=== PATIENT | female | born 1940 | race African-American/Black ===

== ENCOUNTER 2018-11-07 22:36 | Inpatient (IN) | payer MEDICARE, OTHER ==
[~2018-11-07] VITALS: Ht 152.4 cm; Wt 46.0 kg
[2018-11-07] MEDS ORDERED: IV NORMAL SALINE 500ML BAG 500 ML IV ONE (23:30)
--- NOTE | 2018-11-07 23:41 | RAD ---
PQRS Compliance Statement: One or more of the following individualized dose reduction techniques were utilized for this examination: 1. Automated exposure control 2. Adjustment of the mA and/or kV according to patient size 3. Use of iterative reconstruction technique CT HEAD WITHOUT CONTRAST History: head trauma; ams Comparison: CT soft tissue neck without contrast, December 24, 2012. Technique: Axial images are obtained of the head from the skull base through the vertex without IV contrast. Findings: No mass-effect, midline shift, extra-axial fluid collection, hemorrhage, or obvious acute infarction is identified. Basilar cisterns are patent. The ventricles and sulci are normal for patient age. The fourth ventricle is prominent, greater than on prior study. Appearance may be due to cerebellar atrophy. Bone windows demonstrate no acute calvarial abnormality. The visualized paranasal sinuses are clear. Stable low-density tubular opacities in the posterior nasal passageways bilaterally may be polyps. Mastoid air cells are well aerated. IMPRESSION: No acute intracranial abnormality. Electronically signed by: Jose J Kaur MD (11/07/2018 11:37 PM) [facility]
[2018-11-07 23:53] LABS: BASO % 0 % (0-3); EOS % 0 % (0-3); HEMATOCRIT 41.7 % (36.0-47.0); HEMOGLOBIN 13.9 g/dL (12.0-15.5); LYMPH # 0.3 x10^3/uL (1.0-4.8); LYMPH % 5 % (24-48); MEAN CORPUSCULAR HEMOGLOBIN 31 pg (25-35); MEAN CORPUSCULAR HGB CONC 33 g/dL (31-37); MEAN CORPUSCULAR VOLUME 93 fL (79-100); MONO # 0.2 x10^3/uL (0.0-1.1); MONO % 3 % (0-9); NEUT # 5.7 x10^3uL (1.8-7.7); NEUT % 92 % (31-73); PLATELET COUNT 188 x10^3/uL (140-400); RED BLOOD COUNT 4.47 x10^6/uL (3.50-5.40); WHITE BLOOD COUNT 6.2 x10^3/uL (4.0-11.0)
[2018-11-07 23:59] LABS: BILIRUBIN,URINE NEGATIVE (NEG); CLARITY,URINE CLEAR; COLOR,URINE YELLOW; NITRITE,URINE NEGATIVE (NEG); PROTEIN,URINE 100 mg/dL (NEG-TRACE); UROBILINOGEN,URINE 0.2 mg/dL (0.2 mg/dL)
[2018-11-08] VITALS (18 sets, daily range): BP systolic 43–179; BP diastolic 19–77
[2018-11-08 00:04] LABS: WBC,URINE OCC /HPF (0-4)
[2018-11-08 00:05] LABS: AMORPHOUS SEDIMENT,UR PRESENT /HPF; BACTERIA,URINE 0 /HPF (0-FEW); HYALINE CASTS, URINE FEW /HPF; SQUAMOUS EPITHELIAL CELL,UR OCC /LPF
--- NOTE | 2018-11-08 00:12 | PHYS DOC ---
Past Medical History Past Medical History: Asthma, Diabetes-Type II, Other Additional Past Medical Histor: chornic Past Surgical History: Tubal ligation Alcohol Use: None Drug Use: None Adult General Chief Complaint Chief Complaint: SHORTNESS OF BREATH HPI HPI 77-year-old female presents with dyspnea. Family states that she has had increased shortness of breath over the last day or 2. There's been no fever chills or sweats. She has had a bit of a cough but it's been nonproductive. Tonight she became very weak fell and hit her head. She seems to been worse since that time. Patient is really unable to provide any meaningful history secondary to some confusion.[] Review of Systems Review of Systems Review of systems is unobtainable secondary to altered mental status. Current Medications Current Medications Current Medications Medications (Trade) Dose Ordered Sig/Usman Start Time Stop Time Status Last Admin Dose Admin Sodium Chloride 500 ml @ 500 mls/hr 1X ONCE 11/07/18 23:30 11/08/18 00:29 DC 11/07/18 23:44 500 MLS/HR Allergies Allergies Allergies Coded Allergies Type Severity Reaction Last Updated Verified No Known Drug Allergies 06/09/15 No Physical Exam Physical Exam Constitutional: Frail, elderly mild distress. [] HENT: Normocephalic, atraumatic, bilateral external ears normal, oropharynx moist, no oral exudates, nose normal. [] Eyes: PERRLA, EOMI, conjunctiva normal, no discharge. [] Neck: Normal range of motion, no tenderness, supple, no stridor. [] Cardiovascular:Heart rate regular rhythm, no murmur [] Lungs & Thorax: Bilateral breath sounds clear to auscultation [] Abdomen: Bowel sounds normal, soft, no tenderness, no masses, no pulsatile masses. [] Skin: Warm, dry, no erythema, no rash. [] Back: No tenderness, no CVA tenderness. [] Extremities: No tenderness, no cyanosis, no clubbing, ROM intact, no edema. [] Neurologic: Confused, normal motor function, normal sensory function, no focal deficits noted. [] Psychologic: Unable to assess[] Current Patient Data Vital Signs Vital Signs Date Time Temp Pulse Resp B/P (MAP) Pulse Ox O2 Delivery O2 Flow Rate FiO2 11/07/18 23:45 87 38 175/73 (107) 95 Nasal Cannula 2.0 11/07/18 22:41 98.3 98.3 Lab Values Laboratory Tests Test 11/07/18 23:24 11/07/18 23:40 White Blood Count 6.2 x10^3/uL (4.0-11.0) Red Blood Count 4.47 x10^6/uL (3.50-5.40) Hemoglobin 13.9 g/dL (12.0-15.5) Hematocrit 41.7 % (36.0-47.0) Mean Corpuscular Volume 93 fL (79-100) Mean Corpuscular Hemoglobin 31 pg (25-35) Mean Corpuscular Hemoglobin Concent 33 g/dL (31-37) Red Cell Distribution Width 13.0 % (11.5-14.5) Platelet Count 188 x10^3/uL (140-400) Neutrophils (%) (Auto) 92 % (31-73) H Lymphocytes (%) (Auto) 5 % (24-48) L Monocytes (%) (Auto) 3 % (0-9) Eosinophils (%) (Auto) 0 % (0-3) Basophils (%) (Auto) 0 % (0-3) Neutrophils # (Auto) 5.7 x10^3uL (1.8-7.7) Lymphocytes # (Auto) 0.3 x10^3/uL (1.0-4.8) L Monocytes # (Auto) 0.2 x10^3/uL (0.0-1.1) Eosinophils # (Auto) 0.0 x10^3/uL (0.0-0.7) Basophils # (Auto) 0.0 x10^3/uL (0.0-0.2) Platelet Estimate Pending Urine Collection Type U cath Urine Color Yellow Urine Clarity Clear Urine pH 7.0 Urine Specific [place] 1.015 Urine Protein 100 mg/dL (NEG-TRACE) Urine Glucose (UA) Negative mg/dL (NEG) Urine Ketones (Stick) Trace mg/dL (NEG) Urine Blood Trace (NEG) Urine Nitrite Negative (NEG) Urine Bilirubin Negative (NEG) Urine Urobilinogen Dipstick 0.2 mg/dL (0.2 mg/dL) Urine Leukocyte Esterase Negative (NEG) Urine RBC 3-5 /HPF (0-2) Urine WBC Occ /HPF (0-4) Urine Squamous Epithelial Cells Occ /LPF Urine Amorphous Sediment Present /HPF Urine Bacteria 0 /HPF (0-FEW) Urine Hyaline Casts Few /HPF Urine Mucus Mod /LPF Laboratory Tests 11/07/18 23:24 EKG EKG [EKG: Normal sinus rhythm rate of [address]-T changes] Radiology/Procedures Radiology/Procedures [Chest x-ray: Negative exam as interpreted by me] Impressions: PROCEDURE: CT HEAD WO CONTRAST PQRS Compliance Statement: One or more of the following individualized dose reduction techniques were utilized for this examination: 1. Automated exposure control 2. Adjustment of the mA and/or kV according to patient size 3. Use of iterative reconstruction technique CT HEAD WITHOUT CONTRAST History: head trauma; ams Comparison: CT soft tissue neck without contrast, December 24, 2012. Technique: Axial images are obtained of the head from the skull base through the vertex without IV contrast. Findings: No mass-effect, midline shift, extra-axial fluid collection, hemorrhage, or obvious acute infarction is identified. Basilar cisterns are patent. The ventricles and sulci are normal for patient age. The fourth ventricle is prominent, greater than on prior study. Appearance may be due to cerebellar atrophy. Bone windows demonstrate no acute calvarial abnormality. The visualized paranasal sinuses are clear. Stable low-density tubular opacities in the posterior nasal passageways bilaterally may be polyps. Mastoid air cells are well aerated. IMPRESSION: No acute intracranial abnormality. Course & Med Decision Making Course & Med Decision Making Pertinent Labs and Imaging studies reviewed. (See chart for details) [ED course: Evaluation reveals a 77-year-old female with some respiratory distress. Interestingly, her breath sounds are normal but she has a grunting upper respiratory sound. Her posterior pharynx is not swollen. I believe given the acute on chronic nature of this illness I believe we need to keep the patient in the hospital for further evaluation.] Dragon Disclaimer Dragon Disclaimer This electronic medical record was generated, in whole or in part, using a voice recognition dictation system. Departure Departure Impression: Primary Impression: Dyspnea and respiratory abnormalities Disposition: ADMITTED INPATIENT Admitting Physician: Other (farela) Condition: STABLE Referrals: MONIQUE ORNELAS MD (PCP) BLOSSOM LEZAMA DO Nov 08, 2018 00:12
[2018-11-08] MEDS ORDERED: ONDANSETRON PF 4 MG/2 ML VIAL. IV PRN ×2 (00:15→09:45)
[2018-11-08 01:06] LABS: CALCIUM 9.5 mg/dL (8.5-10.1); CREATININE 0.6 mg/dL (0.6-1.0); GFR 117.9; POTASSIUM 3.7 mmol/L (3.5-5.1)
[2018-11-08 01:12] LABS: ALBUMIN 4.1 g/dL (3.4-5.0); TOTAL BILIRUBIN 0.4 mg/dL (0.2-1.0); TOTAL PROTEIN 8.1 g/dL (6.4-8.2)
[2018-11-08 04:23] LABS: % LYMPHS 10 % (24-48); % MONOS 4 % (0-10); % SEGS 86 % (35-66); PLT ESTIMATE ADEQUATE (ADEQUATE)
[2018-11-08] MEDS: IV NORMAL SALINE 1000ML BAG 1,000 ML IV SCH ×3 (04:43→10:03)
[2018-11-08] MEDS: IPRATRPIUM/ALBUTEROL 0.5/2.5MG 3 ML NEBU. NEB SCH ×4 (06:27→20:06)
--- NOTE | 2018-11-08 07:10 | EKG ---
[facility] [address] [place] [address] Test Date: 2018-11-07 Test Time: 22:59:04 Pat Name: LAN JACKSON Department: Room: 2 Gender: F Stock Replenisher: : 1940 Requested By: BLOSSOM LEZAMA Order Number: [id number] Reading MD: Brent Motley MD Measurements Intervals [place] Rate: 77 P: [place]: QRS: 26 QRSD: 76 T: 51 QT: 312 QTc: 355 Interpretive Statements SR PVC'S NON-SPECIFIC ST/T CHANGES Electronically Signed On 11-19-2018 10:07:19 CDT by Brent Motley MD
--- NOTE | 2018-11-08 07:49 | RAD ---
CHEST AP ONLY Clinical Indication: SOA Comparison: 12/22/2012 chest x-ray exam. Findings: The cardiomediastinal silhouette is normal. Left basilar retrocardiac opacity is present raising question of underlying consolidation or mass. Subtle nonspecific interstitial thickening of lung roy. There is no pneumothorax. No pleural effusion is appreciated. No acute bone abnormality. Dextroconvex scoliosis of the thoracolumbar spine is severe with the apex at T11. IMPRESSION: Left basilar retrocardiac opacity which may represent underlying consolidation or mass. Lateral view is recommended for more complete assessment if stability of this finding is unknown. . Electronically signed by: Med Walker MD (11/08/2018 7:46 AM) [facility]
[2018-11-08] MEDS ORDERED: IV NORMAL SALINE 500ML BAG 500 ML IV ONE (08:15)
[2018-11-08] MEDS ORDERED: ETOMIDATE 20 MG/10 ML VIAL. IV ONE (08:33)
[2018-11-08 08:34] LABS: BASE EXCESS ABG 5 mmol/L (-3-3); HCO3 ABG 40 mmol/L (21-28); PO2 ABG 250 mmHg (65-108); SAT O2 ABG 99 % (92-99)
[2018-11-08] MEDS ORDERED: SUCCINYLCHOLINE 200 MG/10 ML VIAL. ONE (08:34)
--- NOTE | 2018-11-08 08:38 | NUR ---
Rapid response called at approx 0740 for sudden onset bradycardia between 43-48. Stat EKG was ordered, rapid team arrived and vital signs taken. BP was 43/19, pt clammy, unresponsive, blood glucose was 245, sats in mid 60's. Fluid increased to 999ml/hr and given 650ml total, pt suctioned, and started to bag. Vitals recovered to a BP of 151/61, O2 sat of 100%, pulse 103, and temp 98.1. Dr. Knapp and ED jeaneth Kemp were notified. [place] responded and intubated and pt transferred to ICU. Family was notified and arrived and were able to discuss situation with Webbing Tacker, Jacque.
--- NOTE | 2018-11-08 09:18 | PDOC1 ---
History and Physical Date of Admission Date of Admission DATE: 11/08/18 TIME: 09:18 Identification/Chief Complaint Chief Complaint SEEN IN ER EARLY AM, TRANSFERED TO ICU WITH RESP FAILURE ON VENT 77-year-old female presents with dyspnea. Family states that she has had increased shortness of breath . There's been no fever chills or sweats. She has had a cough, presented with altered mentation, ct head no bleed in ER, reported hx asthma, unsure now of smoking status Past Medical History Past Medical History Past Medical History Past Medical History Past Medical History: Asthma, Diabetes-Type II, Other Additional Past Medical Histor: chornic Past Surgical History: Tubal ligation Alcohol Use: None Drug Use: None family hx diabetes Pulmonary: Asthma Renal/: No pertinent hx Current Problem List Problem List Problems Medical Problems: (1) Dyspnea and respiratory abnormalities Status: Acute Current Medications Current Medications Current Medications Sodium Chloride 500 ml @ 500 mls/hr 1X ONCE IV Last administered on at 23:44; Start 11/07/18 at 23:30; Stop 11/08/18 at 00:29; Status DC Ondansetron HCl (Zofran) 4 mg PRN Q8HRS PRN IV NAUSEA/VOMITING 1ST CHOICE; Start 11/08/18 at 00:15; Stop 11/09/18 at 00:14 Sodium Chloride 1,000 ml @ 125 mls/hr Q8H IV Last administered on 11/08/18at 04 :43; Start 11/08/18 at 00:30; Stop 11/09/18 at 00:29 Albuterol/ Ipratropium (Duoneb) 3 ml RTQID NEB Last administered on 11/08/18at 06:27; Start 11/08/18 at 08:00; Stop 11/09/18 at 07:59 Etomidate (Amidate) 20 mg STK-MED ONCE IV ; Start 11/08/18 at 08:33; Stop at 08:34; Status DC Succinylcholine Chloride (Anectine) 200 mg STK-MED ONCE .ROUTE ; Start 11/08/18 at 08:34; Stop 11/08/18 at 08:35; Status DC Sodium Chloride 500 ml @ 500 mls/hr 1X ONCE IV ; Start 11/08/18 at 08:15; Stop 11/08/18 at 09:14; Status DC Allergies Allergies: Coded Allergies: No Known Drug Allergies (Unverified , 06/09/15) ROS Review of System UNABLE TO EVAL, SEDATED Physical Exam General: moderate distress HEENT: Atraumatic Lungs: Other (BILATERAL EXP WHEEZES, MODERATE) Heart: S1S2, RRR, no thrills, no gallops Breasts: Not examined Abdomen: Normal bowel sounds, Soft Rectal Exam: not examined PELVIC: Examination not indicated Extremities: No cyanosis Skin: No breakdown Neuro: Cranial nerves 3-12 NL Psych/Mental Status: Mental status NL Vitals Vitals Vital Signs Date Time Temp Pulse Resp B/P (MAP) Pulse Ox O2 Delivery O2 Flow Rate FiO2 11/08/18 07:52 103 6 151/61 (91) 100 Bag 6.0 11/08/18 07:41 98.1 98.1 Labs Labs Laboratory Tests Test 11/07/18 23:24 11/07/18 23:40 11/08/18 00:45 11/08/18 03:15 White Blood Count 6.2 x10^3/uL (4.0-11.0) Red Blood Count 4.47 x10^6/uL (3.50-5.40) Hemoglobin 13.9 g/dL (12.0-15.5) Hematocrit 41.7 % (36.0-47.0) Mean Corpuscular Volume 93 fL (79-100) Mean Corpuscular Hemoglobin 31 pg (25-35) Mean Corpuscular Hemoglobin Concent 33 g/dL (31-37) Red Cell Distribution Width 13.0 % (11.5-14.5) Platelet Count 188 x10^3/uL (140-400) Neutrophils (%) (Auto) 92 % (31-73) Lymphocytes (%) (Auto) 5 % (24-48) Monocytes (%) (Auto) 3 % (0-9) Eosinophils (%) (Auto) 0 % (0-3) Basophils (%) (Auto) 0 % (0-3) Neutrophils # (Auto) 5.7 x10^3uL (1.8-7.7) Lymphocytes # (Auto) 0.3 x10^3/uL (1.0-4.8) Monocytes # (Auto) 0.2 x10^3/uL (0.0-1.1) Eosinophils # (Auto) 0.0 x10^3/uL (0.0-0.7) Basophils # (Auto) 0.0 x10^3/uL (0.0-0.2) Segmented Neutrophils % 86 % (35-66) Lymphocytes % 10 % (24-48) Monocytes % 4 % (0-10) Platelet Estimate Adequate (ADEQUATE) Urine Collection Type U cath Urine Color Yellow Urine Clarity Clear Urine pH 7.0 Urine Specific [place] 1.015 Urine Protein 100 mg/dL (NEG-TRACE) Urine Glucose (UA) Negative mg/dL (NEG) Urine Ketones (Stick) Trace mg/dL (NEG) Urine Blood Trace (NEG) Urine Nitrite Negative (NEG) Urine Bilirubin Negative (NEG) Urine Urobilinogen Dipstick 0.2 mg/dL (0.2 mg/dL) Urine Leukocyte Esterase Negative (NEG) Urine RBC 3-5 /HPF (0-2) Urine WBC Occ /HPF (0-4) Urine Squamous Epithelial Cells Occ /LPF Urine Amorphous Sediment Present /HPF Urine Bacteria 0 /HPF (0-FEW) Urine Hyaline Casts Few /HPF Urine Mucus Mod /LPF Sodium Level 137 mmol/L (136-145) Potassium Level 3.7 mmol/L (3.5-5.1) Chloride Level 97 mmol/L (98-107) Carbon Dioxide Level 35 mmol/L (21-32) Anion Gap 5 (6-14) Blood Urea Nitrogen 15 mg/dL (7-20) Creatinine 0.6 mg/dL (0.6-1.0) Estimated GFR (Cockcroft-Gault) 117.9 BUN/Creatinine Ratio 25 (6-20) Glucose Level 139 mg/dL (70-99) Lactic Acid Level 0.7 mmol/L (0.4-2.0) Calcium Level 9.5 mg/dL (8.5-10.1) Total Bilirubin 0.4 mg/dL (0.2-1.0) Aspartate Amino Transf (AST/SGOT) 22 U/L (15-37) Alanine Aminotransferase (ALT/SGPT) 24 U/L (14-59) Alkaline Phosphatase 85 U/L (46-116) Troponin I Quantitative < 0.017 ng/mL (0.000-0.055) < 0.017 ng/mL (0.000-0.055) GY-Xhg-L-Type Natriuretic Peptide 335 pg/mL (0-449) Total Protein 8.1 g/dL (6.4-8.2) Albumin 4.1 g/dL (3.4-5.0) Albumin/Globulin Ratio 1.0 (1.0-1.7) Test 11/08/18 07:57 11/08/18 08:30 Glucose (Fingerstick) 245 mg/dL (70-99) Troponin I Quantitative < 0.017 ng/mL (0.000-0.055) Laboratory Tests Test 11/07/18 23:24 11/07/18 23:40 11/08/18 00:45 11/08/18 03:15 White Blood Count 6.2 x10^3/uL (4.0-11.0) Red Blood Count 4.47 x10^6/uL (3.50-5.40) Hemoglobin 13.9 g/dL (12.0-15.5) Hematocrit 41.7 % (36.0-47.0) Mean Corpuscular Volume 93 fL (79-100) Mean Corpuscular Hemoglobin 31 pg (25-35) Mean Corpuscular Hemoglobin Concent 33 g/dL (31-37) Red Cell Distribution Width 13.0 % (11.5-14.5) Platelet Count 188 x10^3/uL (140-400) Neutrophils (%) (Auto) 92 % (31-73) Lymphocytes (%) (Auto) 5 % (24-48) Monocytes (%) (Auto) 3 % (0-9) Eosinophils (%) (Auto) 0 % (0-3) Basophils (%) (Auto) 0 % (0-3) Neutrophils # (Auto) 5.7 x10^3uL (1.8-7.7) Lymphocytes # (Auto) 0.3 x10^3/uL (1.0-4.8) Monocytes # (Auto) 0.2 x10^3/uL (0.0-1.1) Eosinophils # (Auto) 0.0 x10^3/uL (0.0-0.7) Basophils # (Auto) 0.0 x10^3/uL (0.0-0.2) Segmented Neutrophils % 86 % (35-66) Lymphocytes % 10 % (24-48) Monocytes % 4 % (0-10) Platelet Estimate Adequate (ADEQUATE) Urine Collection Type U cath Urine Color Yellow Urine Clarity Clear Urine pH 7.0 Urine Specific [place] 1.015 Urine Protein 100 mg/dL (NEG-TRACE) Urine Glucose (UA) Negative mg/dL (NEG) Urine Ketones (Stick) Trace mg/dL (NEG) Urine Blood Trace (NEG) Urine Nitrite Negative (NEG) Urine Bilirubin Negative (NEG) Urine Urobilinogen Dipstick 0.2 mg/dL (0.2 mg/dL) Urine Leukocyte Esterase Negative (NEG) Urine RBC 3-5 /HPF (0-2) Urine WBC Occ /HPF (0-4) Urine Squamous Epithelial Cells Occ /LPF Urine Amorphous Sediment Present /HPF Urine Bacteria 0 /HPF (0-FEW) Urine Hyaline Casts Few /HPF Urine Mucus Mod /LPF Sodium Level 137 mmol/L (136-145) Potassium Level 3.7 mmol/L (3.5-5.1) Chloride Level 97 mmol/L (98-107) Carbon Dioxide Level 35 mmol/L (21-32) Anion Gap 5 (6-14) Blood Urea Nitrogen 15 mg/dL (7-20) Creatinine 0.6 mg/dL (0.6-1.0) Estimated GFR (Cockcroft-Gault) 117.9 BUN/Creatinine Ratio 25 (6-20) Glucose Level 139 mg/dL (70-99) Lactic Acid Level 0.7 mmol/L (0.4-2.0) Calcium Level 9.5 mg/dL (8.5-10.1) Total Bilirubin 0.4 mg/dL (0.2-1.0) Aspartate Amino Transf (AST/SGOT) 22 U/L (15-37) Alanine Aminotransferase (ALT/SGPT) 24 U/L (14-59) Alkaline Phosphatase 85 U/L (46-116) Troponin I Quantitative < 0.017 ng/mL (0.000-0.055) < 0.017 ng/mL (0.000-0.055) RO-Xct-O-Type Natriuretic Peptide 335 pg/mL (0-449) Total Protein 8.1 g/dL (6.4-8.2) Albumin 4.1 g/dL (3.4-5.0) Albumin/Globulin Ratio 1.0 (1.0-1.7) Test 11/08/18 07:57 11/08/18 08:30 Glucose (Fingerstick) 245 mg/dL (70-99) Troponin I Quantitative < 0.017 ng/mL (0.000-0.055) Images Images CT HEAD WITHOUT CONTRAST History: head trauma; ams Comparison: CT soft tissue neck without contrast, December 24, 2012. Technique: Axial images are obtained of the head from the skull base through the vertex without IV contrast. Findings: No mass-effect, midline shift, extra-axial fluid collection, hemorrhage, or obvious acute infarction is identified. Basilar cisterns are patent. The ventricles and sulci are normal for patient age. The fourth ventricle is prominent, greater than on prior study. Appearance may be due to cerebellar atrophy. Bone windows demonstrate no acute calvarial abnormality. The visualized paranasal sinuses are clear. Stable low-density tubular opacities in the posterior nasal passageways bilaterally may be polyps. Mastoid air cells are well aerated. IMPRESSION: No acute intracranial abnormality. REASON: soa PROCEDURE: CHEST AP ONLY CHEST AP ONLY Clinical Indication: SOA Comparison: 12/22/2012 chest x-ray exam. Findings: The cardiomediastinal silhouette is normal. Left basilar retrocardiac opacity is present raising question of underlying consolidation or mass. Subtle nonspecific interstitial thickening of lung roy. There is no pneumothorax. No pleural effusion is appreciated. No acute bone abnormality. Dextroconvex scoliosis of the thoracolumbar spine is severe with the apex at T11. IMPRESSION: Left basilar retrocardiac opacity which may represent underlying consolidation or mass. Lateral view is recommended for more complete assessment if stability of this finding is unknown. . Electronically signed by: Med Walker MD (11/08/2018 7:46 AM) [facility] VTE Prophylaxis Ordered VTE Prophylaxis Devices: Yes VTE Pharmacological Prophylaxi: Yes Assessment/Plan Assessment/Plan IMPRESSION ACUTE HYPOXIC RESP FAILURE REQUIRING VENT SUPPORT Left basilar retrocardiac opacity which may represent underlying consolidation or mass. Altered mental status, suspect hypercapnic failure , BY CT HEAD , No acute intracranial abnormality HYPERTENSION diabetes ASTHMA EXAC, ACUTE, SEVERE PLAN EMPERIC IV ANTIBIOTICS PULM CONSULT ID CONSULT. VENT SUPPORT DVT prophylaxis gi prophylaxis neurology consult procalcitonin blood culture sputum culture ACCUCHECKS, SS INSULIN IV STEROIDS ECHO 34 MIN CC TIME TORSTEN MILLER MD Nov 08, 2018 09:18
[2018-11-08 09:25] LABS: FIO2 ABG 100; PCO2 ABG 147 mmHg (35-46)
[2018-11-08] MEDS ORDERED: PIP/TAZO PER PHARMACY MC PRN (09:30)
[2018-11-08] MEDS ORDERED: MORPHINE SULFATE 4 MG/ML VIAL. IV PRN (09:45)
[2018-11-08] MEDS ORDERED: methylPREDNISolone SOD SUCC PF 40 MG/ML VIAL. IV SCH (09:45)
[2018-11-08] MEDS ORDERED: MORPHINE SULFATE 2 MG/ML VIAL. IV PRN (09:45)
[2018-11-08] MEDS ORDERED: IPRATRPIUM/ALBUTEROL 0.5/2.5MG 3 ML NEBU. NEB SCH (09:45)
[2018-11-08] MEDS ORDERED: ACETAMINOPHEN 650 MG/20.3 ML SOLUTION. GT PRN (09:45)
[2018-11-08] MEDS ORDERED: ACETAMINOPHEN 650 MG SUPP.RECT. PR PRN (09:45)
[2018-11-08] MEDS ORDERED: fentaNYL PF VIAL 100 MCG/2 ML VIAL IV PRN (09:45)
[2018-11-08] MEDS ORDERED: hydrALAZINE 20 MG/ML VIAL. IVP PRN (09:45)
--- NOTE | 2018-11-08 09:54 | PDOC ---
Provider Note Provider Note [id number] acute on chronic resp fail ae of copd acute bronchitis see orders HUEY CHAUDHARI MD Nov 08, 2018 09:54
--- NOTE | 2018-11-08 09:59 | RAD ---
Examination: Single frontal view of the chest HISTORY: History of intubation COMPARISON: 11/07/2018. FINDINGS: The ET tube is identified in the trachea with the tip at the level of the fabian. The cardiomediastinal silhouette grossly appears unremarkable. The NG tube is identified seen below the diaphragm likely within the stomach. Minimal prominent appearing interstitial lung markings likely mild congestive changes. IMPRESSION: 1. Mild prominent bilateral interstitial lung markings could be mild congestive changes. 2. ET tube, feeding tube as described above. Electronically signed by: Niels Felipe MD (11/08/2018 9:55 AM) [facility]
[2018-11-08] MEDS ORDERED: DEXTROSE 50% 25 GM / 50ML DISP.SYRIN. IV PRN (10:00)
[2018-11-08] MEDS: PIPERACILLIN/TAZOBACTAM 3.375 GM in IV NORMAL SALINE 50ML 50 ML IV SCH ×3 (10:05→21:31)
[2018-11-08] MEDS: PANTOPRAZOLE IV PUSH 40 MG VIAL. IVP SCH (10:08)
--- NOTE | 2018-11-08 10:41 | CONS ---
DATE OF CONSULTATION: 11/08/2018 REASON FOR CONSULTATION: I was asked to see this 77-year-old lady for acute respiratory failure. HISTORY OF PRESENT ILLNESS: All of the information was obtained from chart, nursing staff. The patient is currently intubated and sedated. She was admitted with increased shortness of breath. She has history of asthma. Rapid response was called on her earlier this morning, she was found unresponsive. An ABG was done, pH 7.05, pCO2 of 147, pO2 of 250 on 100% FiO2. The patient was intubated and transferred to ICU. She is currently in ICU. She is intubated and sedated. PAST MEDICAL HISTORY: Asthma, diabetes mellitus. ALLERGIES: No known drug allergies. MEDICATIONS: Currently, she is on Zosyn, Lovenox, propofol, DuoNeb. SOCIAL HISTORY: Unable to obtain. She is intubated and sedated. FAMILY HISTORY: Unable to obtain. The patient is intubated and sedated. REVIEW OF SYSTEMS: As mentioned as above. I have discussed the patient with RN and RT. Other systems are otherwise negative. PHYSICAL EXAMINATION: GENERAL: The patient is a frail lady, on the ventilator, assist control FiO2 of 30%. HEENT: Normocephalic, atraumatic. Pupils equal, round, reactive to light. She is orally intubated. Nose is clear. NECK: There is no JVD, lymphadenopathy or thyromegaly. CARDIOVASCULAR: Regular rate and rhythm. PMI is nondisplaced. CHEST: Inspection is normal. LUNGS: There is end-expiratory wheezing, dullness at the bases. ABDOMEN: Soft. Bowel sounds are good. There is no mass. EXTREMITIES: There is no edema. LYMPHATICS: There is no lymphadenopathy. NEUROLOGIC: She is on the ventilator, sedated. SKIN: Chronic changes. VITAL SIGNS: Temperature 98.1, heart rate 100, respiratory rate 22, blood pressure 126/68. LABORATORY DATA: I reviewed the following lab data: Chest x-ray shows cardiomegaly, bilateral hyperinflation, increased interstitial marking. ET tube is at the level of fabian. ABG as mentioned above. WBC 6.2, hemoglobin 13.9, platelets 188. Troponin 0.017. Sodium 137, potassium 3.7, chloride 97, CO2 of 35, glucose 139, BUN 15, creatinine 0.6. Lactic acid 0.7. BNP 335. IMPRESSION: 1. Acute on chronic hypoxemic and hypercarbic respiratory failure secondary to acute exacerbation of chronic obstructive pulmonary disease versus others. 2. Abnormal chest x-ray. 3. Acute exacerbation of chronic obstructive pulmonary disease. 4. Acute bronchitis. 5. Diabetes mellitus. PLAN AND RECOMMENDATIONS: 1. Titrate FiO2 to keep O2 saturation 94%. 2. Continue ventilator support. Vent setting was reviewed. We will do ABG and change vent setting per ABG results. 3. Bronchodilator. 4. Add Solu-Medrol 40 mg IV every 8 hours. Monitor blood sugar while she is on Solu-Medrol. 5. Agree with antibiotic. 6. Nasal swab for influenza A and B. 7. Procalcitonin. 8. Echocardiogram. 9. Lovenox for DVT prophylaxis. 10. Add Pepcid for stress ulcer prophylaxis. 11. Elevate head of bed. 12. Chest x-ray was reviewed. ET tube is too far in. I will pull out about 3 cm, check a chest x-ray to confirm good position. 13. The findings and recommendations were discussed with RN and RT. Thank you very much for allowing me to participate in care of this very nice lady. HUEY CHAUDHARI M.D. : PEG/xiomara JOB#: [id number] / [id number]
--- NOTE | 2018-11-08 10:42 | NUR ---
Wound care: Patient seen per wound care consult. See wound assessment. Patient has stage II pressure ulcer to medial coccyx. Wound is cleansed and assessed. Recommendations for vaseline gauze and Aquacel foam dressing. Dressing applied and patient tolerated well. No other wounds noted upon complete head to toe assessment. Patient repositioned and turned to left side. Bilateral heels floated. Dressing change instructions left in room. Family at bedside. Patient on ICU bed at this time. Bed lowered. Will follow regarding wound care.
[2018-11-08 10:49] LABS: BASE EXCESS COOX 8 mmol/L (-3-3); HCO3 COOX 28 mmol/L (21-28); METHEMOGLOBIN 0.4 % (0.0-1.9); OXYHEMOGLOBIN 97.7 %; PCO2 COOX 25 mmHg (35-46); PO2 COOX 74 mmHg (65-108); SAT O2 COOX 98 % (92-99)
[2018-11-08] MEDS: ENOXAPARIN 40 MG/0.4 ML SYRINGE. SQ SCH (11:15)
--- NOTE | 2018-11-08 11:16 | CARD ---
MR#: [id number] Date of Study: 11/08/2018 Ordering Physician: TORSTEN MILLER, Referring Physician: ELVIA PEREZ Tech: Iqra Ladd RDCS APPROVED REPORT EXAM: Two-dimensional and M-mode echocardiogram with Doppler and color Doppler. Other Information Quality : Technically Limited Technically limited study due to rib spacing/intubation. INDICATION Hypertension/HCVD 2D DIMENSIONS RVDd2.0 (2.9-3.5cm)Left Atrium(2D)1.9 (1.6-4.0cm) IVSd1.0 (0.7-1.1cm)Aortic Root(2D)2.2 (2.0-3.7cm) LVDd2.3 (3.9-5.9cm)LVOT Diameter2.0 (1.8-2.4cm) PWd1.2 (0.7-1.1cm)LVDs1.7 (2.5-4.0cm) FS (%) 25.7 %SV9.6 ml LVEF(%)60.0 (>50%) Aortic Valve AoV Peak Eliseo.125.9cm/sAoV VTI19.9cm AO Peak GR.6.3mmHgLVOT Peak Eliseo.107.1cm/s LVOT VTI 16.60cmAO Mean GR.4mmHg RAHAT (VMAX)2.58vr8RIG (VTI)2.55cm2 Mitral Valve MV E Qlsgnpkz24.5cm/sMV DECEL NOVY452tj MV A Pjwmxkze53.2cm/sMV JUE40wd E/A Ratio0.8MVA (PHT)2.62cm2 TDI E/Lateral E'6.4E/Medial E'7.9 Tricuspid Valve TR P. Hioujdgt417dr/sRAP JXXQQEWY9xlLk TR Peak Gr.30poWaAJZX75htGo LEFT VENTRICLE The left ventricle is normal size. There is mild concentric left ventricular hypertrophy. The left ve ntricular systolic function is normal. The Ejection Fraction is 65-70%. There is normal LV segmental wall motion. Transmitral Doppler flow pattern is Grade I-abnormal relaxation pattern. RIGHT VENTRICLE The right ventricle is normal size. The right ventricular systolic function is normal. ATRIA The left atrium size is normal. The right atrium size is normal. The interatrial septum is intact wit h no evidence for an atrial septal defect or patent foramen ovale as noted on 2-D or Doppler imaging. AORTIC VALVE The aortic valve is not well visualized but appears to be Doppler and Color Flow revealed no signific ant aortic regurgitation. There is no significant aortic valvular stenosis. MITRAL VALVE The mitral valve is calcified but opens well. There is no evidence of mitral valve prolapse. There is no mitral valve stenosis. Doppler and Color Flow revealed no mitral valve regurgitation noted. TRICUSPID VALVE The tricuspid valve is normal in structure and function. Doppler and Color Flow revealed trace tricus pid regurgitation. The PA pressure was estimated at 20 mmHg. There is no tricuspid valve stenosis. PULMONIC VALVE The pulmonic valve is not well visualized. Doppler and Color Flow revealed no pulmonic valvular regur gitation. There is no pulmonic valvular stenosis. GREAT VESSELS The aortic root is normal in size. The ascending aorta is normal in size. The IVC is normal in size a nd collapses >50% with inspiration. PERICARDIAL EFFUSION There is no evidence of significant pericardial effusion. Critical Notification Critical Value: No <Conclusion> The left ventricular systolic function is normal. The Ejection Fraction is 65-70%. There is normal LV segmental wall motion. Transmitral Doppler flow pattern is Grade I-abnormal relaxation pattern. Doppler and Color Flow revealed trace tricuspid regurgitation. The PA pressure was estimated at 20 mmHg. There is no evidence of significant pericardial effusion. Signed by : Nirav Pacheco, Electronically Approved : 11/08/2018 11:16:14
--- NOTE | 2018-11-08 11:30 | PDOC ---
Infectious Disease Note Vital Sign Vital Signs Vital Signs Date Time Temp Pulse Resp B/P (MAP) Pulse Ox O2 Delivery O2 Flow Rate FiO2 11/08/18 07:52 103 6 151/61 (91) 100 Bag 6.0 11/08/18 07:41 98.1 98.1 Labs Lab Laboratory Tests Test 11/07/18 23:24 11/07/18 23:40 11/08/18 00:45 11/08/18 03:15 White Blood Count 6.2 x10^3/uL (4.0-11.0) Red Blood Count 4.47 x10^6/uL (3.50-5.40) Hemoglobin 13.9 g/dL (12.0-15.5) Hematocrit 41.7 % (36.0-47.0) Mean Corpuscular Volume 93 fL (79-100) Mean Corpuscular Hemoglobin 31 pg (25-35) Mean Corpuscular Hemoglobin Concent 33 g/dL (31-37) Red Cell Distribution Width 13.0 % (11.5-14.5) Platelet Count 188 x10^3/uL (140-400) Neutrophils (%) (Auto) 92 % (31-73) Lymphocytes (%) (Auto) 5 % (24-48) Monocytes (%) (Auto) 3 % (0-9) Eosinophils (%) (Auto) 0 % (0-3) Basophils (%) (Auto) 0 % (0-3) Neutrophils # (Auto) 5.7 x10^3uL (1.8-7.7) Lymphocytes # (Auto) 0.3 x10^3/uL (1.0-4.8) Monocytes # (Auto) 0.2 x10^3/uL (0.0-1.1) Eosinophils # (Auto) 0.0 x10^3/uL (0.0-0.7) Basophils # (Auto) 0.0 x10^3/uL (0.0-0.2) Segmented Neutrophils % 86 % (35-66) Lymphocytes % 10 % (24-48) Monocytes % 4 % (0-10) Platelet Estimate Adequate (ADEQUATE) Urine Collection Type U cath Urine Color Yellow Urine Clarity Clear Urine pH 7.0 Urine Specific [place] 1.015 Urine Protein 100 mg/dL (NEG-TRACE) Urine Glucose (UA) Negative mg/dL (NEG) Urine Ketones (Stick) Trace mg/dL (NEG) Urine Blood Trace (NEG) Urine Nitrite Negative (NEG) Urine Bilirubin Negative (NEG) Urine Urobilinogen Dipstick 0.2 mg/dL (0.2 mg/dL) Urine Leukocyte Esterase Negative (NEG) Urine RBC 3-5 /HPF (0-2) Urine WBC Occ /HPF (0-4) Urine Squamous Epithelial Cells Occ /LPF Urine Amorphous Sediment Present /HPF Urine Bacteria 0 /HPF (0-FEW) Urine Hyaline Casts Few /HPF Urine Mucus Mod /LPF Sodium Level 137 mmol/L (136-145) Potassium Level 3.7 mmol/L (3.5-5.1) Chloride Level 97 mmol/L (98-107) Carbon Dioxide Level 35 mmol/L (21-32) Anion Gap 5 (6-14) Blood Urea Nitrogen 15 mg/dL (7-20) Creatinine 0.6 mg/dL (0.6-1.0) Estimated GFR (Cockcroft-Gault) 117.9 BUN/Creatinine Ratio 25 (6-20) Glucose Level 139 mg/dL (70-99) Lactic Acid Level 0.7 mmol/L (0.4-2.0) Calcium Level 9.5 mg/dL (8.5-10.1) Total Bilirubin 0.4 mg/dL (0.2-1.0) Aspartate Amino Transf (AST/SGOT) 22 U/L (15-37) Alanine Aminotransferase (ALT/SGPT) 24 U/L (14-59) Alkaline Phosphatase 85 U/L (46-116) Troponin I Quantitative < 0.017 ng/mL (0.000-0.055) < 0.017 ng/mL (0.000-0.055) PD-Fxt-P-Type Natriuretic Peptide 335 pg/mL (0-449) Total Protein 8.1 g/dL (6.4-8.2) Albumin 4.1 g/dL (3.4-5.0) Albumin/Globulin Ratio 1.0 (1.0-1.7) Test 11/08/18 07:57 11/08/18 08:20 11/08/18 08:30 11/08/18 10:15 Glucose (Fingerstick) 245 mg/dL (70-99) O2 Saturation 99 % (92-99) Arterial Blood pH 7.05 (7.35-7.45) Arterial Blood pCO2 at Patient Temp 147 mmHg (35-46) Arterial Blood pO2 at Patient Temp 250 mmHg (65-108) Arterial Blood HCO3 40 mmol/L (21-28) Arterial Blood Base Excess 5 mmol/L (-3-3) FiO2 100 Troponin I Quantitative < 0.017 ng/mL (0.000-0.055) Procalcitonin < 0.10 ng/mL (0.00-0.10) Lactic Acid Level 3.2 mmol/L (0.4-2.0) Test 11/08/18 10:45 O2 Saturation 98 % (92-99) Arterial Blood pH 7.67 (7.35-7.45) Arterial Blood pCO2 at Patient Temp 25 mmHg (35-46) Arterial Blood pO2 at Patient Temp 74 mmHg (65-108) Arterial Blood HCO3 28 mmol/L (21-28) Arterial Blood Base Excess 8 mmol/L (-3-3) Oxyhemoglobin 97.7 % Methemoglobin 0.4 % (0.0-1.9) Carbon Monoxide, Quantitative 0.0 % (0.0-1.9) FiO2 30% Objective Assessment Hypercarbic respiratory failure Asthma DM Pneumonia Lactic acidosis Plan Plan of Care zosyn d/c levaquin supportive care byrne culture d/w daughter BROOK BURGER MD Nov 08, 2018 11:30
--- NOTE | 2018-11-08 11:34 | EKG ---
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
[2018-11-08] MEDS: INSULIN LISPRO 300 UNITS/3 ML INSULN.PEN. SQ SCH ×2 (12:00→16:53)
--- NOTE | 2018-11-08 13:35 | RAD ---
Examination: Single frontal view the chest HISTORY: History of repositioning of the ET tube COMPARISON: Same day exam 9:12 AM. FINDINGS: The ET tube identified in the distal trachea. The visualized NG tube is below the left hemidiaphragm likely within the stomach. The cardiomediastinal silhouette demonstrates mild cardiomegaly. There is mild prominent appearing bilateral interstitial lung markings. Impression: 1. ET tube, feeding tube in place. 2. Mild prominent bilateral interstitial lung markings likely mild congestive changes. Electronically signed by: Niels Felipe MD (11/08/2018 1:32 PM) [id number]
--- NOTE | 2018-11-08 14:04 | RAD ---
AP view of the abdomen Clinical indications: OG tube placement. FINDINGS: Tip of an NG tube is seen within the proximal body of the stomach. The proximal port is seen within the proximal body of the stomach. No air-filled dilatation of the stomach is seen. There is mild diffuse air-filled dilatation of the small bowel and colon. Therefore no obstructive bowel pattern is evident. Mild fecal retention is seen within the rectum. Calcified uterine fibroid is evident within the central pelvis. Surgical clips are seen within the pelvis. IMPRESSION: Tip of the NG tube is located within the proximal body of the stomach. Moderate fecal retention within the rectum. Electronically signed by: Mark Childers MD (11/08/2018 2:01 PM) [id number]
--- NOTE | 2018-11-08 16:34 | PDOC2 ---
NEUROLOGY CONSULT Date of Admission Date of Admission DATE: 11/08/18 TIME: 16:06 Reason for Consult Reason for Consult: IMPRESSION: Metabolic encephalopathy. Respiratory failure. Lactic acidosis. DM. Fall. HTN. Hypotension event. RECOMMENDATIONS/PLAN: HCT performed and ICH ruled out. EEG. Lab: see orders. Treat medical diseases. Discussed with her daughter at bedside in ICU on 11/08/18. HISTORY OF THE PRESENT ILLNESS: This is a 77-year-old AA female patient with above medical diseases was brought to the ER of [facility]. She developed symptoms of SOB and dyspnea. Family noted that she had increased shortness of breath. She had a fall reportedly hurt her head. HCT showed no SDH, SAH and ICH. Due to respiratory distress/failure, she was intubated. Past Medical History Asthma, Diabetes-Type II. PAST SURGERY HISTORY: Tubal ligation ALLERGY: NKDA MEDICATIONS: Refer to [facility] FAMILY HISTORY: DM. SOCIAL HISTORY: Lives at home. Denies current smoking, drinking, and illicit drug use. REVIEW OF SYSTEMS: Constitutional: No malnutrition or cachexia. Head: No traumatic brain injury. Skin: No edema, or rash. Ear: No infection. Eyes: No vision loss or color blindness. Nose: No bleeding or purulent discharges. Hearing: Hearing decrease. Neck: No injury. Breast: No history of cancer, masses,or discharges. Cardiac: HTN. Pulmonary: Asthma. SOB.. GI: No GI ulcer, GI bleeding. Urinary/genital: UTI. Endocrinologic: Diabetes Mellitus. Skeletomuscular: No muscular atrophy. Neurological: see HP. Psychiatric: Denies drug use/abuse. Otherwise, not [id number] review of systems. PHYSICAL EXAMINATION: General appearance is in acute distress. HEENT: Normocephalic and nontraumatic. Eyes, nose, ears, and throat are unremarkable. Neck is supple. No lymphadenopathy. No crepitus. Cardiovascular: S1, S2, regular rate and rhythm. Pulmonary: On vent. Abdomen: Bowel sounds are positive. Extremities: No rash, lesions, or edema. No restriction of range of motion NEUROLOGICAL EXAMINATION: On vent. Unresponsive. Not oriented to time, place and person. PERRL. EOMI not elicited. CN: no acute focal findings. Muscle tone: Decreased. Muscle strength: Minimal movements noted. DTR: 1+ Plantar reflex: Neutral response bilaterally Gait: Unable to walk. Sensory exam: no abnormal findings. Not able to access cerebellar signs. F-T-N test nor performed due to unresponsiveness. Current Medications Current Medications Current Medications Sodium Chloride 500 ml @ 500 mls/hr 1X ONCE IV Last administered on at 23:44; Start 11/07/18 at 23:30; Stop 11/08/18 at 00:29; Status DC Ondansetron HCl (Zofran) 4 mg PRN Q8HRS PRN IV NAUSEA/VOMITING 1ST CHOICE; Start 11/08/18 at 00:15; Stop 11/09/18 at 00:14 Sodium Chloride 1,000 ml @ 125 mls/hr Q8H IV Last administered on 11/08/18at 04 :43; Start 11/08/18 at 00:30; Stop 11/08/18 at 11:20; Status DC Albuterol/ Ipratropium (Duoneb) 3 ml RTQID NEB Last administered on 11/08/18at 06:27; Start 11/08/18 at 08:00; Stop 11/09/18 at 07:59 Etomidate (Amidate) 20 mg STK-MED ONCE IV ; Start 11/08/18 at 08:33; Stop at 08:34; Status DC Succinylcholine Chloride (Anectine) 200 mg STK-MED ONCE .ROUTE ; Start 11/08/18 at 08:34; Stop 11/08/18 at 08:35; Status DC Sodium Chloride 500 ml @ 500 mls/hr 1X ONCE IV Last administered on at 08:15; Start 11/08/18 at 08:15; Stop 11/08/18 at 09:14; Status DC Piperacillin Sod/ Tazobactam Sod (Zosyn Per Pharmacy) 1 each PRN DAILY PRN MC SEE COMMENTS; Start 11/08/18 at 09:30 Propofol 100 ml @ 0 mls/hr CONT PRN IV SEDATION; Start 11/08/18 at 09:30 Enoxaparin Sodium (Lovenox 40mg Syringe) 40 mg Q24H SQ Last administered on 06/18at 11:15; Start 11/08/18 at 09:30 Pantoprazole Sodium (PROTONIX VIAL for IV PUSH) 40 mg DAILYAC IVP Last administered on 11/08/18at 10:08; Start 11/08/18 at 10:00 Piperacillin Sod/ Tazobactam Sod 3.375 gm/Sodium Chloride 50 ml @ 100 mls/hr Q6H IV Last administered on 11/08/18at 13:00; Start 11/08/18 at 10:00 Hydralazine HCl (Apresoline Inj) 10 mg PRN Q4HRS PRN IVP ELEVATED BP, SEE COMMENTS; Start 11/08/18 at 09:45 Sodium Chloride 1,000 ml @ 100 mls/hr Q10H IV Last administered on 11/08/18at 10:03; Start 11/08/18 at 09:38 Ondansetron HCl (Zofran) 4 mg PRN Q4HRS PRN IV NAUSEA/VOMITING; Start 11/08/18 at 09:45 Acetaminophen (Tylenol) 650 mg PRN Q4HRS PRN GT TEMP OVER 100.4F OR MILD PAIN; Start 11/08/18 at 09:45 Acetaminophen (Tylenol Supp) 650 mg PRN Q4HRS PRN NM TEMP OVER 100.4F OR MILD PAIN; Start 11/08/18 at 09:45 Albuterol/ Ipratropium (Duoneb) 3 ml Q4H NEB ; Start 11/08/18 at 09:45; Status Cancel Levofloxacin/ Dextrose 100 ml @ 100 mls/hr Q24H IV Last administered on at 11:14; Start 11/08/18 at 10:00; Stop 11/08/18 at 11:21; Status DC Methylprednisolone Sodium Succinate (SOLU-Medrol 40MG VIAL) 40 mg Q8HRS IV ; Start 11/08/18 at 09:45; Status Cancel Famotidine (Pepcid Vial) 20 mg DAILY IVP ; Start 11/09/18 at 09:00 Fentanyl Citrate 30 ml @ 0 mls/hr CONT PRN IV SEE PROTOCOL; Start 11/08/18 at 09:45 Fentanyl Citrate (Fentanyl 2ml Vial) 25 mcg PRN Q1HR PRN IV SEE COMMENTS; Start 11/08/18 at 09:45 Fentanyl Citrate (Fentanyl 2ml Vial) 50 mcg PRN Q1HR PRN IV SEE COMMENTS; Start 11/08/18 at 09:45 Morphine Sulfate (Morphine Sulfate) 2 mg PRN Q1HR PRN IV SEE COMMENTS.; Start 11/08/18 at 09:45; Status UNV Morphine Sulfate (Morphine Sulfate) 4 mg PRN Q1HR PRN IV SEE COMMENTS.; Start 11/08/18 at 09:45; Status UNV Insulin Human Lispro (HumaLOG) 0-5 UNITS TIDWMEALS SQ ; Start 11/08/18 at 12:00 Dextrose (Dextrose 50%-Water Syringe) 12.5 gm PRN Q15MIN PRN IV SEE COMMENTS; Start 11/08/18 at 10:00 Methylprednisolone Sodium Succinate (SOLU-Medrol 125MG VIAL) 100 mg Q8HRS IV ; Start 11/08/18 at 14:00 Allergies Allergies: Allergies Coded Allergies Type Severity Reaction Last Updated Verified No Known Drug Allergies 06/09/15 No ROS Review of System The patient denies any associated fevers, chills, headache, ear pain, rhinorrhea , sore throat, stiff neck, productive cough, chest pain, shortness of breath, back or flank pain, abdominal pain, nausea, vomiting, diarrhea, constipation, dysuria, rash, numbness, weakness, tingling, incontinence, difficulty ambulating, or diaphoresis. Physical Exam Physical Exam General: Well developed, well nourished, no acute distress, well appearing HEENT: Pupils equally round and reactive to light, EOMI, no discharge, normal conjunctiva Neck: Supple, no nuchal rigidity, no JVD, trachea midline, no tenderness Cardiac: RRR, no murmurs, no gallops, no rubs Chest/Lungs: CTAB, no wheeze, no rhonchi, no crackles Abdomen: soft, non-distended, no guarding, no peritoneal signs, non-tender Back: No tenderness Extremities: no edema, pulses intact, non-tender,capillary refill <3 sec bilateral upper and lower extremities, Neuro: Alert and oriented x 4, no focal deficits, normal speech Vitals Vitals: Vital Signs Date Time Temp Pulse Resp B/P (MAP) Pulse Ox O2 Delivery O2 Flow Rate FiO2 11/08/18 15:12 100 Ventilator 11/08/18 07:52 103 6 151/61 (91) 6.0 11/08/18 07:41 98.1 98.1 Labs Labs Laboratory Tests Test 11/07/18 23:24 11/07/18 23:40 11/08/18 00:45 11/08/18 03:15 White Blood Count 6.2 x10^3/uL (4.0-11.0) Red Blood Count 4.47 x10^6/uL (3.50-5.40) Hemoglobin 13.9 g/dL (12.0-15.5) Hematocrit 41.7 % (36.0-47.0) Mean Corpuscular Volume 93 fL (79-100) Mean Corpuscular Hemoglobin 31 pg (25-35) Mean Corpuscular Hemoglobin Concent 33 g/dL (31-37) Red Cell Distribution Width 13.0 % (11.5-14.5) Platelet Count 188 x10^3/uL (140-400) Neutrophils (%) (Auto) 92 % (31-73) Lymphocytes (%) (Auto) 5 % (24-48) Monocytes (%) (Auto) 3 % (0-9) Eosinophils (%) (Auto) 0 % (0-3) Basophils (%) (Auto) 0 % (0-3) Neutrophils # (Auto) 5.7 x10^3uL (1.8-7.7) Lymphocytes # (Auto) 0.3 x10^3/uL (1.0-4.8) Monocytes # (Auto) 0.2 x10^3/uL (0.0-1.1) Eosinophils # (Auto) 0.0 x10^3/uL (0.0-0.7) Basophils # (Auto) 0.0 x10^3/uL (0.0-0.2) Segmented Neutrophils % 86 % (35-66) Lymphocytes % 10 % (24-48) Monocytes % 4 % (0-10) Platelet Estimate Adequate (ADEQUATE) Urine Collection Type U cath Urine Color Yellow Urine Clarity Clear Urine pH 7.0 Urine Specific [place] 1.015 Urine Protein 100 mg/dL (NEG-TRACE) Urine Glucose (UA) Negative mg/dL (NEG) Urine Ketones (Stick) Trace mg/dL (NEG) Urine Blood Trace (NEG) Urine Nitrite Negative (NEG) Urine Bilirubin Negative (NEG) Urine Urobilinogen Dipstick 0.2 mg/dL (0.2 mg/dL) Urine Leukocyte Esterase Negative (NEG) Urine RBC 3-5 /HPF (0-2) Urine WBC Occ /HPF (0-4) Urine Squamous Epithelial Cells Occ /LPF Urine Amorphous Sediment Present /HPF Urine Bacteria 0 /HPF (0-FEW) Urine Hyaline Casts Few /HPF Urine Mucus Mod /LPF Sodium Level 137 mmol/L (136-145) Potassium Level 3.7 mmol/L (3.5-5.1) Chloride Level 97 mmol/L (98-107) Carbon Dioxide Level 35 mmol/L (21-32) Anion Gap 5 (6-14) Blood Urea Nitrogen 15 mg/dL (7-20) Creatinine 0.6 mg/dL (0.6-1.0) Estimated GFR (Cockcroft-Gault) 117.9 BUN/Creatinine Ratio 25 (6-20) Glucose Level 139 mg/dL (70-99) Lactic Acid Level 0.7 mmol/L (0.4-2.0) Calcium Level 9.5 mg/dL (8.5-10.1) Total Bilirubin 0.4 mg/dL (0.2-1.0) Aspartate Amino Transf (AST/SGOT) 22 U/L (15-37) Alanine Aminotransferase (ALT/SGPT) 24 U/L (14-59) Alkaline Phosphatase 85 U/L (46-116) Troponin I Quantitative < 0.017 ng/mL (0.000-0.055) < 0.017 ng/mL (0.000-0.055) QD-Duh-H-Type Natriuretic Peptide 335 pg/mL (0-449) Total Protein 8.1 g/dL (6.4-8.2) Albumin 4.1 g/dL (3.4-5.0) Albumin/Globulin Ratio 1.0 (1.0-1.7) Test 11/08/18 07:57 11/08/18 08:20 11/08/18 08:30 11/08/18 10:15 Glucose (Fingerstick) 245 mg/dL (70-99) O2 Saturation 99 % (92-99) Arterial Blood pH 7.05 (7.35-7.45) Arterial Blood pCO2 at Patient Temp 147 mmHg (35-46) Arterial Blood pO2 at Patient Temp 250 mmHg (65-108) Arterial Blood HCO3 40 mmol/L (21-28) Arterial Blood Base Excess 5 mmol/L (-3-3) FiO2 100 Creatine Kinase 114 U/L (26-192) Troponin I Quantitative < 0.017 ng/mL (0.000-0.055) Vitamin B12 Level > 2000 pg/mL (247-911) Procalcitonin < 0.10 ng/mL (0.00-0.10) Thyroid Stimulating Hormone (TSH) 1.444 uIU/mL (0.358-3.74) Lactic Acid Level 3.2 mmol/L (0.4-2.0) Test 11/08/18 10:45 11/08/18 13:19 O2 Saturation 98 % (92-99) Arterial Blood pH 7.67 (7.35-7.45) Arterial Blood pCO2 at Patient Temp 25 mmHg (35-46) Arterial Blood pO2 at Patient Temp 74 mmHg (65-108) Arterial Blood HCO3 28 mmol/L (21-28) Arterial Blood Base Excess 8 mmol/L (-3-3) Oxyhemoglobin 97.7 % Methemoglobin 0.4 % (0.0-1.9) Carbon Monoxide, Quantitative 0.0 % (0.0-1.9) FiO2 30% Glucose (Fingerstick) 97 mg/dL (70-99) Laboratory Tests Test 11/07/18 23:24 11/07/18 23:40 11/08/18 00:45 11/08/18 03:15 White Blood Count 6.2 x10^3/uL (4.0-11.0) Red Blood Count 4.47 x10^6/uL (3.50-5.40) Hemoglobin 13.9 g/dL (12.0-15.5) Hematocrit 41.7 % (36.0-47.0) Mean Corpuscular Volume 93 fL (79-100) Mean Corpuscular Hemoglobin 31 pg (25-35) Mean Corpuscular Hemoglobin Concent 33 g/dL (31-37) Red Cell Distribution Width 13.0 % (11.5-14.5) Platelet Count 188 x10^3/uL (140-400) Neutrophils (%) (Auto) 92 % (31-73) Lymphocytes (%) (Auto) 5 % (24-48) Monocytes (%) (Auto) 3 % (0-9) Eosinophils (%) (Auto) 0 % (0-3) Basophils (%) (Auto) 0 % (0-3) Neutrophils # (Auto) 5.7 x10^3uL (1.8-7.7) Lymphocytes # (Auto) 0.3 x10^3/uL (1.0-4.8) Monocytes # (Auto) 0.2 x10^3/uL (0.0-1.1) Eosinophils # (Auto) 0.0 x10^3/uL (0.0-0.7) Basophils # (Auto) 0.0 x10^3/uL (0.0-0.2) Segmented Neutrophils % 86 % (35-66) Lymphocytes % 10 % (24-48) Monocytes % 4 % (0-10) Platelet Estimate Adequate (ADEQUATE) Urine Collection Type U cath Urine Color Yellow Urine Clarity Clear Urine pH 7.0 Urine Specific [place] 1.015 Urine Protein 100 mg/dL (NEG-TRACE) Urine Glucose (UA) Negative mg/dL (NEG) Urine Ketones (Stick) Trace mg/dL (NEG) Urine Blood Trace (NEG) Urine Nitrite Negative (NEG) Urine Bilirubin Negative (NEG) Urine Urobilinogen Dipstick 0.2 mg/dL (0.2 mg/dL) Urine Leukocyte Esterase Negative (NEG) Urine RBC 3-5 /HPF (0-2) Urine WBC Occ /HPF (0-4) Urine Squamous Epithelial Cells Occ /LPF Urine Amorphous Sediment Present /HPF Urine Bacteria 0 /HPF (0-FEW) Urine Hyaline Casts Few /HPF Urine Mucus Mod /LPF Sodium Level 137 mmol/L (136-145) Potassium Level 3.7 mmol/L (3.5-5.1) Chloride Level 97 mmol/L (98-107) Carbon Dioxide Level 35 mmol/L (21-32) Anion Gap 5 (6-14) Blood Urea Nitrogen 15 mg/dL (7-20) Creatinine 0.6 mg/dL (0.6-1.0) Estimated GFR (Cockcroft-Gault) 117.9 BUN/Creatinine Ratio 25 (6-20) Glucose Level 139 mg/dL (70-99) Lactic Acid Level 0.7 mmol/L (0.4-2.0) Calcium Level 9.5 mg/dL (8.5-10.1) Total Bilirubin 0.4 mg/dL (0.2-1.0) Aspartate Amino Transf (AST/SGOT) 22 U/L (15-37) Alanine Aminotransferase (ALT/SGPT) 24 U/L (14-59) Alkaline Phosphatase 85 U/L (46-116) Troponin I Quantitative < 0.017 ng/mL (0.000-0.055) < 0.017 ng/mL (0.000-0.055) FD-Ndo-C-Type Natriuretic Peptide 335 pg/mL (0-449) Total Protein 8.1 g/dL (6.4-8.2) Albumin 4.1 g/dL (3.4-5.0) Albumin/Globulin Ratio 1.0 (1.0-1.7) Test 11/08/18 07:57 11/08/18 08:20 11/08/18 08:30 11/08/18 10:15 Glucose (Fingerstick) 245 mg/dL (70-99) O2 Saturation 99 % (92-99) Arterial Blood pH 7.05 (7.35-7.45) Arterial Blood pCO2 at Patient Temp 147 mmHg (35-46) Arterial Blood pO2 at Patient Temp 250 mmHg (65-108) Arterial Blood HCO3 40 mmol/L (21-28) Arterial Blood Base Excess 5 mmol/L (-3-3) FiO2 100 Creatine Kinase 114 U/L (26-192) Troponin I Quantitative < 0.017 ng/mL (0.000-0.055) Vitamin B12 Level > 2000 pg/mL (247-911) Procalcitonin < 0.10 ng/mL (0.00-0.10) Thyroid Stimulating Hormone (TSH) 1.444 uIU/mL (0.358-3.74) Lactic Acid Level 3.2 mmol/L (0.4-2.0) Test 11/08/18 10:45 11/08/18 13:19 O2 Saturation 98 % (92-99) Arterial Blood pH 7.67 (7.35-7.45) Arterial Blood pCO2 at Patient Temp 25 mmHg (35-46) Arterial Blood pO2 at Patient Temp 74 mmHg (65-108) Arterial Blood HCO3 28 mmol/L (21-28) Arterial Blood Base Excess 8 mmol/L (-3-3) Oxyhemoglobin 97.7 % Methemoglobin 0.4 % (0.0-1.9) Carbon Monoxide, Quantitative 0.0 % (0.0-1.9) FiO2 30% Glucose (Fingerstick) 97 mg/dL (70-99) PATSY VINSON MD Nov 08, 2018 16:34
[2018-11-08] MEDS: methylPREDNISolone SOD SUCC PF 125 MG/2 ML VIAL. IV SCH ×2 (16:47→21:31)
--- NOTE | 2018-11-08 17:11 | ED.ADGEN ---
Past Medical History Past Medical History: Asthma, Diabetes-Type II, Other Additional Past Medical Histor: chornic Past Surgical History: Tubal ligation Alcohol Use: None Drug Use: None Physician Documentation Physician Documentation I was informed by respiratory therapist that the patient in room 672 is unresponsive and needed intubation. Patient had ABG with PCO2 of 142. Patient had O2 sat of 100% with manual bagging. Endotracheal Intubation by me at 0 828: Pre assessment performed. See preceding note for details. Etomidate 20 mg, succinylcholine 75 mg Pre-oxygenation performed with 100% oxygen RSI: Performed w/o complication or hypoxic events. Medications as ordered. Blade: 7.0 ET Tube: Depth: 22 cm at the lip Intubation confirmed by colorimetric CO2, equal breath sounds, quiet over the stomach. Chest x-ray was ordered to be followed by cement boat and barge loader/hospitalist. CLIVE HERRING MD Nov 08, 2018 17:11
[2018-11-08 21:18] LABS: INFLUENZA A PATIENT NEGATIVE (NEGATIVE); INFLUENZA B PATIENT NEGATIVE (NEGATIVE)
[2018-11-08] MEDS: PROPOFOL 100 ML IV PRN (21:32)
[2018-11-09] VITALS (23 sets, daily range): BP systolic 117–175; BP diastolic 57–96
--- NOTE | 2018-11-09 00:59 | CONS ---
DATE OF CONSULTATION: 11/08/2018 REQUESTING PHYSICIAN: Dr. Bar. REASON FOR CONSULTATION: Respiratory failure and pneumonia. HISTORY OF PRESENT ILLNESS: This is a 77-year-old -[place] female with history of asthma, who had not been feeling well for last 3 days. The patient in fact had some shortness of breath. She fell yesterday according to daughter and she was brought in. The patient was admitted on the floor initially and then she had a rapid response this morning and she was found to be respiratory acidosis with hypercarbic respiratory failure. The patient also was hypoxic. The patient was admitted, intubated and admitted to the ICU. The patient did have lactic acidosis. The patient has been put on Levaquin and Zosyn and consult has been requested. The patient is currently sedated, orally intubated on a ventilator. All the information was obtained through chart review and discussing with the patient's nurse as well as the patient's daughter. Daughter denies any fever. Denies any nausea, vomiting, diarrhea. Denies any chest pain, abdominal pain, urinary symptoms, headache, or visual symptoms. PAST MEDICAL HISTORY: Positive for asthma and diabetes. According to daughter, the patient is very healthy. SOCIAL HISTORY: Negative for smoking, alcohol, or illicit drug use. ALLERGIES: No known drug allergies. CURRENT MEDICATIONS: Reviewed. REVIEW OF SYSTEMS: As per HPI, all other systems reviewed are negative. PHYSICAL EXAMINATION: GENERAL: Sedated, orally intubated female, not in any distress. VITAL SIGNS: Stable, afebrile. HEENT: NAD. NECK: Supple, no JVP, no lymphadenopathy. LUNGS: Decreased breath sounds. HEART: S1, S2 regular without murmur. ABDOMEN: Soft, nontender, no organomegaly. EXTREMITIES: No edema or cyanosis. SKIN: Unremarkable. NEUROLOGICAL: Before intubation and sedation, the patient was moving all the extremities. LABORATORY DATA: White count is 6.2, hemoglobin 13.9, platelets are normal. BUN and creatinine is normal. Her initial lactic acid was 0.7, but then it went up to 3.2. Urinalysis unremarkable. Head CT was unremarkable. Chest x-ray showed left basilar retrocardiac opacity, likely consolidation. To my view, it does not appear to be looking like mass. IMPRESSION: 1. Hypercarbic respiratory failure. 2. Lactic acidosis. 3. Asthma. 4. Diabetes. 5. Community-acquired pneumonia. RECOMMENDATIONS: Continue Zosyn. We will discontinue Levaquin. Supportive care, panculture and discussion with the daughter done at the bedside. Thank you very much, Dr. Bar, for giving me the opportunity to participate in this patient's care. BROOK BURGER MD DR: BEKAH/xiomara JOB#: [id number] / [id number]
[2018-11-09] MEDS: IV NORMAL SALINE 1000ML BAG 1,000 ML IV SCH (01:37)
[2018-11-09 05:13] LABS: BASO % 0 % (0-3); EOS % 0 % (0-3); HEMATOCRIT 32.4 % (36.0-47.0); HEMOGLOBIN 10.7 g/dL (12.0-15.5); LYMPH # 0.3 x10^3/uL (1.0-4.8); LYMPH % 7 % (24-48); MEAN CORPUSCULAR HEMOGLOBIN 31 pg (25-35); MEAN CORPUSCULAR HGB CONC 33 g/dL (31-37); MEAN CORPUSCULAR VOLUME 94 fL (79-100); MONO # 0.1 x10^3/uL (0.0-1.1); MONO % 2 % (0-9); NEUT # 4.5 x10^3uL (1.8-7.7); NEUT % 92 % (31-73); PLATELET COUNT 160 x10^3/uL (140-400); RED BLOOD COUNT 3.46 x10^6/uL (3.50-5.40); RED CELL DISTRIBUTION WIDTH 13.1 % (11.5-14.5); WHITE BLOOD COUNT 4.9 x10^3/uL (4.0-11.0)
[2018-11-09] MEDS: PIPERACILLIN/TAZOBACTAM 3.375 GM in IV NORMAL SALINE 50ML 50 ML IV SCH ×3 (05:15→18:00)
[2018-11-09] MEDS: methylPREDNISolone SOD SUCC PF 125 MG/2 ML VIAL. IV SCH ×3 (05:22→22:20)
[2018-11-09 05:37] LABS: ALBUMIN 2.9 g/dL (3.4-5.0); ALBUMIN/GLOBULIN RATIO 0.9 (1.0-1.7); CALCIUM 8.2 mg/dL (8.5-10.1); CREATININE 0.8 mg/dL (0.6-1.0); GFR 84.6; TOTAL BILIRUBIN 0.5 mg/dL (0.2-1.0); TOTAL PROTEIN 6.1 g/dL (6.4-8.2)
[2018-11-09 05:41] LABS: POTASSIUM 2.6 mmol/L (3.5-5.1)
--- NOTE | 2018-11-09 06:40 | PDOC ---
PULMONARY PROGRESS NOTES Subjective on vent, sedated, on propofol, small ett secretion Vitals Vital Signs Date Time Temp Pulse Resp B/P (MAP) Pulse Ox O2 Delivery O2 Flow Rate FiO2 11/09/18 06:00 66 16 137/69 (91) 100 Ventilator 11/09/18 04:00 97.6 97.6 11/08/18 07:52 6.0 Comments ros as mentioned as above discussed w rn, rt, other sys otherwise neg on vent sedated HEENT: Other (nc at perrl nose clear orally intubated neck no lad no thyromegaly) Lungs: Crackles Cardiovascular: S1, S2 Abdomen: Soft, Non-tender, Other (no mass) Extremities: No Edema Skin: Warm Labs Laboratory Tests Test 11/07/18 23:24 11/07/18 23:40 11/08/18 00:45 11/08/18 03:15 White Blood Count 6.2 x10^3/uL (4.0-11.0) Red Blood Count 4.47 x10^6/uL (3.50-5.40) Hemoglobin 13.9 g/dL (12.0-15.5) Hematocrit 41.7 % (36.0-47.0) Mean Corpuscular Volume 93 fL (79-100) Mean Corpuscular Hemoglobin 31 pg (25-35) Mean Corpuscular Hemoglobin Concent 33 g/dL (31-37) Red Cell Distribution Width 13.0 % (11.5-14.5) Platelet Count 188 x10^3/uL (140-400) Neutrophils (%) (Auto) 92 % (31-73) Lymphocytes (%) (Auto) 5 % (24-48) Monocytes (%) (Auto) 3 % (0-9) Eosinophils (%) (Auto) 0 % (0-3) Basophils (%) (Auto) 0 % (0-3) Neutrophils # (Auto) 5.7 x10^3uL (1.8-7.7) Lymphocytes # (Auto) 0.3 x10^3/uL (1.0-4.8) Monocytes # (Auto) 0.2 x10^3/uL (0.0-1.1) Eosinophils # (Auto) 0.0 x10^3/uL (0.0-0.7) Basophils # (Auto) 0.0 x10^3/uL (0.0-0.2) Segmented Neutrophils % 86 % (35-66) Lymphocytes % 10 % (24-48) Monocytes % 4 % (0-10) Platelet Estimate Adequate (ADEQUATE) Urine Collection Type U cath Urine Color Yellow Urine Clarity Clear Urine pH 7.0 Urine Specific [place] 1.015 Urine Protein 100 mg/dL (NEG-TRACE) Urine Glucose (UA) Negative mg/dL (NEG) Urine Ketones (Stick) Trace mg/dL (NEG) Urine Blood Trace (NEG) Urine Nitrite Negative (NEG) Urine Bilirubin Negative (NEG) Urine Urobilinogen Dipstick 0.2 mg/dL (0.2 mg/dL) Urine Leukocyte Esterase Negative (NEG) Urine RBC 3-5 /HPF (0-2) Urine WBC Occ /HPF (0-4) Urine Squamous Epithelial Cells Occ /LPF Urine Amorphous Sediment Present /HPF Urine Bacteria 0 /HPF (0-FEW) Urine Hyaline Casts Few /HPF Urine Mucus Mod /LPF Sodium Level 137 mmol/L (136-145) Potassium Level 3.7 mmol/L (3.5-5.1) Chloride Level 97 mmol/L (98-107) Carbon Dioxide Level 35 mmol/L (21-32) Anion Gap 5 (6-14) Blood Urea Nitrogen 15 mg/dL (7-20) Creatinine 0.6 mg/dL (0.6-1.0) Estimated GFR (Cockcroft-Gault) 117.9 BUN/Creatinine Ratio 25 (6-20) Glucose Level 139 mg/dL (70-99) Lactic Acid Level 0.7 mmol/L (0.4-2.0) Calcium Level 9.5 mg/dL (8.5-10.1) Total Bilirubin 0.4 mg/dL (0.2-1.0) Aspartate Amino Transf (AST/SGOT) 22 U/L (15-37) Alanine Aminotransferase (ALT/SGPT) 24 U/L (14-59) Alkaline Phosphatase 85 U/L (46-116) Troponin I Quantitative < 0.017 ng/mL (0.000-0.055) < 0.017 ng/mL (0.000-0.055) ZW-Rqf-N-Type Natriuretic Peptide 335 pg/mL (0-449) Total Protein 8.1 g/dL (6.4-8.2) Albumin 4.1 g/dL (3.4-5.0) Albumin/Globulin Ratio 1.0 (1.0-1.7) Test 11/08/18 07:57 11/08/18 08:20 11/08/18 08:30 11/08/18 09:15 Glucose (Fingerstick) 245 mg/dL (70-99) O2 Saturation 99 % (92-99) Arterial Blood pH 7.05 (7.35-7.45) Arterial Blood pCO2 at Patient Temp 147 mmHg (35-46) Arterial Blood pO2 at Patient Temp 250 mmHg (65-108) Arterial Blood HCO3 40 mmol/L (21-28) Arterial Blood Base Excess 5 mmol/L (-3-3) FiO2 100 Creatine Kinase 114 U/L (26-192) Troponin I Quantitative < 0.017 ng/mL (0.000-0.055) Vitamin B12 Level > 2000 pg/mL (247-911) Procalcitonin < 0.10 ng/mL (0.00-0.10) Thyroid Stimulating Hormone (TSH) 1.444 uIU/mL (0.358-3.74) Nasal Screen MRSA (PCR) Negative (Negative) Test 11/08/18 10:15 11/08/18 10:45 11/08/18 13:19 11/08/18 16:53 Lactic Acid Level 3.2 mmol/L (0.4-2.0) O2 Saturation 98 % (92-99) Arterial Blood pH 7.67 (7.35-7.45) Arterial Blood pCO2 at Patient Temp 25 mmHg (35-46) Arterial Blood pO2 at Patient Temp 74 mmHg (65-108) Arterial Blood HCO3 28 mmol/L (21-28) Arterial Blood Base Excess 8 mmol/L (-3-3) Oxyhemoglobin 97.7 % Methemoglobin 0.4 % (0.0-1.9) Carbon Monoxide, Quantitative 0.0 % (0.0-1.9) FiO2 30% Glucose (Fingerstick) 97 mg/dL (70-99) 80 mg/dL (70-99) Test 11/08/18 20:50 11/09/18 05:00 Influenza Type A Antigen Negative (NEGATIVE) Influenza Type B Antigen Negative (NEGATIVE) White Blood Count 4.9 x10^3/uL (4.0-11.0) Red Blood Count 3.46 x10^6/uL (3.50-5.40) Hemoglobin 10.7 g/dL (12.0-15.5) Hematocrit 32.4 % (36.0-47.0) Mean Corpuscular Volume 94 fL (79-100) Mean Corpuscular Hemoglobin 31 pg (25-35) Mean Corpuscular Hemoglobin Concent 33 g/dL (31-37) Red Cell Distribution Width 13.1 % (11.5-14.5) Platelet Count 160 x10^3/uL (140-400) Neutrophils (%) (Auto) 92 % (31-73) Lymphocytes (%) (Auto) 7 % (24-48) Monocytes (%) (Auto) 2 % (0-9) Eosinophils (%) (Auto) 0 % (0-3) Basophils (%) (Auto) 0 % (0-3) Neutrophils # (Auto) 4.5 x10^3uL (1.8-7.7) Lymphocytes # (Auto) 0.3 x10^3/uL (1.0-4.8) Monocytes # (Auto) 0.1 x10^3/uL (0.0-1.1) Eosinophils # (Auto) 0.0 x10^3/uL (0.0-0.7) Basophils # (Auto) 0.0 x10^3/uL (0.0-0.2) Sodium Level 146 mmol/L (136-145) Potassium Level 2.6 mmol/L (3.5-5.1) Chloride Level 107 mmol/L (98-107) Carbon Dioxide Level 25 mmol/L (21-32) Anion Gap 14 (6-14) Blood Urea Nitrogen 14 mg/dL (7-20) Creatinine 0.8 mg/dL (0.6-1.0) Estimated GFR (Cockcroft-Gault) 84.6 BUN/Creatinine Ratio 18 (6-20) Glucose Level 155 mg/dL (70-99) Calcium Level 8.2 mg/dL (8.5-10.1) Total Bilirubin 0.5 mg/dL (0.2-1.0) Aspartate Amino Transf (AST/SGOT) 52 U/L (15-37) Alanine Aminotransferase (ALT/SGPT) 79 U/L (14-59) Alkaline Phosphatase 67 U/L (46-116) Total Protein 6.1 g/dL (6.4-8.2) Albumin 2.9 g/dL (3.4-5.0) Albumin/Globulin Ratio 0.9 (1.0-1.7) Laboratory Tests Test 11/08/18 07:57 11/08/18 08:20 11/08/18 08:30 11/08/18 09:15 Glucose (Fingerstick) 245 mg/dL (70-99) O2 Saturation 99 % (92-99) Arterial Blood pH 7.05 (7.35-7.45) Arterial Blood pCO2 at Patient Temp 147 mmHg (35-46) Arterial Blood pO2 at Patient Temp 250 mmHg (65-108) Arterial Blood HCO3 40 mmol/L (21-28) Arterial Blood Base Excess 5 mmol/L (-3-3) FiO2 100 Creatine Kinase 114 U/L (26-192) Troponin I Quantitative < 0.017 ng/mL (0.000-0.055) Vitamin B12 Level > 2000 pg/mL (247-911) Procalcitonin < 0.10 ng/mL (0.00-0.10) Thyroid Stimulating Hormone (TSH) 1.444 uIU/mL (0.358-3.74) Nasal Screen MRSA (PCR) Negative (Negative) Test 11/08/18 10:15 11/08/18 10:45 11/08/18 13:19 11/08/18 16:53 Lactic Acid Level 3.2 mmol/L (0.4-2.0) O2 Saturation 98 % (92-99) Arterial Blood pH 7.67 (7.35-7.45) Arterial Blood pCO2 at Patient Temp 25 mmHg (35-46) Arterial Blood pO2 at Patient Temp 74 mmHg (65-108) Arterial Blood HCO3 28 mmol/L (21-28) Arterial Blood Base Excess 8 mmol/L (-3-3) Oxyhemoglobin 97.7 % Methemoglobin 0.4 % (0.0-1.9) Carbon Monoxide, Quantitative 0.0 % (0.0-1.9) FiO2 30% Glucose (Fingerstick) 97 mg/dL (70-99) 80 mg/dL (70-99) Test 11/08/18 20:50 11/09/18 05:00 Influenza Type A Antigen Negative (NEGATIVE) Influenza Type B Antigen Negative (NEGATIVE) White Blood Count 4.9 x10^3/uL (4.0-11.0) Red Blood Count 3.46 x10^6/uL (3.50-5.40) Hemoglobin 10.7 g/dL (12.0-15.5) Hematocrit 32.4 % (36.0-47.0) Mean Corpuscular Volume 94 fL (79-100) Mean Corpuscular Hemoglobin 31 pg (25-35) Mean Corpuscular Hemoglobin Concent 33 g/dL (31-37) Red Cell Distribution Width 13.1 % (11.5-14.5) Platelet Count 160 x10^3/uL (140-400) Neutrophils (%) (Auto) 92 % (31-73) Lymphocytes (%) (Auto) 7 % (24-48) Monocytes (%) (Auto) 2 % (0-9) Eosinophils (%) (Auto) 0 % (0-3) Basophils (%) (Auto) 0 % (0-3) Neutrophils # (Auto) 4.5 x10^3uL (1.8-7.7) Lymphocytes # (Auto) 0.3 x10^3/uL (1.0-4.8) Monocytes # (Auto) 0.1 x10^3/uL (0.0-1.1) Eosinophils # (Auto) 0.0 x10^3/uL (0.0-0.7) Basophils # (Auto) 0.0 x10^3/uL (0.0-0.2) Sodium Level 146 mmol/L (136-145) Potassium Level 2.6 mmol/L (3.5-5.1) Chloride Level 107 mmol/L (98-107) Carbon Dioxide Level 25 mmol/L (21-32) Anion Gap 14 (6-14) Blood Urea Nitrogen 14 mg/dL (7-20) Creatinine 0.8 mg/dL (0.6-1.0) Estimated GFR (Cockcroft-Gault) 84.6 BUN/Creatinine Ratio 18 (6-20) Glucose Level 155 mg/dL (70-99) Calcium Level 8.2 mg/dL (8.5-10.1) Total Bilirubin 0.5 mg/dL (0.2-1.0) Aspartate Amino Transf (AST/SGOT) 52 U/L (15-37) Alanine Aminotransferase (ALT/SGPT) 79 U/L (14-59) Alkaline Phosphatase 67 U/L (46-116) Total Protein 6.1 g/dL (6.4-8.2) Albumin 2.9 g/dL (3.4-5.0) Albumin/Globulin Ratio 0.9 (1.0-1.7) Comments cxr, ett ok, copd changes, increased vm echo reviewed The left ventricular systolic function is normal. The Ejection Fraction is 65-70%. There is normal LV segmental wall motion. Transmitral Doppler flow pattern is Grade I-abnormal relaxation pattern. Doppler and Color Flow revealed trace tricuspid regurgitation. The PA pressure was estimated at 20 mmHg. There is no evidence of significant pericardial effusion. Impression . IMPRESSION: 1. Acute on chronic hypoxemic and hypercarbic respiratory failure secondary to acute exacerbation of chronic obstructive pulmonary disease versus others. 2. Abnormal chest x-ray. 3. Acute exacerbation of chronic obstructive pulmonary disease. 4. Acute bronchitis. 5. Diabetes mellitus. Plan . PLAN AND RECOMMENDATIONS: 1. Titrate FiO2 to keep O2 saturation 94%. 2. Continue ventilator support. Vent setting was reviewed. We will do ABG, if good, will decrease sedation and do sbt 3. Bronchodilator. 4. Solu-Medrol 40 mg IV every 8 hours. Monitor blood sugar while she is on Solu-Medrol. 5. Agree with antibiotic. 6. Nasal swab for influenza A and B, neg. 7. Procalcitonin, nl. 8. Echocardiogram reviewed. 9. Lovenox for DVT prophylaxis. 10. Pepcid for stress ulcer prophylaxis. 11. Elevate head of bed. The findings and recommendations were discussed with RN and RT. HUEY CHAUDHARI MD Nov 09, 2018 06:40
[2018-11-09] MEDS: POTASSIUM CHLORIDE 10MEQ 100 ML IV SCH ×8 (07:04→16:44)
[2018-11-09] MEDS: INSULIN LISPRO 300 UNITS/3 ML INSULN.PEN. SQ SCH ×3 (08:00→16:49)
--- NOTE | 2018-11-09 08:07 | PDOC ---
PROGRESS NOTES Chief Complaint Chief Complaint Hypercarbic respiratory failure. Lactic acidosis. Asthma. Diabetes. Community-acquired pneumonia. History of Present Illness History of Present Illness 77-year-old AA female patient with above medical diseases was brought to the ER of [facility]. She developed symptoms of SOB and dyspnea. Family noted that she had increased shortness of breath. She had a fall reportedly hurt her head. HCT showed no SDH, SAH and ICH. Due to respiratory distress/failure, she was intubated. Potassium 2.6 this morning. Awakened during vent wean this morning. Did not c/o chest pain at that time. moving extremities. Still on vent currently. Plan: Check mag and phos prior to extubation, would likely be able to extubate Vitals Vitals Vital Signs Date Time Temp Pulse Resp B/P (MAP) Pulse Ox O2 Delivery O2 Flow Rate FiO2 11/09/18 07:00 73 16 158/81 (106) 100 Ventilator 11/09/18 04:00 97.6 97.6 11/08/18 07:52 6.0 Physical Exam General: moderate distress Abdomen: Normal bowel sounds, Soft Extremities: No cyanosis Skin: No breakdown Labs LABS Laboratory Tests Test 11/08/18 08:20 11/08/18 08:30 11/08/18 09:15 11/08/18 10:15 O2 Saturation 99 % (92-99) Arterial Blood pH 7.05 (7.35-7.45) Arterial Blood pCO2 at Patient Temp 147 mmHg (35-46) Arterial Blood pO2 at Patient Temp 250 mmHg (65-108) Arterial Blood HCO3 40 mmol/L (21-28) Arterial Blood Base Excess 5 mmol/L (-3-3) FiO2 100 Creatine Kinase 114 U/L (26-192) Troponin I Quantitative < 0.017 ng/mL (0.000-0.055) Vitamin B12 Level > 2000 pg/mL (247-911) Procalcitonin < 0.10 ng/mL (0.00-0.10) Thyroid Stimulating Hormone (TSH) 1.444 uIU/mL (0.358-3.74) Nasal Screen MRSA (PCR) Negative (Negative) Lactic Acid Level 3.2 mmol/L (0.4-2.0) Test 11/08/18 10:45 11/08/18 13:19 11/08/18 16:53 11/08/18 20:50 O2 Saturation 98 % (92-99) Arterial Blood pH 7.67 (7.35-7.45) Arterial Blood pCO2 at Patient Temp 25 mmHg (35-46) Arterial Blood pO2 at Patient Temp 74 mmHg (65-108) Arterial Blood HCO3 28 mmol/L (21-28) Arterial Blood Base Excess 8 mmol/L (-3-3) Oxyhemoglobin 97.7 % Methemoglobin 0.4 % (0.0-1.9) Carbon Monoxide, Quantitative 0.0 % (0.0-1.9) FiO2 30% Glucose (Fingerstick) 97 mg/dL (70-99) 80 mg/dL (70-99) Influenza Type A Antigen Negative (NEGATIVE) Influenza Type B Antigen Negative (NEGATIVE) Test 11/09/18 05:00 White Blood Count 4.9 x10^3/uL (4.0-11.0) Red Blood Count 3.46 x10^6/uL (3.50-5.40) Hemoglobin 10.7 g/dL (12.0-15.5) Hematocrit 32.4 % (36.0-47.0) Mean Corpuscular Volume 94 fL (79-100) Mean Corpuscular Hemoglobin 31 pg (25-35) Mean Corpuscular Hemoglobin Concent 33 g/dL (31-37) Red Cell Distribution Width 13.1 % (11.5-14.5) Platelet Count 160 x10^3/uL (140-400) Neutrophils (%) (Auto) 92 % (31-73) Lymphocytes (%) (Auto) 7 % (24-48) Monocytes (%) (Auto) 2 % (0-9) Eosinophils (%) (Auto) 0 % (0-3) Basophils (%) (Auto) 0 % (0-3) Neutrophils # (Auto) 4.5 x10^3uL (1.8-7.7) Lymphocytes # (Auto) 0.3 x10^3/uL (1.0-4.8) Monocytes # (Auto) 0.1 x10^3/uL (0.0-1.1) Eosinophils # (Auto) 0.0 x10^3/uL (0.0-0.7) Basophils # (Auto) 0.0 x10^3/uL (0.0-0.2) Sodium Level 146 mmol/L (136-145) Potassium Level 2.6 mmol/L (3.5-5.1) Chloride Level 107 mmol/L (98-107) Carbon Dioxide Level 25 mmol/L (21-32) Anion Gap 14 (6-14) Blood Urea Nitrogen 14 mg/dL (7-20) Creatinine 0.8 mg/dL (0.6-1.0) Estimated GFR (Cockcroft-Gault) 84.6 BUN/Creatinine Ratio 18 (6-20) Glucose Level 155 mg/dL (70-99) Calcium Level 8.2 mg/dL (8.5-10.1) Total Bilirubin 0.5 mg/dL (0.2-1.0) Aspartate Amino Transf (AST/SGOT) 52 U/L (15-37) Alanine Aminotransferase (ALT/SGPT) 79 U/L (14-59) Alkaline Phosphatase 67 U/L (46-116) Total Protein 6.1 g/dL (6.4-8.2) Albumin 2.9 g/dL (3.4-5.0) Albumin/Globulin Ratio 0.9 (1.0-1.7) Assessment and Plan Assessmemt and Plan Problems Medical Problems: (1) Dyspnea and respiratory abnormalities Status: Acute Comment Review of Relevant I have reviewed the following items melody (where applicable) has been applied. Labs Laboratory Tests Test 11/07/18 23:24 11/07/18 23:40 11/08/18 00:45 11/08/18 03:15 White Blood Count 6.2 x10^3/uL (4.0-11.0) Red Blood Count 4.47 x10^6/uL (3.50-5.40) Hemoglobin 13.9 g/dL (12.0-15.5) Hematocrit 41.7 % (36.0-47.0) Mean Corpuscular Volume 93 fL (79-100) Mean Corpuscular Hemoglobin 31 pg (25-35) Mean Corpuscular Hemoglobin Concent 33 g/dL (31-37) Red Cell Distribution Width 13.0 % (11.5-14.5) Platelet Count 188 x10^3/uL (140-400) Neutrophils (%) (Auto) 92 % (31-73) Lymphocytes (%) (Auto) 5 % (24-48) Monocytes (%) (Auto) 3 % (0-9) Eosinophils (%) (Auto) 0 % (0-3) Basophils (%) (Auto) 0 % (0-3) Neutrophils # (Auto) 5.7 x10^3uL (1.8-7.7) Lymphocytes # (Auto) 0.3 x10^3/uL (1.0-4.8) Monocytes # (Auto) 0.2 x10^3/uL (0.0-1.1) Eosinophils # (Auto) 0.0 x10^3/uL (0.0-0.7) Basophils # (Auto) 0.0 x10^3/uL (0.0-0.2) Segmented Neutrophils % 86 % (35-66) Lymphocytes % 10 % (24-48) Monocytes % 4 % (0-10) Platelet Estimate Adequate (ADEQUATE) Urine Collection Type U cath Urine Color Yellow Urine Clarity Clear Urine pH 7.0 Urine Specific [place] 1.015 Urine Protein 100 mg/dL (NEG-TRACE) Urine Glucose (UA) Negative mg/dL (NEG) Urine Ketones (Stick) Trace mg/dL (NEG) Urine Blood Trace (NEG) Urine Nitrite Negative (NEG) Urine Bilirubin Negative (NEG) Urine Urobilinogen Dipstick 0.2 mg/dL (0.2 mg/dL) Urine Leukocyte Esterase Negative (NEG) Urine RBC 3-5 /HPF (0-2) Urine WBC Occ /HPF (0-4) Urine Squamous Epithelial Cells Occ /LPF Urine Amorphous Sediment Present /HPF Urine Bacteria 0 /HPF (0-FEW) Urine Hyaline Casts Few /HPF Urine Mucus Mod /LPF Sodium Level 137 mmol/L (136-145) Potassium Level 3.7 mmol/L (3.5-5.1) Chloride Level 97 mmol/L (98-107) Carbon Dioxide Level 35 mmol/L (21-32) Anion Gap 5 (6-14) Blood Urea Nitrogen 15 mg/dL (7-20) Creatinine 0.6 mg/dL (0.6-1.0) Estimated GFR (Cockcroft-Gault) 117.9 BUN/Creatinine Ratio 25 (6-20) Glucose Level 139 mg/dL (70-99) Lactic Acid Level 0.7 mmol/L (0.4-2.0) Calcium Level 9.5 mg/dL (8.5-10.1) Total Bilirubin 0.4 mg/dL (0.2-1.0) Aspartate Amino Transf (AST/SGOT) 22 U/L (15-37) Alanine Aminotransferase (ALT/SGPT) 24 U/L (14-59) Alkaline Phosphatase 85 U/L (46-116) Troponin I Quantitative < 0.017 ng/mL (0.000-0.055) < 0.017 ng/mL (0.000-0.055) WW-Vfg-J-Type Natriuretic Peptide 335 pg/mL (0-449) Total Protein 8.1 g/dL (6.4-8.2) Albumin 4.1 g/dL (3.4-5.0) Albumin/Globulin Ratio 1.0 (1.0-1.7) Test 11/08/18 07:57 11/08/18 08:20 11/08/18 08:30 11/08/18 09:15 Glucose (Fingerstick) 245 mg/dL (70-99) O2 Saturation 99 % (92-99) Arterial Blood pH 7.05 (7.35-7.45) Arterial Blood pCO2 at Patient Temp 147 mmHg (35-46) Arterial Blood pO2 at Patient Temp 250 mmHg (65-108) Arterial Blood HCO3 40 mmol/L (21-28) Arterial Blood Base Excess 5 mmol/L (-3-3) FiO2 100 Creatine Kinase 114 U/L (26-192) Troponin I Quantitative < 0.017 ng/mL (0.000-0.055) Vitamin B12 Level > 2000 pg/mL (247-911) Procalcitonin < 0.10 ng/mL (0.00-0.10) Thyroid Stimulating Hormone (TSH) 1.444 uIU/mL (0.358-3.74) Nasal Screen MRSA (PCR) Negative (Negative) Test 11/08/18 10:15 11/08/18 10:45 11/08/18 13:19 11/08/18 16:53 Lactic Acid Level 3.2 mmol/L (0.4-2.0) O2 Saturation 98 % (92-99) Arterial Blood pH 7.67 (7.35-7.45) Arterial Blood pCO2 at Patient Temp 25 mmHg (35-46) Arterial Blood pO2 at Patient Temp 74 mmHg (65-108) Arterial Blood HCO3 28 mmol/L (21-28) Arterial Blood Base Excess 8 mmol/L (-3-3) Oxyhemoglobin 97.7 % Methemoglobin 0.4 % (0.0-1.9) Carbon Monoxide, Quantitative 0.0 % (0.0-1.9) FiO2 30% Glucose (Fingerstick) 97 mg/dL (70-99) 80 mg/dL (70-99) Test 11/08/18 20:50 11/09/18 05:00 Influenza Type A Antigen Negative (NEGATIVE) Influenza Type B Antigen Negative (NEGATIVE) White Blood Count 4.9 x10^3/uL (4.0-11.0) Red Blood Count 3.46 x10^6/uL (3.50-5.40) Hemoglobin 10.7 g/dL (12.0-15.5) Hematocrit 32.4 % (36.0-47.0) Mean Corpuscular Volume 94 fL (79-100) Mean Corpuscular Hemoglobin 31 pg (25-35) Mean Corpuscular Hemoglobin Concent 33 g/dL (31-37) Red Cell Distribution Width 13.1 % (11.5-14.5) Platelet Count 160 x10^3/uL (140-400) Neutrophils (%) (Auto) 92 % (31-73) Lymphocytes (%) (Auto) 7 % (24-48) Monocytes (%) (Auto) 2 % (0-9) Eosinophils (%) (Auto) 0 % (0-3) Basophils (%) (Auto) 0 % (0-3) Neutrophils # (Auto) 4.5 x10^3uL (1.8-7.7) Lymphocytes # (Auto) 0.3 x10^3/uL (1.0-4.8) Monocytes # (Auto) 0.1 x10^3/uL (0.0-1.1) Eosinophils # (Auto) 0.0 x10^3/uL (0.0-0.7) Basophils # (Auto) 0.0 x10^3/uL (0.0-0.2) Sodium Level 146 mmol/L (136-145) Potassium Level 2.6 mmol/L (3.5-5.1) Chloride Level 107 mmol/L (98-107) Carbon Dioxide Level 25 mmol/L (21-32) Anion Gap 14 (6-14) Blood Urea Nitrogen 14 mg/dL (7-20) Creatinine 0.8 mg/dL (0.6-1.0) Estimated GFR (Cockcroft-Gault) 84.6 BUN/Creatinine Ratio 18 (6-20) Glucose Level 155 mg/dL (70-99) Calcium Level 8.2 mg/dL (8.5-10.1) Total Bilirubin 0.5 mg/dL (0.2-1.0) Aspartate Amino Transf (AST/SGOT) 52 U/L (15-37) Alanine Aminotransferase (ALT/SGPT) 79 U/L (14-59) Alkaline Phosphatase 67 U/L (46-116) Total Protein 6.1 g/dL (6.4-8.2) Albumin 2.9 g/dL (3.4-5.0) Albumin/Globulin Ratio 0.9 (1.0-1.7) Laboratory Tests Test 11/08/18 08:20 11/08/18 08:30 11/08/18 09:15 11/08/18 10:15 O2 Saturation 99 % (92-99) Arterial Blood pH 7.05 (7.35-7.45) Arterial Blood pCO2 at Patient Temp 147 mmHg (35-46) Arterial Blood pO2 at Patient Temp 250 mmHg (65-108) Arterial Blood HCO3 40 mmol/L (21-28) Arterial Blood Base Excess 5 mmol/L (-3-3) FiO2 100 Creatine Kinase 114 U/L (26-192) Troponin I Quantitative < 0.017 ng/mL (0.000-0.055) Vitamin B12 Level > 2000 pg/mL (247-911) Procalcitonin < 0.10 ng/mL (0.00-0.10) Thyroid Stimulating Hormone (TSH) 1.444 uIU/mL (0.358-3.74) Nasal Screen MRSA (PCR) Negative (Negative) Lactic Acid Level 3.2 mmol/L (0.4-2.0) Test 11/08/18 10:45 11/08/18 13:19 11/08/18 16:53 11/08/18 20:50 O2 Saturation 98 % (92-99) Arterial Blood pH 7.67 (7.35-7.45) Arterial Blood pCO2 at Patient Temp 25 mmHg (35-46) Arterial Blood pO2 at Patient Temp 74 mmHg (65-108) Arterial Blood HCO3 28 mmol/L (21-28) Arterial Blood Base Excess 8 mmol/L (-3-3) Oxyhemoglobin 97.7 % Methemoglobin 0.4 % (0.0-1.9) Carbon Monoxide, Quantitative 0.0 % (0.0-1.9) FiO2 30% Glucose (Fingerstick) 97 mg/dL (70-99) 80 mg/dL (70-99) Influenza Type A Antigen Negative (NEGATIVE) Influenza Type B Antigen Negative (NEGATIVE) Test 11/09/18 05:00 White Blood Count 4.9 x10^3/uL (4.0-11.0) Red Blood Count 3.46 x10^6/uL (3.50-5.40) Hemoglobin 10.7 g/dL (12.0-15.5) Hematocrit 32.4 % (36.0-47.0) Mean Corpuscular Volume 94 fL (79-100) Mean Corpuscular Hemoglobin 31 pg (25-35) Mean Corpuscular Hemoglobin Concent 33 g/dL (31-37) Red Cell Distribution Width 13.1 % (11.5-14.5) Platelet Count 160 x10^3/uL (140-400) Neutrophils (%) (Auto) 92 % (31-73) Lymphocytes (%) (Auto) 7 % (24-48) Monocytes (%) (Auto) 2 % (0-9) Eosinophils (%) (Auto) 0 % (0-3) Basophils (%) (Auto) 0 % (0-3) Neutrophils # (Auto) 4.5 x10^3uL (1.8-7.7) Lymphocytes # (Auto) 0.3 x10^3/uL (1.0-4.8) Monocytes # (Auto) 0.1 x10^3/uL (0.0-1.1) Eosinophils # (Auto) 0.0 x10^3/uL (0.0-0.7) Basophils # (Auto) 0.0 x10^3/uL (0.0-0.2) Sodium Level 146 mmol/L (136-145) Potassium Level 2.6 mmol/L (3.5-5.1) Chloride Level 107 mmol/L (98-107) Carbon Dioxide Level 25 mmol/L (21-32) Anion Gap 14 (6-14) Blood Urea Nitrogen 14 mg/dL (7-20) Creatinine 0.8 mg/dL (0.6-1.0) Estimated GFR (Cockcroft-Gault) 84.6 BUN/Creatinine Ratio 18 (6-20) Glucose Level 155 mg/dL (70-99) Calcium Level 8.2 mg/dL (8.5-10.1) Total Bilirubin 0.5 mg/dL (0.2-1.0) Aspartate Amino Transf (AST/SGOT) 52 U/L (15-37) Alanine Aminotransferase (ALT/SGPT) 79 U/L (14-59) Alkaline Phosphatase 67 U/L (46-116) Total Protein 6.1 g/dL (6.4-8.2) Albumin 2.9 g/dL (3.4-5.0) Albumin/Globulin Ratio 0.9 (1.0-1.7) Microbiology 11/07/18 Blood Culture - Preliminary, Resulted NO GROWTH AFTER 1 DAY Medications Current Medications Sodium Chloride 500 ml @ 500 mls/hr 1X ONCE IV Last administered on at 23:44; Start 11/07/18 at 23:30; Stop 11/08/18 at 00:29; Status DC Ondansetron HCl (Zofran) 4 mg PRN Q8HRS PRN IV NAUSEA/VOMITING 1ST CHOICE; Start 11/08/18 at 00:15; Stop 11/09/18 at 00:14; Status DC Sodium Chloride 1,000 ml @ 125 mls/hr Q8H IV Last administered on 11/08/18at 04 :43; Start 11/08/18 at 00:30; Stop 11/08/18 at 11:20; Status DC Albuterol/ Ipratropium (Duoneb) 3 ml RTQID NEB Last administered on 11/08/18at 20:06; Start 11/08/18 at 08:00; Stop 11/09/18 at 07:59; Status DC Etomidate (Amidate) 20 mg STK-MED ONCE IV ; Start 11/08/18 at 08:33; Stop at 08:34; Status DC Succinylcholine Chloride (Anectine) 200 mg STK-MED ONCE .ROUTE ; Start 11/08/18 at 08:34; Stop 11/08/18 at 08:35; Status DC Sodium Chloride 500 ml @ 500 mls/hr 1X ONCE IV Last administered on at 08:15; Start 11/08/18 at 08:15; Stop 11/08/18 at 09:14; Status DC Piperacillin Sod/ Tazobactam Sod (Zosyn Per Pharmacy) 1 each PRN DAILY PRN MC SEE COMMENTS; Start 11/08/18 at 09:30 Propofol 100 ml @ 0 mls/hr CONT PRN IV SEDATION Last administered on 11/08/18at 21:32; Start 11/08/18 at 09:30 Enoxaparin Sodium (Lovenox 40mg Syringe) 40 mg Q24H SQ Last administered on 06/18at 11:15; Start 11/08/18 at 09:30 Pantoprazole Sodium (PROTONIX VIAL for IV PUSH) 40 mg DAILYAC IVP Last administered on 11/08/18at 10:08; Start 11/08/18 at 10:00 Piperacillin Sod/ Tazobactam Sod 3.375 gm/Sodium Chloride 50 ml @ 100 mls/hr Q6H IV Last administered on 11/09/18at 05:15; Start 11/08/18 at 10:00 Hydralazine HCl (Apresoline Inj) 10 mg PRN Q4HRS PRN IVP ELEVATED BP, SEE COMMENTS; Start 11/08/18 at 09:45 Sodium Chloride 1,000 ml @ 100 mls/hr Q10H IV Last administered on 11/09/18at 01:37; Start 11/08/18 at 09:38 Ondansetron HCl (Zofran) 4 mg PRN Q4HRS PRN IV NAUSEA/VOMITING; Start 11/08/18 at 09:45 Acetaminophen (Tylenol) 650 mg PRN Q4HRS PRN GT TEMP OVER 100.4F OR MILD PAIN; Start 11/08/18 at 09:45 Acetaminophen (Tylenol Supp) 650 mg PRN Q4HRS PRN MD TEMP OVER 100.4F OR MILD PAIN; Start 11/08/18 at 09:45 Albuterol/ Ipratropium (Duoneb) 3 ml Q4H NEB ; Start 11/08/18 at 09:45; Status Cancel Levofloxacin/ Dextrose 100 ml @ 100 mls/hr Q24H IV Last administered on at 11:14; Start 11/08/18 at 10:00; Stop 11/08/18 at 11:21; Status DC Methylprednisolone Sodium Succinate (SOLU-Medrol 40MG VIAL) 40 mg Q8HRS IV ; Start 11/08/18 at 09:45; Status Cancel Famotidine (Pepcid Vial) 20 mg DAILY IVP ; Start 11/09/18 at 09:00 Fentanyl Citrate 30 ml @ 0 mls/hr CONT PRN IV SEE PROTOCOL; Start 11/08/18 at 09:45 Fentanyl Citrate (Fentanyl 2ml Vial) 25 mcg PRN Q1HR PRN IV SEE COMMENTS; Start 11/08/18 at 09:45 Fentanyl Citrate (Fentanyl 2ml Vial) 50 mcg PRN Q1HR PRN IV SEE COMMENTS; Start 11/08/18 at 09:45 Morphine Sulfate (Morphine Sulfate) 2 mg PRN Q1HR PRN IV SEE COMMENTS.; Start 11/08/18 at 09:45; Status UNV Morphine Sulfate (Morphine Sulfate) 4 mg PRN Q1HR PRN IV SEE COMMENTS.; Start 11/08/18 at 09:45; Status UNV Insulin Human Lispro (HumaLOG) 0-5 UNITS TIDWMEALS SQ ; Start 11/08/18 at 12:00 Dextrose (Dextrose 50%-Water Syringe) 12.5 gm PRN Q15MIN PRN IV SEE COMMENTS; Start 11/08/18 at 10:00 Methylprednisolone Sodium Succinate (SOLU-Medrol 125MG VIAL) 100 mg Q8HRS IV Last administered on 11/09/18at 05:22; Start 11/08/18 at 14:00 Potassium Chloride/Water 100 ml @ 100 mls/hr Q1H IV Last administered on at 07:04; Start 11/09/18 at 07:00; Stop 11/09/18 at 14:59 Vitals/I & O Vital Sign - Last 24 Hours 11/08/18 11/08/18 11/08/18 11/08/18 09:00 09:00 09:40 10:00 Temp 98.2 98.2 Pulse 106 88 Resp 24 24 B/P (MAP) 179/70 (106) 172/70 (104) Pulse Ox 100 99 35 O2 Delivery Ventilator Mechanical Ventilator Ventilator Ventilator 11/08/18 11/08/18 11/08/18 11/08/18 11:00 11:40 12:00 12:40 Temp 98.6 98.6 Pulse 84 82 Resp 14 14 B/P (MAP) 110/60 (77) 116/53 (74) Pulse Ox 35 100 35 100 O2 Delivery Ventilator Ventilator Ventilator Ventilator 11/08/18 11/08/18 11/08/18 11/08/18 13:00 14:00 15:00 15:12 Pulse 80 98 86 Resp 14 14 14 B/P (MAP) 127/66 (86) 140/66 (90) 82/50 (61) Pulse Ox 35 35 35 100 O2 Delivery Ventilator Ventilator Ventilator Ventilator 11/08/18 11/08/18 11/08/18 11/08/18 16:00 17:00 17:29 18:00 Temp 98.6 98.6 Pulse 80 84 80 Resp 14 14 14 B/P (MAP) 116/68 (84) 102/61 (75) 164/77 (106) Pulse Ox 35 35 100 35 O2 Delivery Ventilator Ventilator Ventilator Ventilator 11/08/18 11/08/18 11/08/18 11/08/18 19:00 20:00 20:00 20:07 Temp 98.3 98.3 Pulse 81 80 Resp 8 16 B/P (MAP) 117/62 (80) 127/67 (87) Pulse Ox 100 100 100 O2 Delivery Ventilator Ventilator Mechanical Ventilator Ventilator 11/08/18 11/08/18 11/08/18 11/08/18 21:00 22:00 23:00 23:38 Pulse 112 104 91 Resp 16 16 16 B/P (MAP) 80/52 (61) 82/52 (62) 92/57 (69) Pulse Ox 100 100 100 100 O2 Delivery Ventilator Ventilator Ventilator Ventilator 11/09/18 11/09/18 11/09/18 11/09/18 00:00 00:00 01:00 02:00 Temp 98.7 98.7 Pulse 89 87 79 Resp 18 16 16 B/P (MAP) 153/74 (100) 144/63 (90) 117/66 (83) Pulse Ox 100 100 100 O2 Delivery Mechanical Ventilator Ventilator Ventilator Ventilator 11/09/18 11/09/18 11/09/18 11/09/18 02:21 03:00 04:00 05:00 Temp 97.6 97.6 Pulse 72 78 78 Resp 16 16 16 B/P (MAP) 149/72 (97) 158/74 (102) 138/76 (96) Pulse Ox 100 100 100 100 O2 Delivery Ventilator Ventilator Ventilator Ventilator 11/09/18 11/09/18 11/09/18 05:37 06:00 07:00 Pulse 66 73 Resp 16 16 B/P (MAP) 137/69 (91) 158/81 (106) Pulse Ox 100 100 100 O2 Delivery Ventilator Ventilator Ventilator Intake and Output 11/08/18 11/08/18 11/09/18 14:59 22:59 06:59 Intake Total 0 ml 1469 ml 1070 ml Output Total 180 ml 525 ml 490 ml Balance -180 ml 944 ml 580 ml Nutrition Consultation Dietary Evaluation: Recommendations by RD: Increase Calorie Intake Comments: REC initiation of TF within 24 hrs if pt remains intubated, recommend TF per following: Glucerna 1.5@goal rate 25 ml/hr w/100 ml water flushes q4 hrs or flushes per MD Expected Outcomes/Goals: Initiation of TF within 24 hrs if pt remains intubated Malnutrition Findings: Body Fat Depletion (Non Severe: Mild Depletion Weight Status: Underweight IDA BRANDT MD Nov 09, 2018 08:07
[2018-11-09] MEDS: ENOXAPARIN 40 MG/0.4 ML SYRINGE. SQ SCH (08:20)
[2018-11-09] MEDS: PANTOPRAZOLE IV PUSH 40 MG VIAL. IVP SCH (08:20)
[2018-11-09] MEDS: fentaNYL PF VIAL 100 MCG/2 ML VIAL IV PRN ×2 (08:25→22:21)
[2018-11-09] MEDS: FAMOTIDINE 20 MG/2 ML VIAL IVP SCH (09:00)
[2018-11-09 09:09] LABS: BASE EXCESS ABG 0 mmol/L (-3-3); HCO3 ABG 22 mmol/L (21-28); PCO2 ABG 30 mmHg (35-46); PO2 ABG 86 mmHg (65-108); SAT O2 ABG 96 % (92-99)
[2018-11-09 09:16] LABS: FIO2 ABG 30
--- NOTE | 2018-11-09 10:05 | PDOC ---
Infectious Disease Note Subjective Subjective pt is awake, nods appropriately on vent ROS ROS no n/v/d/sob/fever Vital Sign Vital Signs Vital Signs Date Time Temp Pulse Resp B/P (MAP) Pulse Ox O2 Delivery O2 Flow Rate FiO2 11/09/18 09:05 100 Ventilator 11/09/18 09:00 82 22 158/78 (104) 11/09/18 08:00 98.5 98.5 11/08/18 07:52 6.0 Physical Exam PHYSICAL EXAM GENERAL: Sedated, orally intubated female, not in any distress. VITAL SIGNS: Stable, afebrile. HEENT: NAD. NECK: Supple, no JVP, no lymphadenopathy. LUNGS: Decreased breath sounds. HEART: S1, S2 regular without murmur. ABDOMEN: Soft, nontender, no organomegaly. EXTREMITIES: No edema or cyanosis. SKIN: Unremarkable. NEUROLOGICAL: Before intubation and sedation, the patient was moving all the extremities. Labs Lab Laboratory Tests Test 11/08/18 10:15 11/08/18 10:45 11/08/18 13:19 11/08/18 16:53 Lactic Acid Level 3.2 mmol/L (0.4-2.0) O2 Saturation 98 % (92-99) Arterial Blood pH 7.67 (7.35-7.45) Arterial Blood pCO2 at Patient Temp 25 mmHg (35-46) Arterial Blood pO2 at Patient Temp 74 mmHg (65-108) Arterial Blood HCO3 28 mmol/L (21-28) Arterial Blood Base Excess 8 mmol/L (-3-3) Oxyhemoglobin 97.7 % Methemoglobin 0.4 % (0.0-1.9) Carbon Monoxide, Quantitative 0.0 % (0.0-1.9) FiO2 30% Glucose (Fingerstick) 97 mg/dL (70-99) 80 mg/dL (70-99) Test 11/08/18 20:50 11/09/18 05:00 11/09/18 08:08 11/09/18 09:05 Influenza Type A Antigen Negative (NEGATIVE) Influenza Type B Antigen Negative (NEGATIVE) White Blood Count 4.9 x10^3/uL (4.0-11.0) Red Blood Count 3.46 x10^6/uL (3.50-5.40) Hemoglobin 10.7 g/dL (12.0-15.5) Hematocrit 32.4 % (36.0-47.0) Mean Corpuscular Volume 94 fL (79-100) Mean Corpuscular Hemoglobin 31 pg (25-35) Mean Corpuscular Hemoglobin Concent 33 g/dL (31-37) Red Cell Distribution Width 13.1 % (11.5-14.5) Platelet Count 160 x10^3/uL (140-400) Neutrophils (%) (Auto) 92 % (31-73) Lymphocytes (%) (Auto) 7 % (24-48) Monocytes (%) (Auto) 2 % (0-9) Eosinophils (%) (Auto) 0 % (0-3) Basophils (%) (Auto) 0 % (0-3) Neutrophils # (Auto) 4.5 x10^3uL (1.8-7.7) Lymphocytes # (Auto) 0.3 x10^3/uL (1.0-4.8) Monocytes # (Auto) 0.1 x10^3/uL (0.0-1.1) Eosinophils # (Auto) 0.0 x10^3/uL (0.0-0.7) Basophils # (Auto) 0.0 x10^3/uL (0.0-0.2) Sodium Level 146 mmol/L (136-145) Potassium Level 2.6 mmol/L (3.5-5.1) Chloride Level 107 mmol/L (98-107) Carbon Dioxide Level 25 mmol/L (21-32) Anion Gap 14 (6-14) Blood Urea Nitrogen 14 mg/dL (7-20) Creatinine 0.8 mg/dL (0.6-1.0) Estimated GFR (Cockcroft-Gault) 84.6 BUN/Creatinine Ratio 18 (6-20) Glucose Level 155 mg/dL (70-99) Calcium Level 8.2 mg/dL (8.5-10.1) Total Bilirubin 0.5 mg/dL (0.2-1.0) Aspartate Amino Transf (AST/SGOT) 52 U/L (15-37) Alanine Aminotransferase (ALT/SGPT) 79 U/L (14-59) Alkaline Phosphatase 67 U/L (46-116) Total Protein 6.1 g/dL (6.4-8.2) Albumin 2.9 g/dL (3.4-5.0) Albumin/Globulin Ratio 0.9 (1.0-1.7) Glucose (Fingerstick) 123 mg/dL (70-99) O2 Saturation 96 % (92-99) Arterial Blood pH 7.49 (7.35-7.45) Arterial Blood pCO2 at Patient Temp 30 mmHg (35-46) Arterial Blood pO2 at Patient Temp 86 mmHg (65-108) Arterial Blood HCO3 22 mmol/L (21-28) Arterial Blood Base Excess 0 mmol/L (-3-3) FiO2 30 Micro Microbiology 11/07/18 Blood Culture - Preliminary, Resulted NO GROWTH AFTER 1 DAY Objective Assessment Hypercarbic respiratory failure Asthma DM Pneumonia Lactic acidosis Plan Plan of Care zosyn supportive care byrne culture d/w daughter BROOK BURGER MD Nov 09, 2018 10:05
[2018-11-09 12:08] LABS: BASE EXCESS ABG 1 mmol/L (-3-3); HCO3 ABG 24 mmol/L (21-28); PCO2 ABG 34 mmHg (35-46); PO2 ABG 135 mmHg (65-108); SAT O2 ABG 99 % (92-99)
[2018-11-09 12:11] LABS: FIO2 ABG 30
--- NOTE | 2018-11-09 13:06 | RAD ---
Chest radiograph 11/09/2018 6:23 AM INDICATION: Pneumonia COMPARISON: November 08, 2018 TECHNIQUE: Portable frontal semi-upright view of the chest is provided. FINDINGS: The cardiomediastinal silhouette is within normal limits. Endotracheal tube terminates 2.5 cm above the level of the fabian, in similar position. Nasogastric tube is identified at the side-port above the level of the diaphragm. This may be advanced further by at least 5 cm. There are no pleural effusions. There is no pulmonary vascular congestion. There is no pneumothorax. The lungs are clear. Right apical pleural-parenchymal scarring is identified. No significant osseous abnormality is identified. IMPRESSION: Similar appearance of support lines and tubes. Nasogastric tube may be advanced further. Aeration of lungs appears similar compared to prior examination. Electronically signed by: Pallavi Villeda MD (11/09/2018 1:03 PM) [id number]
[2018-11-09] MEDS: PROPOFOL 100 ML IV PRN (14:01)
[2018-11-09 17:30] LABS: CALCIUM 8.9 mg/dL (8.5-10.1); CREATININE 0.6 mg/dL (0.6-1.0); GFR 117.9; POTASSIUM 3.9 mmol/L (3.5-5.1)
--- NOTE | 2018-11-09 19:19 | PDOC ---
PROGRESS NOTES Assessment Assessment Metabolic encephalopathy. Respiratory failure. Lactic acidosis. DM. Fall. HTN. Hypotension event. RECOMMENDATIONS/PLAN: HCT performed and ICH ruled out. Treat medical diseases. Discussed with her daughter at bedside in ICU on 11/08/18. HISTORY OF THE PRESENT ILLNESS: This is a 77-year-old AA female patient with above medical diseases was brought to the ER of [facility]. She developed symptoms of SOB and dyspnea. Family noted that she had increased shortness of breath. She had a fall reportedly hurt her head. HCT showed no SDH, SAH and ICH. Due to respiratory distress/failure, she was intubated. Past Medical History Asthma, Diabetes-Type II. PAST SURGERY HISTORY: Tubal ligation ALLERGY: NKDA MEDICATIONS: Refer to [facility] FAMILY HISTORY: DM. SOCIAL HISTORY: Lives at home. Denies current smoking, drinking, and illicit drug use. REVIEW OF SYSTEMS: Constitutional: No malnutrition or cachexia. Head: No traumatic brain injury. Skin: No edema, or rash. Ear: No infection. Eyes: No vision loss or color blindness. Nose: No bleeding or purulent discharges. Hearing: Hearing decrease. Neck: No injury. Breast: No history of cancer, masses,or discharges. Cardiac: HTN. Pulmonary: Asthma. SOB.. GI: No GI ulcer, GI bleeding. Urinary/genital: UTI. Endocrinologic: Diabetes Mellitus. Skeletomuscular: No muscular atrophy. Neurological: see HP. Psychiatric: Denies drug use/abuse. Otherwise, not [id number] review of systems. PHYSICAL EXAMINATION: General appearance is in subacute distress. HEENT: Normocephalic and nontraumatic. Eyes, nose, ears, and throat are unremarkable. Neck is supple. No lymphadenopathy. No crepitus. Cardiovascular: S1, S2, regular rate and rhythm. Pulmonary: On vent. Abdomen: Bowel sounds are positive. Extremities: No rash, lesions, or edema. No restriction of range of motion NEUROLOGICAL EXAMINATION: On vent. Awake. Unable to communicate. Not oriented to time, place and person. PERRL. EOMI not elicited. CN: no acute focal findings. Muscle tone: Decreased. Muscle strength: Moves all extremities to stimuli. DTR: 1+ Plantar reflex: Neutral response bilaterally Gait: Unable to walk. Sensory exam: no abnormal findings. Not able to access cerebellar signs. F-T-N test nor performed due to unresponsiveness. Objective Objective Vital Signs Date Time Temp Pulse Resp B/P (MAP) Pulse Ox O2 Delivery O2 Flow Rate FiO2 11/09/18 18:00 62 16 161/75 (103) 100 Ventilator 11/09/18 16:00 97.8 97.8 11/08/18 07:52 6.0 Intake and Output 11/09/18 07:00 Intake Total 2539 ml Output Total 1230 ml Balance 1309 ml Intake Oral 0 ml IV Total 2539 ml Output Urine Total 1030 ml Gastric Drainage Total 200 ml Vitals Signs Vitals VS - Last 72 Hours, by Label Date Time Temp Pulse Resp B/P (MAP) Pulse Ox O2 Delivery O2 Flow Rate FiO2 11/09/18 18:00 62 16 161/75 (103) 100 Ventilator 11/09/18 16:20 100 Ventilator 11/09/18 16:00 97.8 60 16 140/62 (88) 100 Ventilator 97.8 11/09/18 16:00 Mechanical Ventilator 11/09/18 15:00 60 16 127/57 (80) 100 Ventilator 11/09/18 14:00 86 16 150/67 (94) 100 Ventilator 11/09/18 13:00 92 35 134/70 (91) 100 Ventilator 11/09/18 12:00 Mechanical Ventilator 11/09/18 12:00 99.3 102 38 166/79 (108) 100 Ventilator 99.3 11/09/18 11:18 100 Ventilator 11/09/18 11:00 94 22 158/80 (106) 100 Ventilator 11/09/18 10:16 Ventilator 11/09/18 10:00 81 22 149/77 (101) 100 Ventilator 11/09/18 09:05 100 Ventilator 11/09/18 09:00 82 22 158/78 (104) 100 Ventilator 11/09/18 08:25 100 Ventilator 11/09/18 08:00 98.5 82 20 172/96 (121) 100 Ventilator 98.5 11/09/18 08:00 Mechanical Ventilator 11/09/18 07:00 73 16 158/81 (106) 100 Ventilator 11/09/18 06:00 66 16 137/69 (91) 100 Ventilator 11/09/18 05:37 100 Ventilator 11/09/18 05:00 78 16 138/76 (96) 100 Ventilator 11/09/18 04:00 97.6 78 16 158/74 (102) 100 Ventilator 97.6 11/09/18 03:00 72 16 149/72 (97) 100 Ventilator 11/09/18 02:21 100 Ventilator 11/09/18 02:00 79 16 117/66 (83) 100 Ventilator 11/09/18 01:00 87 16 144/63 (90) 100 Ventilator 11/09/18 00:00 98.7 89 18 153/74 (100) 100 Ventilator 98.7 11/09/18 00:00 Mechanical Ventilator 11/08/18 23:38 100 Ventilator 11/08/18 23:00 91 16 92/57 (69) 100 Ventilator 11/08/18 22:00 104 16 82/52 (62) 100 Ventilator 11/08/18 21:00 112 16 80/52 (61) 100 Ventilator 11/08/18 20:07 100 Ventilator 11/08/18 20:00 Mechanical Ventilator 11/08/18 20:00 98.3 80 16 127/67 (87) 100 Ventilator 98.3 11/08/18 19:00 81 8 117/62 (80) 100 Ventilator 11/08/18 18:00 80 14 164/77 (106) 35 Ventilator 11/08/18 17:29 100 Ventilator 11/08/18 17:00 84 14 102/61 (75) 35 Ventilator 11/08/18 16:00 98.6 80 14 116/68 (84) 35 Ventilator 98.6 11/08/18 15:12 100 Ventilator 11/08/18 15:00 86 14 82/50 (61) 35 Ventilator 11/08/18 14:00 98 14 140/66 (90) 35 Ventilator 11/08/18 13:00 80 14 127/66 (86) 35 Ventilator 11/08/18 12:40 100 Ventilator 11/08/18 12:00 98.6 82 14 116/53 (74) 35 Ventilator 98.6 11/08/18 11:40 100 Ventilator 11/08/18 11:00 84 14 110/60 (77) 35 Ventilator 11/08/18 10:00 88 24 172/70 (104) 35 Ventilator 11/08/18 09:40 99 Ventilator 11/08/18 09:00 Mechanical Ventilator 11/08/18 09:00 98.2 106 24 179/70 (106) 100 Ventilator 98.2 11/08/18 07:52 103 6 151/61 (91) 100 Bag 6.0 11/08/18 07:41 98.1 48 22 43/19 (27) Nasal Cannula 2.0 98.1 Laboratory Laboratory Laboratory Tests Test 11/08/18 20:50 11/09/18 05:00 11/09/18 08:08 11/09/18 09:05 Influenza Type A Antigen Negative (NEGATIVE) Influenza Type B Antigen Negative (NEGATIVE) White Blood Count 4.9 x10^3/uL (4.0-11.0) Red Blood Count 3.46 x10^6/uL (3.50-5.40) Hemoglobin 10.7 g/dL (12.0-15.5) Hematocrit 32.4 % (36.0-47.0) Mean Corpuscular Volume 94 fL (79-100) Mean Corpuscular Hemoglobin 31 pg (25-35) Mean Corpuscular Hemoglobin Concent 33 g/dL (31-37) Red Cell Distribution Width 13.1 % (11.5-14.5) Platelet Count 160 x10^3/uL (140-400) Neutrophils (%) (Auto) 92 % (31-73) Lymphocytes (%) (Auto) 7 % (24-48) Monocytes (%) (Auto) 2 % (0-9) Eosinophils (%) (Auto) 0 % (0-3) Basophils (%) (Auto) 0 % (0-3) Neutrophils # (Auto) 4.5 x10^3uL (1.8-7.7) Lymphocytes # (Auto) 0.3 x10^3/uL (1.0-4.8) Monocytes # (Auto) 0.1 x10^3/uL (0.0-1.1) Eosinophils # (Auto) 0.0 x10^3/uL (0.0-0.7) Basophils # (Auto) 0.0 x10^3/uL (0.0-0.2) Sodium Level 146 mmol/L (136-145) Potassium Level 2.6 mmol/L (3.5-5.1) Chloride Level 107 mmol/L (98-107) Carbon Dioxide Level 25 mmol/L (21-32) Anion Gap 14 (6-14) Blood Urea Nitrogen 14 mg/dL (7-20) Creatinine 0.8 mg/dL (0.6-1.0) Estimated GFR (Cockcroft-Gault) 84.6 BUN/Creatinine Ratio 18 (6-20) Glucose Level 155 mg/dL (70-99) Calcium Level 8.2 mg/dL (8.5-10.1) Phosphorus Level 2.8 mg/dL (2.6-4.7) Magnesium Level 2.0 mg/dL (1.8-2.4) Total Bilirubin 0.5 mg/dL (0.2-1.0) Aspartate Amino Transf (AST/SGOT) 52 U/L (15-37) Alanine Aminotransferase (ALT/SGPT) 79 U/L (14-59) Alkaline Phosphatase 67 U/L (46-116) Total Protein 6.1 g/dL (6.4-8.2) Albumin 2.9 g/dL (3.4-5.0) Albumin/Globulin Ratio 0.9 (1.0-1.7) Glucose (Fingerstick) 123 mg/dL (70-99) O2 Saturation 96 % (92-99) Arterial Blood pH 7.49 (7.35-7.45) Arterial Blood pCO2 at Patient Temp 30 mmHg (35-46) Arterial Blood pO2 at Patient Temp 86 mmHg (65-108) Arterial Blood HCO3 22 mmol/L (21-28) Arterial Blood Base Excess 0 mmol/L (-3-3) FiO2 30 Test 11/09/18 12:00 11/09/18 12:42 11/09/18 16:49 11/09/18 17:10 O2 Saturation 99 % (92-99) Arterial Blood pH 7.47 (7.35-7.45) Arterial Blood pCO2 at Patient Temp 34 mmHg (35-46) Arterial Blood pO2 at Patient Temp 135 mmHg (65-108) Arterial Blood HCO3 24 mmol/L (21-28) Arterial Blood Base Excess 1 mmol/L (-3-3) FiO2 30 Glucose (Fingerstick) 108 mg/dL (70-99) 119 mg/dL (70-99) Sodium Level 139 mmol/L (136-145) Potassium Level 3.9 mmol/L (3.5-5.1) Chloride Level 105 mmol/L (98-107) Carbon Dioxide Level 24 mmol/L (21-32) Anion Gap 10 (6-14) Blood Urea Nitrogen 14 mg/dL (7-20) Creatinine 0.6 mg/dL (0.6-1.0) Estimated GFR (Cockcroft-Gault) 117.9 Glucose Level 121 mg/dL (70-99) Calcium Level 8.9 mg/dL (8.5-10.1) Magnesium Level 2.0 mg/dL (1.8-2.4) Test 11/09/18 18:10 Potassium Level 4.0 mmol/L (3.5-5.1) Microbiology 11/08/18 Blood Culture - Preliminary, Resulted NO GROWTH AFTER 1 DAY Medication Medications Current Medications Famotidine (Pepcid Vial) 20 mg DAILY IVP ; Start 11/09/18 at 09:00 Potassium Chloride/Water 100 ml @ 100 mls/hr Q1H IV Last administered on at 16:44; Start 11/09/18 at 07:00; Stop 11/09/18 at 14:59; Status DC Comment Review of Relevant I have reviewed the following items melody (where applicable) has been applied. PATSY VINSON MD Nov 09, 2018 19:19
[2018-11-10] VITALS (24 sets, daily range): BP systolic 97–170; BP diastolic 46–109
[2018-11-10] MEDS: PIPERACILLIN/TAZOBACTAM 3.375 GM in IV NORMAL SALINE 50ML 50 ML IV SCH ×4 (00:24→17:33)
[2018-11-10] MEDS: IV NORMAL SALINE 1000ML BAG 1,000 ML IV SCH ×4 (00:25→18:27)
[2018-11-10 00:46] LABS: ALBUMIN 2.9 g/dL (3.4-5.0); ALBUMIN/GLOBULIN RATIO 0.9 (1.0-1.7); CALCIUM 8.8 mg/dL (8.5-10.1); CREATININE 0.5 mg/dL (0.6-1.0); GFR 145.5; POTASSIUM 3.3 mmol/L (3.5-5.1); TOTAL BILIRUBIN 0.4 mg/dL (0.2-1.0); TOTAL PROTEIN 6.3 g/dL (6.4-8.2)
[2018-11-10] MEDS: methylPREDNISolone SOD SUCC PF 125 MG/2 ML VIAL. IV SCH ×3 (05:27→22:38)
[2018-11-10 06:38] LABS: HEMATOCRIT 34.5 % (36.0-47.0); HEMOGLOBIN 11.5 g/dL (12.0-15.5); RED BLOOD COUNT 3.72 x10^6/uL (3.50-5.40); RED CELL DISTRIBUTION WIDTH 13.6 % (11.5-14.5); WHITE BLOOD COUNT 9.3 x10^3/uL (4.0-11.0)
[2018-11-10 06:50] LABS: CALCIUM 8.7 mg/dL (8.5-10.1); CREATININE 0.5 mg/dL (0.6-1.0); GFR 145.5; POTASSIUM 3.1 mmol/L (3.5-5.1)
--- NOTE | 2018-11-10 07:16 | PDOC ---
PULMONARY PROGRESS NOTES Subjective on vent, on propofol, off sedation follows commands, small ett secretion, sbt yesterday, rr in 30s Vitals Vital Signs Date Time Temp Pulse Resp B/P (MAP) Pulse Ox O2 Delivery O2 Flow Rate FiO2 11/10/18 06:00 55 16 117/72 (87) 100 Ventilator 11/10/18 04:00 97.0 97.0 11/09/18 22:51 6.0 Comments ros as mentioned as above discussed w rn, rt, other sys otherwise neg on vent sedated HEENT: Other (nc at perrl nose clear orally intubated neck no lad no thyromegaly) Lungs: Clear Cardiovascular: S1, S2 Abdomen: Soft, Non-tender, Other (no mass) Extremities: No Edema Skin: Warm Labs Laboratory Tests Test 11/08/18 07:57 11/08/18 08:20 11/08/18 08:30 11/08/18 09:15 Glucose (Fingerstick) 245 mg/dL (70-99) O2 Saturation 99 % (92-99) Arterial Blood pH 7.05 (7.35-7.45) Arterial Blood pCO2 at Patient Temp 147 mmHg (35-46) Arterial Blood pO2 at Patient Temp 250 mmHg (65-108) Arterial Blood HCO3 40 mmol/L (21-28) Arterial Blood Base Excess 5 mmol/L (-3-3) FiO2 100 Creatine Kinase 114 U/L (26-192) Troponin I Quantitative < 0.017 ng/mL (0.000-0.055) Vitamin B12 Level > 2000 pg/mL (247-911) Procalcitonin < 0.10 ng/mL (0.00-0.10) Thyroid Stimulating Hormone (TSH) 1.444 uIU/mL (0.358-3.74) Nasal Screen MRSA (PCR) Negative (Negative) Test 11/08/18 10:15 11/08/18 10:45 11/08/18 13:19 11/08/18 16:53 Lactic Acid Level 3.2 mmol/L (0.4-2.0) O2 Saturation 98 % (92-99) Arterial Blood pH 7.67 (7.35-7.45) Arterial Blood pCO2 at Patient Temp 25 mmHg (35-46) Arterial Blood pO2 at Patient Temp 74 mmHg (65-108) Arterial Blood HCO3 28 mmol/L (21-28) Arterial Blood Base Excess 8 mmol/L (-3-3) Oxyhemoglobin 97.7 % Methemoglobin 0.4 % (0.0-1.9) Carbon Monoxide, Quantitative 0.0 % (0.0-1.9) FiO2 30% Glucose (Fingerstick) 97 mg/dL (70-99) 80 mg/dL (70-99) Test 11/08/18 20:50 11/09/18 05:00 11/09/18 08:08 11/09/18 09:05 Influenza Type A Antigen Negative (NEGATIVE) Influenza Type B Antigen Negative (NEGATIVE) White Blood Count 4.9 x10^3/uL (4.0-11.0) Red Blood Count 3.46 x10^6/uL (3.50-5.40) Hemoglobin 10.7 g/dL (12.0-15.5) Hematocrit 32.4 % (36.0-47.0) Mean Corpuscular Volume 94 fL (79-100) Mean Corpuscular Hemoglobin 31 pg (25-35) Mean Corpuscular Hemoglobin Concent 33 g/dL (31-37) Red Cell Distribution Width 13.1 % (11.5-14.5) Platelet Count 160 x10^3/uL (140-400) Neutrophils (%) (Auto) 92 % (31-73) Lymphocytes (%) (Auto) 7 % (24-48) Monocytes (%) (Auto) 2 % (0-9) Eosinophils (%) (Auto) 0 % (0-3) Basophils (%) (Auto) 0 % (0-3) Neutrophils # (Auto) 4.5 x10^3uL (1.8-7.7) Lymphocytes # (Auto) 0.3 x10^3/uL (1.0-4.8) Monocytes # (Auto) 0.1 x10^3/uL (0.0-1.1) Eosinophils # (Auto) 0.0 x10^3/uL (0.0-0.7) Basophils # (Auto) 0.0 x10^3/uL (0.0-0.2) Sodium Level 146 mmol/L (136-145) Potassium Level 2.6 mmol/L (3.5-5.1) Chloride Level 107 mmol/L (98-107) Carbon Dioxide Level 25 mmol/L (21-32) Anion Gap 14 (6-14) Blood Urea Nitrogen 14 mg/dL (7-20) Creatinine 0.8 mg/dL (0.6-1.0) Estimated GFR (Cockcroft-Gault) 84.6 BUN/Creatinine Ratio 18 (6-20) Glucose Level 155 mg/dL (70-99) Calcium Level 8.2 mg/dL (8.5-10.1) Phosphorus Level 2.8 mg/dL (2.6-4.7) Magnesium Level 2.0 mg/dL (1.8-2.4) Total Bilirubin 0.5 mg/dL (0.2-1.0) Aspartate Amino Transf (AST/SGOT) 52 U/L (15-37) Alanine Aminotransferase (ALT/SGPT) 79 U/L (14-59) Alkaline Phosphatase 67 U/L (46-116) Total Protein 6.1 g/dL (6.4-8.2) Albumin 2.9 g/dL (3.4-5.0) Albumin/Globulin Ratio 0.9 (1.0-1.7) Glucose (Fingerstick) 123 mg/dL (70-99) O2 Saturation 96 % (92-99) Arterial Blood pH 7.49 (7.35-7.45) Arterial Blood pCO2 at Patient Temp 30 mmHg (35-46) Arterial Blood pO2 at Patient Temp 86 mmHg (65-108) Arterial Blood HCO3 22 mmol/L (21-28) Arterial Blood Base Excess 0 mmol/L (-3-3) FiO2 30 Test 11/09/18 12:00 11/09/18 12:42 11/09/18 16:49 11/09/18 17:10 O2 Saturation 99 % (92-99) Arterial Blood pH 7.47 (7.35-7.45) Arterial Blood pCO2 at Patient Temp 34 mmHg (35-46) Arterial Blood pO2 at Patient Temp 135 mmHg (65-108) Arterial Blood HCO3 24 mmol/L (21-28) Arterial Blood Base Excess 1 mmol/L (-3-3) FiO2 30 Glucose (Fingerstick) 108 mg/dL (70-99) 119 mg/dL (70-99) Sodium Level 139 mmol/L (136-145) Potassium Level 3.9 mmol/L (3.5-5.1) Chloride Level 105 mmol/L (98-107) Carbon Dioxide Level 24 mmol/L (21-32) Anion Gap 10 (6-14) Blood Urea Nitrogen 14 mg/dL (7-20) Creatinine 0.6 mg/dL (0.6-1.0) Estimated GFR (Cockcroft-Gault) 117.9 Glucose Level 121 mg/dL (70-99) Calcium Level 8.9 mg/dL (8.5-10.1) Magnesium Level 2.0 mg/dL (1.8-2.4) Test 11/09/18 18:10 11/10/18 00:05 11/10/18 06:30 Potassium Level 4.0 mmol/L (3.5-5.1) 3.3 mmol/L (3.5-5.1) 3.1 mmol/L (3.5-5.1) Sodium Level 141 mmol/L (136-145) 142 mmol/L (136-145) Chloride Level 105 mmol/L (98-107) 105 mmol/L (98-107) Carbon Dioxide Level 25 mmol/L (21-32) 24 mmol/L (21-32) Anion Gap 11 (6-14) 13 (6-14) Blood Urea Nitrogen 13 mg/dL (7-20) 15 mg/dL (7-20) Creatinine 0.5 mg/dL (0.6-1.0) 0.5 mg/dL (0.6-1.0) Estimated GFR (Cockcroft-Gault) 145.5 145.5 BUN/Creatinine Ratio 26 (6-20) Glucose Level 122 mg/dL (70-99) 100 mg/dL (70-99) Calcium Level 8.8 mg/dL (8.5-10.1) 8.7 mg/dL (8.5-10.1) Total Bilirubin 0.4 mg/dL (0.2-1.0) Aspartate Amino Transf (AST/SGOT) 31 U/L (15-37) Alanine Aminotransferase (ALT/SGPT) 60 U/L (14-59) Alkaline Phosphatase 63 U/L (46-116) Total Protein 6.3 g/dL (6.4-8.2) Albumin 2.9 g/dL (3.4-5.0) Albumin/Globulin Ratio 0.9 (1.0-1.7) White Blood Count 9.3 x10^3/uL (4.0-11.0) Red Blood Count 3.72 x10^6/uL (3.50-5.40) Hemoglobin 11.5 g/dL (12.0-15.5) Hematocrit 34.5 % (36.0-47.0) Mean Corpuscular Volume 93 fL (79-100) Mean Corpuscular Hemoglobin 31 pg (25-35) Mean Corpuscular Hemoglobin Concent 34 g/dL (31-37) Red Cell Distribution Width 13.6 % (11.5-14.5) Platelet Count 172 x10^3/uL (140-400) Laboratory Tests Test 11/09/18 08:08 11/09/18 09:05 11/09/18 12:00 11/09/18 12:42 Glucose (Fingerstick) 123 mg/dL (70-99) 108 mg/dL (70-99) O2 Saturation 96 % (92-99) 99 % (92-99) Arterial Blood pH 7.49 (7.35-7.45) 7.47 (7.35-7.45) Arterial Blood pCO2 at Patient Temp 30 mmHg (35-46) 34 mmHg (35-46) Arterial Blood pO2 at Patient Temp 86 mmHg (65-108) 135 mmHg (65-108) Arterial Blood HCO3 22 mmol/L (21-28) 24 mmol/L (21-28) Arterial Blood Base Excess 0 mmol/L (-3-3) 1 mmol/L (-3-3) FiO2 30 30 Test 11/09/18 16:49 11/09/18 17:10 11/09/18 18:10 11/10/18 00:05 Glucose (Fingerstick) 119 mg/dL (70-99) Sodium Level 139 mmol/L (136-145) 141 mmol/L (136-145) Potassium Level 3.9 mmol/L (3.5-5.1) 4.0 mmol/L (3.5-5.1) 3.3 mmol/L (3.5-5.1) Chloride Level 105 mmol/L (98-107) 105 mmol/L (98-107) Carbon Dioxide Level 24 mmol/L (21-32) 25 mmol/L (21-32) Anion Gap 10 (6-14) 11 (6-14) Blood Urea Nitrogen 14 mg/dL (7-20) 13 mg/dL (7-20) Creatinine 0.6 mg/dL (0.6-1.0) 0.5 mg/dL (0.6-1.0) Estimated GFR (Cockcroft-Gault) 117.9 145.5 Glucose Level 121 mg/dL (70-99) 122 mg/dL (70-99) Calcium Level 8.9 mg/dL (8.5-10.1) 8.8 mg/dL (8.5-10.1) Magnesium Level 2.0 mg/dL (1.8-2.4) BUN/Creatinine Ratio 26 (6-20) Total Bilirubin 0.4 mg/dL (0.2-1.0) Aspartate Amino Transf (AST/SGOT) 31 U/L (15-37) Alanine Aminotransferase (ALT/SGPT) 60 U/L (14-59) Alkaline Phosphatase 63 U/L (46-116) Total Protein 6.3 g/dL (6.4-8.2) Albumin 2.9 g/dL (3.4-5.0) Albumin/Globulin Ratio 0.9 (1.0-1.7) Test 11/10/18 06:30 White Blood Count 9.3 x10^3/uL (4.0-11.0) Red Blood Count 3.72 x10^6/uL (3.50-5.40) Hemoglobin 11.5 g/dL (12.0-15.5) Hematocrit 34.5 % (36.0-47.0) Mean Corpuscular Volume 93 fL (79-100) Mean Corpuscular Hemoglobin 31 pg (25-35) Mean Corpuscular Hemoglobin Concent 34 g/dL (31-37) Red Cell Distribution Width 13.6 % (11.5-14.5) Platelet Count 172 x10^3/uL (140-400) Sodium Level 142 mmol/L (136-145) Potassium Level 3.1 mmol/L (3.5-5.1) Chloride Level 105 mmol/L (98-107) Carbon Dioxide Level 24 mmol/L (21-32) Anion Gap 13 (6-14) Blood Urea Nitrogen 15 mg/dL (7-20) Creatinine 0.5 mg/dL (0.6-1.0) Estimated GFR (Cockcroft-Gault) 145.5 Glucose Level 100 mg/dL (70-99) Calcium Level 8.7 mg/dL (8.5-10.1) Comments cxr, ett ok, copd changes, no infilt echo reviewed The left ventricular systolic function is normal. The Ejection Fraction is 65-70%. There is normal LV segmental wall motion. Transmitral Doppler flow pattern is Grade I-abnormal relaxation pattern. Doppler and Color Flow revealed trace tricuspid regurgitation. The PA pressure was estimated at 20 mmHg. There is no evidence of significant pericardial effusion. Impression . IMPRESSION: 1. Acute on chronic hypoxemic and hypercarbic respiratory failure secondary to acute exacerbation of chronic obstructive pulmonary disease versus others. 2. Abnormal chest x-ray. 3. Acute exacerbation of chronic obstructive pulmonary disease. 4. Acute bronchitis vs pneumonia. 5. Diabetes mellitus. 6. hypo k Plan . PLAN AND RECOMMENDATIONS: 1. Titrate FiO2 to keep O2 saturation 94%. 2. Continue ventilator support. Vent setting was reviewed. will decrease sedation and do sbt, hopefully extubate today 3. Bronchodilator. 4. change Solu-Medrol to 40 mg IV every 12 hours. Monitor blood sugar while she is on Solu-Medrol. 5. antibiotic, per id. 6. Nasal swab for influenza A and B, neg. 7. Procalcitonin, nl. 8. Echocardiogram reviewed. 9. Lovenox for DVT prophylaxis. 10. Pepcid for stress ulcer prophylaxis. 11. Elevate head of bed. The findings and recommendations were discussed with RN and RT. HUEY CHAUDHARI MD Nov 10, 2018 07:16
[2018-11-10] MEDS: INSULIN LISPRO 300 UNITS/3 ML INSULN.PEN. SQ SCH ×3 (08:00→17:00)
[2018-11-10] MEDS: PANTOPRAZOLE IV PUSH 40 MG VIAL. IVP SCH (08:16)
[2018-11-10] MEDS: FAMOTIDINE 20 MG/2 ML VIAL IVP SCH (08:58)
--- NOTE | 2018-11-10 08:58 | RAD ---
AP chest. HISTORY: Tube position AP view was taken of the chest. Endotracheal tube remains in good position at the top of the aortic arch. NG tube is better positioned having been further advanced into the stomach. No new infiltrates are noted. There is hyperexpansion of the lungs. Heart is normal in size. IMPRESSION: 1. Endotracheal tube and NG tube in good position. 2. No new infiltrates. Electronically signed by: Trev Bunch MD (11/10/2018 8:55 AM) [facility]
[2018-11-10] MEDS ORDERED: POTASSIUM CHLORIDE 20 MEQ/15 ML ORAL LIQUID. PEG ONE ×2 (09:15)
--- NOTE | 2018-11-10 09:22 | PDOC ---
PROGRESS NOTES Chief Complaint Chief Complaint Hypercarbic respiratory failure. Lactic acidosis. Asthma. Diabetes. Community-acquired pneumonia. History of Present Illness History of Present Illness 77-year-old AA female patient with above medical diseases was brought to the ER of [facility]. She developed symptoms of SOB and dyspnea. Family noted that she had increased shortness of breath. She had a fall reportedly hurt her head. HCT showed no SDH, SAH and ICH. Due to respiratory distress/failure, she was intubated. 11/09: Potassium 2.6 this morning. Awakened during vent wean this morning. Did not c/o chest pain at that time. moving extremities. Still on vent currently. RSBI elevated, did not extubate K still low today. Moving on vent, awake, alert. Denies chest pain, still with elevated RR. Plan: Replace K. Vent wean trial again today IV steroids Vitals Vitals Vital Signs Date Time Temp Pulse Resp B/P (MAP) Pulse Ox O2 Delivery O2 Flow Rate FiO2 11/10/18 08:30 Ventilator 11/10/18 08:25 100 11/10/18 08:00 98.4 68 16 168/88 (114) 98.4 11/09/18 22:51 6.0 Physical Exam Physical Exam GENERAL: Sedated, orally intubated female, not in any distress. VITAL SIGNS: Stable, afebrile. HEENT: NAD. NECK: Supple, no JVP, no lymphadenopathy. LUNGS: Decreased breath sounds. HEART: S1, S2 regular without murmur. ABDOMEN: Soft, nontender, no organomegaly. EXTREMITIES: No edema or cyanosis. SKIN: Unremarkable. NEUROLOGICAL: Before intubation and sedation, the patient was moving all the extremities. General: moderate distress Lungs: Crackles Abdomen: Normal bowel sounds, Soft Extremities: No cyanosis Skin: No breakdown Labs LABS Laboratory Tests Test 11/09/18 09:05 11/09/18 12:00 11/09/18 12:42 11/09/18 16:49 O2 Saturation 96 % (92-99) 99 % (92-99) Arterial Blood pH 7.49 (7.35-7.45) 7.47 (7.35-7.45) Arterial Blood pCO2 at Patient Temp 30 mmHg (35-46) 34 mmHg (35-46) Arterial Blood pO2 at Patient Temp 86 mmHg (65-108) 135 mmHg (65-108) Arterial Blood HCO3 22 mmol/L (21-28) 24 mmol/L (21-28) Arterial Blood Base Excess 0 mmol/L (-3-3) 1 mmol/L (-3-3) FiO2 30 30 Glucose (Fingerstick) 108 mg/dL (70-99) 119 mg/dL (70-99) Test 11/09/18 17:10 11/09/18 18:10 11/10/18 00:05 11/10/18 06:30 Sodium Level 139 mmol/L (136-145) 141 mmol/L (136-145) 142 mmol/L (136-145) Potassium Level 3.9 mmol/L (3.5-5.1) 4.0 mmol/L (3.5-5.1) 3.3 mmol/L (3.5-5.1) 3.1 mmol/L (3.5-5.1) Chloride Level 105 mmol/L (98-107) 105 mmol/L (98-107) 105 mmol/L (98-107) Carbon Dioxide Level 24 mmol/L (21-32) 25 mmol/L (21-32) 24 mmol/L (21-32) Anion Gap 10 (6-14) 11 (6-14) 13 (6-14) Blood Urea Nitrogen 14 mg/dL (7-20) 13 mg/dL (7-20) 15 mg/dL (7-20) Creatinine 0.6 mg/dL (0.6-1.0) 0.5 mg/dL (0.6-1.0) 0.5 mg/dL (0.6-1.0) Estimated GFR (Cockcroft-Gault) 117.9 145.5 145.5 Glucose Level 121 mg/dL (70-99) 122 mg/dL (70-99) 100 mg/dL (70-99) Calcium Level 8.9 mg/dL (8.5-10.1) 8.8 mg/dL (8.5-10.1) 8.7 mg/dL (8.5-10.1) Magnesium Level 2.0 mg/dL (1.8-2.4) BUN/Creatinine Ratio 26 (6-20) Total Bilirubin 0.4 mg/dL (0.2-1.0) Aspartate Amino Transf (AST/SGOT) 31 U/L (15-37) Alanine Aminotransferase (ALT/SGPT) 60 U/L (14-59) Alkaline Phosphatase 63 U/L (46-116) Total Protein 6.3 g/dL (6.4-8.2) Albumin 2.9 g/dL (3.4-5.0) Albumin/Globulin Ratio 0.9 (1.0-1.7) White Blood Count 9.3 x10^3/uL (4.0-11.0) Red Blood Count 3.72 x10^6/uL (3.50-5.40) Hemoglobin 11.5 g/dL (12.0-15.5) Hematocrit 34.5 % (36.0-47.0) Mean Corpuscular Volume 93 fL (79-100) Mean Corpuscular Hemoglobin 31 pg (25-35) Mean Corpuscular Hemoglobin Concent 34 g/dL (31-37) Red Cell Distribution Width 13.6 % (11.5-14.5) Platelet Count 172 x10^3/uL (140-400) Test 11/10/18 08:14 Glucose (Fingerstick) 69 mg/dL (70-99) Assessment and Plan Assessmemt and Plan Problems Medical Problems: (1) Dyspnea and respiratory abnormalities Status: Acute Comment Review of Relevant I have reviewed the following items melody (where applicable) has been applied. Labs Laboratory Tests Test 11/08/18 09:15 11/08/18 10:15 11/08/18 10:45 11/08/18 13:19 Nasal Screen MRSA (PCR) Negative (Negative) Lactic Acid Level 3.2 mmol/L (0.4-2.0) O2 Saturation 98 % (92-99) Arterial Blood pH 7.67 (7.35-7.45) Arterial Blood pCO2 at Patient Temp 25 mmHg (35-46) Arterial Blood pO2 at Patient Temp 74 mmHg (65-108) Arterial Blood HCO3 28 mmol/L (21-28) Arterial Blood Base Excess 8 mmol/L (-3-3) Oxyhemoglobin 97.7 % Methemoglobin 0.4 % (0.0-1.9) Carbon Monoxide, Quantitative 0.0 % (0.0-1.9) FiO2 30% Glucose (Fingerstick) 97 mg/dL (70-99) Test 11/08/18 16:53 11/08/18 20:50 11/09/18 05:00 11/09/18 08:08 Glucose (Fingerstick) 80 mg/dL (70-99) 123 mg/dL (70-99) Influenza Type A Antigen Negative (NEGATIVE) Influenza Type B Antigen Negative (NEGATIVE) White Blood Count 4.9 x10^3/uL (4.0-11.0) Red Blood Count 3.46 x10^6/uL (3.50-5.40) Hemoglobin 10.7 g/dL (12.0-15.5) Hematocrit 32.4 % (36.0-47.0) Mean Corpuscular Volume 94 fL (79-100) Mean Corpuscular Hemoglobin 31 pg (25-35) Mean Corpuscular Hemoglobin Concent 33 g/dL (31-37) Red Cell Distribution Width 13.1 % (11.5-14.5) Platelet Count 160 x10^3/uL (140-400) Neutrophils (%) (Auto) 92 % (31-73) Lymphocytes (%) (Auto) 7 % (24-48) Monocytes (%) (Auto) 2 % (0-9) Eosinophils (%) (Auto) 0 % (0-3) Basophils (%) (Auto) 0 % (0-3) Neutrophils # (Auto) 4.5 x10^3uL (1.8-7.7) Lymphocytes # (Auto) 0.3 x10^3/uL (1.0-4.8) Monocytes # (Auto) 0.1 x10^3/uL (0.0-1.1) Eosinophils # (Auto) 0.0 x10^3/uL (0.0-0.7) Basophils # (Auto) 0.0 x10^3/uL (0.0-0.2) Sodium Level 146 mmol/L (136-145) Potassium Level 2.6 mmol/L (3.5-5.1) Chloride Level 107 mmol/L (98-107) Carbon Dioxide Level 25 mmol/L (21-32) Anion Gap 14 (6-14) Blood Urea Nitrogen 14 mg/dL (7-20) Creatinine 0.8 mg/dL (0.6-1.0) Estimated GFR (Cockcroft-Gault) 84.6 BUN/Creatinine Ratio 18 (6-20) Glucose Level 155 mg/dL (70-99) Calcium Level 8.2 mg/dL (8.5-10.1) Phosphorus Level 2.8 mg/dL (2.6-4.7) Magnesium Level 2.0 mg/dL (1.8-2.4) Total Bilirubin 0.5 mg/dL (0.2-1.0) Aspartate Amino Transf (AST/SGOT) 52 U/L (15-37) Alanine Aminotransferase (ALT/SGPT) 79 U/L (14-59) Alkaline Phosphatase 67 U/L (46-116) Total Protein 6.1 g/dL (6.4-8.2) Albumin 2.9 g/dL (3.4-5.0) Albumin/Globulin Ratio 0.9 (1.0-1.7) Test 11/09/18 09:05 11/09/18 12:00 11/09/18 12:42 11/09/18 16:49 O2 Saturation 96 % (92-99) 99 % (92-99) Arterial Blood pH 7.49 (7.35-7.45) 7.47 (7.35-7.45) Arterial Blood pCO2 at Patient Temp 30 mmHg (35-46) 34 mmHg (35-46) Arterial Blood pO2 at Patient Temp 86 mmHg (65-108) 135 mmHg (65-108) Arterial Blood HCO3 22 mmol/L (21-28) 24 mmol/L (21-28) Arterial Blood Base Excess 0 mmol/L (-3-3) 1 mmol/L (-3-3) FiO2 30 30 Glucose (Fingerstick) 108 mg/dL (70-99) 119 mg/dL (70-99) Test 11/09/18 17:10 11/09/18 18:10 11/10/18 00:05 11/10/18 06:30 Sodium Level 139 mmol/L (136-145) 141 mmol/L (136-145) 142 mmol/L (136-145) Potassium Level 3.9 mmol/L (3.5-5.1) 4.0 mmol/L (3.5-5.1) 3.3 mmol/L (3.5-5.1) 3.1 mmol/L (3.5-5.1) Chloride Level 105 mmol/L (98-107) 105 mmol/L (98-107) 105 mmol/L (98-107) Carbon Dioxide Level 24 mmol/L (21-32) 25 mmol/L (21-32) 24 mmol/L (21-32) Anion Gap 10 (6-14) 11 (6-14) 13 (6-14) Blood Urea Nitrogen 14 mg/dL (7-20) 13 mg/dL (7-20) 15 mg/dL (7-20) Creatinine 0.6 mg/dL (0.6-1.0) 0.5 mg/dL (0.6-1.0) 0.5 mg/dL (0.6-1.0) Estimated GFR (Cockcroft-Gault) 117.9 145.5 145.5 Glucose Level 121 mg/dL (70-99) 122 mg/dL (70-99) 100 mg/dL (70-99) Calcium Level 8.9 mg/dL (8.5-10.1) 8.8 mg/dL (8.5-10.1) 8.7 mg/dL (8.5-10.1) Magnesium Level 2.0 mg/dL (1.8-2.4) BUN/Creatinine Ratio 26 (6-20) Total Bilirubin 0.4 mg/dL (0.2-1.0) Aspartate Amino Transf (AST/SGOT) 31 U/L (15-37) Alanine Aminotransferase (ALT/SGPT) 60 U/L (14-59) Alkaline Phosphatase 63 U/L (46-116) Total Protein 6.3 g/dL (6.4-8.2) Albumin 2.9 g/dL (3.4-5.0) Albumin/Globulin Ratio 0.9 (1.0-1.7) White Blood Count 9.3 x10^3/uL (4.0-11.0) Red Blood Count 3.72 x10^6/uL (3.50-5.40) Hemoglobin 11.5 g/dL (12.0-15.5) Hematocrit 34.5 % (36.0-47.0) Mean Corpuscular Volume 93 fL (79-100) Mean Corpuscular Hemoglobin 31 pg (25-35) Mean Corpuscular Hemoglobin Concent 34 g/dL (31-37) Red Cell Distribution Width 13.6 % (11.5-14.5) Platelet Count 172 x10^3/uL (140-400) Test 11/10/18 08:14 Glucose (Fingerstick) 69 mg/dL (70-99) Laboratory Tests Test 11/09/18 09:05 11/09/18 12:00 11/09/18 12:42 11/09/18 16:49 O2 Saturation 96 % (92-99) 99 % (92-99) Arterial Blood pH 7.49 (7.35-7.45) 7.47 (7.35-7.45) Arterial Blood pCO2 at Patient Temp 30 mmHg (35-46) 34 mmHg (35-46) Arterial Blood pO2 at Patient Temp 86 mmHg (65-108) 135 mmHg (65-108) Arterial Blood HCO3 22 mmol/L (21-28) 24 mmol/L (21-28) Arterial Blood Base Excess 0 mmol/L (-3-3) 1 mmol/L (-3-3) FiO2 30 30 Glucose (Fingerstick) 108 mg/dL (70-99) 119 mg/dL (70-99) Test 11/09/18 17:10 11/09/18 18:10 11/10/18 00:05 11/10/18 06:30 Sodium Level 139 mmol/L (136-145) 141 mmol/L (136-145) 142 mmol/L (136-145) Potassium Level 3.9 mmol/L (3.5-5.1) 4.0 mmol/L (3.5-5.1) 3.3 mmol/L (3.5-5.1) 3.1 mmol/L (3.5-5.1) Chloride Level 105 mmol/L (98-107) 105 mmol/L (98-107) 105 mmol/L (98-107) Carbon Dioxide Level 24 mmol/L (21-32) 25 mmol/L (21-32) 24 mmol/L (21-32) Anion Gap 10 (6-14) 11 (6-14) 13 (6-14) Blood Urea Nitrogen 14 mg/dL (7-20) 13 mg/dL (7-20) 15 mg/dL (7-20) Creatinine 0.6 mg/dL (0.6-1.0) 0.5 mg/dL (0.6-1.0) 0.5 mg/dL (0.6-1.0) Estimated GFR (Cockcroft-Gault) 117.9 145.5 145.5 Glucose Level 121 mg/dL (70-99) 122 mg/dL (70-99) 100 mg/dL (70-99) Calcium Level 8.9 mg/dL (8.5-10.1) 8.8 mg/dL (8.5-10.1) 8.7 mg/dL (8.5-10.1) Magnesium Level 2.0 mg/dL (1.8-2.4) BUN/Creatinine Ratio 26 (6-20) Total Bilirubin 0.4 mg/dL (0.2-1.0) Aspartate Amino Transf (AST/SGOT) 31 U/L (15-37) Alanine Aminotransferase (ALT/SGPT) 60 U/L (14-59) Alkaline Phosphatase 63 U/L (46-116) Total Protein 6.3 g/dL (6.4-8.2) Albumin 2.9 g/dL (3.4-5.0) Albumin/Globulin Ratio 0.9 (1.0-1.7) White Blood Count 9.3 x10^3/uL (4.0-11.0) Red Blood Count 3.72 x10^6/uL (3.50-5.40) Hemoglobin 11.5 g/dL (12.0-15.5) Hematocrit 34.5 % (36.0-47.0) Mean Corpuscular Volume 93 fL (79-100) Mean Corpuscular Hemoglobin 31 pg (25-35) Mean Corpuscular Hemoglobin Concent 34 g/dL (31-37) Red Cell Distribution Width 13.6 % (11.5-14.5) Platelet Count 172 x10^3/uL (140-400) Test 11/10/18 08:14 Glucose (Fingerstick) 69 mg/dL (70-99) Microbiology 11/08/18 Blood Culture - Preliminary, Resulted NO GROWTH AFTER 1 DAY Medications Current Medications Sodium Chloride 500 ml @ 500 mls/hr 1X ONCE IV Last administered on at 23:44; Start 11/07/18 at 23:30; Stop 11/08/18 at 00:29; Status DC Ondansetron HCl (Zofran) 4 mg PRN Q8HRS PRN IV NAUSEA/VOMITING 1ST CHOICE; Start 11/08/18 at 00:15; Stop 11/09/18 at 00:14; Status DC Sodium Chloride 1,000 ml @ 125 mls/hr Q8H IV Last administered on 11/08/18at 04 :43; Start 11/08/18 at 00:30; Stop 11/08/18 at 11:20; Status DC Albuterol/ Ipratropium (Duoneb) 3 ml RTQID NEB Last administered on 11/08/18at 20:06; Start 11/08/18 at 08:00; Stop 11/09/18 at 07:59; Status DC Etomidate (Amidate) 20 mg STK-MED ONCE IV ; Start 11/08/18 at 08:33; Stop at 08:34; Status DC Succinylcholine Chloride (Anectine) 200 mg STK-MED ONCE .ROUTE ; Start 11/08/18 at 08:34; Stop 11/08/18 at 08:35; Status DC Sodium Chloride 500 ml @ 500 mls/hr 1X ONCE IV Last administered on at 08:15; Start 11/08/18 at 08:15; Stop 11/08/18 at 09:14; Status DC Piperacillin Sod/ Tazobactam Sod (Zosyn Per Pharmacy) 1 each PRN DAILY PRN MC SEE COMMENTS; Start 11/08/18 at 09:30 Propofol 100 ml @ 0 mls/hr CONT PRN IV SEDATION Last administered on 11/09/18at 14:01; Start 11/08/18 at 09:30 Enoxaparin Sodium (Lovenox 40mg Syringe) 40 mg Q24H SQ Last administered on 07/18at 08:20; Start 11/08/18 at 09:30 Pantoprazole Sodium (PROTONIX VIAL for IV PUSH) 40 mg DAILYAC IVP Last administered on 11/10/18at 08:16; Start 11/08/18 at 10:00 Piperacillin Sod/ Tazobactam Sod 3.375 gm/Sodium Chloride 50 ml @ 100 mls/hr Q6H IV Last administered on 11/10/18at 05:27; Start 11/08/18 at 10:00 Hydralazine HCl (Apresoline Inj) 10 mg PRN Q4HRS PRN IVP ELEVATED BP, SEE COMMENTS; Start 11/08/18 at 09:45 Sodium Chloride 1,000 ml @ 100 mls/hr Q10H IV Last administered on 11/10/18at 00:25; Start 11/08/18 at 09:38 Ondansetron HCl (Zofran) 4 mg PRN Q4HRS PRN IV NAUSEA/VOMITING; Start 11/08/18 at 09:45 Acetaminophen (Tylenol) 650 mg PRN Q4HRS PRN GT TEMP OVER 100.4F OR MILD PAIN; Start 11/08/18 at 09:45 Acetaminophen (Tylenol Supp) 650 mg PRN Q4HRS PRN KS TEMP OVER 100.4F OR MILD PAIN; Start 11/08/18 at 09:45 Albuterol/ Ipratropium (Duoneb) 3 ml Q4H NEB ; Start 11/08/18 at 09:45; Status Cancel Levofloxacin/ Dextrose 100 ml @ 100 mls/hr Q24H IV Last administered on at 11:14; Start 11/08/18 at 10:00; Stop 11/08/18 at 11:21; Status DC Methylprednisolone Sodium Succinate (SOLU-Medrol 40MG VIAL) 40 mg Q8HRS IV ; Start 11/08/18 at 09:45; Status Cancel Famotidine (Pepcid Vial) 20 mg DAILY IVP ; Start 11/09/18 at 09:00 Fentanyl Citrate 30 ml @ 0 mls/hr CONT PRN IV SEE PROTOCOL; Start 11/08/18 at 09:45 Fentanyl Citrate (Fentanyl 2ml Vial) 25 mcg PRN Q1HR PRN IV SEE COMMENTS; Start 11/08/18 at 09:45 Fentanyl Citrate (Fentanyl 2ml Vial) 50 mcg PRN Q1HR PRN IV SEE COMMENTS Last administered on 11/09/18at 22:21; Start 11/08/18 at 09:45 Morphine Sulfate (Morphine Sulfate) 2 mg PRN Q1HR PRN IV SEE COMMENTS.; Start 11/08/18 at 09:45; Status UNV Morphine Sulfate (Morphine Sulfate) 4 mg PRN Q1HR PRN IV SEE COMMENTS.; Start 11/08/18 at 09:45; Status UNV Insulin Human Lispro (HumaLOG) 0-5 UNITS TIDWMEALS SQ ; Start 11/08/18 at 12:00 Dextrose (Dextrose 50%-Water Syringe) 12.5 gm PRN Q15MIN PRN IV SEE COMMENTS; Start 11/08/18 at 10:00 Methylprednisolone Sodium Succinate (SOLU-Medrol 125MG VIAL) 100 mg Q8HRS IV Last administered on 11/10/18at 05:27; Start 11/08/18 at 14:00 Potassium Chloride/Water 100 ml @ 100 mls/hr Q1H IV Last administered on at 16:44; Start 11/09/18 at 07:00; Stop 11/09/18 at 14:59; Status DC Vitals/I & O Vital Sign - Last 24 Hours 11/09/18 11/09/18 11/09/18 11/09/18 09:05 10:00 10:16 11:00 Pulse 81 94 Resp 22 22 B/P (MAP) 149/77 (101) 158/80 (106) Pulse Ox 100 100 100 O2 Delivery Ventilator Ventilator Ventilator Ventilator 11/09/18 11/09/18 11/09/18 11/09/18 11:18 12:00 12:00 13:00 Temp 99.3 99.3 Pulse 102 92 Resp 38 35 B/P (MAP) 166/79 (108) 134/70 (91) Pulse Ox 100 100 100 O2 Delivery Ventilator Ventilator Mechanical Ventilator Ventilator 11/09/18 11/09/18 11/09/18 11/09/18 14:00 15:00 16:00 16:00 Temp 97.8 97.8 Pulse 86 60 60 Resp 16 16 16 B/P (MAP) 150/67 (94) 127/57 (80) 140/62 (88) Pulse Ox 100 100 100 O2 Delivery Ventilator Ventilator Mechanical Ventilator Ventilator 11/09/18 11/09/18 11/09/18 11/09/18 16:20 18:00 19:00 19:57 Pulse 62 62 Resp 16 16 B/P (MAP) 161/75 (103) 163/75 (104) Pulse Ox 100 100 100 100 O2 Delivery Ventilator Ventilator Ventilator Ventilator 11/09/18 11/09/18 11/09/18 11/09/18 20:00 20:00 21:00 22:00 Temp 97.9 97.9 Pulse 64 62 60 Resp 16 16 16 B/P (MAP) 163/82 (109) 173/75 (107) 167/83 (111) Pulse Ox 100 100 100 O2 Delivery Ventilator Mechanical Ventilator Ventilator Ventilator 11/09/18 11/09/18 11/09/18 11/09/18 22:21 22:48 22:51 23:00 Pulse 54 Resp 16 B/P (MAP) 175/82 (113) Pulse Ox 100 100 100 100 O2 Delivery Ventilator Ventilator Ventilator O2 Flow Rate 6.0 11/10/18 11/10/18 11/10/18 11/10/18 00:00 00:01 01:00 01:49 Temp 97.7 97.7 Pulse 56 60 Resp 16 16 B/P (MAP) 151/70 (97) 108/70 (83) Pulse Ox 100 100 100 O2 Delivery Mechanical Ventilator Ventilator Ventilator Ventilator 11/10/18 11/10/18 11/10/18 11/10/18 02:00 03:00 04:00 04:00 Temp 97.0 97.0 Pulse 48 60 64 Resp 16 16 16 B/P (MAP) 131/57 (81) 170/109 (129) 130/63 (85) Pulse Ox 100 100 100 O2 Delivery Ventilator Ventilator Ventilator Mechanical Ventilator 11/10/18 11/10/18 11/10/18 11/10/18 05:00 05:00 06:00 07:00 Pulse 72 55 66 Resp 16 16 16 B/P (MAP) 129/63 (85) 117/72 (87) 170/70 (103) Pulse Ox 100 100 100 100 O2 Delivery Ventilator Ventilator Ventilator Ventilator 11/10/18 11/10/18 11/10/18 11/10/18 08:00 08:00 08:25 08:30 Temp 98.4 98.4 Pulse 68 Resp 16 B/P (MAP) 168/88 (114) Pulse Ox 100 100 O2 Delivery Ventilator Mechanical Ventilator Ventilator Ventilator Intake and Output 11/09/18 11/09/18 11/10/18 15:00 23:00 07:00 Intake Total 100 ml 65.64 ml 1250.6 ml Output Total 295 ml 700 ml 860 ml Balance -195 ml -634.36 ml 390.6 ml Nutrition Consultation Dietary Evaluation: Recommendations by RD: Increase Calorie Intake Comments: REC initiation of TF within 24 hrs if pt remains intubated, recommend TF per following: Glucerna 1.5@goal rate 25 ml/hr w/100 ml water flushes q4 hrs or flushes per MD REC liquid MVI and Vit C via feeding tube if able - wound healing Expected Outcomes/Goals: Initiation of TF within 24 hrs if pt remains intubated - not met, goal ongoing Interpretation of weight loss: >7.5% in 3 months Malnutrition Findings: Body Fat Depletion (Non Severe: Mild Depletion Weight Status: Underweight IDA BRANDT MD Nov 10, 2018 09:22
[2018-11-10 09:23] LABS: BASE EXCESS ABG -1 mmol/L (-3-3); HCO3 ABG 21 mmol/L (21-28); PCO2 ABG 27 mmHg (35-46); PO2 ABG 140 mmHg (65-108); SAT O2 ABG 99 % (92-99)
[2018-11-10 09:25] LABS: FIO2 ABG 30
[2018-11-10] MEDS: ENOXAPARIN 40 MG/0.4 ML SYRINGE. SQ SCH (09:27)
--- NOTE | 2018-11-10 09:30 | NUR ---
Abg results called to Dr. Ramirez, instructed to have RT do an upper airway test and if ok then go ahead and extubate.
--- NOTE | 2018-11-10 10:09 | PDOC ---
Infectious Disease Note Subjective Subjective Off sedation, remains orally intubated, FiO2 30% Indicates feeling a little bit nauseous No F/C/pain/SOA Daughter feels her mother's is better today ROS ROS per HPI Vital Sign Vital Signs Vital Signs Date Time Temp Pulse Resp B/P (MAP) Pulse Ox O2 Delivery O2 Flow Rate FiO2 11/10/18 09:00 89 22 157/69 (98) 100 Ventilator 11/10/18 08:00 98.4 98.4 11/09/18 22:51 6.0 Physical Exam PHYSICAL EXAM GENERAL: Propped up in bed, alert, calm, writing HEENT: Pupils round, ETT, OGT NECK: Supple LUNGS: Decreased breath sounds. HEART: S1, S2 regular ABDOMEN: Soft, nontender, BS present : Acevedo EXTREMITIES: No gross edema or cyanosis. SKIN: warm without rash NEUROLOGICAL: Alert, responding appropriately PIV Labs Lab Laboratory Tests Test 11/09/18 12:00 11/09/18 12:42 11/09/18 16:49 11/09/18 17:10 O2 Saturation 99 % (92-99) Arterial Blood pH 7.47 (7.35-7.45) Arterial Blood pCO2 at Patient Temp 34 mmHg (35-46) Arterial Blood pO2 at Patient Temp 135 mmHg (65-108) Arterial Blood HCO3 24 mmol/L (21-28) Arterial Blood Base Excess 1 mmol/L (-3-3) FiO2 30 Glucose (Fingerstick) 108 mg/dL (70-99) 119 mg/dL (70-99) Sodium Level 139 mmol/L (136-145) Potassium Level 3.9 mmol/L (3.5-5.1) Chloride Level 105 mmol/L (98-107) Carbon Dioxide Level 24 mmol/L (21-32) Anion Gap 10 (6-14) Blood Urea Nitrogen 14 mg/dL (7-20) Creatinine 0.6 mg/dL (0.6-1.0) Estimated GFR (Cockcroft-Gault) 117.9 Glucose Level 121 mg/dL (70-99) Calcium Level 8.9 mg/dL (8.5-10.1) Magnesium Level 2.0 mg/dL (1.8-2.4) Test 11/09/18 18:10 11/10/18 00:05 11/10/18 06:30 11/10/18 08:14 Potassium Level 4.0 mmol/L (3.5-5.1) 3.3 mmol/L (3.5-5.1) 3.1 mmol/L (3.5-5.1) Sodium Level 141 mmol/L (136-145) 142 mmol/L (136-145) Chloride Level 105 mmol/L (98-107) 105 mmol/L (98-107) Carbon Dioxide Level 25 mmol/L (21-32) 24 mmol/L (21-32) Anion Gap 11 (6-14) 13 (6-14) Blood Urea Nitrogen 13 mg/dL (7-20) 15 mg/dL (7-20) Creatinine 0.5 mg/dL (0.6-1.0) 0.5 mg/dL (0.6-1.0) Estimated GFR (Cockcroft-Gault) 145.5 145.5 BUN/Creatinine Ratio 26 (6-20) Glucose Level 122 mg/dL (70-99) 100 mg/dL (70-99) Calcium Level 8.8 mg/dL (8.5-10.1) 8.7 mg/dL (8.5-10.1) Total Bilirubin 0.4 mg/dL (0.2-1.0) Aspartate Amino Transf (AST/SGOT) 31 U/L (15-37) Alanine Aminotransferase (ALT/SGPT) 60 U/L (14-59) Alkaline Phosphatase 63 U/L (46-116) Total Protein 6.3 g/dL (6.4-8.2) Albumin 2.9 g/dL (3.4-5.0) Albumin/Globulin Ratio 0.9 (1.0-1.7) White Blood Count 9.3 x10^3/uL (4.0-11.0) Red Blood Count 3.72 x10^6/uL (3.50-5.40) Hemoglobin 11.5 g/dL (12.0-15.5) Hematocrit 34.5 % (36.0-47.0) Mean Corpuscular Volume 93 fL (79-100) Mean Corpuscular Hemoglobin 31 pg (25-35) Mean Corpuscular Hemoglobin Concent 34 g/dL (31-37) Red Cell Distribution Width 13.6 % (11.5-14.5) Platelet Count 172 x10^3/uL (140-400) Glucose (Fingerstick) 69 mg/dL (70-99) Test 11/10/18 09:15 O2 Saturation 99 % (92-99) Arterial Blood pH 7.50 (7.35-7.45) Arterial Blood pCO2 at Patient Temp 27 mmHg (35-46) Arterial Blood pO2 at Patient Temp 140 mmHg (65-108) Arterial Blood HCO3 21 mmol/L (21-28) Arterial Blood Base Excess -1 mmol/L (-3-3) FiO2 30 CXR 1. Endotracheal tube and NG tube in good position. 2. No new infiltrates. Micro 11/08/18 Blood Culture - Preliminary, Resulted NO GROWTH AFTER 1 DAY Objective Assessment Hypercarbic respiratory failure Asthma DM Pneumonia Lactic acidosis Plan Plan of Care Tavares BOTELLO NGTD Sputum not collected yet D/w daughter D/w nursing Patient seen and examined. Chart reviewed in detail. Case d/w [employer]. Agree with above plan. CATHI BAUER APRN Nov 10, 2018 10:09 NALLELY SHELDON MD Nov 10, 2018 20:27
--- NOTE | 2018-11-10 10:20 | NUR ---
Pt extubated and OG tube removed and placed on 3 liters.
[2018-11-10] MEDS: IPRATRPIUM/ALBUTEROL 0.5/2.5MG 3 ML NEBU. NEB SCH ×2 (16:18→19:52)
[2018-11-11] VITALS (19 sets, daily range): BP systolic 109–170; BP diastolic 50–87
[2018-11-11 00:32] LABS: BASE EXCESS ABG 1 mmol/L (-3-3); HCO3 ABG 27 mmol/L (21-28); PCO2 ABG 53 mmHg (35-46); PO2 ABG 112 mmHg (65-108); SAT O2 ABG 98 % (92-99)
--- NOTE | 2018-11-11 00:45 | NUR ---
Attempting to give report to RN, patient noted to be tachypnic and obtunded, not able to follow commands. Blood gasses drawn. Attempted to notify Dr. Arthur of results. Orders received, bipap, meds, and ICU electolyte protocol ordered. Will continue to monitor.
[2018-11-11] MEDS ORDERED: POTASSIUM CHLORIDE 20 MEQ TABLET.ER. PO SCH (01:00)
[2018-11-11 01:02] LABS: FIO2 ABG 28
[2018-11-11] MEDS: PIPERACILLIN/TAZOBACTAM 3.375 GM in IV NORMAL SALINE 50ML 50 ML IV SCH ×5 (01:08→23:31)
[2018-11-11] MEDS ORDERED: FUROSEMIDE 20 MG/2 ML VIAL. IVP ONE (01:30)
[2018-11-11] MEDS ORDERED: methylPREDNISolone SOD SUCC PF 40 MG/ML VIAL. IV ONE (01:30)
[2018-11-11 01:39] LABS: CALCIUM 8.6 mg/dL (8.5-10.1); CREATININE 0.6 mg/dL (0.6-1.0); GFR 117.9; POTASSIUM 4.1 mmol/L (3.5-5.1)
[2018-11-11] MEDS ORDERED: ELECTROLYTE (ICU) PROTOCOL. MC PRN (03:45)
[2018-11-11] MEDS: methylPREDNISolone SOD SUCC PF 125 MG/2 ML VIAL. IV SCH ×3 (05:31→21:02)
[2018-11-11] MEDS: IV NORMAL SALINE 1000ML BAG 1,000 ML IV SCH (05:31)
--- NOTE | 2018-11-11 06:48 | PDOC ---
PULMONARY PROGRESS NOTES Subjective became tachypneac over night, i started her on bipap, now on bipap, sob better, no pain. Vitals Vital Signs Date Time Temp Pulse Resp B/P (MAP) Pulse Ox O2 Delivery O2 Flow Rate FiO2 11/11/18 06:00 23 16 109/64 (79) 98 BiPAP/CPAP 11/11/18 04:00 98.1 98.1 11/11/18 04:00 40.0 Comments ros as mentioned as above discussed w rn, rt, other sys otherwise neg on bipap General: Alert, Oriented X4 HEENT: Other (nc at perrl nose clear neck no lad no thyromegaly) Lungs: Crackles Cardiovascular: S1, S2 Abdomen: Soft, Non-tender, Other (no mass) Neuro Exam: Alert Extremities: No Edema Skin: Warm Labs Laboratory Tests Test 11/09/18 08:08 11/09/18 09:05 11/09/18 12:00 11/09/18 12:42 Glucose (Fingerstick) 123 mg/dL (70-99) 108 mg/dL (70-99) O2 Saturation 96 % (92-99) 99 % (92-99) Arterial Blood pH 7.49 (7.35-7.45) 7.47 (7.35-7.45) Arterial Blood pCO2 at Patient Temp 30 mmHg (35-46) 34 mmHg (35-46) Arterial Blood pO2 at Patient Temp 86 mmHg (65-108) 135 mmHg (65-108) Arterial Blood HCO3 22 mmol/L (21-28) 24 mmol/L (21-28) Arterial Blood Base Excess 0 mmol/L (-3-3) 1 mmol/L (-3-3) FiO2 30 30 Test 11/09/18 16:49 11/09/18 17:10 11/09/18 18:10 11/10/18 00:05 Glucose (Fingerstick) 119 mg/dL (70-99) Sodium Level 139 mmol/L (136-145) 141 mmol/L (136-145) Potassium Level 3.9 mmol/L (3.5-5.1) 4.0 mmol/L (3.5-5.1) 3.3 mmol/L (3.5-5.1) Chloride Level 105 mmol/L (98-107) 105 mmol/L (98-107) Carbon Dioxide Level 24 mmol/L (21-32) 25 mmol/L (21-32) Anion Gap 10 (6-14) 11 (6-14) Blood Urea Nitrogen 14 mg/dL (7-20) 13 mg/dL (7-20) Creatinine 0.6 mg/dL (0.6-1.0) 0.5 mg/dL (0.6-1.0) Estimated GFR (Cockcroft-Gault) 117.9 145.5 Glucose Level 121 mg/dL (70-99) 122 mg/dL (70-99) Calcium Level 8.9 mg/dL (8.5-10.1) 8.8 mg/dL (8.5-10.1) Magnesium Level 2.0 mg/dL (1.8-2.4) BUN/Creatinine Ratio 26 (6-20) Total Bilirubin 0.4 mg/dL (0.2-1.0) Aspartate Amino Transf (AST/SGOT) 31 U/L (15-37) Alanine Aminotransferase (ALT/SGPT) 60 U/L (14-59) Alkaline Phosphatase 63 U/L (46-116) Total Protein 6.3 g/dL (6.4-8.2) Albumin 2.9 g/dL (3.4-5.0) Albumin/Globulin Ratio 0.9 (1.0-1.7) Test 11/10/18 06:30 11/10/18 08:14 11/10/18 09:15 11/10/18 11:44 White Blood Count 9.3 x10^3/uL (4.0-11.0) Red Blood Count 3.72 x10^6/uL (3.50-5.40) Hemoglobin 11.5 g/dL (12.0-15.5) Hematocrit 34.5 % (36.0-47.0) Mean Corpuscular Volume 93 fL (79-100) Mean Corpuscular Hemoglobin 31 pg (25-35) Mean Corpuscular Hemoglobin Concent 34 g/dL (31-37) Red Cell Distribution Width 13.6 % (11.5-14.5) Platelet Count 172 x10^3/uL (140-400) Sodium Level 142 mmol/L (136-145) Potassium Level 3.1 mmol/L (3.5-5.1) Chloride Level 105 mmol/L (98-107) Carbon Dioxide Level 24 mmol/L (21-32) Anion Gap 13 (6-14) Blood Urea Nitrogen 15 mg/dL (7-20) Creatinine 0.5 mg/dL (0.6-1.0) Estimated GFR (Cockcroft-Gault) 145.5 Glucose Level 100 mg/dL (70-99) Calcium Level 8.7 mg/dL (8.5-10.1) Glucose (Fingerstick) 69 mg/dL (70-99) 91 mg/dL (70-99) O2 Saturation 99 % (92-99) Arterial Blood pH 7.50 (7.35-7.45) Arterial Blood pCO2 at Patient Temp 27 mmHg (35-46) Arterial Blood pO2 at Patient Temp 140 mmHg (65-108) Arterial Blood HCO3 21 mmol/L (21-28) Arterial Blood Base Excess -1 mmol/L (-3-3) FiO2 30 Test 11/10/18 17:15 11/11/18 00:19 11/11/18 00:30 11/11/18 01:05 Glucose (Fingerstick) 109 mg/dL (70-99) 101 mg/dL (70-99) O2 Saturation 98 % (92-99) Arterial Blood pH 7.33 (7.35-7.45) Arterial Blood pCO2 at Patient Temp 53 mmHg (35-46) Arterial Blood pO2 at Patient Temp 112 mmHg (65-108) Arterial Blood HCO3 27 mmol/L (21-28) Arterial Blood Base Excess 1 mmol/L (-3-3) FiO2 28 Sodium Level 144 mmol/L (136-145) Potassium Level 4.1 mmol/L (3.5-5.1) Chloride Level 107 mmol/L (98-107) Carbon Dioxide Level 28 mmol/L (21-32) Anion Gap 9 (6-14) Blood Urea Nitrogen 15 mg/dL (7-20) Creatinine 0.6 mg/dL (0.6-1.0) Estimated GFR (Cockcroft-Gault) 117.9 Glucose Level 135 mg/dL (70-99) Calcium Level 8.6 mg/dL (8.5-10.1) Laboratory Tests Test 11/10/18 08:14 11/10/18 09:15 11/10/18 11:44 11/10/18 17:15 Glucose (Fingerstick) 69 mg/dL (70-99) 91 mg/dL (70-99) 109 mg/dL (70-99) O2 Saturation 99 % (92-99) Arterial Blood pH 7.50 (7.35-7.45) Arterial Blood pCO2 at Patient Temp 27 mmHg (35-46) Arterial Blood pO2 at Patient Temp 140 mmHg (65-108) Arterial Blood HCO3 21 mmol/L (21-28) Arterial Blood Base Excess -1 mmol/L (-3-3) FiO2 30 Test 11/11/18 00:19 11/11/18 00:30 11/11/18 01:05 Glucose (Fingerstick) 101 mg/dL (70-99) O2 Saturation 98 % (92-99) Arterial Blood pH 7.33 (7.35-7.45) Arterial Blood pCO2 at Patient Temp 53 mmHg (35-46) Arterial Blood pO2 at Patient Temp 112 mmHg (65-108) Arterial Blood HCO3 27 mmol/L (21-28) Arterial Blood Base Excess 1 mmol/L (-3-3) FiO2 28 Sodium Level 144 mmol/L (136-145) Potassium Level 4.1 mmol/L (3.5-5.1) Chloride Level 107 mmol/L (98-107) Carbon Dioxide Level 28 mmol/L (21-32) Anion Gap 9 (6-14) Blood Urea Nitrogen 15 mg/dL (7-20) Creatinine 0.6 mg/dL (0.6-1.0) Estimated GFR (Cockcroft-Gault) 117.9 Glucose Level 135 mg/dL (70-99) Calcium Level 8.6 mg/dL (8.5-10.1) Comments cxr, copd changes, no infilt echo reviewed The left ventricular systolic function is normal. The Ejection Fraction is 65-70%. There is normal LV segmental wall motion. Transmitral Doppler flow pattern is Grade I-abnormal relaxation pattern. Doppler and Color Flow revealed trace tricuspid regurgitation. The PA pressure was estimated at 20 mmHg. There is no evidence of significant pericardial effusion. Impression . IMPRESSION: 1. Acute on chronic hypoxemic and hypercarbic respiratory failure secondary to acute exacerbation of chronic obstructive pulmonary disease versus others. 2. Abnormal chest x-ray. 3. Acute exacerbation of chronic obstructive pulmonary disease. 4. Acute bronchitis vs pneumonia. 5. Diabetes mellitus. 6. hypo k Plan . PLAN AND RECOMMENDATIONS: 1. Titrate FiO2 to keep O2 saturation 92%. 2. Continue bipap, setting reviewed, will do abg, if ok, bipap prn during day, continuously at night 3. Bronchodilator. 4. cont Solu-Medrol to 40 mg IV every 12 hours. Monitor blood sugar while she is on Solu-Medrol. 5. antibiotic, per id. 6. Nasal swab for influenza A and B, neg. 7. Procalcitonin, nl. 8. Echocardiogram reviewed. 9. Lovenox for DVT prophylaxis. 10. Pepcid for stress ulcer prophylaxis. 11. Elevate head of bed. The findings and recommendations were discussed with RN and RT. HUEY CHAUDHARI MD Nov 11, 2018 06:48
--- NOTE | 2018-11-11 07:38 | RAD ---
AP chest. HISTORY: BiPAP AP view was taken of the chest. Endotracheal tube has been removed. Heart is normal in size. There is no pleural effusion. There is mild apical scarring without change. There are no new infiltrates. There is thoracolumbar scoliosis. IMPRESSION: 1. Endotracheal tube has been removed. 2. No new infiltrates. Electronically signed by: Trev Bunch MD (11/11/2018 7:35 AM) [facility]
[2018-11-11] MEDS: PANTOPRAZOLE IV PUSH 40 MG VIAL. IVP SCH (07:46)
[2018-11-11] MEDS: INSULIN LISPRO 300 UNITS/3 ML INSULN.PEN. SQ SCH ×3 (08:00→17:00)
[2018-11-11] MEDS: IPRATRPIUM/ALBUTEROL 0.5/2.5MG 3 ML NEBU. NEB SCH ×4 (08:31→19:32)
[2018-11-11] MEDS: FAMOTIDINE 20 MG/2 ML VIAL IVP SCH (08:36)
[2018-11-11] MEDS: ENOXAPARIN 40 MG/0.4 ML SYRINGE. SQ SCH (09:30)
--- NOTE | 2018-11-11 09:35 | PDOC ---
Infectious Disease Note Subjective Subjective s/p extubated Says breathing fine Tolerating soft diet Denies pain No F/C/S/N/V ROS ROS per HPI Vital Sign Vital Signs Vital Signs Date Time Temp Pulse Resp B/P (MAP) Pulse Ox O2 Delivery O2 Flow Rate FiO2 11/11/18 09:00 89 20 150/78 (102) 100 Nasal Cannula 2.0 11/11/18 07:00 97.8 97.8 Physical Exam PHYSICAL EXAM GENERAL: Propped up in bed, alert, eating LUNGS: Clear anteriorly HEART: S1, S2 ABDOMEN: Soft, nontender, BS present : Acevedo EXTREMITIES: No gross edema or cyanosis. SKIN: warm without rash NEUROLOGICAL: Alert, responding appropriately PIV Labs Lab Laboratory Tests Test 11/10/18 11:44 11/10/18 17:15 11/11/18 00:19 11/11/18 00:30 Glucose (Fingerstick) 91 mg/dL (70-99) 109 mg/dL (70-99) 101 mg/dL (70-99) O2 Saturation 98 % (92-99) Arterial Blood pH 7.33 (7.35-7.45) Arterial Blood pCO2 at Patient Temp 53 mmHg (35-46) Arterial Blood pO2 at Patient Temp 112 mmHg (65-108) Arterial Blood HCO3 27 mmol/L (21-28) Arterial Blood Base Excess 1 mmol/L (-3-3) FiO2 28 Test 11/11/18 01:05 11/11/18 08:35 Sodium Level 144 mmol/L (136-145) Potassium Level 4.1 mmol/L (3.5-5.1) Chloride Level 107 mmol/L (98-107) Carbon Dioxide Level 28 mmol/L (21-32) Anion Gap 9 (6-14) Blood Urea Nitrogen 15 mg/dL (7-20) Creatinine 0.6 mg/dL (0.6-1.0) Estimated GFR (Cockcroft-Gault) 117.9 Glucose Level 135 mg/dL (70-99) Calcium Level 8.6 mg/dL (8.5-10.1) Glucose (Fingerstick) 115 mg/dL (70-99) CXR 1. Endotracheal tube has been removed. 2. No new infiltrates. Micro 11/08/18 Blood Culture - Preliminary, Resulted NO GROWTH AFTER 1 DAY Objective Assessment Hypercarbic respiratory failure s/p extubation Asthma DM Pneumonia Lactic acidosis Plan Plan of Care Clinically improving, Continue Zosyn BC NGTD Sputum not collected D/w nursing Patient seen and examined. Chart reviewed in detail. Case discussed with ASSISTANT CREDIT MANAGER. Agree with above plan. CATHI BAUER FORESTRY AID TECHNICIAN Nov 11, 2018 09:35 NALLELY SHELDON MD Nov 11, 2018 18:50
--- NOTE | 2018-11-11 12:33 | PDOC ---
PROGRESS NOTES Chief Complaint Chief Complaint acute Hypercarbic respiratory failure. appears to have COPD on exam Lactic acidosis. Asthma. Diabetes. Community-acquired pneumonia. History of Present Illness History of Present Illness 77-year-old AA female patient with above medical diseases was brought to the ER of [facility]. extubated yesterday afternoon, up to chair, she reports feeling much improved lung vol. is small on exam Plan: Replace K. Vent wean trial again today IV steroids Vitals Vitals Vital Signs Date Time Temp Pulse Resp B/P (MAP) Pulse Ox O2 Delivery O2 Flow Rate FiO2 11/11/18 11:00 81 28 147/73 (97) 100 Nasal Cannula 2.0 11/11/18 07:00 97.8 97.8 Physical Exam Physical Exam GENERAL: Propped up in bed, alert, eating LUNGS: Clear anteriorly HEART: S1, S2 ABDOMEN: Soft, nontender, BS present : Acevedo EXTREMITIES: No gross edema or cyanosis. SKIN: warm without rash NEUROLOGICAL: Alert, responding appropriately PIV General: Alert, mild distress Heart: Regular rate Lungs: Clear, Other (very low vol) Abdomen: Normal bowel sounds, Soft Extremities: No cyanosis Skin: No breakdown Labs LABS Laboratory Tests Test 11/10/18 17:15 11/11/18 00:19 11/11/18 00:30 11/11/18 01:05 Glucose (Fingerstick) 109 mg/dL (70-99) 101 mg/dL (70-99) O2 Saturation 98 % (92-99) Arterial Blood pH 7.33 (7.35-7.45) Arterial Blood pCO2 at Patient Temp 53 mmHg (35-46) Arterial Blood pO2 at Patient Temp 112 mmHg (65-108) Arterial Blood HCO3 27 mmol/L (21-28) Arterial Blood Base Excess 1 mmol/L (-3-3) FiO2 28 Sodium Level 144 mmol/L (136-145) Potassium Level 4.1 mmol/L (3.5-5.1) Chloride Level 107 mmol/L (98-107) Carbon Dioxide Level 28 mmol/L (21-32) Anion Gap 9 (6-14) Blood Urea Nitrogen 15 mg/dL (7-20) Creatinine 0.6 mg/dL (0.6-1.0) Estimated GFR (Cockcroft-Gault) 117.9 Glucose Level 135 mg/dL (70-99) Calcium Level 8.6 mg/dL (8.5-10.1) Test 11/11/18 08:35 11/11/18 11:58 Glucose (Fingerstick) 115 mg/dL (70-99) 141 mg/dL (70-99) Assessment and Plan Assessmemt and Plan Problems Medical Problems: (1) Dyspnea and respiratory abnormalities Status: Acute Comment Review of Relevant I have reviewed the following items melody (where applicable) has been applied. Labs Laboratory Tests Test 11/09/18 12:42 11/09/18 16:49 11/09/18 17:10 11/09/18 18:10 Glucose (Fingerstick) 108 mg/dL (70-99) 119 mg/dL (70-99) Sodium Level 139 mmol/L (136-145) Potassium Level 3.9 mmol/L (3.5-5.1) 4.0 mmol/L (3.5-5.1) Chloride Level 105 mmol/L (98-107) Carbon Dioxide Level 24 mmol/L (21-32) Anion Gap 10 (6-14) Blood Urea Nitrogen 14 mg/dL (7-20) Creatinine 0.6 mg/dL (0.6-1.0) Estimated GFR (Cockcroft-Gault) 117.9 Glucose Level 121 mg/dL (70-99) Calcium Level 8.9 mg/dL (8.5-10.1) Magnesium Level 2.0 mg/dL (1.8-2.4) Test 11/10/18 00:05 11/10/18 06:30 11/10/18 08:14 11/10/18 09:15 Sodium Level 141 mmol/L (136-145) 142 mmol/L (136-145) Potassium Level 3.3 mmol/L (3.5-5.1) 3.1 mmol/L (3.5-5.1) Chloride Level 105 mmol/L (98-107) 105 mmol/L (98-107) Carbon Dioxide Level 25 mmol/L (21-32) 24 mmol/L (21-32) Anion Gap 11 (6-14) 13 (6-14) Blood Urea Nitrogen 13 mg/dL (7-20) 15 mg/dL (7-20) Creatinine 0.5 mg/dL (0.6-1.0) 0.5 mg/dL (0.6-1.0) Estimated GFR (Cockcroft-Gault) 145.5 145.5 BUN/Creatinine Ratio 26 (6-20) Glucose Level 122 mg/dL (70-99) 100 mg/dL (70-99) Calcium Level 8.8 mg/dL (8.5-10.1) 8.7 mg/dL (8.5-10.1) Total Bilirubin 0.4 mg/dL (0.2-1.0) Aspartate Amino Transf (AST/SGOT) 31 U/L (15-37) Alanine Aminotransferase (ALT/SGPT) 60 U/L (14-59) Alkaline Phosphatase 63 U/L (46-116) Total Protein 6.3 g/dL (6.4-8.2) Albumin 2.9 g/dL (3.4-5.0) Albumin/Globulin Ratio 0.9 (1.0-1.7) White Blood Count 9.3 x10^3/uL (4.0-11.0) Red Blood Count 3.72 x10^6/uL (3.50-5.40) Hemoglobin 11.5 g/dL (12.0-15.5) Hematocrit 34.5 % (36.0-47.0) Mean Corpuscular Volume 93 fL (79-100) Mean Corpuscular Hemoglobin 31 pg (25-35) Mean Corpuscular Hemoglobin Concent 34 g/dL (31-37) Red Cell Distribution Width 13.6 % (11.5-14.5) Platelet Count 172 x10^3/uL (140-400) Glucose (Fingerstick) 69 mg/dL (70-99) O2 Saturation 99 % (92-99) Arterial Blood pH 7.50 (7.35-7.45) Arterial Blood pCO2 at Patient Temp 27 mmHg (35-46) Arterial Blood pO2 at Patient Temp 140 mmHg (65-108) Arterial Blood HCO3 21 mmol/L (21-28) Arterial Blood Base Excess -1 mmol/L (-3-3) FiO2 30 Test 11/10/18 11:44 11/10/18 17:15 11/11/18 00:19 11/11/18 00:30 Glucose (Fingerstick) 91 mg/dL (70-99) 109 mg/dL (70-99) 101 mg/dL (70-99) O2 Saturation 98 % (92-99) Arterial Blood pH 7.33 (7.35-7.45) Arterial Blood pCO2 at Patient Temp 53 mmHg (35-46) Arterial Blood pO2 at Patient Temp 112 mmHg (65-108) Arterial Blood HCO3 27 mmol/L (21-28) Arterial Blood Base Excess 1 mmol/L (-3-3) FiO2 28 Test 11/11/18 01:05 11/11/18 08:35 11/11/18 11:58 Sodium Level 144 mmol/L (136-145) Potassium Level 4.1 mmol/L (3.5-5.1) Chloride Level 107 mmol/L (98-107) Carbon Dioxide Level 28 mmol/L (21-32) Anion Gap 9 (6-14) Blood Urea Nitrogen 15 mg/dL (7-20) Creatinine 0.6 mg/dL (0.6-1.0) Estimated GFR (Cockcroft-Gault) 117.9 Glucose Level 135 mg/dL (70-99) Calcium Level 8.6 mg/dL (8.5-10.1) Glucose (Fingerstick) 115 mg/dL (70-99) 141 mg/dL (70-99) Laboratory Tests Test 11/10/18 17:15 11/11/18 00:19 11/11/18 00:30 11/11/18 01:05 Glucose (Fingerstick) 109 mg/dL (70-99) 101 mg/dL (70-99) O2 Saturation 98 % (92-99) Arterial Blood pH 7.33 (7.35-7.45) Arterial Blood pCO2 at Patient Temp 53 mmHg (35-46) Arterial Blood pO2 at Patient Temp 112 mmHg (65-108) Arterial Blood HCO3 27 mmol/L (21-28) Arterial Blood Base Excess 1 mmol/L (-3-3) FiO2 28 Sodium Level 144 mmol/L (136-145) Potassium Level 4.1 mmol/L (3.5-5.1) Chloride Level 107 mmol/L (98-107) Carbon Dioxide Level 28 mmol/L (21-32) Anion Gap 9 (6-14) Blood Urea Nitrogen 15 mg/dL (7-20) Creatinine 0.6 mg/dL (0.6-1.0) Estimated GFR (Cockcroft-Gault) 117.9 Glucose Level 135 mg/dL (70-99) Calcium Level 8.6 mg/dL (8.5-10.1) Test 11/11/18 08:35 11/11/18 11:58 Glucose (Fingerstick) 115 mg/dL (70-99) 141 mg/dL (70-99) Microbiology 11/08/18 Blood Culture - Preliminary, Resulted NO GROWTH AFTER 3 DAYS Medications Current Medications Sodium Chloride 500 ml @ 500 mls/hr 1X ONCE IV Last administered on at 23:44; Start 11/07/18 at 23:30; Stop 11/08/18 at 00:29; Status DC Ondansetron HCl (Zofran) 4 mg PRN Q8HRS PRN IV NAUSEA/VOMITING 1ST CHOICE; Start 11/08/18 at 00:15; Stop 11/09/18 at 00:14; Status DC Sodium Chloride 1,000 ml @ 125 mls/hr Q8H IV Last administered on 11/08/18at 04 :43; Start 11/08/18 at 00:30; Stop 11/08/18 at 11:20; Status DC Albuterol/ Ipratropium (Duoneb) 3 ml RTQID NEB Last administered on 11/08/18at 20:06; Start 11/08/18 at 08:00; Stop 11/09/18 at 07:59; Status DC Etomidate (Amidate) 20 mg STK-MED ONCE IV ; Start 11/08/18 at 08:33; Stop at 08:34; Status DC Succinylcholine Chloride (Anectine) 200 mg STK-MED ONCE .ROUTE ; Start 11/08/18 at 08:34; Stop 11/08/18 at 08:35; Status DC Sodium Chloride 500 ml @ 500 mls/hr 1X ONCE IV Last administered on at 08:15; Start 11/08/18 at 08:15; Stop 11/08/18 at 09:14; Status DC Piperacillin Sod/ Tazobactam Sod (Zosyn Per Pharmacy) 1 each PRN DAILY PRN MC SEE COMMENTS; Start 11/08/18 at 09:30 Propofol 100 ml @ 0 mls/hr CONT PRN IV SEDATION Last administered on 11/09/18at 14:01; Start 11/08/18 at 09:30 Enoxaparin Sodium (Lovenox 40mg Syringe) 40 mg Q24H SQ Last administered on at 09:27; Start 11/08/18 at 09:30 Pantoprazole Sodium (PROTONIX VIAL for IV PUSH) 40 mg DAILYAC IVP Last administered on 11/11/18at 07:46; Start 11/08/18 at 10:00 Piperacillin Sod/ Tazobactam Sod 3.375 gm/Sodium Chloride 50 ml @ 100 mls/hr Q6H IV Last administered on 11/11/18at 11:55; Start 11/08/18 at 10:00 Hydralazine HCl (Apresoline Inj) 10 mg PRN Q4HRS PRN IVP ELEVATED BP, SEE COMMENTS; Start 11/08/18 at 09:45 Sodium Chloride 1,000 ml @ 100 mls/hr Q10H IV Last administered on 11/11/18at 05:31; Start 11/08/18 at 09:38; Stop 11/11/18 at 06:43; Status DC Ondansetron HCl (Zofran) 4 mg PRN Q4HRS PRN IV NAUSEA/VOMITING Last administered on 11/10/18at 09:38; Start 11/08/18 at 09:45 Acetaminophen (Tylenol) 650 mg PRN Q4HRS PRN GT TEMP OVER 100.4F OR MILD PAIN; Start 11/08/18 at 09:45 Acetaminophen (Tylenol Supp) 650 mg PRN Q4HRS PRN TX TEMP OVER 100.4F OR MILD PAIN; Start 11/08/18 at 09:45 Albuterol/ Ipratropium (Duoneb) 3 ml Q4H NEB ; Start 11/08/18 at 09:45; Status Cancel Levofloxacin/ Dextrose 100 ml @ 100 mls/hr Q24H IV Last administered on at 11:14; Start 11/08/18 at 10:00; Stop 11/08/18 at 11:21; Status DC Methylprednisolone Sodium Succinate (SOLU-Medrol 40MG VIAL) 40 mg Q8HRS IV ; Start 11/08/18 at 09:45; Status Cancel Famotidine (Pepcid Vial) 20 mg DAILY IVP ; Start 11/09/18 at 09:00 Fentanyl Citrate 30 ml @ 0 mls/hr CONT PRN IV SEE PROTOCOL; Start 11/08/18 at 09:45 Fentanyl Citrate (Fentanyl 2ml Vial) 25 mcg PRN Q1HR PRN IV SEE COMMENTS; Start 11/08/18 at 09:45 Fentanyl Citrate (Fentanyl 2ml Vial) 50 mcg PRN Q1HR PRN IV SEE COMMENTS Last administered on 11/09/18at 22:21; Start 11/08/18 at 09:45 Morphine Sulfate (Morphine Sulfate) 2 mg PRN Q1HR PRN IV SEE COMMENTS.; Start 11/08/18 at 09:45; Status UNV Morphine Sulfate (Morphine Sulfate) 4 mg PRN Q1HR PRN IV SEE COMMENTS.; Start 11/08/18 at 09:45; Status UNV Insulin Human Lispro (HumaLOG) 0-5 UNITS TIDWMEALS SQ ; Start 11/08/18 at 12:00 Dextrose (Dextrose 50%-Water Syringe) 12.5 gm PRN Q15MIN PRN IV SEE COMMENTS; Start 11/08/18 at 10:00 Methylprednisolone Sodium Succinate (SOLU-Medrol 125MG VIAL) 100 mg Q8HRS IV Last administered on 11/11/18at 05:31; Start 11/08/18 at 14:00 Potassium Chloride/Water 100 ml @ 100 mls/hr Q1H IV Last administered on at 16:44; Start 11/09/18 at 07:00; Stop 11/09/18 at 14:59; Status DC Potassium Chloride (KCl Oral Soln) 40 meq 1X ONCE PEG ; Start 11/10/18 at 09:15 ; Stop 11/10/18 at 09:16; Status UNV Potassium Chloride (KCl Oral Soln) 40 meq 1X ONCE PEG Last administered on at 09:38; Start 11/10/18 at 09:15; Stop 11/10/18 at 09:16; Status DC Albuterol/ Ipratropium (Duoneb) 3 ml RTQID NEB Last administered on 11/11/18at 08:31; Start 11/10/18 at 16:00 Methylprednisolone Sodium Succinate (SOLU-Medrol 40MG VIAL) 80 mg 1X ONCE IV Last administered on 11/11/18at 02:16; Start 11/11/18 at 01:30; Stop 11/11/18 at 01:31; Status DC Furosemide (Lasix) 20 mg 1X ONCE IVP Last administered on 11/11/18at 02:12; Start 11/11/18 at 01:30; Stop 11/11/18 at 01:31; Status DC Potassium Chloride (Klor-Con) 40 meq Q2H PO ; Start 11/11/18 at 01:00; Stop at 03:01; Status UNV Info (Icu Electrolyte Protocol) 1 ea CONT PRN PRN MC PER PROTOCOL; Start at 03:45 Lactobacillus Rhamnosus (Culturelle) 1 cap BID PO ; Start 11/11/18 at 21:00 Vitals/I & O Vital Sign - Last 24 Hours 11/10/18 11/10/18 11/10/18 11/10/18 12:50 13:00 14:00 15:00 Pulse 100 95 94 Resp 30 30 32 B/P (MAP) 121/69 (86) 119/57 (77) 136/57 (83) Pulse Ox 100 100 100 100 O2 Delivery Nasal Cannula Nasal Cannula Nasal Cannula Nasal Cannula O2 Flow Rate 2.0 3.0 3.0 3.0 11/10/18 11/10/18 11/10/18 11/10/18 16:00 16:00 16:19 17:00 Temp 98.3 98.3 Pulse 95 111 Resp 28 24 B/P (MAP) 131/69 (89) 97/46 (63) Pulse Ox 100 99 100 O2 Delivery Nasal Cannula Nasal Cannula Nasal Cannula Nasal Cannula O2 Flow Rate 2.0 3.0 2.0 3.0 11/10/18 11/10/18 11/10/18 11/10/18 18:00 19:00 19:53 20:00 Temp 97.6 97.6 Pulse 105 114 103 Resp 23 20 22 B/P (MAP) 133/61 (85) 111/58 (75) 105/46 (65) Pulse Ox 100 95 100 99 O2 Delivery Nasal Cannula Nasal Cannula Room Air Room Air O2 Flow Rate 3.0 2.0 11/10/18 11/10/18 11/10/18 11/10/18 20:00 21:00 22:00 23:00 Pulse 94 89 58 Resp 24 28 32 B/P (MAP) 117/65 (82) 116/64 (81) 113/58 (76) Pulse Ox 95 95 95 O2 Delivery Nasal Cannula Nasal Cannula Nasal Cannula Nasal Cannula O2 Flow Rate 2.0 2.0 2.0 2.0 11/11/18 11/11/18 11/11/18 11/11/18 00:00 00:01 00:40 01:00 Temp 98.6 98.6 Pulse 86 79 Resp 32 21 B/P (MAP) 120/50 (73) 152/71 (98) Pulse Ox 95 99 100 O2 Delivery Nasal Cannula Nasal Cannula BiPAP/CPAP BiPAP/CPAP O2 Flow Rate 2.0 11/11/18 11/11/18 11/11/18 11/11/18 02:00 03:00 03:05 04:00 Pulse 58 62 Resp 16 16 B/P (MAP) 149/70 (96) 149/60 (89) Pulse Ox 100 100 99 O2 Delivery BiPAP/CPAP BiPAP/CPAP BiPAP/CPAP O2 Flow Rate 40.0 11/11/18 11/11/18 11/11/18 11/11/18 04:00 04:00 05:00 05:35 Temp 98.1 98.1 Pulse 69 69 Resp 16 16 B/P (MAP) 117/65 (82) 118/71 (87) Pulse Ox 100 98 99 O2 Delivery Bi-pap BiPAP/CPAP BiPAP/CPAP BiPAP/CPAP O2 Flow Rate 40.0 11/11/18 11/11/18 11/11/18 11/11/18 06:00 07:00 07:45 08:00 Temp 97.8 97.8 Pulse 23 77 68 Resp 16 21 17 B/P (MAP) 109/64 (79) 170/86 (114) 142/87 (105) Pulse Ox 98 100 100 O2 Delivery BiPAP/CPAP BiPAP/CPAP Bi-pap BiPAP/CPAP 11/11/18 11/11/18 11/11/18 11/11/18 08:28 09:00 10:00 11:00 Pulse 89 82 81 Resp 20 25 28 B/P (MAP) 150/78 (102) 161/78 (105) 147/73 (97) Pulse Ox 99 100 100 100 O2 Delivery BiPAP/CPAP Nasal Cannula Nasal Cannula Nasal Cannula O2 Flow Rate 2.0 2.0 2.0 Intake and Output 11/10/18 11/10/18 11/11/18 15:00 23:00 07:00 Intake Total 50 ml 1131 ml 100 ml Output Total 1365 ml 360 ml 1785 ml Balance -1315 ml 771 ml -1685 ml Nutrition Consultation Dietary Evaluation: Recommendations by RD: Increase Calorie Intake Comments: REC initiation of TF within 24 hrs if pt remains intubated, recommend TF per following: Glucerna 1.5@goal rate 25 ml/hr w/100 ml water flushes q4 hrs or flushes per MD REC liquid MVI and Vit C via feeding tube if able - wound healing Expected Outcomes/Goals: Initiation of TF within 24 hrs if pt remains intubated - not met, goal ongoing Interpretation of weight loss: >7.5% in 3 months Malnutrition Findings: Body Fat Depletion (Non Severe: Mild Depletion Weight Status: Underweight LIZY BARKSDALE MD Nov 11, 2018 12:33
[2018-11-11] MEDS: LACTOBACILLUS RHAMNOSUS GG 1 CAPSULE. PO SCH (20:40)
[2018-11-12 03:50] VITALS: BP 131/68
[2018-11-12] MEDS: PIPERACILLIN/TAZOBACTAM 3.375 GM in IV NORMAL SALINE 50ML 50 ML IV SCH ×3 (05:08→18:52)
[2018-11-12] MEDS: methylPREDNISolone SOD SUCC PF 125 MG/2 ML VIAL. IV SCH ×3 (05:08→21:06)
[2018-11-12 06:02] LABS: CALCIUM 8.6 mg/dL (8.5-10.1); CREATININE 0.5 mg/dL (0.6-1.0); GFR 145.5
[2018-11-12 07:00] VITALS: BP 138/63
[2018-11-12] MEDS: IPRATRPIUM/ALBUTEROL 0.5/2.5MG 3 ML NEBU. NEB SCH ×4 (07:40→19:55)
--- NOTE | 2018-11-12 07:46 | PDOC ---
PROGRESS NOTES Chief Complaint Chief Complaint acute Hypercarbic respiratory failure. appears to have COPD on exam Lactic acidosis. Asthma. Diabetes. Community-acquired pneumonia. History of Present Illness History of Present Illness 77-year-old AA female patient with above medical diseases was brought to the ER of [facility]. Extubated 11/10 in the afternoon, up to chair, she reports feeling much improved. Daughter bedside Feeling weak today. She denies CP, no or GI symptoms. She is amenable to skilled services on d/c Plan: Replace K. Wean O2 as tolerated Cont zosyn, f/u ID recs IV steroids PT/OT, likely needs skilled placement on d/c Vitals Vitals Vital Signs Date Time Temp Pulse Resp B/P (MAP) Pulse Ox O2 Delivery O2 Flow Rate FiO2 11/12/18 07:40 100 Nasal Cannula 2.0 11/12/18 03:50 98.1 81 22 131/68 (89) 98.1 Physical Exam Physical Exam GENERAL: Propped up in bed, alert, eating LUNGS: Clear anteriorly HEART: S1, S2 ABDOMEN: Soft, nontender, BS present : Acevedo EXTREMITIES: No gross edema or cyanosis. SKIN: warm without rash NEUROLOGICAL: Alert, responding appropriately PIV General: Alert, mild distress Heart: Regular rate Lungs: Crackles Abdomen: Normal bowel sounds, Soft Extremities: No cyanosis Skin: No breakdown Labs LABS Laboratory Tests Test 11/11/18 08:35 11/11/18 11:58 11/11/18 17:02 11/12/18 05:00 Glucose (Fingerstick) 115 mg/dL (70-99) 141 mg/dL (70-99) 104 mg/dL (70-99) Sodium Level 146 mmol/L (136-145) Potassium Level 4.0 mmol/L (3.5-5.1) Chloride Level 105 mmol/L (98-107) Carbon Dioxide Level 34 mmol/L (21-32) Anion Gap 7 (6-14) Blood Urea Nitrogen 15 mg/dL (7-20) Creatinine 0.5 mg/dL (0.6-1.0) Estimated GFR (Cockcroft-Gault) 145.5 Glucose Level 127 mg/dL (70-99) Calcium Level 8.6 mg/dL (8.5-10.1) Assessment and Plan Assessmemt and Plan Problems Medical Problems: (1) Dyspnea and respiratory abnormalities Status: Acute Comment Review of Relevant I have reviewed the following items melody (where applicable) has been applied. Labs Laboratory Tests Test 11/10/18 08:14 11/10/18 09:15 11/10/18 11:44 11/10/18 17:15 Glucose (Fingerstick) 69 mg/dL (70-99) 91 mg/dL (70-99) 109 mg/dL (70-99) O2 Saturation 99 % (92-99) Arterial Blood pH 7.50 (7.35-7.45) Arterial Blood pCO2 at Patient Temp 27 mmHg (35-46) Arterial Blood pO2 at Patient Temp 140 mmHg (65-108) Arterial Blood HCO3 21 mmol/L (21-28) Arterial Blood Base Excess -1 mmol/L (-3-3) FiO2 30 Test 11/11/18 00:19 11/11/18 00:30 11/11/18 01:05 11/11/18 08:35 Glucose (Fingerstick) 101 mg/dL (70-99) 115 mg/dL (70-99) O2 Saturation 98 % (92-99) Arterial Blood pH 7.33 (7.35-7.45) Arterial Blood pCO2 at Patient Temp 53 mmHg (35-46) Arterial Blood pO2 at Patient Temp 112 mmHg (65-108) Arterial Blood HCO3 27 mmol/L (21-28) Arterial Blood Base Excess 1 mmol/L (-3-3) FiO2 28 Sodium Level 144 mmol/L (136-145) Potassium Level 4.1 mmol/L (3.5-5.1) Chloride Level 107 mmol/L (98-107) Carbon Dioxide Level 28 mmol/L (21-32) Anion Gap 9 (6-14) Blood Urea Nitrogen 15 mg/dL (7-20) Creatinine 0.6 mg/dL (0.6-1.0) Estimated GFR (Cockcroft-Gault) 117.9 Glucose Level 135 mg/dL (70-99) Calcium Level 8.6 mg/dL (8.5-10.1) Test 11/11/18 11:58 11/11/18 17:02 11/12/18 05:00 Glucose (Fingerstick) 141 mg/dL (70-99) 104 mg/dL (70-99) Sodium Level 146 mmol/L (136-145) Potassium Level 4.0 mmol/L (3.5-5.1) Chloride Level 105 mmol/L (98-107) Carbon Dioxide Level 34 mmol/L (21-32) Anion Gap 7 (6-14) Blood Urea Nitrogen 15 mg/dL (7-20) Creatinine 0.5 mg/dL (0.6-1.0) Estimated GFR (Cockcroft-Gault) 145.5 Glucose Level 127 mg/dL (70-99) Calcium Level 8.6 mg/dL (8.5-10.1) Laboratory Tests Test 11/11/18 08:35 11/11/18 11:58 11/11/18 17:02 11/12/18 05:00 Glucose (Fingerstick) 115 mg/dL (70-99) 141 mg/dL (70-99) 104 mg/dL (70-99) Sodium Level 146 mmol/L (136-145) Potassium Level 4.0 mmol/L (3.5-5.1) Chloride Level 105 mmol/L (98-107) Carbon Dioxide Level 34 mmol/L (21-32) Anion Gap 7 (6-14) Blood Urea Nitrogen 15 mg/dL (7-20) Creatinine 0.5 mg/dL (0.6-1.0) Estimated GFR (Cockcroft-Gault) 145.5 Glucose Level 127 mg/dL (70-99) Calcium Level 8.6 mg/dL (8.5-10.1) Microbiology 11/08/18 Blood Culture - Preliminary, Resulted NO GROWTH AFTER 3 DAYS Medications Current Medications Sodium Chloride 500 ml @ 500 mls/hr 1X ONCE IV Last administered on at 23:44; Start 11/07/18 at 23:30; Stop 11/08/18 at 00:29; Status DC Ondansetron HCl (Zofran) 4 mg PRN Q8HRS PRN IV NAUSEA/VOMITING 1ST CHOICE; Start 11/08/18 at 00:15; Stop 11/09/18 at 00:14; Status DC Sodium Chloride 1,000 ml @ 125 mls/hr Q8H IV Last administered on 11/08/18at 04 :43; Start 11/08/18 at 00:30; Stop 11/08/18 at 11:20; Status DC Albuterol/ Ipratropium (Duoneb) 3 ml RTQID NEB Last administered on 11/08/18at 20:06; Start 11/08/18 at 08:00; Stop 11/09/18 at 07:59; Status DC Etomidate (Amidate) 20 mg STK-MED ONCE IV ; Start 11/08/18 at 08:33; Stop at 08:34; Status DC Succinylcholine Chloride (Anectine) 200 mg STK-MED ONCE .ROUTE ; Start 11/08/18 at 08:34; Stop 11/08/18 at 08:35; Status DC Sodium Chloride 500 ml @ 500 mls/hr 1X ONCE IV Last administered on at 08:15; Start 11/08/18 at 08:15; Stop 11/08/18 at 09:14; Status DC Piperacillin Sod/ Tazobactam Sod (Zosyn Per Pharmacy) 1 each PRN DAILY PRN MC SEE COMMENTS; Start 11/08/18 at 09:30 Propofol 100 ml @ 0 mls/hr CONT PRN IV SEDATION Last administered on 11/09/18at 14:01; Start 11/08/18 at 09:30; Stop 11/11/18 at 16:14; Status DC Enoxaparin Sodium (Lovenox 40mg Syringe) 40 mg Q24H SQ Last administered on at 09:27; Start 11/08/18 at 09:30 Pantoprazole Sodium (PROTONIX VIAL for IV PUSH) 40 mg DAILYAC IVP Last administered on 11/11/18at 07:46; Start 11/08/18 at 10:00; Stop 11/11/18 at 16:18 ; Status DC Piperacillin Sod/ Tazobactam Sod 3.375 gm/Sodium Chloride 50 ml @ 100 mls/hr Q6H IV Last administered on 11/12/18at 05:08; Start 11/08/18 at 10:00 Hydralazine HCl (Apresoline Inj) 10 mg PRN Q4HRS PRN IVP ELEVATED BP, SEE COMMENTS; Start 11/08/18 at 09:45 Sodium Chloride 1,000 ml @ 100 mls/hr Q10H IV Last administered on 11/11/18at 05:31; Start 11/08/18 at 09:38; Stop 11/11/18 at 06:43; Status DC Ondansetron HCl (Zofran) 4 mg PRN Q4HRS PRN IV NAUSEA/VOMITING Last administered on 11/10/18at 09:38; Start 11/08/18 at 09:45 Acetaminophen (Tylenol) 650 mg PRN Q4HRS PRN GT TEMP OVER 100.4F OR MILD PAIN; Start 11/08/18 at 09:45 Acetaminophen (Tylenol Supp) 650 mg PRN Q4HRS PRN IL TEMP OVER 100.4F OR MILD PAIN; Start 11/08/18 at 09:45 Albuterol/ Ipratropium (Duoneb) 3 ml Q4H NEB ; Start 11/08/18 at 09:45; Status Cancel Levofloxacin/ Dextrose 100 ml @ 100 mls/hr Q24H IV Last administered on at 11:14; Start 11/08/18 at 10:00; Stop 11/08/18 at 11:21; Status DC Methylprednisolone Sodium Succinate (SOLU-Medrol 40MG VIAL) 40 mg Q8HRS IV ; Start 11/08/18 at 09:45; Status Cancel Famotidine (Pepcid Vial) 20 mg DAILY IVP ; Start 11/09/18 at 09:00 Fentanyl Citrate 30 ml @ 0 mls/hr CONT PRN IV SEE PROTOCOL; Start 11/08/18 at 09:45; Stop 11/11/18 at 16:15; Status DC Fentanyl Citrate (Fentanyl 2ml Vial) 25 mcg PRN Q1HR PRN IV SEE COMMENTS; Start 11/08/18 at 09:45; Status Cancel Fentanyl Citrate (Fentanyl 2ml Vial) 50 mcg PRN Q1HR PRN IV SEE COMMENTS Last administered on 11/09/18at 22:21; Start 11/08/18 at 09:45; Stop 11/11/18 at 16:14 ; Status DC Morphine Sulfate (Morphine Sulfate) 2 mg PRN Q1HR PRN IV SEE COMMENTS.; Start 11/08/18 at 09:45; Status UNV Morphine Sulfate (Morphine Sulfate) 4 mg PRN Q1HR PRN IV SEE COMMENTS.; Start 11/08/18 at 09:45; Status UNV Insulin Human Lispro (HumaLOG) 0-5 UNITS TIDWMEALS SQ ; Start 11/08/18 at 12:00 Dextrose (Dextrose 50%-Water Syringe) 12.5 gm PRN Q15MIN PRN IV SEE COMMENTS; Start 11/08/18 at 10:00 Methylprednisolone Sodium Succinate (SOLU-Medrol 125MG VIAL) 100 mg Q8HRS IV Last administered on 11/12/18at 05:08; Start 11/08/18 at 14:00 Potassium Chloride/Water 100 ml @ 100 mls/hr Q1H IV Last administered on at 16:44; Start 11/09/18 at 07:00; Stop 11/09/18 at 14:59; Status DC Potassium Chloride (KCl Oral Soln) 40 meq 1X ONCE PEG ; Start 11/10/18 at 09:15 ; Stop 11/10/18 at 09:16; Status UNV Potassium Chloride (KCl Oral Soln) 40 meq 1X ONCE PEG Last administered on at 09:38; Start 11/10/18 at 09:15; Stop 11/10/18 at 09:16; Status DC Albuterol/ Ipratropium (Duoneb) 3 ml RTQID NEB Last administered on 11/12/18at 07:40; Start 11/10/18 at 16:00 Methylprednisolone Sodium Succinate (SOLU-Medrol 40MG VIAL) 80 mg 1X ONCE IV Last administered on 11/11/18at 02:16; Start 11/11/18 at 01:30; Stop 11/11/18 at 01:31; Status DC Furosemide (Lasix) 20 mg 1X ONCE IVP Last administered on 11/11/18at 02:12; Start 11/11/18 at 01:30; Stop 11/11/18 at 01:31; Status DC Potassium Chloride (Klor-Con) 40 meq Q2H PO ; Start 11/11/18 at 01:00; Stop at 03:01; Status UNV Info (Icu Electrolyte Protocol) 1 ea CONT PRN PRN MC PER PROTOCOL; Start at 03:45 Lactobacillus Rhamnosus (Culturelle) 1 cap BID PO Last administered on at 20:40; Start 11/11/18 at 21:00 Vitals/I & O Vital Sign - Last 24 Hours 11/11/18 11/11/18 11/11/18 11/11/18 08:00 08:28 09:00 10:00 Pulse 68 89 82 Resp 17 20 25 B/P (MAP) 142/87 (105) 150/78 (102) 161/78 (105) Pulse Ox 100 99 100 100 O2 Delivery BiPAP/CPAP BiPAP/CPAP Nasal Cannula Nasal Cannula O2 Flow Rate 2.0 2.0 11/11/18 11/11/18 11/11/18 11/11/18 11:00 12:00 12:00 13:00 Temp 98.2 98.2 Pulse 81 83 84 Resp 28 20 25 B/P (MAP) 147/73 (97) 153/84 (107) 116/54 (74) Pulse Ox 100 100 100 O2 Delivery Nasal Cannula Nasal Cannula Nasal Cannula Nasal Cannula O2 Flow Rate 2.0 2.0 2.0 2.0 11/11/18 11/11/18 11/11/18 11/11/18 13:27 14:00 15:00 15:30 Temp 98.0 98.0 Pulse 81 79 92 Resp 23 23 18 B/P (MAP) 139/68 (91) 150/65 (93) 168/83 (111) Pulse Ox 95 97 96 100 O2 Delivery Nasal Cannula Nasal Cannula Nasal Cannula Nasal Cannula O2 Flow Rate 2.0 2.0 2.0 2.0 11/11/18 11/11/18 11/11/18 11/11/18 16:00 16:55 18:54 19:32 Temp 98.2 98.2 Pulse 90 Resp 18 B/P (MAP) 140/62 (88) Pulse Ox 100 95 100 O2 Delivery Nasal Cannula Nasal Cannula Nasal Cannula O2 Flow Rate 2.0 2.0 2.0 2.0 11/11/18 11/11/18 11/12/18 11/12/18 19:44 22:56 03:50 07:40 Temp 98.1 98.1 98.1 98.1 Pulse 78 81 Resp 18 22 B/P (MAP) 147/74 (98) 131/68 (89) Pulse Ox 100 100 100 O2 Delivery Nasal Cannula Nasal Cannula Nasal Cannula Nasal Cannula O2 Flow Rate 2.0 2.0 2.0 2.0 Intake and Output 11/11/18 11/11/18 11/12/18 14:59 22:59 06:59 Intake Total 2105 ml 600 ml 420 ml Output Total 515 ml 330 ml 800 ml Balance 1590 ml 270 ml -380 ml Nutrition Consultation Dietary Evaluation: Recommendations by RD: Increase Calorie Intake Comments: REC initiation of TF within 24 hrs if pt remains intubated, recommend TF per following: Glucerna 1.5@goal rate 25 ml/hr w/100 ml water flushes q4 hrs or flushes per MD REC liquid MVI and Vit C via feeding tube if able - wound healing Expected Outcomes/Goals: Initiation of TF within 24 hrs if pt remains intubated - not met, goal ongoing Interpretation of weight loss: >7.5% in 3 months Malnutrition Findings: Body Fat Depletion (Non Severe: Mild Depletion Weight Status: Underweight IDA BRANDT MD Nov 12, 2018 07:46
[2018-11-12] MEDS: INSULIN LISPRO 300 UNITS/3 ML INSULN.PEN. SQ SCH ×3 (08:00→16:54)
[2018-11-12] MEDS: LACTOBACILLUS RHAMNOSUS GG 1 CAPSULE. PO SCH ×2 (09:11→20:36)
[2018-11-12] MEDS: FAMOTIDINE 20 MG/2 ML VIAL IVP SCH (09:11)
[2018-11-12] MEDS: ENOXAPARIN 40 MG/0.4 ML SYRINGE. SQ SCH (09:12)
--- NOTE | 2018-11-12 09:36 | PDOC ---
Infectious Disease Note Subjective: Subjective Pt says feels better Says breathing fine Tolerating soft diet Denies pain No F/C/S/N/V ROS: ROS D/W Nursing staff Vital Signs: Vital Signs Vital Signs Date Time Temp Pulse Resp B/P (MAP) Pulse Ox O2 Delivery O2 Flow Rate FiO2 11/12/18 07:40 100 Nasal Cannula 2.0 11/12/18 07:00 98.2 86 22 138/63 (88) 98.2 Physical Exam: PHYSICAL EXAM GENERAL: Propped up in bed, alert, eating LUNGS: Clear anteriorly HEART: S1, S2 ABDOMEN: Soft, nontender, BS present : Acevedo EXTREMITIES: No gross edema or cyanosis. SKIN: warm without rash NEUROLOGICAL: Alert, responding appropriately PIV Medications: Inpatient Meds: Current Medications Medications (Trade) Dose Ordered Sig/Usman Start Time Stop Time Status Last Admin Dose Admin Acetaminophen (Tylenol Supp) 650 mg PRN Q4HRS PRN 11/08/18 09:45 Acetaminophen (Tylenol) 650 mg PRN Q4HRS PRN 11/08/18 09:45 Albuterol/ Ipratropium (Duoneb) 3 ml RTQID 11/10/18 16:00 11/12/18 07:40 3 ML Dextrose (Dextrose 50%-Water Syringe) 12.5 gm PRN Q15MIN PRN 11/08/18 10:00 Enoxaparin Sodium (Lovenox 40mg Syringe) 40 mg Q24H 11/08/18 09:30 11/12/18 09:12 40 MG Etomidate (Amidate) 20 mg STK-MED ONCE 11/08/18 08:33 11/08/18 08:34 DC Famotidine (Pepcid Vial) 20 mg DAILY 11/09/18 09:00 11/12/18 09:11 20 MG Fentanyl Citrate (Fentanyl 2ml Vial) 50 mcg PRN Q1HR PRN 11/08/18 09:45 11/11/18 16:14 DC 11/09/18 22:21 50 MCG Furosemide (Lasix) 20 mg 1X ONCE 11/11/18 01:30 11/11/18 01:31 DC 11/11/18 02:12 20 MG Hydralazine HCl (Apresoline Inj) 10 mg PRN Q4HRS PRN 11/08/18 09:45 Info (Icu Electrolyte Protocol) 1 ea CONT PRN PRN 11/11/18 03:45 Insulin Human Lispro (HumaLOG) 0-5 UNITS TIDWMEALS 11/08/18 12:00 Lactobacillus Rhamnosus (Culturelle) 1 cap BID 11/11/18 21:00 11/12/18 09:11 1 CAP Levofloxacin/ Dextrose 100 ml @ 100 mls/hr Q24H 11/08/18 10:00 11/08/18 11:21 DC 11/08/18 11:14 100 MLS/HR Methylprednisolone Sodium Succinate (SOLU-Medrol 40MG VIAL) 80 mg 1X ONCE 11/11/18 01:30 11/11/18 01:31 DC 11/11/18 02:16 80 MG Methylprednisolone Sodium Succinate (SOLU-Medrol 125MG VIAL) 100 mg Q8HRS 11/08/18 14:00 11/12/18 05:08 100 MG Morphine Sulfate (Morphine Sulfate) 4 mg PRN Q1HR PRN 11/08/18 09:45 UNV Ondansetron HCl (Zofran) 4 mg PRN Q4HRS PRN 11/08/18 09:45 11/10/18 09:38 4 MG Pantoprazole Sodium (PROTONIX VIAL for IV PUSH) 40 mg DAILYAC 11/08/18 10:00 11/11/18 16:18 DC 11/11/18 07:46 40 MG Piperacillin Sod/ Tazobactam Sod (Zosyn Per Pharmacy) 1 each PRN DAILY PRN 11/08/18 09:30 Piperacillin Sod/ Tazobactam Sod 3.375 gm/Sodium Chloride 50 ml @ 100 mls/hr Q6H 11/08/18 10:00 11/12/18 05:08 100 MLS/HR Potassium Chloride/Water 100 ml @ 100 mls/hr Q1H 11/09/18 07:00 11/09/18 14:59 DC 11/09/18 16:44 100 MLS/HR Potassium Chloride (KCl Oral Soln) 40 meq 1X ONCE 11/10/18 09:15 11/10/18 09:16 DC 11/10/18 09:38 40 MEQ Potassium Chloride (Klor-Con) 40 meq Q2H 11/11/18 01:00 11/11/18 03:01 UNV Propofol 100 ml @ 0 mls/hr CONT PRN 11/08/18 09:30 11/11/18 16:14 DC 11/09/18 14:01 6.396 MLS/HR Sodium Chloride 1,000 ml @ 100 mls/hr Q10H 11/08/18 09:38 11/11/18 06:43 DC 11/11/18 05:31 100 MLS/HR Succinylcholine Chloride (Anectine) 200 mg STK-MED ONCE 11/08/18 08:34 11/08/18 08:35 DC Labs: Lab Laboratory Tests Test 11/11/18 11:58 11/11/18 17:02 11/12/18 05:00 11/12/18 08:01 Glucose (Fingerstick) 141 mg/dL (70-99) 104 mg/dL (70-99) 116 mg/dL (70-99) Sodium Level 146 mmol/L (136-145) Potassium Level 4.0 mmol/L (3.5-5.1) Chloride Level 105 mmol/L (98-107) Carbon Dioxide Level 34 mmol/L (21-32) Anion Gap 7 (6-14) Blood Urea Nitrogen 15 mg/dL (7-20) Creatinine 0.5 mg/dL (0.6-1.0) Estimated GFR (Cockcroft-Gault) 145.5 Glucose Level 127 mg/dL (70-99) Calcium Level 8.6 mg/dL (8.5-10.1) Objective: Assessment: Hypercarbic respiratory failure s/p extubation Asthma DM Pneumonia Lactic acidosis Plan: Plan of Care Clinically improving, Continue Tavares HUMPHRIESTHAKEEM TRIPATHI MD Nov 12, 2018 09:36
[2018-11-12 11:00] VITALS: BP 95/49
--- NOTE | 2018-11-12 11:24 | PDOC ---
PULMONARY PROGRESS NOTES Subjective , sob better, no pain. Vitals Vital Signs Date Time Temp Pulse Resp B/P (MAP) Pulse Ox O2 Delivery O2 Flow Rate FiO2 11/12/18 07:40 100 Nasal Cannula 2.0 11/12/18 07:00 98.2 86 22 138/63 (88) 98.2 Comments ros as mentioned as above discussed w rn, rt, other sys otherwise neg on bipap General: Alert, Oriented X4, No acute distress HEENT: Other (nc at perrl nose clear neck no lad no thyromegaly) Lungs: Clear Cardiovascular: S1, S2 Abdomen: Soft, Non-tender, Other (no mass) Neuro Exam: Alert Extremities: No Edema Skin: Warm Labs Laboratory Tests Test 11/10/18 11:44 11/10/18 17:15 11/11/18 00:19 11/11/18 00:30 Glucose (Fingerstick) 91 mg/dL (70-99) 109 mg/dL (70-99) 101 mg/dL (70-99) O2 Saturation 98 % (92-99) Arterial Blood pH 7.33 (7.35-7.45) Arterial Blood pCO2 at Patient Temp 53 mmHg (35-46) Arterial Blood pO2 at Patient Temp 112 mmHg (65-108) Arterial Blood HCO3 27 mmol/L (21-28) Arterial Blood Base Excess 1 mmol/L (-3-3) FiO2 28 Test 11/11/18 01:05 11/11/18 08:35 11/11/18 11:58 11/11/18 17:02 Sodium Level 144 mmol/L (136-145) Potassium Level 4.1 mmol/L (3.5-5.1) Chloride Level 107 mmol/L (98-107) Carbon Dioxide Level 28 mmol/L (21-32) Anion Gap 9 (6-14) Blood Urea Nitrogen 15 mg/dL (7-20) Creatinine 0.6 mg/dL (0.6-1.0) Estimated GFR (Cockcroft-Gault) 117.9 Glucose Level 135 mg/dL (70-99) Calcium Level 8.6 mg/dL (8.5-10.1) Glucose (Fingerstick) 115 mg/dL (70-99) 141 mg/dL (70-99) 104 mg/dL (70-99) Test 11/12/18 05:00 11/12/18 08:01 Sodium Level 146 mmol/L (136-145) Potassium Level 4.0 mmol/L (3.5-5.1) Chloride Level 105 mmol/L (98-107) Carbon Dioxide Level 34 mmol/L (21-32) Anion Gap 7 (6-14) Blood Urea Nitrogen 15 mg/dL (7-20) Creatinine 0.5 mg/dL (0.6-1.0) Estimated GFR (Cockcroft-Gault) 145.5 Glucose Level 127 mg/dL (70-99) Calcium Level 8.6 mg/dL (8.5-10.1) Glucose (Fingerstick) 116 mg/dL (70-99) Laboratory Tests Test 11/11/18 11:58 11/11/18 17:02 11/12/18 05:00 11/12/18 08:01 Glucose (Fingerstick) 141 mg/dL (70-99) 104 mg/dL (70-99) 116 mg/dL (70-99) Sodium Level 146 mmol/L (136-145) Potassium Level 4.0 mmol/L (3.5-5.1) Chloride Level 105 mmol/L (98-107) Carbon Dioxide Level 34 mmol/L (21-32) Anion Gap 7 (6-14) Blood Urea Nitrogen 15 mg/dL (7-20) Creatinine 0.5 mg/dL (0.6-1.0) Estimated GFR (Cockcroft-Gault) 145.5 Glucose Level 127 mg/dL (70-99) Calcium Level 8.6 mg/dL (8.5-10.1) Comments cxr, copd changes, no infilt echo reviewed The left ventricular systolic function is normal. The Ejection Fraction is 65-70%. There is normal LV segmental wall motion. Transmitral Doppler flow pattern is Grade I-abnormal relaxation pattern. Doppler and Color Flow revealed trace tricuspid regurgitation. The PA pressure was estimated at 20 mmHg. There is no evidence of significant pericardial effusion. Impression . IMPRESSION: 1. Acute on chronic hypoxemic and hypercarbic respiratory failure secondary to acute exacerbation of chronic obstructive pulmonary disease / weakness 2. Abnormal chest x-ray./ COPD 3. Acute exacerbation of chronic obstructive pulmonary disease. 4. Acute bronchitis 5. Diabetes mellitus. 6. hypo k Plan . PLAN AND RECOMMENDATIONS: 1. Titrate FiO2 to keep O2 saturation 92%. 2. prn bipap, 3. Bronchodilator. 4. steroid taper 5. antibiotic, per id. 6. Nasal swab for influenza A and B, neg. 7. Procalcitonin, nl. 8. Echocardiogram reviewed. 9. Lovenox for DVT prophylaxis. 10. Pepcid for stress ulcer prophylaxis. 11. Elevate head of bed. d/w daughter SANTOS DORSEY MD Nov 12, 2018 11:24
--- NOTE | 2018-11-12 11:36 | PDOC ---
PROGRESS NOTES Assessment Problems Medical Problems: (1) Dyspnea and respiratory abnormalities Status: Acute Metabolic encephalopathy, better. Respiratory failure, extubated. Lactic acidosis. DM. Fall. HTN. Hypotension event. Plan Treat medical diseases. Subjective No complaints Objective Vital Signs Date Time Temp Pulse Resp B/P (MAP) Pulse Ox O2 Delivery O2 Flow Rate FiO2 11/12/18 07:40 100 Nasal Cannula 2.0 11/12/18 07:00 98.2 86 22 138/63 (88) 98.2 Intake and Output 11/12/18 07:00 Intake Total 3125 ml Output Total 1470 ml Balance 1655 ml Intake Oral 1520 ml IV Total 1605 ml Output Urine Total 1470 ml PHYSICAL EXAM Alert. Oriented to place and person. PERRL. EOMI. CN: no focal findings. Muscle tone: normal. Muscle strength: 4/5 DTR: 1+ Plantar reflex: flexor Gait: not examined in bed. Sensory exam: no abnormal findings. No cerebellar signs elicited. Review of Relevant I have reviewed the following items melody (where applicable) has been applied. Labs Laboratory Tests Test 11/10/18 11:44 11/10/18 17:15 11/11/18 00:19 11/11/18 00:30 Glucose (Fingerstick) 91 mg/dL (70-99) 109 mg/dL (70-99) 101 mg/dL (70-99) O2 Saturation 98 % (92-99) Arterial Blood pH 7.33 (7.35-7.45) Arterial Blood pCO2 at Patient Temp 53 mmHg (35-46) Arterial Blood pO2 at Patient Temp 112 mmHg (65-108) Arterial Blood HCO3 27 mmol/L (21-28) Arterial Blood Base Excess 1 mmol/L (-3-3) FiO2 28 Test 11/11/18 01:05 11/11/18 08:35 11/11/18 11:58 11/11/18 17:02 Sodium Level 144 mmol/L (136-145) Potassium Level 4.1 mmol/L (3.5-5.1) Chloride Level 107 mmol/L (98-107) Carbon Dioxide Level 28 mmol/L (21-32) Anion Gap 9 (6-14) Blood Urea Nitrogen 15 mg/dL (7-20) Creatinine 0.6 mg/dL (0.6-1.0) Estimated GFR (Cockcroft-Gault) 117.9 Glucose Level 135 mg/dL (70-99) Calcium Level 8.6 mg/dL (8.5-10.1) Glucose (Fingerstick) 115 mg/dL (70-99) 141 mg/dL (70-99) 104 mg/dL (70-99) Test 11/12/18 05:00 11/12/18 08:01 Sodium Level 146 mmol/L (136-145) Potassium Level 4.0 mmol/L (3.5-5.1) Chloride Level 105 mmol/L (98-107) Carbon Dioxide Level 34 mmol/L (21-32) Anion Gap 7 (6-14) Blood Urea Nitrogen 15 mg/dL (7-20) Creatinine 0.5 mg/dL (0.6-1.0) Estimated GFR (Cockcroft-Gault) 145.5 Glucose Level 127 mg/dL (70-99) Calcium Level 8.6 mg/dL (8.5-10.1) Glucose (Fingerstick) 116 mg/dL (70-99) Laboratory Tests Test 11/11/18 11:58 11/11/18 17:02 11/12/18 05:00 11/12/18 08:01 Glucose (Fingerstick) 141 mg/dL (70-99) 104 mg/dL (70-99) 116 mg/dL (70-99) Sodium Level 146 mmol/L (136-145) Potassium Level 4.0 mmol/L (3.5-5.1) Chloride Level 105 mmol/L (98-107) Carbon Dioxide Level 34 mmol/L (21-32) Anion Gap 7 (6-14) Blood Urea Nitrogen 15 mg/dL (7-20) Creatinine 0.5 mg/dL (0.6-1.0) Estimated GFR (Cockcroft-Gault) 145.5 Glucose Level 127 mg/dL (70-99) Calcium Level 8.6 mg/dL (8.5-10.1) Microbiology 11/08/18 Blood Culture - Preliminary, Resulted NO GROWTH AFTER 4 DAYS Medications Current Medications Sodium Chloride 500 ml @ 500 mls/hr 1X ONCE IV Last administered on at 23:44; Start 11/07/18 at 23:30; Stop 11/08/18 at 00:29; Status DC Ondansetron HCl (Zofran) 4 mg PRN Q8HRS PRN IV NAUSEA/VOMITING 1ST CHOICE; Start 11/08/18 at 00:15; Stop 11/09/18 at 00:14; Status DC Sodium Chloride 1,000 ml @ 125 mls/hr Q8H IV Last administered on 11/08/18at 04 :43; Start 11/08/18 at 00:30; Stop 11/08/18 at 11:20; Status DC Albuterol/ Ipratropium (Duoneb) 3 ml RTQID NEB Last administered on 11/08/18at 20:06; Start 11/08/18 at 08:00; Stop 11/09/18 at 07:59; Status DC Etomidate (Amidate) 20 mg STK-MED ONCE IV ; Start 11/08/18 at 08:33; Stop at 08:34; Status DC Succinylcholine Chloride (Anectine) 200 mg STK-MED ONCE .ROUTE ; Start 11/08/18 at 08:34; Stop 11/08/18 at 08:35; Status DC Sodium Chloride 500 ml @ 500 mls/hr 1X ONCE IV Last administered on at 08:15; Start 11/08/18 at 08:15; Stop 11/08/18 at 09:14; Status DC Piperacillin Sod/ Tazobactam Sod (Zosyn Per Pharmacy) 1 each PRN DAILY PRN MC SEE COMMENTS; Start 11/08/18 at 09:30 Propofol 100 ml @ 0 mls/hr CONT PRN IV SEDATION Last administered on 11/09/18at 14:01; Start 11/08/18 at 09:30; Stop 11/11/18 at 16:14; Status DC Enoxaparin Sodium (Lovenox 40mg Syringe) 40 mg Q24H SQ Last administered on at 09:12; Start 11/08/18 at 09:30 Pantoprazole Sodium (PROTONIX VIAL for IV PUSH) 40 mg DAILYAC IVP Last administered on 11/11/18at 07:46; Start 11/08/18 at 10:00; Stop 11/11/18 at 16:18 ; Status DC Piperacillin Sod/ Tazobactam Sod 3.375 gm/Sodium Chloride 50 ml @ 100 mls/hr Q6H IV Last administered on 11/12/18at 05:08; Start 11/08/18 at 10:00 Hydralazine HCl (Apresoline Inj) 10 mg PRN Q4HRS PRN IVP ELEVATED BP, SEE COMMENTS; Start 11/08/18 at 09:45 Sodium Chloride 1,000 ml @ 100 mls/hr Q10H IV Last administered on 11/11/18at 05:31; Start 11/08/18 at 09:38; Stop 11/11/18 at 06:43; Status DC Ondansetron HCl (Zofran) 4 mg PRN Q4HRS PRN IV NAUSEA/VOMITING Last administered on 11/10/18at 09:38; Start 11/08/18 at 09:45 Acetaminophen (Tylenol) 650 mg PRN Q4HRS PRN GT TEMP OVER 100.4F OR MILD PAIN; Start 11/08/18 at 09:45 Acetaminophen (Tylenol Supp) 650 mg PRN Q4HRS PRN [place] TEMP OVER 100.4F OR MILD PAIN; Start 11/08/18 at 09:45 Albuterol/ Ipratropium (Duoneb) 3 ml Q4H NEB ; Start 11/08/18 at 09:45; Status Cancel Levofloxacin/ Dextrose 100 ml @ 100 mls/hr Q24H IV Last administered on at 11:14; Start 11/08/18 at 10:00; Stop 11/08/18 at 11:21; Status DC Methylprednisolone Sodium Succinate (SOLU-Medrol 40MG VIAL) 40 mg Q8HRS IV ; Start 11/08/18 at 09:45; Status Cancel Famotidine (Pepcid Vial) 20 mg DAILY IVP Last administered on 11/12/18at 09:11; Start 11/09/18 at 09:00 Fentanyl Citrate 30 ml @ 0 mls/hr CONT PRN IV SEE PROTOCOL; Start 11/08/18 at 09:45; Stop 11/11/18 at 16:15; Status DC Fentanyl Citrate (Fentanyl 2ml Vial) 25 mcg PRN Q1HR PRN IV SEE COMMENTS; Start 11/08/18 at 09:45; Status Cancel Fentanyl Citrate (Fentanyl 2ml Vial) 50 mcg PRN Q1HR PRN IV SEE COMMENTS Last administered on 11/09/18at 22:21; Start 11/08/18 at 09:45; Stop 11/11/18 at 16:14 ; Status DC Morphine Sulfate (Morphine Sulfate) 2 mg PRN Q1HR PRN IV SEE COMMENTS.; Start 11/08/18 at 09:45; Status UNV Morphine Sulfate (Morphine Sulfate) 4 mg PRN Q1HR PRN IV SEE COMMENTS.; Start 11/08/18 at 09:45; Status UNV Insulin Human Lispro (HumaLOG) 0-5 UNITS TIDWMEALS SQ ; Start 11/08/18 at 12:00 Dextrose (Dextrose 50%-Water Syringe) 12.5 gm PRN Q15MIN PRN IV SEE COMMENTS; Start 11/08/18 at 10:00 Methylprednisolone Sodium Succinate (SOLU-Medrol 125MG VIAL) 100 mg Q8HRS IV Last administered on 11/12/18at 05:08; Start 11/08/18 at 14:00; Stop 11/12/18 at 11:25; Status DC Potassium Chloride/Water 100 ml @ 100 mls/hr Q1H IV Last administered on at 16:44; Start 11/09/18 at 07:00; Stop 11/09/18 at 14:59; Status DC Potassium Chloride (KCl Oral Soln) 40 meq 1X ONCE PEG ; Start 11/10/18 at 09:15 ; Stop 11/10/18 at 09:16; Status UNV Potassium Chloride (KCl Oral Soln) 40 meq 1X ONCE PEG Last administered on at 09:38; Start 11/10/18 at 09:15; Stop 11/10/18 at 09:16; Status DC Albuterol/ Ipratropium (Duoneb) 3 ml RTQID NEB Last administered on 11/12/18at 07:40; Start 11/10/18 at 16:00 Methylprednisolone Sodium Succinate (SOLU-Medrol 40MG VIAL) 80 mg 1X ONCE IV Last administered on 11/11/18at 02:16; Start 11/11/18 at 01:30; Stop 11/11/18 at 01:31; Status DC Furosemide (Lasix) 20 mg 1X ONCE IVP Last administered on 11/11/18at 02:12; Start 11/11/18 at 01:30; Stop 11/11/18 at 01:31; Status DC Potassium Chloride (Klor-Con) 40 meq Q2H PO ; Start 11/11/18 at 01:00; Stop at 03:01; Status UNV Info (Icu Electrolyte Protocol) 1 ea CONT PRN PRN MC PER PROTOCOL; Start at 03:45 Lactobacillus Rhamnosus (Culturelle) 1 cap BID PO Last administered on at 09:11; Start 11/11/18 at 21:00 Methylprednisolone Sodium Succinate (SOLU-Medrol 125MG VIAL) 40 mg Q8HRS IV ; Start 11/12/18 at 14:00 Vitals/I & O Vital Sign - Last 24 Hours 11/11/18 11/11/18 11/11/18 11/11/18 12:00 12:00 13:00 13:27 Temp 98.2 98.2 Pulse 83 84 Resp 20 25 B/P (MAP) 153/84 (107) 116/54 (74) Pulse Ox 100 100 95 O2 Delivery Nasal Cannula Nasal Cannula Nasal Cannula Nasal Cannula O2 Flow Rate 2.0 2.0 2.0 2.0 11/11/18 11/11/18 11/11/18 11/11/18 14:00 15:00 15:30 16:00 Temp 98.0 98.0 Pulse 81 79 92 Resp 23 23 18 B/P (MAP) 139/68 (91) 150/65 (93) 168/83 (111) Pulse Ox 97 96 100 O2 Delivery Nasal Cannula Nasal Cannula Nasal Cannula O2 Flow Rate 2.0 2.0 2.0 2.0 11/11/18 11/11/18 11/11/18 11/11/18 16:55 18:54 19:32 19:44 Temp 98.2 98.2 Pulse 90 Resp 18 B/P (MAP) 140/62 (88) Pulse Ox 100 95 100 O2 Delivery Nasal Cannula Nasal Cannula Nasal Cannula Nasal Cannula O2 Flow Rate 2.0 2.0 2.0 2.0 11/11/18 11/12/18 11/12/18 11/12/18 22:56 03:50 07:00 07:40 Temp 98.1 98.1 98.2 98.1 98.1 98.2 Pulse 78 81 86 Resp 18 22 22 B/P (MAP) 147/74 (98) 131/68 (89) 138/63 (88) Pulse Ox 100 100 100 100 O2 Delivery Nasal Cannula Nasal Cannula Nasal Cannula Nasal Cannula O2 Flow Rate 2.0 2.0 2.0 2.0 Intake and Output 11/11/18 11/11/18 11/12/18 15:00 23:00 07:00 Intake Total 2105 ml 600 ml 420 ml Output Total 370 ml 300 ml 800 ml Balance 1735 ml 300 ml -[address] head, 11/07 CT HEAD WITHOUT CONTRAST History: head trauma; ams Comparison: CT soft tissue neck without contrast, December 24, 2012. Technique: Axial images are obtained of the head from the skull base through the vertex without IV contrast. Findings: No mass-effect, midline shift, extra-axial fluid collection, hemorrhage, or obvious acute infarction is identified. Basilar cisterns are patent. The ventricles and sulci are normal for patient age. The fourth ventricle is prominent, greater than on prior study. Appearance may be due to cerebellar atrophy. Bone windows demonstrate no acute calvarial abnormality. The visualized paranasal sinuses are clear. Stable low-density tubular opacities in the posterior nasal passageways bilaterally may be polyps. Mastoid air cells are well aerated. IMPRESSION: No acute intracranial abnormality. TOO PAL MD Nov 12, 2018 11:36
[2018-11-12 15:00] VITALS: BP 124/70
[2018-11-12 19:27] VITALS: BP 136/70
[2018-11-12 23:00] VITALS: BP 166/80
[2018-11-13] VITALS (8 sets, daily range): BP systolic 94–174; BP diastolic 45–84
[2018-11-13] MEDS: PIPERACILLIN/TAZOBACTAM 3.375 GM in IV NORMAL SALINE 50ML 50 ML IV SCH ×3 (05:13)
[2018-11-13 05:14] LABS: CREATININE 0.6 mg/dL (0.6-1.0); GFR 117.9
[2018-11-13] MEDS: methylPREDNISolone SOD SUCC PF 125 MG/2 ML VIAL. IV SCH ×3 (05:15→20:03)
[2018-11-13] MEDS: IPRATRPIUM/ALBUTEROL 0.5/2.5MG 3 ML NEBU. NEB SCH ×4 (07:44→20:01)
[2018-11-13] MEDS: INSULIN LISPRO 300 UNITS/3 ML INSULN.PEN. SQ SCH ×3 (08:00→17:00)
[2018-11-13] MEDS: LACTOBACILLUS RHAMNOSUS GG 1 CAPSULE. PO SCH ×2 (08:46→20:03)
[2018-11-13] MEDS: FAMOTIDINE 20 MG/2 ML VIAL IVP SCH (08:46)
[2018-11-13] MEDS: ENOXAPARIN 40 MG/0.4 ML SYRINGE. SQ SCH (08:47)
--- NOTE | 2018-11-13 09:24 | PDOC ---
PROGRESS NOTES Assessment Problems Medical Problems: (1) Dyspnea and respiratory abnormalities Status: Acute Metabolic encephalopathy, better. Respiratory failure, extubated. Lactic acidosis. DM. Fall. HTN. Hypotension event. Plan Treat medical diseases. Okay to return to CT Subjective No complaints Objective Vital Signs Date Time Temp Pulse Resp B/P (MAP) Pulse Ox O2 Delivery O2 Flow Rate FiO2 11/13/18 08:51 103 109/62 (78) 11/13/18 07:35 99.7 16 98 Nasal Cannula 2.0 99.7 Intake and Output 11/13/18 07:00 Intake Total 540 ml Output Total 700 ml Balance -160 ml Intake Oral 540 ml Output Urine Total 700 ml PHYSICAL EXAM Alert. Oriented to place and person. PERRL. EOMI. CN: no focal findings. Muscle tone: normal. Muscle strength: 4/5 DTR: 1+ Plantar reflex: flexor Gait: not examined in bed. Sensory exam: no abnormal findings. No cerebellar signs elicited. Review of Relevant I have reviewed the following items melody (where applicable) has been applied. Labs Laboratory Tests Test 11/11/18 11:58 11/11/18 17:02 11/12/18 05:00 11/12/18 08:01 Glucose (Fingerstick) 141 mg/dL (70-99) 104 mg/dL (70-99) 116 mg/dL (70-99) Sodium Level 146 mmol/L (136-145) Potassium Level 4.0 mmol/L (3.5-5.1) Chloride Level 105 mmol/L (98-107) Carbon Dioxide Level 34 mmol/L (21-32) Anion Gap 7 (6-14) Blood Urea Nitrogen 15 mg/dL (7-20) Creatinine 0.5 mg/dL (0.6-1.0) Estimated GFR (Cockcroft-Gault) 145.5 Glucose Level 127 mg/dL (70-99) Calcium Level 8.6 mg/dL (8.5-10.1) Test 11/12/18 11:53 11/12/18 16:31 11/12/18 20:39 11/13/18 04:30 Glucose (Fingerstick) 140 mg/dL (70-99) 112 mg/dL (70-99) 93 mg/dL (70-99) Sodium Level 146 mmol/L (136-145) Potassium Level 4.0 mmol/L (3.5-5.1) Chloride Level 105 mmol/L (98-107) Carbon Dioxide Level 36 mmol/L (21-32) Anion Gap 5 (6-14) Blood Urea Nitrogen 14 mg/dL (7-20) Creatinine 0.6 mg/dL (0.6-1.0) Estimated GFR (Cockcroft-Gault) 117.9 Glucose Level 133 mg/dL (70-99) Calcium Level 9.0 mg/dL (8.5-10.1) Test 11/13/18 07:15 Glucose (Fingerstick) 110 mg/dL (70-99) Laboratory Tests Test 11/12/18 11:53 11/12/18 16:31 11/12/18 20:39 11/13/18 04:30 Glucose (Fingerstick) 140 mg/dL (70-99) 112 mg/dL (70-99) 93 mg/dL (70-99) Sodium Level 146 mmol/L (136-145) Potassium Level 4.0 mmol/L (3.5-5.1) Chloride Level 105 mmol/L (98-107) Carbon Dioxide Level 36 mmol/L (21-32) Anion Gap 5 (6-14) Blood Urea Nitrogen 14 mg/dL (7-20) Creatinine 0.6 mg/dL (0.6-1.0) Estimated GFR (Cockcroft-Gault) 117.9 Glucose Level 133 mg/dL (70-99) Calcium Level 9.0 mg/dL (8.5-10.1) Test 11/13/18 07:15 Glucose (Fingerstick) 110 mg/dL (70-99) Microbiology 11/08/18 Blood Culture - Preliminary, Resulted NO GROWTH AFTER 4 DAYS Medications Current Medications Sodium Chloride 500 ml @ 500 mls/hr 1X ONCE IV Last administered on at 23:44; Start 11/07/18 at 23:30; Stop 11/08/18 at 00:29; Status DC Ondansetron HCl (Zofran) 4 mg PRN Q8HRS PRN IV NAUSEA/VOMITING 1ST CHOICE; Start 11/08/18 at 00:15; Stop 11/09/18 at 00:14; Status DC Sodium Chloride 1,000 ml @ 125 mls/hr Q8H IV Last administered on 11/08/18at 04 :43; Start 11/08/18 at 00:30; Stop 11/08/18 at 11:20; Status DC Albuterol/ Ipratropium (Duoneb) 3 ml RTQID NEB Last administered on 11/08/18at 20:06; Start 11/08/18 at 08:00; Stop 11/09/18 at 07:59; Status DC Etomidate (Amidate) 20 mg STK-MED ONCE IV ; Start 11/08/18 at 08:33; Stop at 08:34; Status DC Succinylcholine Chloride (Anectine) 200 mg STK-MED ONCE .ROUTE ; Start 11/08/18 at 08:34; Stop 11/08/18 at 08:35; Status DC Sodium Chloride 500 ml @ 500 mls/hr 1X ONCE IV Last administered on at 08:15; Start 11/08/18 at 08:15; Stop 11/08/18 at 09:14; Status DC Piperacillin Sod/ Tazobactam Sod (Zosyn Per Pharmacy) 1 each PRN DAILY PRN MC SEE COMMENTS; Start 11/08/18 at 09:30 Propofol 100 ml @ 0 mls/hr CONT PRN IV SEDATION Last administered on 11/09/18at 14:01; Start 11/08/18 at 09:30; Stop 11/11/18 at 16:14; Status DC Enoxaparin Sodium (Lovenox 40mg Syringe) 40 mg Q24H SQ Last administered on at 08:47; Start 11/08/18 at 09:30 Pantoprazole Sodium (PROTONIX VIAL for IV PUSH) 40 mg DAILYAC IVP Last administered on 11/11/18at 07:46; Start 11/08/18 at 10:00; Stop 11/11/18 at 16:18 ; Status DC Piperacillin Sod/ Tazobactam Sod 3.375 gm/Sodium Chloride 50 ml @ 100 mls/hr Q6H IV Last administered on 11/13/18at 05:13; Start 11/08/18 at 10:00 Hydralazine HCl (Apresoline Inj) 10 mg PRN Q4HRS PRN IVP ELEVATED BP, SEE COMMENTS; Start 11/08/18 at 09:45 Sodium Chloride 1,000 ml @ 100 mls/hr Q10H IV Last administered on 11/11/18at 05:31; Start 11/08/18 at 09:38; Stop 11/11/18 at 06:43; Status DC Ondansetron HCl (Zofran) 4 mg PRN Q4HRS PRN IV NAUSEA/VOMITING Last administered on 11/10/18at 09:38; Start 11/08/18 at 09:45 Acetaminophen (Tylenol) 650 mg PRN Q4HRS PRN GT TEMP OVER 100.4F OR MILD PAIN; Start 11/08/18 at 09:45 Acetaminophen (Tylenol Supp) 650 mg PRN Q4HRS PRN [place] TEMP OVER 100.4F OR MILD PAIN; Start 11/08/18 at 09:45 Albuterol/ Ipratropium (Duoneb) 3 ml Q4H NEB ; Start 11/08/18 at 09:45; Status Cancel Levofloxacin/ Dextrose 100 ml @ 100 mls/hr Q24H IV Last administered on at 11:14; Start 11/08/18 at 10:00; Stop 11/08/18 at 11:21; Status DC Methylprednisolone Sodium Succinate (SOLU-Medrol 40MG VIAL) 40 mg Q8HRS IV ; Start 11/08/18 at 09:45; Status Cancel Famotidine (Pepcid Vial) 20 mg DAILY IVP Last administered on 11/13/18at 08:46; Start 11/09/18 at 09:00 Fentanyl Citrate 30 ml @ 0 mls/hr CONT PRN IV SEE PROTOCOL; Start 11/08/18 at 09:45; Stop 11/11/18 at 16:15; Status DC Fentanyl Citrate (Fentanyl 2ml Vial) 25 mcg PRN Q1HR PRN IV SEE COMMENTS; Start 11/08/18 at 09:45; Status Cancel Fentanyl Citrate (Fentanyl 2ml Vial) 50 mcg PRN Q1HR PRN IV SEE COMMENTS Last administered on 11/09/18at 22:21; Start 11/08/18 at 09:45; Stop 11/11/18 at 16:14 ; Status DC Morphine Sulfate (Morphine Sulfate) 2 mg PRN Q1HR PRN IV SEE COMMENTS.; Start 11/08/18 at 09:45; Status UNV Morphine Sulfate (Morphine Sulfate) 4 mg PRN Q1HR PRN IV SEE COMMENTS.; Start 11/08/18 at 09:45; Status UNV Insulin Human Lispro (HumaLOG) 0-5 UNITS TIDWMEALS SQ ; Start 11/08/18 at 12:00 Dextrose (Dextrose 50%-Water Syringe) 12.5 gm PRN Q15MIN PRN IV SEE COMMENTS; Start 11/08/18 at 10:00 Methylprednisolone Sodium Succinate (SOLU-Medrol 125MG VIAL) 100 mg Q8HRS IV Last administered on 11/12/18at 05:08; Start 11/08/18 at 14:00; Stop 11/12/18 at 11:25; Status DC Potassium Chloride/Water 100 ml @ 100 mls/hr Q1H IV Last administered on at 16:44; Start 11/09/18 at 07:00; Stop 11/09/18 at 14:59; Status DC Potassium Chloride (KCl Oral Soln) 40 meq 1X ONCE PEG ; Start 11/10/18 at 09:15 ; Stop 11/10/18 at 09:16; Status UNV Potassium Chloride (KCl Oral Soln) 40 meq 1X ONCE PEG Last administered on at 09:38; Start 11/10/18 at 09:15; Stop 11/10/18 at 09:16; Status DC Albuterol/ Ipratropium (Duoneb) 3 ml RTQID NEB Last administered on 11/13/18at 07:44; Start 11/10/18 at 16:00 Methylprednisolone Sodium Succinate (SOLU-Medrol 40MG VIAL) 80 mg 1X ONCE IV Last administered on 11/11/18at 02:16; Start 11/11/18 at 01:30; Stop 11/11/18 at 01:31; Status DC Furosemide (Lasix) 20 mg 1X ONCE IVP Last administered on 11/11/18at 02:12; Start 11/11/18 at 01:30; Stop 11/11/18 at 01:31; Status DC Potassium Chloride (Klor-Con) 40 meq Q2H PO ; Start 11/11/18 at 01:00; Stop at 03:01; Status UNV Info (Icu Electrolyte Protocol) 1 ea CONT PRN PRN MC PER PROTOCOL; Start at 03:45 Lactobacillus Rhamnosus (Culturelle) 1 cap BID PO Last administered on at 08:46; Start 11/11/18 at 21:00 Methylprednisolone Sodium Succinate (SOLU-Medrol 125MG VIAL) 40 mg Q8HRS IV Last administered on 11/13/18at 05:15; Start 11/12/18 at 14:00 Vitals/I & O Vital Sign - Last 24 Hours 11/12/18 11/12/18 11/12/18 11/12/18 11:00 11:34 15:00 16:11 Temp 98.4 98.2 98.4 98.2 Pulse 88 88 Resp 18 18 B/P (MAP) 95/49 (64) 124/70 (88) Pulse Ox 97 97 O2 Delivery Nasal Cannula Nasal Cannula Nasal Cannula Nasal Cannula O2 Flow Rate 2.0 2.0 2.0 2.0 11/12/18 11/12/18 11/12/18 11/12/18 19:27 19:27 20:02 23:00 Temp 98.0 97.9 98.0 97.9 Pulse 76 77 Resp 18 18 B/P (MAP) 136/70 (92) 166/80 (108) Pulse Ox 100 95 99 O2 Delivery Nasal Cannula Nasal Cannula Nasal Cannula Nasal Cannula O2 Flow Rate 2.0 2.0 1.0 2.0 11/13/18 11/13/18 11/13/18 03:08 07:35 08:51 Temp 98.1 99.7 98.1 99.7 Pulse 73 71 103 Resp 18 16 B/P (MAP) 144/69 (94) 174/83 (113) 109/62 (78) Pulse Ox 98 O2 Delivery Nasal Cannula Nasal Cannula O2 Flow Rate 1.0 2.0 Intake and Output 11/12/18 11/12/18 11/13/18 15:00 23:00 07:00 Intake Total 340 ml 200 ml Output Total 400 ml 300 ml Balance 340 ml -200 ml -300 ml TOO PAL MD Nov 13, 2018 09:24
--- NOTE | 2018-11-13 09:42 | PDOC ---
Infectious Disease Note Subjective: Subjective Pt says feels better Says breathing fine Tolerating soft diet Denies pain No F/C/S/N/V Has diarrhea 6-8 bm since yesterday no abdo cramps ROS: ROS Negative except for above. Vital Signs: Vital Signs Vital Signs Date Time Temp Pulse Resp B/P (MAP) Pulse Ox O2 Delivery O2 Flow Rate FiO2 11/13/18 08:51 103 109/62 (78) 11/13/18 07:35 99.7 16 98 Nasal Cannula 2.0 99.7 Physical Exam: PHYSICAL EXAM GENERAL: Propped up in bed, alert, eating LUNGS: Clear anteriorly HEART: S1, S2 ABDOMEN: Soft, nontender, BS present : Acevedo EXTREMITIES: No gross edema or cyanosis. SKIN: warm without rash NEUROLOGICAL: Alert, responding appropriately PIV Medications: Inpatient Meds: Current Medications Medications (Trade) Dose Ordered Sig/Usman Start Time Stop Time Status Last Admin Dose Admin Acetaminophen (Tylenol Supp) 650 mg PRN Q4HRS PRN 11/08/18 09:45 Acetaminophen (Tylenol) 650 mg PRN Q4HRS PRN 11/08/18 09:45 Albuterol/ Ipratropium (Duoneb) 3 ml RTQID 11/10/18 16:00 11/13/18 07:44 3 ML Dextrose (Dextrose 50%-Water Syringe) 12.5 gm PRN Q15MIN PRN 11/08/18 10:00 Enoxaparin Sodium (Lovenox 40mg Syringe) 40 mg Q24H 11/08/18 09:30 11/13/18 08:47 40 MG Etomidate (Amidate) 20 mg STK-MED ONCE 11/08/18 08:33 11/08/18 08:34 DC Famotidine (Pepcid Vial) 20 mg DAILY 11/09/18 09:00 11/13/18 08:46 20 MG Fentanyl Citrate (Fentanyl 2ml Vial) 50 mcg PRN Q1HR PRN 11/08/18 09:45 11/11/18 16:14 DC 11/09/18 22:21 50 MCG Furosemide (Lasix) 20 mg 1X ONCE 11/11/18 01:30 11/11/18 01:31 DC 11/11/18 02:12 20 MG Hydralazine HCl (Apresoline Inj) 10 mg PRN Q4HRS PRN 11/08/18 09:45 Info (Icu Electrolyte Protocol) 1 ea CONT PRN PRN 11/11/18 03:45 Insulin Human Lispro (HumaLOG) 0-5 UNITS TIDWMEALS 11/08/18 12:00 Lactobacillus Rhamnosus (Culturelle) 1 cap BID 11/11/18 21:00 11/13/18 08:46 1 CAP Levofloxacin/ Dextrose 100 ml @ 100 mls/hr Q24H 11/08/18 10:00 11/08/18 11:21 DC 11/08/18 11:14 100 MLS/HR Methylprednisolone Sodium Succinate (SOLU-Medrol 40MG VIAL) 80 mg 1X ONCE 11/11/18 01:30 11/11/18 01:31 DC 11/11/18 02:16 80 MG Methylprednisolone Sodium Succinate (SOLU-Medrol 125MG VIAL) 40 mg Q8HRS 11/12/18 14:00 11/13/18 05:15 40 MG Morphine Sulfate (Morphine Sulfate) 4 mg PRN Q1HR PRN 11/08/18 09:45 UNV Ondansetron HCl (Zofran) 4 mg PRN Q4HRS PRN 11/08/18 09:45 11/10/18 09:38 4 MG Pantoprazole Sodium (PROTONIX VIAL for IV PUSH) 40 mg DAILYAC 11/08/18 10:00 11/11/18 16:18 DC 11/11/18 07:46 40 MG Piperacillin Sod/ Tazobactam Sod (Zosyn Per Pharmacy) 1 each PRN DAILY PRN 11/08/18 09:30 Piperacillin Sod/ Tazobactam Sod 3.375 gm/Sodium Chloride 50 ml @ 100 mls/hr Q6H 11/08/18 10:00 11/13/18 05:13 100 MLS/HR Potassium Chloride/Water 100 ml @ 100 mls/hr Q1H 11/09/18 07:00 11/09/18 14:59 DC 11/09/18 16:44 100 MLS/HR Potassium Chloride (KCl Oral Soln) 40 meq 1X ONCE 11/10/18 09:15 11/10/18 09:16 DC 11/10/18 09:38 40 MEQ Potassium Chloride (Klor-Con) 40 meq Q2H 11/11/18 01:00 11/11/18 03:01 UNV Propofol 100 ml @ 0 mls/hr CONT PRN 11/08/18 09:30 11/11/18 16:14 DC 11/09/18 14:01 6.396 MLS/HR Sodium Chloride 1,000 ml @ 100 mls/hr Q10H 11/08/18 09:38 11/11/18 06:43 DC 11/11/18 05:31 100 MLS/HR Succinylcholine Chloride (Anectine) 200 mg STK-MED ONCE 11/08/18 08:34 11/08/18 08:35 DC Labs: Lab Laboratory Tests Test 11/12/18 11:53 11/12/18 16:31 11/12/18 20:39 11/13/18 04:30 Glucose (Fingerstick) 140 mg/dL (70-99) 112 mg/dL (70-99) 93 mg/dL (70-99) Sodium Level 146 mmol/L (136-145) Potassium Level 4.0 mmol/L (3.5-5.1) Chloride Level 105 mmol/L (98-107) Carbon Dioxide Level 36 mmol/L (21-32) Anion Gap 5 (6-14) Blood Urea Nitrogen 14 mg/dL (7-20) Creatinine 0.6 mg/dL (0.6-1.0) Estimated GFR (Cockcroft-Gault) 117.9 Glucose Level 133 mg/dL (70-99) Calcium Level 9.0 mg/dL (8.5-10.1) Test 11/13/18 07:15 Glucose (Fingerstick) 110 mg/dL (70-99) Objective: Assessment: Hypercarbic respiratory failure s/p extubation Asthma DM Pneumonia Lactic acidosis Plan: Plan of Care DC Zosyn start augmentin for 2 days check c diff pcr cont supportive care HAKEEM BURGER MD Nov 13, 2018 09:42
--- NOTE | 2018-11-13 11:29 | PDOC ---
PULMONARY PROGRESS NOTES Subjective , sob better, no pain. Vitals Vital Signs Date Time Temp Pulse Resp B/P (MAP) Pulse Ox O2 Delivery O2 Flow Rate FiO2 11/13/18 08:51 103 109/62 (78) 11/13/18 07:35 99.7 16 98 Nasal Cannula 2.0 99.7 Comments ros as mentioned as above discussed w rn, rt, other sys otherwise neg on bipap General: Alert, Oriented X4, No acute distress HEENT: Other (nc at perrl nose clear neck no lad no thyromegaly) Lungs: Clear Cardiovascular: S1, S2 Abdomen: Soft, Non-tender, Other (no mass) Neuro Exam: Alert Extremities: No Edema Skin: Warm Labs Laboratory Tests Test 11/11/18 11:58 11/11/18 17:02 11/12/18 05:00 11/12/18 08:01 Glucose (Fingerstick) 141 mg/dL (70-99) 104 mg/dL (70-99) 116 mg/dL (70-99) Sodium Level 146 mmol/L (136-145) Potassium Level 4.0 mmol/L (3.5-5.1) Chloride Level 105 mmol/L (98-107) Carbon Dioxide Level 34 mmol/L (21-32) Anion Gap 7 (6-14) Blood Urea Nitrogen 15 mg/dL (7-20) Creatinine 0.5 mg/dL (0.6-1.0) Estimated GFR (Cockcroft-Gault) 145.5 Glucose Level 127 mg/dL (70-99) Calcium Level 8.6 mg/dL (8.5-10.1) Test 11/12/18 11:53 11/12/18 16:31 11/12/18 20:39 11/13/18 04:30 Glucose (Fingerstick) 140 mg/dL (70-99) 112 mg/dL (70-99) 93 mg/dL (70-99) Sodium Level 146 mmol/L (136-145) Potassium Level 4.0 mmol/L (3.5-5.1) Chloride Level 105 mmol/L (98-107) Carbon Dioxide Level 36 mmol/L (21-32) Anion Gap 5 (6-14) Blood Urea Nitrogen 14 mg/dL (7-20) Creatinine 0.6 mg/dL (0.6-1.0) Estimated GFR (Cockcroft-Gault) 117.9 Glucose Level 133 mg/dL (70-99) Calcium Level 9.0 mg/dL (8.5-10.1) Test 11/13/18 07:15 11/13/18 10:56 Glucose (Fingerstick) 110 mg/dL (70-99) 147 mg/dL (70-99) Laboratory Tests Test 11/12/18 11:53 11/12/18 16:31 11/12/18 20:39 11/13/18 04:30 Glucose (Fingerstick) 140 mg/dL (70-99) 112 mg/dL (70-99) 93 mg/dL (70-99) Sodium Level 146 mmol/L (136-145) Potassium Level 4.0 mmol/L (3.5-5.1) Chloride Level 105 mmol/L (98-107) Carbon Dioxide Level 36 mmol/L (21-32) Anion Gap 5 (6-14) Blood Urea Nitrogen 14 mg/dL (7-20) Creatinine 0.6 mg/dL (0.6-1.0) Estimated GFR (Cockcroft-Gault) 117.9 Glucose Level 133 mg/dL (70-99) Calcium Level 9.0 mg/dL (8.5-10.1) Test 11/13/18 07:15 11/13/18 10:56 Glucose (Fingerstick) 110 mg/dL (70-99) 147 mg/dL (70-99) Comments cxr, copd changes, no infilt echo reviewed The left ventricular systolic function is normal. The Ejection Fraction is 65-70%. There is normal LV segmental wall motion. Transmitral Doppler flow pattern is Grade I-abnormal relaxation pattern. Doppler and Color Flow revealed trace tricuspid regurgitation. The PA pressure was estimated at 20 mmHg. There is no evidence of significant pericardial effusion. Impression . IMPRESSION: 1. Acute on chronic hypoxemic and hypercarbic respiratory failure secondary to acute exacerbation of chronic obstructive pulmonary disease / weakness 2. Abnormal chest x-ray./ COPD 3. Acute exacerbation of chronic obstructive pulmonary disease. 4. Acute bronchitis 5. Diabetes mellitus. 6. hypo k Plan . PLAN AND RECOMMENDATIONS: 1. Titrate FiO2 to keep O2 saturation 92%. 2. prn bipap, 3. Bronchodilator. 4. steroid taper 5. antibiotic, per id. 6. Nasal swab for influenza A and B, neg. 7. Procalcitonin, nl. 8. Echocardiogram reviewed. 9. Lovenox for DVT prophylaxis. 10. Pepcid for stress ulcer prophylaxis. 11. Elevate head of bed. d/w daughter SANTOS DORSEY MD Nov 13, 2018 11:29
[2018-11-13] MEDS: AMOXICILLIN/K CLAV 875/125MG TABLET. PO SCH ×2 (12:22→20:03)
--- NOTE | 2018-11-13 12:50 | NUR ---
SS following up with discharge planning. Pt's daughter came to hospital and spoke with financial planner, Gretta Boo. Pt's daughter reported that she toured [facility] [place], ; [phone]. Pt's daughter requested referral be sent to [facility]. financial planner phoned and faxed referral to [facility] [place]. SS will await acceptance decision from [facility] and will proceed accordingly.
[2018-11-13] MEDS ORDERED: MIDO5TAB PO (13:03)
--- NOTE | 2018-11-13 13:43 | PDOC ---
PROGRESS NOTES Chief Complaint Chief Complaint acute Hypercarbic respiratory failure. Lactic acidosis. Asthma. Diabetes. Community-acquired pneumonia. History of Present Illness History of Present Illness 77-year-old AA female patient with above medical diseases was brought to the ER of [facility]. Extubated 11/10 in the afternoon, up to chair, she reports feeling much improved. Daughter bedside no complaints. agreeable to SNF Plan: Wean O2 as tolerated Cont zosyn, f/u ID recs IV steroids PT/OT, likely needs skilled placement on d/c Vitals Vitals Vital Signs Date Time Temp Pulse Resp B/P (MAP) Pulse Ox O2 Delivery O2 Flow Rate FiO2 11/13/18 12:58 97.6 98 22 95/50 (65) 96 Room Air 97.6 11/13/18 11:48 1.0 Physical Exam Physical Exam GENERAL: Propped up in bed, alert, eating LUNGS: Clear anteriorly HEART: S1, S2 ABDOMEN: Soft, nontender, BS present : Acevedo EXTREMITIES: No gross edema or cyanosis. SKIN: warm without rash NEUROLOGICAL: Alert, responding appropriately PIV General: Alert, mild distress Heart: Regular rate Lungs: Clear Abdomen: Normal bowel sounds, Soft Extremities: No cyanosis Skin: No breakdown Labs LABS Laboratory Tests Test 11/12/18 16:31 11/12/18 20:39 11/13/18 04:30 11/13/18 07:15 Glucose (Fingerstick) 112 mg/dL (70-99) 93 mg/dL (70-99) 110 mg/dL (70-99) Sodium Level 146 mmol/L (136-145) Potassium Level 4.0 mmol/L (3.5-5.1) Chloride Level 105 mmol/L (98-107) Carbon Dioxide Level 36 mmol/L (21-32) Anion Gap 5 (6-14) Blood Urea Nitrogen 14 mg/dL (7-20) Creatinine 0.6 mg/dL (0.6-1.0) Estimated GFR (Cockcroft-Gault) 117.9 Glucose Level 133 mg/dL (70-99) Calcium Level 9.0 mg/dL (8.5-10.1) Test 11/13/18 10:56 Glucose (Fingerstick) 147 mg/dL (70-99) Assessment and Plan Assessmemt and Plan Problems Medical Problems: (1) Dyspnea and respiratory abnormalities Status: Acute Comment Review of Relevant I have reviewed the following items melody (where applicable) has been applied. Labs Laboratory Tests Test 11/11/18 17:02 11/12/18 05:00 11/12/18 08:01 11/12/18 11:53 Glucose (Fingerstick) 104 mg/dL (70-99) 116 mg/dL (70-99) 140 mg/dL (70-99) Sodium Level 146 mmol/L (136-145) Potassium Level 4.0 mmol/L (3.5-5.1) Chloride Level 105 mmol/L (98-107) Carbon Dioxide Level 34 mmol/L (21-32) Anion Gap 7 (6-14) Blood Urea Nitrogen 15 mg/dL (7-20) Creatinine 0.5 mg/dL (0.6-1.0) Estimated GFR (Cockcroft-Gault) 145.5 Glucose Level 127 mg/dL (70-99) Calcium Level 8.6 mg/dL (8.5-10.1) Test 11/12/18 16:31 11/12/18 20:39 11/13/18 04:30 11/13/18 07:15 Glucose (Fingerstick) 112 mg/dL (70-99) 93 mg/dL (70-99) 110 mg/dL (70-99) Sodium Level 146 mmol/L (136-145) Potassium Level 4.0 mmol/L (3.5-5.1) Chloride Level 105 mmol/L (98-107) Carbon Dioxide Level 36 mmol/L (21-32) Anion Gap 5 (6-14) Blood Urea Nitrogen 14 mg/dL (7-20) Creatinine 0.6 mg/dL (0.6-1.0) Estimated GFR (Cockcroft-Gault) 117.9 Glucose Level 133 mg/dL (70-99) Calcium Level 9.0 mg/dL (8.5-10.1) Test 11/13/18 10:56 Glucose (Fingerstick) 147 mg/dL (70-99) Laboratory Tests Test 11/12/18 16:31 11/12/18 20:39 11/13/18 04:30 11/13/18 07:15 Glucose (Fingerstick) 112 mg/dL (70-99) 93 mg/dL (70-99) 110 mg/dL (70-99) Sodium Level 146 mmol/L (136-145) Potassium Level 4.0 mmol/L (3.5-5.1) Chloride Level 105 mmol/L (98-107) Carbon Dioxide Level 36 mmol/L (21-32) Anion Gap 5 (6-14) Blood Urea Nitrogen 14 mg/dL (7-20) Creatinine 0.6 mg/dL (0.6-1.0) Estimated GFR (Cockcroft-Gault) 117.9 Glucose Level 133 mg/dL (70-99) Calcium Level 9.0 mg/dL (8.5-10.1) Test 11/13/18 10:56 Glucose (Fingerstick) 147 mg/dL (70-99) Microbiology 11/08/18 Blood Culture - Final, Complete NO GROWTH AFTER 5 DAYS Medications Current Medications Sodium Chloride 500 ml @ 500 mls/hr 1X ONCE IV Last administered on at 23:44; Start 11/07/18 at 23:30; Stop 11/08/18 at 00:29; Status DC Ondansetron HCl (Zofran) 4 mg PRN Q8HRS PRN IV NAUSEA/VOMITING 1ST CHOICE; Start 11/08/18 at 00:15; Stop 11/09/18 at 00:14; Status DC Sodium Chloride 1,000 ml @ 125 mls/hr Q8H IV Last administered on 11/08/18at 04 :43; Start 11/08/18 at 00:30; Stop 11/08/18 at 11:20; Status DC Albuterol/ Ipratropium (Duoneb) 3 ml RTQID NEB Last administered on 11/08/18at 20:06; Start 11/08/18 at 08:00; Stop 11/09/18 at 07:59; Status DC Etomidate (Amidate) 20 mg STK-MED ONCE IV ; Start 11/08/18 at 08:33; Stop at 08:34; Status DC Succinylcholine Chloride (Anectine) 200 mg STK-MED ONCE .ROUTE ; Start 11/08/18 at 08:34; Stop 11/08/18 at 08:35; Status DC Sodium Chloride 500 ml @ 500 mls/hr 1X ONCE IV Last administered on at 08:15; Start 11/08/18 at 08:15; Stop 11/08/18 at 09:14; Status DC Piperacillin Sod/ Tazobactam Sod (Zosyn Per Pharmacy) 1 each PRN DAILY PRN MC SEE COMMENTS; Start 11/08/18 at 09:30; Stop 11/13/18 at 10:10; Status DC Propofol 100 ml @ 0 mls/hr CONT PRN IV SEDATION Last administered on 11/09/18at 14:01; Start 11/08/18 at 09:30; Stop 11/11/18 at 16:14; Status DC Enoxaparin Sodium (Lovenox 40mg Syringe) 40 mg Q24H SQ Last administered on at 08:47; Start 11/08/18 at 09:30 Pantoprazole Sodium (PROTONIX VIAL for IV PUSH) 40 mg DAILYAC IVP Last administered on 11/11/18at 07:46; Start 11/08/18 at 10:00; Stop 11/11/18 at 16:18 ; Status DC Piperacillin Sod/ Tazobactam Sod 3.375 gm/Sodium Chloride 50 ml @ 100 mls/hr Q6H IV Last administered on 11/13/18at 05:13; Start 11/08/18 at 10:00; Stop at 10:09; Status DC Hydralazine HCl (Apresoline Inj) 10 mg PRN Q4HRS PRN IVP ELEVATED BP, SEE COMMENTS; Start 11/08/18 at 09:45 Sodium Chloride 1,000 ml @ 100 mls/hr Q10H IV Last administered on 11/11/18at 05:31; Start 11/08/18 at 09:38; Stop 11/11/18 at 06:43; Status DC Ondansetron HCl (Zofran) 4 mg PRN Q4HRS PRN IV NAUSEA/VOMITING Last administered on 11/10/18at 09:38; Start 11/08/18 at 09:45 Acetaminophen (Tylenol) 650 mg PRN Q4HRS PRN GT TEMP OVER 100.4F OR MILD PAIN; Start 11/08/18 at 09:45 Acetaminophen (Tylenol Supp) 650 mg PRN Q4HRS PRN MS TEMP OVER 100.4F OR MILD PAIN; Start 11/08/18 at 09:45 Albuterol/ Ipratropium (Duoneb) 3 ml Q4H NEB ; Start 11/08/18 at 09:45; Status Cancel Levofloxacin/ Dextrose 100 ml @ 100 mls/hr Q24H IV Last administered on at 11:14; Start 11/08/18 at 10:00; Stop 11/08/18 at 11:21; Status DC Methylprednisolone Sodium Succinate (SOLU-Medrol 40MG VIAL) 40 mg Q8HRS IV ; Start 11/08/18 at 09:45; Status Cancel Famotidine (Pepcid Vial) 20 mg DAILY IVP Last administered on 11/13/18at 08:46; Start 11/09/18 at 09:00 Fentanyl Citrate 30 ml @ 0 mls/hr CONT PRN IV SEE PROTOCOL; Start 11/08/18 at 09:45; Stop 11/11/18 at 16:15; Status DC Fentanyl Citrate (Fentanyl 2ml Vial) 25 mcg PRN Q1HR PRN IV SEE COMMENTS; Start 11/08/18 at 09:45; Status Cancel Fentanyl Citrate (Fentanyl 2ml Vial) 50 mcg PRN Q1HR PRN IV SEE COMMENTS Last administered on 11/09/18at 22:21; Start 11/08/18 at 09:45; Stop 11/11/18 at 16:14 ; Status DC Morphine Sulfate (Morphine Sulfate) 2 mg PRN Q1HR PRN IV SEE COMMENTS.; Start 11/08/18 at 09:45; Status UNV Morphine Sulfate (Morphine Sulfate) 4 mg PRN Q1HR PRN IV SEE COMMENTS.; Start 11/08/18 at 09:45; Status UNV Insulin Human Lispro (HumaLOG) 0-5 UNITS TIDWMEALS SQ ; Start 11/08/18 at 12:00 Dextrose (Dextrose 50%-Water Syringe) 12.5 gm PRN Q15MIN PRN IV SEE COMMENTS; Start 11/08/18 at 10:00 Methylprednisolone Sodium Succinate (SOLU-Medrol 125MG VIAL) 100 mg Q8HRS IV Last administered on 11/12/18at 05:08; Start 11/08/18 at 14:00; Stop 11/12/18 at 11:25; Status DC Potassium Chloride/Water 100 ml @ 100 mls/hr Q1H IV Last administered on at 16:44; Start 11/09/18 at 07:00; Stop 11/09/18 at 14:59; Status DC Potassium Chloride (KCl Oral Soln) 40 meq 1X ONCE PEG ; Start 11/10/18 at 09:15 ; Stop 11/10/18 at 09:16; Status UNV Potassium Chloride (KCl Oral Soln) 40 meq 1X ONCE PEG Last administered on at 09:38; Start 11/10/18 at 09:15; Stop 11/10/18 at 09:16; Status DC Albuterol/ Ipratropium (Duoneb) 3 ml RTQID NEB Last administered on 11/13/18at 11:46; Start 11/10/18 at 16:00 Methylprednisolone Sodium Succinate (SOLU-Medrol 40MG VIAL) 80 mg 1X ONCE IV Last administered on 11/11/18at 02:16; Start 11/11/18 at 01:30; Stop 11/11/18 at 01:31; Status DC Furosemide (Lasix) 20 mg 1X ONCE IVP Last administered on 11/11/18at 02:12; Start 11/11/18 at 01:30; Stop 11/11/18 at 01:31; Status DC Potassium Chloride (Klor-Con) 40 meq Q2H PO ; Start 11/11/18 at 01:00; Stop at 03:01; Status UNV Info (Icu Electrolyte Protocol) 1 ea CONT PRN PRN MC PER PROTOCOL; Start at 03:45 Lactobacillus Rhamnosus (Culturelle) 1 cap BID PO Last administered on at 08:46; Start 11/11/18 at 21:00 Methylprednisolone Sodium Succinate (SOLU-Medrol 125MG VIAL) 40 mg Q8HRS IV Last administered on 11/13/18at 12:24; Start 11/12/18 at 14:00 Amoxicillin/ Clavulanate Potassium (Augmentin 875/ 125mg) 1 tab BID PO Last administered on 11/13/18at 12:22; Start 11/13/18 at 12:00 Midodrine (Proamatine) 5 mg [id number] PO ; Start 11/13/18 at 18:00 Active Scripts Active Reported Midodrine Hcl 5 Mg Tablet 5 Mg PO [id number] Vitals/I & O Vital Sign - Last 24 Hours 11/12/18 11/12/18 11/12/18 11/12/18 15:00 16:11 19:27 19:27 Temp 98.2 98.0 98.2 98.0 Pulse 88 76 Resp 18 18 B/P (MAP) 124/70 (88) 136/70 (92) Pulse Ox 97 100 O2 Delivery Nasal Cannula Nasal Cannula Nasal Cannula Nasal Cannula O2 Flow Rate 2.0 2.0 2.0 2.0 11/12/18 11/12/18 11/13/18 11/13/18 20:02 23:00 03:08 07:35 Temp 97.9 98.1 99.7 97.9 98.1 99.7 Pulse 77 73 71 Resp 18 18 16 B/P (MAP) 166/80 (108) 144/69 (94) 174/83 (113) Pulse Ox 95 99 98 O2 Delivery Nasal Cannula Nasal Cannula Nasal Cannula Nasal Cannula O2 Flow Rate 1.0 2.0 1.0 2.0 11/13/18 11/13/18 11/13/18 11/13/18 08:00 08:51 11:00 11:48 Temp 96.0 96.0 Pulse 103 91 Resp 22 B/P (MAP) 109/62 (78) 94/45 (61) Pulse Ox 98 97 O2 Delivery Nasal Cannula Nasal Cannula Nasal Cannula O2 Flow Rate 2.0 1.0 11/13/18 12:58 Temp 97.6 97.6 Pulse 98 Resp 22 B/P (MAP) 95/50 (65) Pulse Ox 96 O2 Delivery Room Air Intake and Output 11/12/18 11/12/18 11/13/18 14:59 22:59 06:59 Intake Total 340 ml 200 ml Output Total 400 ml 300 ml Balance 340 ml -200 ml -300 ml Nutrition Consultation Dietary Evaluation: Recommendations by RD: Increase Calorie Intake Comments: REC continue w/soft diet/ADA REC Glucerna BID REC MVI and Vit C - wound healing Expected Outcomes/Goals: Initiation of TF within 24 hrs if pt remains intubated - not met, new goal established New goal 11/12: PO intake to meet >75% est needs Interpretation of weight loss: >7.5% in 3 months Malnutrition Findings: Body Fat Depletion (Non Severe: Mild Depletion Weight Status: Underweight ROOSEVELT SUAZO MD Nov 13, 2018 13:43
--- NOTE | 2018-11-13 15:42 | EKG ---
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
[2018-11-13] MEDS: MIDODRINE 5 MG TABLET PO SCH (18:19)
[2018-11-14 03:46] VITALS: BP 154/77
[2018-11-14 05:38] LABS: CALCIUM 8.8 mg/dL (8.5-10.1); CREATININE 0.5 mg/dL (0.6-1.0); GFR 145.5; POTASSIUM 4.1 mmol/L (3.5-5.1)
[2018-11-14] MEDS: MIDODRINE 5 MG TABLET PO SCH ×2 (06:07→14:54)
[2018-11-14] MEDS: methylPREDNISolone SOD SUCC PF 125 MG/2 ML VIAL. IV SCH ×2 (06:07→14:53)
[2018-11-14 07:11] VITALS: BP 163/78
[2018-11-14 07:50] VITALS: BP 187/87
--- NOTE | 2018-11-14 07:52 | PDOC ---
PROGRESS NOTES Chief Complaint Chief Complaint acute Hypercarbic respiratory failure. Lactic acidosis. Asthma. Diabetes. Community-acquired pneumonia. History of Present Illness History of Present Illness 77-year-old AA female patient with above medical diseases was brought to the ER of [facility]. Extubated 11/10 in the afternoon, up to chair, she reports feeling much improved. Daughter bedside no complaints. agreeable to SNF Plan: Wean O2 as tolerated Cont zosyn, f/u ID recs IV steroids PT/OT, likely needs skilled placement on d/c Vitals Vitals Vital Signs Date Time Temp Pulse Resp B/P (MAP) Pulse Ox O2 Delivery O2 Flow Rate FiO2 11/14/18 06:07 75 154/77 11/14/18 03:46 98.2 24 99 Nasal Cannula 2.0 98.2 Physical Exam Physical Exam GENERAL: Propped up in bed, alert, eating LUNGS: Clear anteriorly HEART: S1, S2 ABDOMEN: Soft, nontender, BS present : Acevedo EXTREMITIES: No gross edema or cyanosis. SKIN: warm without rash NEUROLOGICAL: Alert, responding appropriately PIV General: Alert, mild distress Heart: Regular rate Lungs: Clear Abdomen: Normal bowel sounds, Soft Extremities: No cyanosis Skin: No breakdown Labs LABS Laboratory Tests Test 11/13/18 09:05 11/13/18 10:56 11/13/18 16:56 11/13/18 20:47 Clostridium difficile Toxin B Gene Negative (Negative) Glucose (Fingerstick) 147 mg/dL (70-99) 138 mg/dL (70-99) 156 mg/dL (70-99) Test 11/14/18 04:00 11/14/18 07:11 Sodium Level 143 mmol/L (136-145) Potassium Level 4.1 mmol/L (3.5-5.1) Chloride Level 103 mmol/L (98-107) Carbon Dioxide Level 38 mmol/L (21-32) Anion Gap 2 (6-14) Blood Urea Nitrogen 15 mg/dL (7-20) Creatinine 0.5 mg/dL (0.6-1.0) Estimated GFR (Cockcroft-Gault) 145.5 Glucose Level 118 mg/dL (70-99) Calcium Level 8.8 mg/dL (8.5-10.1) Glucose (Fingerstick) 95 mg/dL (70-99) Assessment and Plan Assessmemt and Plan Problems Medical Problems: (1) Dyspnea and respiratory abnormalities Status: Acute Comment Review of Relevant I have reviewed the following items melody (where applicable) has been applied. Labs Laboratory Tests Test 11/12/18 08:01 11/12/18 11:53 11/12/18 16:31 11/12/18 20:39 Glucose (Fingerstick) 116 mg/dL (70-99) 140 mg/dL (70-99) 112 mg/dL (70-99) 93 mg/dL (70-99) Test 11/13/18 04:30 11/13/18 07:15 11/13/18 09:05 11/13/18 10:56 Sodium Level 146 mmol/L (136-145) Potassium Level 4.0 mmol/L (3.5-5.1) Chloride Level 105 mmol/L (98-107) Carbon Dioxide Level 36 mmol/L (21-32) Anion Gap 5 (6-14) Blood Urea Nitrogen 14 mg/dL (7-20) Creatinine 0.6 mg/dL (0.6-1.0) Estimated GFR (Cockcroft-Gault) 117.9 Glucose Level 133 mg/dL (70-99) Calcium Level 9.0 mg/dL (8.5-10.1) Glucose (Fingerstick) 110 mg/dL (70-99) 147 mg/dL (70-99) Clostridium difficile Toxin B Gene Negative (Negative) Test 11/13/18 16:56 11/13/18 20:47 11/14/18 04:00 11/14/18 07:11 Glucose (Fingerstick) 138 mg/dL (70-99) 156 mg/dL (70-99) 95 mg/dL (70-99) Sodium Level 143 mmol/L (136-145) Potassium Level 4.1 mmol/L (3.5-5.1) Chloride Level 103 mmol/L (98-107) Carbon Dioxide Level 38 mmol/L (21-32) Anion Gap 2 (6-14) Blood Urea Nitrogen 15 mg/dL (7-20) Creatinine 0.5 mg/dL (0.6-1.0) Estimated GFR (Cockcroft-Gault) 145.5 Glucose Level 118 mg/dL (70-99) Calcium Level 8.8 mg/dL (8.5-10.1) Laboratory Tests Test 11/13/18 09:05 11/13/18 10:56 11/13/18 16:56 11/13/18 20:47 Clostridium difficile Toxin B Gene Negative (Negative) Glucose (Fingerstick) 147 mg/dL (70-99) 138 mg/dL (70-99) 156 mg/dL (70-99) Test 11/14/18 04:00 11/14/18 07:11 Sodium Level 143 mmol/L (136-145) Potassium Level 4.1 mmol/L (3.5-5.1) Chloride Level 103 mmol/L (98-107) Carbon Dioxide Level 38 mmol/L (21-32) Anion Gap 2 (6-14) Blood Urea Nitrogen 15 mg/dL (7-20) Creatinine 0.5 mg/dL (0.6-1.0) Estimated GFR (Cockcroft-Gault) 145.5 Glucose Level 118 mg/dL (70-99) Calcium Level 8.8 mg/dL (8.5-10.1) Glucose (Fingerstick) 95 mg/dL (70-99) Microbiology 11/08/18 Blood Culture - Final, Complete NO GROWTH AFTER 5 DAYS Medications Current Medications Sodium Chloride 500 ml @ 500 mls/hr 1X ONCE IV Last administered on at 23:44; Start 11/07/18 at 23:30; Stop 11/08/18 at 00:29; Status DC Ondansetron HCl (Zofran) 4 mg PRN Q8HRS PRN IV NAUSEA/VOMITING 1ST CHOICE; Start 11/08/18 at 00:15; Stop 11/09/18 at 00:14; Status DC Sodium Chloride 1,000 ml @ 125 mls/hr Q8H IV Last administered on 11/08/18at 04 :43; Start 11/08/18 at 00:30; Stop 11/08/18 at 11:20; Status DC Albuterol/ Ipratropium (Duoneb) 3 ml RTQID NEB Last administered on 11/08/18at 20:06; Start 11/08/18 at 08:00; Stop 11/09/18 at 07:59; Status DC Etomidate (Amidate) 20 mg STK-MED ONCE IV ; Start 11/08/18 at 08:33; Stop at 08:34; Status DC Succinylcholine Chloride (Anectine) 200 mg STK-MED ONCE .ROUTE ; Start 11/08/18 at 08:34; Stop 11/08/18 at 08:35; Status DC Sodium Chloride 500 ml @ 500 mls/hr 1X ONCE IV Last administered on at 08:15; Start 11/08/18 at 08:15; Stop 11/08/18 at 09:14; Status DC Piperacillin Sod/ Tazobactam Sod (Zosyn Per Pharmacy) 1 each PRN DAILY PRN MC SEE COMMENTS; Start 11/08/18 at 09:30; Stop 11/13/18 at 10:10; Status DC Propofol 100 ml @ 0 mls/hr CONT PRN IV SEDATION Last administered on 11/09/18at 14:01; Start 11/08/18 at 09:30; Stop 11/11/18 at 16:14; Status DC Enoxaparin Sodium (Lovenox 40mg Syringe) 40 mg Q24H SQ Last administered on at 08:47; Start 11/08/18 at 09:30 Pantoprazole Sodium (PROTONIX VIAL for IV PUSH) 40 mg DAILYAC IVP Last administered on 11/11/18at 07:46; Start 11/08/18 at 10:00; Stop 11/11/18 at 16:18 ; Status DC Piperacillin Sod/ Tazobactam Sod 3.375 gm/Sodium Chloride 50 ml @ 100 mls/hr Q6H IV Last administered on 11/13/18at 05:13; Start 11/08/18 at 10:00; Stop at 10:09; Status DC Hydralazine HCl (Apresoline Inj) 10 mg PRN Q4HRS PRN IVP ELEVATED BP, SEE COMMENTS; Start 11/08/18 at 09:45 Sodium Chloride 1,000 ml @ 100 mls/hr Q10H IV Last administered on 11/11/18at 05:31; Start 11/08/18 at 09:38; Stop 11/11/18 at 06:43; Status DC Ondansetron HCl (Zofran) 4 mg PRN Q4HRS PRN IV NAUSEA/VOMITING Last administered on 11/10/18at 09:38; Start 11/08/18 at 09:45 Acetaminophen (Tylenol) 650 mg PRN Q4HRS PRN GT TEMP OVER 100.4F OR MILD PAIN; Start 11/08/18 at 09:45 Acetaminophen (Tylenol Supp) 650 mg PRN Q4HRS PRN ME TEMP OVER 100.4F OR MILD PAIN; Start 11/08/18 at 09:45 Albuterol/ Ipratropium (Duoneb) 3 ml Q4H NEB ; Start 11/08/18 at 09:45; Status Cancel Levofloxacin/ Dextrose 100 ml @ 100 mls/hr Q24H IV Last administered on at 11:14; Start 11/08/18 at 10:00; Stop 11/08/18 at 11:21; Status DC Methylprednisolone Sodium Succinate (SOLU-Medrol 40MG VIAL) 40 mg Q8HRS IV ; Start 11/08/18 at 09:45; Status Cancel Famotidine (Pepcid Vial) 20 mg DAILY IVP Last administered on 11/13/18at 08:46; Start 11/09/18 at 09:00; Stop 11/13/18 at 14:46; Status DC Fentanyl Citrate 30 ml @ 0 mls/hr CONT PRN IV SEE PROTOCOL; Start 11/08/18 at 09:45; Stop 11/11/18 at 16:15; Status DC Fentanyl Citrate (Fentanyl 2ml Vial) 25 mcg PRN Q1HR PRN IV SEE COMMENTS; Start 11/08/18 at 09:45; Status Cancel Fentanyl Citrate (Fentanyl 2ml Vial) 50 mcg PRN Q1HR PRN IV SEE COMMENTS Last administered on 11/09/18at 22:21; Start 11/08/18 at 09:45; Stop 11/11/18 at 16:14 ; Status DC Morphine Sulfate (Morphine Sulfate) 2 mg PRN Q1HR PRN IV SEE COMMENTS.; Start 11/08/18 at 09:45; Status UNV Morphine Sulfate (Morphine Sulfate) 4 mg PRN Q1HR PRN IV SEE COMMENTS.; Start 11/08/18 at 09:45; Status UNV Insulin Human Lispro (HumaLOG) 0-5 UNITS TIDWMEALS SQ ; Start 11/08/18 at 12:00 Dextrose (Dextrose 50%-Water Syringe) 12.5 gm PRN Q15MIN PRN IV SEE COMMENTS; Start 11/08/18 at 10:00 Methylprednisolone Sodium Succinate (SOLU-Medrol 125MG VIAL) 100 mg Q8HRS IV Last administered on 11/12/18at 05:08; Start 11/08/18 at 14:00; Stop 11/12/18 at 11:25; Status DC Potassium Chloride/Water 100 ml @ 100 mls/hr Q1H IV Last administered on at 16:44; Start 11/09/18 at 07:00; Stop 11/09/18 at 14:59; Status DC Potassium Chloride (KCl Oral Soln) 40 meq 1X ONCE PEG ; Start 11/10/18 at 09:15 ; Stop 11/10/18 at 09:16; Status UNV Potassium Chloride (KCl Oral Soln) 40 meq 1X ONCE PEG Last administered on at 09:38; Start 11/10/18 at 09:15; Stop 11/10/18 at 09:16; Status DC Albuterol/ Ipratropium (Duoneb) 3 ml RTQID NEB Last administered on 11/13/18at 20:01; Start 11/10/18 at 16:00 Methylprednisolone Sodium Succinate (SOLU-Medrol 40MG VIAL) 80 mg 1X ONCE IV Last administered on 11/11/18at 02:16; Start 11/11/18 at 01:30; Stop 11/11/18 at 01:31; Status DC Furosemide (Lasix) 20 mg 1X ONCE IVP Last administered on 11/11/18at 02:12; Start 11/11/18 at 01:30; Stop 11/11/18 at 01:31; Status DC Potassium Chloride (Klor-Con) 40 meq Q2H PO ; Start 11/11/18 at 01:00; Stop at 03:01; Status UNV Info (Icu Electrolyte Protocol) 1 ea CONT PRN PRN MC PER PROTOCOL; Start at 03:45; Stop 11/13/18 at 14:47; Status DC Lactobacillus Rhamnosus (Culturelle) 1 cap BID PO Last administered on at 20:03; Start 11/11/18 at 21:00 Methylprednisolone Sodium Succinate (SOLU-Medrol 125MG VIAL) 40 mg Q8HRS IV Last administered on 11/14/18at 06:07; Start 11/12/18 at 14:00 Amoxicillin/ Clavulanate Potassium (Augmentin 875/ 125mg) 1 tab BID PO Last administered on 11/13/18at 20:03; Start 11/13/18 at 12:00 Midodrine (Proamatine) 5 mg [id number] PO Last administered on 11/14/18at 06:07; Start 11/13/18 at 18:00 Famotidine (Pepcid) 20 mg DAILY PO ; Start 11/14/18 at 09:00 Active Scripts Active Reported Midodrine Hcl 5 Mg Tablet 5 Mg PO [id number] Vitals/I & O Vital Sign - Last 24 Hours 11/13/18 11/13/18 11/13/18 11/13/18 08:00 08:51 11:00 11:48 Temp 96.0 96.0 Pulse 103 91 Resp 22 B/P (MAP) 109/62 (78) 94/45 (61) Pulse Ox 98 97 O2 Delivery Nasal Cannula Nasal Cannula Nasal Cannula O2 Flow Rate 2.0 1.0 11/13/18 11/13/18 11/13/18 11/13/18 12:58 15:15 16:06 18:19 Temp 97.6 98.4 97.6 98.4 Pulse 98 76 76 Resp 22 20 B/P (MAP) 95/50 (65) 121/64 (83) 121/64 Pulse Ox 96 95 97 O2 Delivery Room Air Nasal Cannula Nasal Cannula O2 Flow Rate 2.0 1.0 11/13/18 11/13/18 11/13/18 11/13/18 19:05 20:00 20:02 23:39 Temp 97.5 98.0 97.5 98.0 Pulse 94 74 Resp 19 30 B/P (MAP) 125/62 (83) 141/84 (103) Pulse Ox 98 97 98 O2 Delivery Nasal Cannula Room Air Nasal Cannula Nasal Cannula O2 Flow Rate 2.0 1.0 2.0 11/14/18 11/14/18 03:46 06:07 Temp 98.2 98.2 Pulse 75 75 Resp 24 B/P (MAP) 154/77 (102) 154/77 Pulse Ox 99 O2 Delivery Nasal Cannula O2 Flow Rate 2.0 Intake and Output 11/13/18 11/13/18 11/14/18 14:59 22:59 06:59 Intake Total 420 ml 300 ml Output Total 450 ml 350 ml Balance -30 ml -50 ml Nutrition Consultation Dietary Evaluation: Recommendations by RD: Increase Calorie Intake Comments: REC continue w/soft diet/ADA REC Glucerna BID REC MVI and Vit C - wound healing Expected Outcomes/Goals: Initiation of TF within 24 hrs if pt remains intubated - not met, new goal established New goal 11/12: PO intake to meet >75% est needs Interpretation of weight loss: >7.5% in 3 months Malnutrition Findings: Body Fat Depletion (Non Severe: Mild Depletion Weight Status: Underweight IDA BRANDT MD Nov 14, 2018 07:52
[2018-11-14] MEDS: INSULIN LISPRO 300 UNITS/3 ML INSULN.PEN. SQ SCH ×3 (08:00→17:00)
--- NOTE | 2018-11-14 08:04 | PDOC ---
Infectious Disease Note Subjective: Subjective Pt says feels better has cough but not able to bring up phlegm Tolerating soft diet Denies pain No F/C/S/N/V diarrhea is improving no abdo cramps d/w rn Vital Signs: Vital Signs Vital Signs Date Time Temp Pulse Resp B/P (MAP) Pulse Ox O2 Delivery O2 Flow Rate FiO2 11/14/18 07:50 97.8 78 24 187/87 (120) 100 Nasal Cannula 2.0 97.8 Physical Exam: PHYSICAL EXAM GENERAL: Propped up in bed, alert, eating LUNGS: Clear anteriorly HEART: S1, S2 ABDOMEN: Soft, nontender, BS present : Acevedo EXTREMITIES: No gross edema or cyanosis. SKIN: warm without rash NEUROLOGICAL: Alert, responding appropriately PIV Medications: Inpatient Meds: Current Medications Medications (Trade) Dose Ordered Sig/Usman Start Time Stop Time Status Last Admin Dose Admin Acetaminophen (Tylenol Supp) 650 mg PRN Q4HRS PRN 11/08/18 09:45 Acetaminophen (Tylenol) 650 mg PRN Q4HRS PRN 11/08/18 09:45 Albuterol/ Ipratropium (Duoneb) 3 ml RTQID 11/10/18 16:00 11/13/18 20:01 3 ML Amoxicillin/ Clavulanate Potassium (Augmentin 875/ 125mg) 1 tab BID 11/13/18 12:00 11/13/18 20:03 1 TAB Dextrose (Dextrose 50%-Water Syringe) 12.5 gm PRN Q15MIN PRN 11/08/18 10:00 Enoxaparin Sodium (Lovenox 40mg Syringe) 40 mg Q24H 11/08/18 09:30 11/13/18 08:47 40 MG Etomidate (Amidate) 20 mg STK-MED ONCE 11/08/18 08:33 11/08/18 08:34 DC Famotidine (Pepcid Vial) 20 mg DAILY 11/09/18 09:00 11/13/18 14:46 DC 11/13/18 08:46 20 MG Famotidine (Pepcid) 20 mg DAILY 11/14/18 09:00 Fentanyl Citrate (Fentanyl 2ml Vial) 50 mcg PRN Q1HR PRN 11/08/18 09:45 11/11/18 16:14 DC 11/09/18 22:21 50 MCG Furosemide (Lasix) 20 mg 1X ONCE 11/11/18 01:30 11/11/18 01:31 DC 11/11/18 02:12 20 MG Hydralazine HCl (Apresoline Inj) 10 mg PRN Q4HRS PRN 11/08/18 09:45 Info (Icu Electrolyte Protocol) 1 ea CONT PRN PRN 11/11/18 03:45 11/13/18 14:47 DC Insulin Human Lispro (HumaLOG) 0-5 UNITS TIDWMEALS 11/08/18 12:00 Lactobacillus Rhamnosus (Culturelle) 1 cap BID 11/11/18 21:00 11/13/18 20:03 1 CAP Levofloxacin/ Dextrose 100 ml @ 100 mls/hr Q24H 11/08/18 10:00 11/08/18 11:21 DC 11/08/18 11:14 100 MLS/HR Methylprednisolone Sodium Succinate (SOLU-Medrol 40MG VIAL) 80 mg 1X ONCE 11/11/18 01:30 11/11/18 01:31 DC 11/11/18 02:16 80 MG Methylprednisolone Sodium Succinate (SOLU-Medrol 125MG VIAL) 40 mg Q8HRS 11/12/18 14:00 11/14/18 06:07 40 MG Midodrine (Proamatine) 5 mg [id number] 11/13/18 18:00 11/14/18 06:07 5 MG Morphine Sulfate (Morphine Sulfate) 4 mg PRN Q1HR PRN 11/08/18 09:45 UNV Ondansetron HCl (Zofran) 4 mg PRN Q4HRS PRN 11/08/18 09:45 11/10/18 09:38 4 MG Pantoprazole Sodium (PROTONIX VIAL for IV PUSH) 40 mg DAILYAC 11/08/18 10:00 11/11/18 16:18 DC 11/11/18 07:46 40 MG Piperacillin Sod/ Tazobactam Sod (Zosyn Per Pharmacy) 1 each PRN DAILY PRN 11/08/18 09:30 11/13/18 10:10 DC Piperacillin Sod/ Tazobactam Sod 3.375 gm/Sodium Chloride 50 ml @ 100 mls/hr Q6H 11/08/18 10:00 11/13/18 10:09 DC 11/13/18 05:13 100 MLS/HR Potassium Chloride/Water 100 ml @ 100 mls/hr Q1H 11/09/18 07:00 11/09/18 14:59 DC 11/09/18 16:44 100 MLS/HR Potassium Chloride (KCl Oral Soln) 40 meq 1X ONCE 11/10/18 09:15 11/10/18 09:16 DC 11/10/18 09:38 40 MEQ Potassium Chloride (Klor-Con) 40 meq Q2H 11/11/18 01:00 11/11/18 03:01 UNV Propofol 100 ml @ 0 mls/hr CONT PRN 11/08/18 09:30 11/11/18 16:14 DC 11/09/18 14:01 6.396 MLS/HR Sodium Chloride 1,000 ml @ 100 mls/hr Q10H 11/08/18 09:38 11/11/18 06:43 DC 11/11/18 05:31 100 MLS/HR Succinylcholine Chloride (Anectine) 200 mg STK-MED ONCE 11/08/18 08:34 11/08/18 08:35 DC Labs: Lab Laboratory Tests Test 11/13/18 09:05 11/13/18 10:56 11/13/18 16:56 11/13/18 20:47 Clostridium difficile Toxin B Gene Negative (Negative) Glucose (Fingerstick) 147 mg/dL (70-99) 138 mg/dL (70-99) 156 mg/dL (70-99) Test 11/14/18 04:00 11/14/18 07:11 Sodium Level 143 mmol/L (136-145) Potassium Level 4.1 mmol/L (3.5-5.1) Chloride Level 103 mmol/L (98-107) Carbon Dioxide Level 38 mmol/L (21-32) Anion Gap 2 (6-14) Blood Urea Nitrogen 15 mg/dL (7-20) Creatinine 0.5 mg/dL (0.6-1.0) Estimated GFR (Cockcroft-Gault) 145.5 Glucose Level 118 mg/dL (70-99) Calcium Level 8.8 mg/dL (8.5-10.1) Glucose (Fingerstick) 95 mg/dL (70-99) Objective: Assessment: Hypercarbic respiratory failure s/p extubation Asthma DM Pneumonia Lactic acidosis diarrhea c d iff neg Plan: Plan of Care cont augmentin for 2 days cont supportive care HAKEEM BURGER MD Nov 14, 2018 08:04
[2018-11-14] MEDS ORDERED: FAMOTIDINE 20 MG TABLET. PO SCH (09:00)
[2018-11-14] MEDS: IPRATRPIUM/ALBUTEROL 0.5/2.5MG 3 ML NEBU. NEB SCH ×3 (09:15→16:00)
[2018-11-14] MEDS: ENOXAPARIN 40 MG/0.4 ML SYRINGE. SQ SCH (09:52)
[2018-11-14] MEDS: LACTOBACILLUS RHAMNOSUS GG 1 CAPSULE. PO SCH (09:52)
[2018-11-14] MEDS: AMOXICILLIN/K CLAV 875/125MG TABLET. PO SCH (09:52)
[2018-11-14 11:12] VITALS: BP 103/61
--- NOTE | 2018-11-14 11:24 | PDOC ---
PULMONARY PROGRESS NOTES Subjective , sob better, no pain. Vitals Vital Signs Date Time Temp Pulse Resp B/P (MAP) Pulse Ox O2 Delivery O2 Flow Rate FiO2 11/14/18 11:12 98.1 93 24 103/61 (75) 99 Nasal Cannula 2.0 98.1 Comments ros as mentioned as above discussed w rn, rt, other sys otherwise neg on bipap General: Alert, Oriented X4, No acute distress HEENT: Other (nc at perrl nose clear neck no lad no thyromegaly) Lungs: Clear Cardiovascular: S1, S2 Abdomen: Soft, Non-tender, Other (no mass) Neuro Exam: Alert Extremities: No Edema Skin: Warm Labs Laboratory Tests Test 11/12/18 11:53 11/12/18 16:31 11/12/18 20:39 11/13/18 04:30 Glucose (Fingerstick) 140 mg/dL (70-99) 112 mg/dL (70-99) 93 mg/dL (70-99) Sodium Level 146 mmol/L (136-145) Potassium Level 4.0 mmol/L (3.5-5.1) Chloride Level 105 mmol/L (98-107) Carbon Dioxide Level 36 mmol/L (21-32) Anion Gap 5 (6-14) Blood Urea Nitrogen 14 mg/dL (7-20) Creatinine 0.6 mg/dL (0.6-1.0) Estimated GFR (Cockcroft-Gault) 117.9 Glucose Level 133 mg/dL (70-99) Calcium Level 9.0 mg/dL (8.5-10.1) Test 11/13/18 07:15 11/13/18 09:05 11/13/18 10:56 11/13/18 16:56 Glucose (Fingerstick) 110 mg/dL (70-99) 147 mg/dL (70-99) 138 mg/dL (70-99) Clostridium difficile Toxin B Gene Negative (Negative) Test 11/13/18 20:47 11/14/18 04:00 11/14/18 07:11 Glucose (Fingerstick) 156 mg/dL (70-99) 95 mg/dL (70-99) Sodium Level 143 mmol/L (136-145) Potassium Level 4.1 mmol/L (3.5-5.1) Chloride Level 103 mmol/L (98-107) Carbon Dioxide Level 38 mmol/L (21-32) Anion Gap 2 (6-14) Blood Urea Nitrogen 15 mg/dL (7-20) Creatinine 0.5 mg/dL (0.6-1.0) Estimated GFR (Cockcroft-Gault) 145.5 Glucose Level 118 mg/dL (70-99) Calcium Level 8.8 mg/dL (8.5-10.1) Laboratory Tests Test 11/13/18 16:56 11/13/18 20:47 11/14/18 04:00 11/14/18 07:11 Glucose (Fingerstick) 138 mg/dL (70-99) 156 mg/dL (70-99) 95 mg/dL (70-99) Sodium Level 143 mmol/L (136-145) Potassium Level 4.1 mmol/L (3.5-5.1) Chloride Level 103 mmol/L (98-107) Carbon Dioxide Level 38 mmol/L (21-32) Anion Gap 2 (6-14) Blood Urea Nitrogen 15 mg/dL (7-20) Creatinine 0.5 mg/dL (0.6-1.0) Estimated GFR (Cockcroft-Gault) 145.5 Glucose Level 118 mg/dL (70-99) Calcium Level 8.8 mg/dL (8.5-10.1) Medications Active Scripts Medications Dose Route/Sig Max Daily Dose Days Date Category Midodrine Hcl 5 Mg Tablet 5 Mg PO [id number] 11/13/18 Reported Comments cxr, copd changes, no infilt echo reviewed The left ventricular systolic function is normal. The Ejection Fraction is 65-70%. There is normal LV segmental wall motion. Transmitral Doppler flow pattern is Grade I-abnormal relaxation pattern. Doppler and Color Flow revealed trace tricuspid regurgitation. The PA pressure was estimated at 20 mmHg. There is no evidence of significant pericardial effusion. Impression . IMPRESSION: 1. Acute on chronic hypoxemic and hypercarbic respiratory failure secondary to acute exacerbation of chronic obstructive pulmonary disease / weakness 2. Abnormal chest x-ray./ COPD 3. Acute exacerbation of chronic obstructive pulmonary disease. 4. Acute bronchitis 5. Diabetes mellitus. 6. hypo k Plan . PLAN AND RECOMMENDATIONS: 1. Titrate FiO2 to keep O2 saturation 92%. 2. prn bipap, 3. Bronchodilator. 4. steroid taper 5. antibiotic, per id. 6. Nasal swab for influenza A and B, neg. 7. Procalcitonin, nl. 8. Echocardiogram reviewed. 9. Lovenox for DVT prophylaxis. 10. Pepcid for stress ulcer prophylaxis. 11. Elevate head of bed. d/w daughter/ ok with dc to [facility] Holland MD Nov 14, 2018 11:23
--- NOTE | 2018-11-14 12:08 | NUR ---
Wound care: Patient seen per wound care consult. wound assessment completed at this time. Patient has a healed stage II pressure ulcer to medial coccyx. the area was cleaned and redressed with Calazime cream. Recommendations of continuing with the Calazime, prn. No other wounds noted upon complete head to toe assessment. patient needing to use the bedside commode, patient transferred to commode with walker, sitting on commode at this time and nursing staff notified and with patient in room. Chair cushion ordered at this time. Will follow regarding wound care.
--- NOTE | 2018-11-14 12:37 | NUR ---
SS following up with discharge planning. Pt accepted at [facility], ; fax [phone], pending insurance authorization. SS will continue to follow for discharge planning.
[2018-11-14] MEDS ORDERED: PRED20TA PO (13:24)
[2018-11-14] MEDS ORDERED: MIDO5TAB PO (13:24)
[2018-11-14] MEDS ORDERED: IPRA3AMP29 NEB (13:24)
[2018-11-14] MEDS ORDERED: LOPE2TAB27 PO (13:24)
[2018-11-14] MEDS ORDERED: AMOX1TAB11 PO (13:24)
[2018-11-14] MEDS ORDERED: LACT1CAP19 PO (13:24)
[2018-11-14] MEDS ORDERED: INSU100I11 SQ (13:24)
[2018-11-14] MEDS ORDERED: ACET650S11 PR (13:24)
[2018-11-14] MEDS ORDERED: FAMO20TA5 PO (13:24)
--- NOTE | 2018-11-14 13:27 | SNU/HH DC ---
DISCHARGE ORDERS DISCHARGE INFORMATION: DISCHARGE DATE: Nov 14, 2018 FINAL DIAGNOSIS Problems Medical Problems: (1) Dyspnea and respiratory abnormalities Status: Acute CONDITION ON DISCHARGE: Stable CODE STATUS: Code Status: Full JAIL: SNF STAY <30 DAYS: Yes POST DISCHARGE ORDERS: ACTIVITY ORDERS: Activity as tolerated WEIGHT BEARING STATUS: As tolerated DIET AFTER DISCHARGE: ADA CHECKS AFTER DISCHARGE: CHECKS AFTER DISCHARGE: Check blood press - daily, Check blood sugar, ac/hs TREATMENT/EQUIPMENT ORDERS: ADAPTIVE EQUIPMENT NEEDED: None Physical Therapy For: Evalulation/Treatment Occupational Therapy For: Evaluation/Treatment Speech Language Pathology For: Evaluation/Treatment DISCHARGE MEDICATIONS: Home Meds Active Scripts Loperamide Hcl (LOPERAMIDE) 2 Mg Tablet, 2 MG PO PRN Q4-6HRS PRN for DIARRHEA for 30 Days, #120 TAB Prov:IDA BRANDT MD 11/14/18 Prednisone (PREDNISONE) 20 Mg Tablet, 1 TAB PO DAILY for copd, #5 TAB Prov:IDA BRANDT MD 11/14/18 Insulin Lispro (HUMALOG) 100 Unit/1 Ml Insuln.pen, 0 UNITS SQ TIDWMEALS for DM2 for 30 Days, #1 EACH BG 151-200 - 2u 201-250 - 3u 251-300 - 4u 301-350 - 5u >350 call MD Prov:IDA BRANDT MD 11/14/18 Lactobacillus Rhamnosus Gg (CULTURELLE) 1 Each Cap.sprink, 1 CAP PO BID for Diarrhea for 7 Days, #14 CAP Prov:IDA BRANDT MD 11/14/18 Famotidine (FAMOTIDINE) 20 Mg Tablet, 20 MG PO DAILY for GERD for 30 Days, #30 TAB Prov:IDA BRANDT MD 11/14/18 Acetaminophen (ACETAMINOPHEN SUPP) 650 Mg Supp.rect, 650 MG TN PRN Q4HRS PRN for TEMP OVER 100.4F OR MILD PAIN for 30 Days, #60 SUPP.RECT Prov:IDA BRANDT MD 11/14/18 Ipratropium/Albuterol Sulfate (DUONEB 0.5-3(2.5) MG/3 ML) 3 Ml Ampul.neb, 3 ML NEB RTQID for COPD for 30 Days, #120 EACH Prov:IDA BRANDT MD 11/14/18 Amoxicillin/Potassium Clav (AMOX TR-K CLV 875-125 MG TAB) 1 Each Tablet, 1 TAB PO BID for Pneumonia for 2 Days, #4 TAB Prov:IDA BRANDT MD 11/14/18 Midodrine Hcl (MIDODRINE HCL) 5 Mg Tablet, 5 MG PO PRN TID PRN for hypotension for 30 Days, #90 TAB Prov:IDA BRANDT MD 11/14/18 IDA BRANDT MD Nov 14, 2018 13:27
--- NOTE | 2018-11-14 13:31 | PDOC3 ---
Discharge Summary Visit Information Date of Admission: Nov 08, 2018 Date of Discharge: Nov 14, 2018 Admitting Diagnosis: Hypoxic resp failure Final Diagnosis Problems Medical Problems: (1) Dyspnea and respiratory abnormalities Status: Acute Brief Hospital Course Allergies Allergies Coded Allergies Type Severity Reaction Last Updated Verified Milk Containing Products Allergy Intermediate 11/10/18 Yes Vital Signs Vital Signs Date Time Temp Pulse Resp B/P (MAP) Pulse Ox O2 Delivery O2 Flow Rate FiO2 11/14/18 12:58 Room Air 11/14/18 11:12 98.1 93 24 103/61 (75) 99 2.0 98.1 Lab Results Laboratory Tests Test 11/12/18 16:31 11/12/18 20:39 11/13/18 04:30 11/13/18 07:15 Glucose (Fingerstick) 112 mg/dL (70-99) 93 mg/dL (70-99) 110 mg/dL (70-99) Sodium Level 146 mmol/L (136-145) Potassium Level 4.0 mmol/L (3.5-5.1) Chloride Level 105 mmol/L (98-107) Carbon Dioxide Level 36 mmol/L (21-32) Anion Gap 5 (6-14) Blood Urea Nitrogen 14 mg/dL (7-20) Creatinine 0.6 mg/dL (0.6-1.0) Estimated GFR (Cockcroft-Gault) 117.9 Glucose Level 133 mg/dL (70-99) Calcium Level 9.0 mg/dL (8.5-10.1) Test 11/13/18 09:05 11/13/18 10:56 11/13/18 16:56 11/13/18 20:47 Clostridium difficile Toxin B Gene Negative (Negative) Glucose (Fingerstick) 147 mg/dL (70-99) 138 mg/dL (70-99) 156 mg/dL (70-99) Test 11/14/18 04:00 11/14/18 07:11 11/14/18 11:28 Sodium Level 143 mmol/L (136-145) Potassium Level 4.1 mmol/L (3.5-5.1) Chloride Level 103 mmol/L (98-107) Carbon Dioxide Level 38 mmol/L (21-32) Anion Gap 2 (6-14) Blood Urea Nitrogen 15 mg/dL (7-20) Creatinine 0.5 mg/dL (0.6-1.0) Estimated GFR (Cockcroft-Gault) 145.5 Glucose Level 118 mg/dL (70-99) Calcium Level 8.8 mg/dL (8.5-10.1) Glucose (Fingerstick) 95 mg/dL (70-99) 115 mg/dL (70-99) Laboratory Tests Test 11/13/18 16:56 11/13/18 20:47 11/14/18 04:00 11/14/18 07:11 Glucose (Fingerstick) 138 mg/dL (70-99) 156 mg/dL (70-99) 95 mg/dL (70-99) Sodium Level 143 mmol/L (136-145) Potassium Level 4.1 mmol/L (3.5-5.1) Chloride Level 103 mmol/L (98-107) Carbon Dioxide Level 38 mmol/L (21-32) Anion Gap 2 (6-14) Blood Urea Nitrogen 15 mg/dL (7-20) Creatinine 0.5 mg/dL (0.6-1.0) Estimated GFR (Cockcroft-Gault) 145.5 Glucose Level 118 mg/dL (70-99) Calcium Level 8.8 mg/dL (8.5-10.1) Test 11/14/18 11:28 Glucose (Fingerstick) 115 mg/dL (70-99) Brief Hospital Course 77-year-old AA female patient with PMHx HTN, asthma admitted not been feeling well for last 3 days. She fell day prior to admit according to daughter and she was brought in. The patient was admitted on the floor initially and then she had a rapid response and she was found to be respiratory acidosis with hypercarbic respiratory failure. The patient also was hypoxic. The patient was intubated and admitted to the ICU. The patient did have lactic acidosis. The patient was on Levaquin and Zosyn and consult with pulmonology and ID were performed. Extubated 11/10 in the afternoon, up to chair, she reports feeling much improved. Daughter bedside No complaints. agreeable to SNF Assessment: acute Hypercarbic respiratory failure. Lactic acidosis. Asthma. Diabetes. Community-acquired pneumonia. Plan: PT/OT, needs skilled placement on d/c Augmentin 2 additional days Discharge Information Condition at Discharge: Improved Follow Up: Weeks (2) Disposition/Orders: D/C to Another Facility (HCR) Scheduled Amoxicillin/Potassium Clav (Amox Tr-K Clv 875-125 Mg Tab) 1 Each Tablet, 1 TAB PO BID for Pneumonia for 2 Days, #4 Prescribed by: IDA BRANDT MD on 11/14/18 1324 Famotidine (Famotidine) 20 Mg Tablet, 20 MG PO DAILY for GERD for 30 Days, #30 Prescribed by: IDA BRANDT MD on 11/14/18 1324 Insulin Lispro (Humalog) 100 Unit/1 Ml Insuln.pen, 0 UNITS SQ TIDWMEALS for DM2 for 30 Days, #1 BG 151-200 - 2u 201-250 - 3u 251-300 - 4u 301-350 - 5u >350 call MD Prescribed by: IDA BRANDT MD on 11/14/18 1324 Ipratropium/Albuterol Sulfate (Duoneb 0.5-3(2.5) Mg/3 Ml) 3 Ml Ampul.neb, 3 ML NEB RTQID for COPD for 30 Days, #120 Prescribed by: IDA BRANDT MD on 11/14/18 1324 Lactobacillus Rhamnosus Gg (Culturelle) 1 Each Cap.sprink, 1 CAP PO BID for Diarrhea for 7 Days, #14 Prescribed by: IDA BRANDT MD on 11/14/18 1324 Prednisone (Prednisone) 20 Mg Tablet, 1 TAB PO DAILY for copd, #5 Prescribed by: IDA BRANDT MD on 11/14/18 1324 Scheduled PRN Acetaminophen (Acetaminophen Supp) 650 Mg Supp.rect, 650 MG AK PRN Q4HRS PRN for TEMP OVER 100.4F OR MILD PAIN for 30 Days, #60 Prescribed by: IDA BRANDT MD on 11/14/18 1324 Loperamide Hcl (Loperamide) 2 Mg Tablet, 2 MG PO PRN Q4-6HRS PRN for DIARRHEA for 30 Days, #120 Prescribed by: IDA BRANDT MD on 11/14/18 1324 Midodrine Hcl (Midodrine Hcl) 5 Mg Tablet, 5 MG PO PRN TID PRN for hypotension for 30 Days, #90 Prescribed by: IDA BRANDT MD on 11/14/18 1324 IDA BRANDT MD Nov 14, 2018 13:30
--- NOTE | 2018-11-14 14:07 | NUR ---
SS following up with discharge planning. Discharge orders received for [facility], ; fax [phone]. SS phoned and faxed discharge orders to [facility]. Pt will discharge today and go to [facility] at 1730. [facility]. Pt and pt's RN notified.
[2018-11-14 15:03] VITALS: BP 176/85
== END 2018-11-14 17:00 | DRG 208 ==
LOC: ER 22:36 → 6 SOUTH 11-08 00:12 → 1 WEST ICU 11-08 09:15 → 2 SOUTH 11-11 15:50
PROVIDERS: ADMIT Internal Medicine; ATTEND Internal Medicine
PROC: 5A1945Z Respiratory Ventilation, 24-96 Consecutive Hours (ICD-10-PCS; principal; 2018-11-08)
PROC: 0BH17EZ Insertion of Endotracheal Airway into Trachea, Via Natural or Artificial Opening (ICD-10-PCS; 2018-11-08)
PROC: 5A09357 Assistance with Respiratory Ventilation, Less than 24 Consecutive Hours, Continuous Positive Airway Pressure (ICD-10-PCS; 2018-11-11)
DX: J96.21 Acute and chronic respiratory failure with hypoxia (principal); G93.41 Metabolic encephalopathy; J18.9 Pneumonia, unspecified organism; J44.1 Chronic obstructive pulmonary disease with (acute) exacerbation; J44.0 Chronic obstructive pulmonary disease with (acute) lower respiratory infection; E87.2 Acidosis; J96.22 Acute and chronic respiratory failure with hypercapnia; I95.9 Hypotension, unspecified; E11.9 Type 2 diabetes mellitus without complications; I10 Essential (primary) hypertension; J20.9 Acute bronchitis, unspecified; E87.6 Hypokalemia; M41.9 Scoliosis, unspecified; W18.39XA Other fall on same level, initial encounter; Y93.89 Activity, other specified; Z83.3 Family history of diabetes mellitus; Y92.89 Other specified places as the place of occurrence of the external cause; Y99.8 Other external cause status
CPT/HCPCS: 36415; 36600; 70450; 71045; 74018; 80048; 80053; 81001; 82550; 82607; 82805; 82962; 83605; 83735; 83880; 84100; 84132; 84145; 84443; 84484; 85007; 85025; 85027; 87040; 87493; 87641; 87804; 93005; 93306; 94002; 94003; 94640; 94660; 94760; 96360; 96361; C9113; J1650; J1940; J1956; J2405; J2543; J2704; J2920; J2930; J3010; J3480; J3490; J7030; J7040; J7620; 97110; 97116; 97530; 97535; 99285-25

== ENCOUNTER 2019-04-06 07:57 | Inpatient (IN) | payer MEDICARE, MEDICAID ==
[2019-04-06] VITALS (11 sets, daily range): BP systolic 77–169; BP diastolic 49–76
[~2019-04-06] VITALS: Ht 157.5 cm; Wt 45.4 kg
[~2019-04-06 07:57] MED LIST: ACET650S11 PR; AMOX1TAB11 PO; FAMO20TA5 PO; INSU100I11 SQ; IPRA3AMP29 NEB; LACT1CAP19 PO; LOPE2TAB27 PO; MIDO5TAB PO; PRED20TA PO
[2019-04-06] MEDS ORDERED: PIPERACILLIN/TAZOBACTAM 3.375 GM in IV NORMAL SALINE 50ML 50 ML IV ONE (08:15)
[2019-04-06] MEDS ORDERED: IV NORMAL SALINE 1000ML BAG 1,000 ML IV ONE (08:15)
[2019-04-06] MEDS ORDERED: ACETAMINOPHEN 650 MG SUPP.RECT. PR ONE (08:30)
--- NOTE | 2019-04-06 08:39 | RAD ---
AP portable chest radiograph 04/06/2019 Clinical History: Shortness of breath, fever and cough. An AP erect portable digital radiograph of the chest was obtained. Comparison study is dated 11/11/2018. The cardiac silhouette is mildly enlarged. The thoracic aorta is tortuous. Atherosclerotic calcification thoracic aorta is seen. No acute pulmonary infiltrate is seen. No pleural effusion or pneumothorax is noted. The osseous structures are unchanged. Impression: No acute abnormality is seen. Electronically signed by: Shubham Yañez MD (04/06/2019 8:36 AM) [facility]
[2019-04-06 08:41] LABS: BASO % 1 % (0-3); EOS % 0 % (0-3); HEMATOCRIT 38.5 % (36.0-47.0); HEMOGLOBIN 12.8 g/dL (12.0-15.5); LYMPH # 0.5 x10^3/uL (1.0-4.8); LYMPH % 11 % (24-48); MEAN CORPUSCULAR HEMOGLOBIN 31 pg (25-35); MEAN CORPUSCULAR HGB CONC 33 g/dL (31-37); MEAN CORPUSCULAR VOLUME 92 fL (79-100); MONO # 0.1 x10^3/uL (0.0-1.1); MONO % 2 % (0-9); NEUT # 3.8 x10^3/uL (1.8-7.7); NEUT % 87 % (31-73); PLATELET COUNT 168 x10^3/uL (140-400); RED BLOOD COUNT 4.21 x10^6/uL (3.50-5.40); WHITE BLOOD COUNT 4.4 x10^3/uL (4.0-11.0)
--- NOTE | 2019-04-06 08:49 | PHYS DOC ---
Past Medical History Past Medical History: Asthma, COPD, Diabetes-Type II, Hypertension, Other Additional Past Medical Histor: resp failure,AMS,Cognitive Communication defecit Past Surgical History: Tubal ligation Alcohol Use: None Drug Use: None Adult General Chief Complaint Chief Complaint: ALTERED MENTAL STATUS HPI HPI Patient is a 78 year old female who was brought here by EMS from the senior living for evaluation of altered mental status. It was reported that patient had been normal, up and about on 2 days ago. Last night patient started acting confused, this morning she would not wake up from stimulation by her healthcare team. EMS was called to bring her here for evaluation. Patient was only responsive to verbal command upon arrival to ER. There was no report of injury. Review of Systems Review of Systems unable to evaluate due to unresponsiveness. All other systems were reviewed and found to be within normal limits, except as documented in this note. Current Medications Current Medications Current Medications Medications (Trade) Dose Ordered Sig/Usman Start Time Stop Time Status Last Admin Dose Admin Acetaminophen (Tylenol Supp) 650 mg 1X ONCE 04/06/19 08:30 04/06/19 08:31 DC 04/06/19 08:31 650 MG Chlorhexidine Gluconate (Peridex) 15 ml BID 04/06/19 21:00 Etomidate (Amidate) 20 mg 1X ONCE 04/06/19 10:00 04/06/19 10:04 DC Ondansetron HCl (Zofran) 4 mg PRN Q8HRS PRN 04/06/19 10:15 04/07/19 10:14 Piperacillin Sod/ Tazobactam Sod 3.375 gm/Sodium Chloride 50 ml @ 100 mls/hr 1X ONCE 04/06/19 08:15 04/06/19 08:44 DC 04/06/19 08:28 100 MLS/HR Propofol 100 ml @ 1.239 mls/ hr CONT PRN 04/06/19 10:15 04/06/19 11:00 1.239 MLS/HR Propofol (Diprivan) 200 mg 1X ONCE 04/06/19 10:00 04/06/19 10:04 DC Sodium Chloride 1,000 ml @ 75 mls/hr [id number] 04/06/19 10:14 04/07/19 10:13 Succinylcholine Chloride (Anectine) 100 mg 1X ONCE 04/06/19 10:00 04/06/19 10:04 DC Allergies Allergies Allergies Coded Allergies Type Severity Reaction Last Updated Verified Milk Containing Products Allergy Intermediate 11/10/18 Yes Physical Exam Physical Exam Constitutional: APPEARED LETHARGIC, ONLY RESPONSIVE TO PAINFUL STIMULI. HENT: Normocephalic, atraumatic, bilateral external ears normal, oropharynx moist, no oral exudates, nose normal. [] Eyes: PERRLA, EOMI, conjunctiva normal, no discharge. [] Neck: Normal range of motion, no tenderness, supple, no stridor. [] Cardiovascular:Heart rate regular rhythm, no murmur [] Lungs & Thorax: Bilateral breath sounds clear to auscultation [] Abdomen: Bowel sounds normal, soft, no tenderness, no masses, no pulsatile masses. [] Skin: Warm, dry, no erythema, no rash. [] Back:NO INJURY Extremities: NO EVIDENCE OF TRAUMA Neurologic: PATIENT IS ONLY RESPONSIVE TO PAIN, NOT TO VERBAL, LETHARGIC. Psychologic: NOT ABLE TO EVALUATE DUE TO UNRESPONSIVE STAGE. Current Patient Data Vital Signs Vital Signs Date Time Temp Pulse Resp B/P (MAP) Pulse Ox O2 Delivery O2 Flow Rate FiO2 04/06/19 07:57 100.0 81 36 186/83 (117) 100 NonRebreather Mask 15.0 100.0 Lab Values Laboratory Tests Test 04/06/19 08:09 04/06/19 08:10 04/06/19 08:30 04/06/19 08:50 Glucose (Fingerstick) 117 mg/dL (70-99) H White Blood Count 4.4 x10^3/uL (4.0-11.0) Red Blood Count 4.21 x10^6/uL (3.50-5.40) Hemoglobin 12.8 g/dL (12.0-15.5) Hematocrit 38.5 % (36.0-47.0) Mean Corpuscular Volume 92 fL (79-100) Mean Corpuscular Hemoglobin 31 pg (25-35) Mean Corpuscular Hemoglobin Concent 33 g/dL (31-37) Red Cell Distribution Width 14.0 % (11.5-14.5) Platelet Count 168 x10^3/uL (140-400) Neutrophils (%) (Auto) 87 % (31-73) H Lymphocytes (%) (Auto) 11 % (24-48) L Monocytes (%) (Auto) 2 % (0-9) Eosinophils (%) (Auto) 0 % (0-3) Basophils (%) (Auto) 1 % (0-3) Neutrophils # (Auto) 3.8 x10^3/uL (1.8-7.7) Lymphocytes # (Auto) 0.5 x10^3/uL (1.0-4.8) L Monocytes # (Auto) 0.1 x10^3/uL (0.0-1.1) Eosinophils # (Auto) 0.0 x10^3/uL (0.0-0.7) Basophils # (Auto) 0.0 x10^3/uL (0.0-0.2) Platelet Estimate Pending Lactic Acid Level 0.7 mmol/L (0.4-2.0) Urine Color Yellow Urine Clarity Clear Urine pH 6.5 Urine Specific Bodega 1.020 Urine Protein 30 mg/dL (NEG-TRACE) Urine Glucose (UA) 100 mg/dL (NEG) Urine Ketones (Stick) 15 mg/dL (NEG) Urine Blood Trace (NEG) Urine Nitrite Negative (NEG) Urine Bilirubin Negative (NEG) Urine Urobilinogen Dipstick 1.0 mg/dL (0.2 mg/dL) Urine Leukocyte Esterase Small (NEG) Urine RBC 0 /HPF (0-2) Urine WBC 1-4 /HPF (0-4) Urine Squamous Epithelial Cells Few /LPF Urine Bacteria 0 /HPF (0-FEW) Sodium Level 143 mmol/L (136-145) Potassium Level 3.8 mmol/L (3.5-5.1) Chloride Level 103 mmol/L (98-107) Carbon Dioxide Level 34 mmol/L (21-32) H Anion Gap 6 (6-14) Blood Urea Nitrogen 17 mg/dL (7-20) Creatinine 0.7 mg/dL (0.6-1.0) Estimated GFR (Cockcroft-Gault) 98.4 BUN/Creatinine Ratio 24 (6-20) H Glucose Level 122 mg/dL (70-99) H Calcium Level 8.9 mg/dL (8.5-10.1) Magnesium Level 2.2 mg/dL (1.8-2.4) Total Bilirubin 0.4 mg/dL (0.2-1.0) Aspartate Amino Transferase (AST) 17 U/L (15-37) Alanine Aminotransferase (ALT) 15 U/L (14-59) Alkaline Phosphatase 79 U/L (46-116) Troponin I Quantitative < 0.017 ng/mL (0.000-0.055) JZ-Bpu-P-Type Natriuretic Peptide 253 pg/mL (0-449) Total Protein 7.1 g/dL (6.4-8.2) Albumin 3.7 g/dL (3.4-5.0) Albumin/Globulin Ratio 1.1 (1.0-1.7) Lipase 49 U/L (73-393) L Test 04/06/19 09:45 O2 Saturation 98 % (92-99) Arterial Blood pH 6.90 (7.35-7.45) *L Arterial Blood pCO2 at Patient Temp Pending Arterial Blood pO2 at Patient Temp 200 mmHg (65-108) H Arterial Blood HCO3 Pending FiO2 100 Laboratory Tests 04/06/19 08:10 Laboratory Tests 04/06/19 08:50 EKG EKG EKG WAS READ BY THIS PHYSICIAN AT 0803, RATE OF 79 BPM, SINUS TACHYCARDIA, NO STEMI[] Radiology/Procedures Radiology/Procedures [facility] [address] [place], [place] [id number] IMAGING REPORT Signed PATIENT: LAN JACKSON ACCOUNT: [id number] : 1940 LOCATION: ER AGE: 78 SEX: F EXAM STATUS: REG ER ORD. PHYSICIAN: MARJORIE LEMOS DO REASON: SOA, FEVER, COUGH PROCEDURE: PORTABLE CHEST 1V AP portable chest radiograph 04/06/2019 Clinical History: Shortness of breath, fever and cough. An AP erect portable digital radiograph of the chest was obtained. Comparison study is dated 11/11/2018. The cardiac silhouette is mildly enlarged. The thoracic aorta is tortuous. Atherosclerotic calcification thoracic aorta is seen. No acute pulmonary infiltrate is seen. No pleural effusion or pneumothorax is noted. The osseous structures are unchanged. Impression: No acute abnormality is seen. Electronically signed by: Shubham Yañez MD (04/06/2019 8:36 AM) [facility] DICTATED and SIGNED BY: SHUBHAM YAÑEZ MD DATE: 04/06/[address] [facility] [address] [place] [address] IMAGING REPORT Signed PATIENT: LAN JACKSON ACCOUNT: [id number] : 1940 LOCATION: ER AGE: 78 SEX: F EXAM STATUS: REG ER ORD. PHYSICIAN: MARJORIE LEMOS DO REASON: headache PROCEDURE: CT HEAD WO CONTRAST CT scan of the head without contrast 04/06/2019 . Clinical History: Headaches Technique: Unenhanced, contiguous, 5 mm axial sections were obtained through the head. One or more of the following individualized dose reduction techniques were utilized for this study: 1. Automated exposure control. 2. Adjustment of the mA and/or kV according to patient size. 3. Use of iterative reconstruction technique. Findings: Comparison study is dated 11/07/2018. There is generalized parenchymal atrophy. Areas of decreased attenuation are seen within the periventricular and subcortical white matter of both cerebral hemispheres consistent with areas of small vessel ischemic disease. No acute parenchymal abnormality is seen. No extra-axial fluid collection is noted. No skull fracture is seen. Impression: No acute intracranial abnormality is seen. Electronically signed by: Shubham Yañez MD (04/06/2019 10:35 AM) [facility] DICTATED and SIGNED BY: SHUHBAM YAÑEZ MD DATE: 04/06/[address] [facility] [address] [place] [address] IMAGING REPORT Signed PATIENT: LAN JACKSON ACCOUNT: [id number] : 1940 LOCATION: ER AGE: 78 SEX: F EXAM STATUS: REG ER ORD. PHYSICIAN: MARJORIE LEMOS DO REASON: POST INTUBATION PROCEDURE: CHEST AP ONLY AP portable chest radiograph 04/06/2019 Clinical History: Post intubation. An AP supine portable digital radiograph of the chest was obtained. Comparison study is dated earlier the same day at 0759 hours. An ET tube has been placed. The tip of this tube overlies the trachea 2 cm above the level of the fabian. A NG tube has been placed. The tip of this tube is off this radiograph in the region of the body the stomach. The side-port of the tube overlies the expected location of the distal thoracic esophagus. The cardiac silhouette is mildly enlarged. Atherosclerotic calcification of the thoracic aorta is seen. No acute pulmonary infiltrate is noted. No pneumothorax or pleural effusion is seen. The osseous structures are unchanged. IMPRESSION: ET and NG tube position as discussed above. Electronically signed by: Shubham Yañez MD (04/06/2019 10:40 AM) [facility] DICTATED and SIGNED BY: SHUBHAM YAÑEZ MD DATE: 04/06/19 1040 Procedure: Rapid sequence Intubation: Indication: Respiratory failure Consent: Unable to give consent due to emergent nature. Medications Used: see nursing note Procedure: The patient was placed in the appropriate position. Intubation was performed BY THIS PHYSICIAN, [CORD VISUALIZATION, MAC BLADE # 4 WAS USED, ] [ET # 7.5] endotracheal tube. [ET SECURE AT 25 AT LIP]. Initial confirmation of placement included bilateral breath sounds, tube fogging, adequate chest rise, adequate pulse oximetry reading. A chest x-ray to verify correct placement of the tube showed appropriate tube position. The patient tolerated the procedure well. Complications: none.[] Critical care time was [45] minutes which includes time at bedside, spent in discussion of patient's care with specialist and/or family members, with interpretation of laboratory and/or radiological studies and is exclusive of procedures. Course & Med Decision Making Course & Med Decision Making Pertinent Labs and Imaging studies reviewed. (See chart for details) Patient was lethargic, only responsive to painful stimuli, ABG shown PCO2 was too high to measure, ph was 6.88. Patient was intubated urgently. She will be admitted to ICU, Dr. Bar agreed to admit patient. Dragon Disclaimer Dragon Disclaimer This electronic medical record was generated, in whole or in part, using a voice recognition dictation system. Departure Departure Impression: Primary Impression: Respiratory failure Additional Impressions: UTI (urinary tract infection) Hypercapnic respiratory failure Disposition: ADMITTED INPATIENT Admitting Physician: PASCUAL (ANGELA) Referrals: MONIQUE ORNELAS MD (PCP) Problem Qualifiers MARJORIE LEMOS DO Apr 06, 2019 08:49
[2019-04-06 08:54] LABS: BILIRUBIN,URINE NEGATIVE (NEG); CLARITY,URINE CLEAR; COLOR,URINE YELLOW; NITRITE,URINE NEGATIVE (NEG); PH,URINE 6.5; PROTEIN,URINE 30 mg/dL (NEG-TRACE)
[2019-04-06 09:28] LABS: CALCIUM 8.9 mg/dL (8.5-10.1); CREATININE 0.7 mg/dL (0.6-1.0); GFR 98.4; POTASSIUM 3.8 mmol/L (3.5-5.1)
[2019-04-06 09:33] LABS: ALBUMIN 3.7 g/dL (3.4-5.0); ALBUMIN/GLOBULIN RATIO 1.1 (1.0-1.7); MAGNESIUM 2.2 mg/dL (1.8-2.4); TOTAL BILIRUBIN 0.4 mg/dL (0.2-1.0)
[2019-04-06 09:34] LABS: TOTAL PROTEIN 7.1 g/dL (6.4-8.2)
[2019-04-06 09:41] LABS: PROTHROMBIN TIME PATIENT 13.4 SEC (11.7-14.0)
[2019-04-06 09:51] LABS: BACTERIA,URINE 0 /HPF (0-FEW); RBC,URINE 0 /HPF (0-2); SQUAMOUS EPITHELIAL CELL,UR FEW /LPF
[2019-04-06 09:55] LABS: PO2 ABG 200 mmHg (65-108); SAT O2 ABG 98 % (92-99)
[2019-04-06] MEDS ORDERED: PROPOFOL 10 MG/ML (20ML) VIAL. IV ONE (10:00)
[2019-04-06] MEDS ORDERED: ETOMIDATE 20 MG/10 ML VIAL. IV ONE (10:00)
[2019-04-06] MEDS ORDERED: SUCCINYLCHOLINE 200 MG/10 ML VIAL. IV ONE (10:00)
--- NOTE | 2019-04-06 10:13 | PDOC1 ---
History and Physical Date of Admission Date of Admission DATE: 04/06/19 TIME: 10:12 Identification/Chief Complaint Chief Complaint SEEN IN ER, REQUIRING VENT SUPPORT 78 year old female who [facility] for evaluation of altered mental status. It was reported that patient had been normal, up and about on 2 days ago. Last night patient started acting confused, this morning she would not wake up from stimulation by her healthcare team. EMS was called to bring her here for evaluation. Patient was only responsive to verbal command upon arrival to ER. INTUBATED IN ER . Past Medical History Past Medical History Past Medical History Past Medical History: Asthma, COPD, Diabetes-Type II, Hypertension, Other Additional Past Medical Histor: resp failure,AMS,Cognitive Communication defecit Past Surgical History: Tubal ligation Alcohol Use: None Drug Use: None family hx copd PAST MEDICAL HISTORY: Positive for asthma and diabetes. According to daughter, the patient is very healthy. SOCIAL HISTORY: Negative for smoking, alcohol, or illicit drug use. ALLERGIES: No known drug allergies. CURRENT MEDICATIONS: Reviewed. Family History Family History: Chronic Bronchitis Social History Smoke: No ALCOHOL: none Drugs: None Current Problem List Problem List Problems Medical Problems: (1) Respiratory failure Status: Acute Current Medications Current Medications Current Medications Sodium Chloride 1,000 ml @ 1,000 mls/hr 1X ONCE IV Last administered on 04/06/19at 08:28; Start 04/06/19 at 08:15; Stop 04/06/19 at 09:14; Status DC Piperacillin Sod/ Tazobactam Sod 3.375 gm/Sodium Chloride 50 ml @ 100 mls/hr 1X ONCE IV Last administered on 04/06/19at 08:28; Start 04/06/19 at 08:15; Stop 04/06/19 at 08:44; Status DC Acetaminophen (Tylenol Supp) 650 mg 1X ONCE AR Last administered on 04/06/19at 08:31; Start 04/06/19 at 08:30; Stop 04/06/19 at 08:31; Status DC Propofol (Diprivan) 200 mg 1X ONCE IV ; Start 04/06/19 at 10:00; Stop 04/06/19 at 10:04; Status DC Etomidate (Amidate) 20 mg 1X ONCE IV ; Start 04/06/19 at 10:00; Stop 04/06/19 at 10:04; Status DC Succinylcholine Chloride (Anectine) 100 mg 1X ONCE IV ; Start 04/06/19 at 10:00; Stop 04/06/19 at 10:04; Status DC Active Scripts Active Loperamide (Loperamide Hcl) 2 Mg Tablet 2 Mg PO PRN Q4-6HRS PRN 30 Days Prednisone 20 Mg Tablet 1 Tab PO DAILY Humalog (Insulin Lispro) 100 Unit/1 Ml Insuln.pen 0 Units SQ TIDWMEALS 30 Days BG 151-200 - 2u 201-250 - 3u 251-300 - 4u 301-350 - 5u >350 call Culturellolegario (Lactobacillus Rhamnosus Gg) 1 Each Cap.sprink 1 Cap PO BID 7 Days Famotidine 20 Mg Tablet 20 Mg PO DAILY 30 Days Acetaminophen Supp (Acetaminophen) 650 Mg Supp.rect 650 Mg AR PRN Q4HRS PRN 30 Days Duoneb 0.5-3(2.5) Mg/3 Ml (Albuterol/Ipratropium) 3 Ml Ampul.neb 3 Ml NEB RTQID 30 Days Amox Tr-K Clv 875-125 Mg Tab (Amoxicillin/Potassium Clav) 1 Each Tablet 1 Tab PO BID 2 Days Midodrine Hcl 5 Mg Tablet 5 Mg PO PRN TID PRN 30 Days Allergies Allergies: Coded Allergies: Milk Containing Products (Verified Allergy, Intermediate, 11/10/18) ROS Review of System unable to evaluate due to unresponsiveness. Physical Exam Physical Exam Physical Exam Physical Exam Constitutional: APPEARED LETHARGIC, ONLY RESPONSIVE TO PAINFUL STIMULI. INTUBATED HENT: Normocephalic, atraumatic, bilateral external ears normal, oropharynx moist, no oral exudates, nose normal. [] Eyes: PERRLA, EOMI, conjunctiva normal, no discharge. [] Neck: Normal range of motion, no tenderness, supple, no stridor. [] Cardiovascular:Heart rate regular rhythm, no murmur [] Lungs & Thorax: Bilateral breath sounds clear to auscultation [] Abdomen: Bowel sounds normal, soft, no tenderness, no masses, no pulsatile masses. [] Skin: Warm, dry, no erythema, no rash. [] Back:NO INJURY Extremities: NO EVIDENCE OF TRAUMA Neurologic: PATIENT IS ONLY RESPONSIVE TO PAIN, NOT TO VERBAL, LETHARGIC. ON ARRIVAL Psychologic: NOT ABLE TO EVALUATE DUE TO UNRESPONSIVE STAGE. HEENT: Atraumatic Breasts: Not examined Abdomen: Soft Rectal Exam: not examined Extremities: No cyanosis Neuro: Cranial nerves 3-12 NL Vitals Vitals Vital Signs Date Time Temp Pulse Resp B/P (MAP) Pulse Ox O2 Delivery O2 Flow Rate FiO2 04/06/19 07:57 100.0 81 36 186/83 (117) 100 NonRebreather Mask 15.0 100.0 Labs Labs Laboratory Tests Test 04/06/19 08:09 04/06/19 08:10 04/06/19 08:30 04/06/19 08:50 Glucose (Fingerstick) 117 mg/dL (70-99) White Blood Count 4.4 x10^3/uL (4.0-11.0) Red Blood Count 4.21 x10^6/uL (3.50-5.40) Hemoglobin 12.8 g/dL (12.0-15.5) Hematocrit 38.5 % (36.0-47.0) Mean Corpuscular Volume 92 fL (79-100) Mean Corpuscular Hemoglobin 31 pg (25-35) Mean Corpuscular Hemoglobin Concent 33 g/dL (31-37) Red Cell Distribution Width 14.0 % (11.5-14.5) Platelet Count 168 x10^3/uL (140-400) Neutrophils (%) (Auto) 87 % (31-73) Lymphocytes (%) (Auto) 11 % (24-48) Monocytes (%) (Auto) 2 % (0-9) Eosinophils (%) (Auto) 0 % (0-3) Basophils (%) (Auto) 1 % (0-3) Neutrophils # (Auto) 3.8 x10^3/uL (1.8-7.7) Lymphocytes # (Auto) 0.5 x10^3/uL (1.0-4.8) Monocytes # (Auto) 0.1 x10^3/uL (0.0-1.1) Eosinophils # (Auto) 0.0 x10^3/uL (0.0-0.7) Basophils # (Auto) 0.0 x10^3/uL (0.0-0.2) Lactic Acid Level 0.7 mmol/L (0.4-2.0) Urine Color Yellow Urine Clarity Clear Urine pH 6.5 Urine Specific [place] 1.020 Urine Protein 30 mg/dL (NEG-TRACE) Urine Glucose (UA) 100 mg/dL (NEG) Urine Ketones (Stick) 15 mg/dL (NEG) Urine Blood Trace (NEG) Urine Nitrite Negative (NEG) Urine Bilirubin Negative (NEG) Urine Urobilinogen Dipstick 1.0 mg/dL (0.2 mg/dL) Urine Leukocyte Esterase Small (NEG) Urine RBC 0 /HPF (0-2) Urine WBC 1-4 /HPF (0-4) Urine Squamous Epithelial Cells Few /LPF Urine Bacteria 0 /HPF (0-FEW) Sodium Level 143 mmol/L (136-145) Potassium Level 3.8 mmol/L (3.5-5.1) Chloride Level 103 mmol/L (98-107) Carbon Dioxide Level 34 mmol/L (21-32) Anion Gap 6 (6-14) Blood Urea Nitrogen 17 mg/dL (7-20) Creatinine 0.7 mg/dL (0.6-1.0) Estimated GFR (Cockcroft-Gault) 98.4 BUN/Creatinine Ratio 24 (6-20) Glucose Level 122 mg/dL (70-99) Calcium Level 8.9 mg/dL (8.5-10.1) Magnesium Level 2.2 mg/dL (1.8-2.4) Total Bilirubin 0.4 mg/dL (0.2-1.0) Aspartate Amino Transf (AST/SGOT) 17 U/L (15-37) Alanine Aminotransferase (ALT/SGPT) 15 U/L (14-59) Alkaline Phosphatase 79 U/L (46-116) Troponin I Quantitative < 0.017 ng/mL (0.000-0.055) ZV-Gwt-O-Type Natriuretic Peptide 253 pg/mL (0-449) Total Protein 7.1 g/dL (6.4-8.2) Albumin 3.7 g/dL (3.4-5.0) Albumin/Globulin Ratio 1.1 (1.0-1.7) Lipase 49 U/L (73-393) Laboratory Tests Test 04/06/19 08:09 04/06/19 08:10 04/06/19 08:30 04/06/19 08:50 Glucose (Fingerstick) 117 mg/dL (70-99) White Blood Count 4.4 x10^3/uL (4.0-11.0) Red Blood Count 4.21 x10^6/uL (3.50-5.40) Hemoglobin 12.8 g/dL (12.0-15.5) Hematocrit 38.5 % (36.0-47.0) Mean Corpuscular Volume 92 fL (79-100) Mean Corpuscular Hemoglobin 31 pg (25-35) Mean Corpuscular Hemoglobin Concent 33 g/dL (31-37) Red Cell Distribution Width 14.0 % (11.5-14.5) Platelet Count 168 x10^3/uL (140-400) Neutrophils (%) (Auto) 87 % (31-73) Lymphocytes (%) (Auto) 11 % (24-48) Monocytes (%) (Auto) 2 % (0-9) Eosinophils (%) (Auto) 0 % (0-3) Basophils (%) (Auto) 1 % (0-3) Neutrophils # (Auto) 3.8 x10^3/uL (1.8-7.7) Lymphocytes # (Auto) 0.5 x10^3/uL (1.0-4.8) Monocytes # (Auto) 0.1 x10^3/uL (0.0-1.1) Eosinophils # (Auto) 0.0 x10^3/uL (0.0-0.7) Basophils # (Auto) 0.0 x10^3/uL (0.0-0.2) Lactic Acid Level 0.7 mmol/L (0.4-2.0) Urine Color Yellow Urine Clarity Clear Urine pH 6.5 Urine Specific [place] 1.020 Urine Protein 30 mg/dL (NEG-TRACE) Urine Glucose (UA) 100 mg/dL (NEG) Urine Ketones (Stick) 15 mg/dL (NEG) Urine Blood Trace (NEG) Urine Nitrite Negative (NEG) Urine Bilirubin Negative (NEG) Urine Urobilinogen Dipstick 1.0 mg/dL (0.2 mg/dL) Urine Leukocyte Esterase Small (NEG) Urine RBC 0 /HPF (0-2) Urine WBC 1-4 /HPF (0-4) Urine Squamous Epithelial Cells Few /LPF Urine Bacteria 0 /HPF (0-FEW) Sodium Level 143 mmol/L (136-145) Potassium Level 3.8 mmol/L (3.5-5.1) Chloride Level 103 mmol/L (98-107) Carbon Dioxide Level 34 mmol/L (21-32) Anion Gap 6 (6-14) Blood Urea Nitrogen 17 mg/dL (7-20) Creatinine 0.7 mg/dL (0.6-1.0) Estimated GFR (Cockcroft-Gault) 98.4 BUN/Creatinine Ratio 24 (6-20) Glucose Level 122 mg/dL (70-99) Calcium Level 8.9 mg/dL (8.5-10.1) Magnesium Level 2.2 mg/dL (1.8-2.4) Total Bilirubin 0.4 mg/dL (0.2-1.0) Aspartate Amino Transf (AST/SGOT) 17 U/L (15-37) Alanine Aminotransferase (ALT/SGPT) 15 U/L (14-59) Alkaline Phosphatase 79 U/L (46-116) Troponin I Quantitative < 0.017 ng/mL (0.000-0.055) EJ-Sqb-O-Type Natriuretic Peptide 253 pg/mL (0-449) Total Protein 7.1 g/dL (6.4-8.2) Albumin 3.7 g/dL (3.4-5.0) Albumin/Globulin Ratio 1.1 (1.0-1.7) Lipase 49 U/L (73-393) Images Images AP portable chest radiograph 04/06/2019 Clinical History: Shortness of breath, fever and cough. An AP erect portable digital radiograph of the chest was obtained. Comparison study is dated 11/11/2018. The cardiac silhouette is mildly enlarged. The thoracic aorta is tortuous. Atherosclerotic calcification thoracic aorta is seen. No acute pulmonary infiltrate is seen. No pleural effusion or pneumothorax is noted. The osseous structures are unchanged. Impression: No acute abnormality is seen. Electronically signed by: Shubham Yañez MD (04/06/2019 8:36 AM) [facility] : 1940 LOCATION: ER AGE: 78 SEX: F EXAM STATUS: REG ER ORD. PHYSICIAN: MARJORIE LEMOS DO REASON: headache PROCEDURE: CT HEAD WO CONTRAST CT scan of the head without contrast 04/06/2019 . Clinical History: Headaches Technique: Unenhanced, contiguous, 5 mm axial sections were obtained through the head. One or more of the following individualized dose reduction techniques were utilized for this study: 1. Automated exposure control. 2. Adjustment of the mA and/or kV according to patient size. 3. Use of iterative reconstruction technique. Findings: Comparison study is dated 11/07/2018. There is generalized parenchymal atrophy. Areas of decreased attenuation are seen within the periventricular and subcortical white matter of both cerebral hemispheres consistent with areas of small vessel ischemic disease. No acute parenchymal abnormality is seen. No extra-axial fluid collection is noted. No skull fracture is seen. Impression: No acute intracranial abnormality is seen. Electronically signed by: Shubham Yañez MD (04/06/2019 10:35 AM) [facility] PROCEDURE: CHEST AP ONLY AP portable chest radiograph 04/06/2019 Clinical History: Post intubation. An AP supine portable digital radiograph of the chest was obtained. Comparison study is dated earlier the same day at 0759 hours. An ET tube has been placed. The tip of this tube overlies the trachea 2 cm above the level of the fabian. A NG tube has been placed. The tip of this tube is off this radiograph in the region of the body the stomach. The side-port of the tube overlies the expected location of the distal thoracic esophagus. The cardiac silhouette is mildly enlarged. Atherosclerotic calcification of the thoracic aorta is seen. No acute pulmonary infiltrate is noted. No pneumothorax or pleural effusion is seen. The osseous structures are unchanged. IMPRESSION: ET and NG tube position as discussed above. Electronically signed by: Shubham Yañez MD (04/06/2019 10:40 AM) [facility] VTE Prophylaxis Ordered VTE Prophylaxis Devices: Yes VTE Pharmacological Prophylaxi: Yes Assessment/Plan Assessment/Plan IMPRESSION acute SEVERE Hypercarbic respiratory failure. REQUIRING VENT SUPPORT Lactic acidosis. Asthma. Diabetes. POSSIBLE ASPIRATION PNEUMONITIS sepsis uti acute metabolic encephalopathy ADMIT ICU BED PULM CONSULT IV ZOSYN, vanc DVT PROPHYLAXIS blood and urine cultures sepsis protocol pressor support prn gi prophylaxis 36 MIN CC TIME TORSTEN MILLER MD Apr 06, 2019 10:13
[2019-04-06] MEDS ORDERED: IV NORMAL SALINE 1000ML BAG 1,000 ML IV SCH (10:14)
[2019-04-06] MEDS ORDERED: ONDANSETRON PF 4 MG/2 ML VIAL. IV PRN ×2 (10:15→17:45)
--- NOTE | 2019-04-06 10:38 | RAD ---
CT scan of the head without contrast 04/06/2019 . Clinical History: Headaches Technique: Unenhanced, contiguous, 5 mm axial sections were obtained through the head. One or more of the following individualized dose reduction techniques were utilized for this study: 1. Automated exposure control. 2. Adjustment of the mA and/or kV according to patient size. 3. Use of iterative reconstruction technique. Findings: Comparison study is dated 11/07/2018. There is generalized parenchymal atrophy. Areas of decreased attenuation are seen within the periventricular and subcortical white matter of both cerebral hemispheres consistent with areas of small vessel ischemic disease. No acute parenchymal abnormality is seen. No extra-axial fluid collection is noted. No skull fracture is seen. Impression: No acute intracranial abnormality is seen. Electronically signed by: Shubham Yañez MD (04/06/2019 10:35 AM) [facility]
--- NOTE | 2019-04-06 10:43 | RAD ---
AP portable chest radiograph 04/06/2019 Clinical History: Post intubation. An AP supine portable digital radiograph of the chest was obtained. Comparison study is dated earlier the same day at 0759 hours. An ET tube has been placed. The tip of this tube overlies the trachea 2 cm above the level of the fabian. A NG tube has been placed. The tip of this tube is off this radiograph in the region of the body the stomach. The side-port of the tube overlies the expected location of the distal thoracic esophagus. The cardiac silhouette is mildly enlarged. Atherosclerotic calcification of the thoracic aorta is seen. No acute pulmonary infiltrate is noted. No pneumothorax or pleural effusion is seen. The osseous structures are unchanged. IMPRESSION: ET and NG tube position as discussed above. Electronically signed by: Shubham Yañez MD (04/06/2019 10:40 AM) [facility]
[2019-04-06 10:49] LABS: FIO2 ABG 100
[2019-04-06] MEDS: PROPOFOL 100 ML IV PRN ×3 (11:00→18:39)
[2019-04-06 11:46] LABS: BASE EXCESS COOX 1 mmol/L (-3-3); HCO3 COOX 24 mmol/L (21-28); METHEMOGLOBIN 0.5 % (0.0-1.9); OXYHEMOGLOBIN 98.5 %; PCO2 COOX 33 mmHg (35-46); PO2 COOX > 503 mmHg (65-108); SAT O2 COOX 99 % (92-99)
[2019-04-06 12:21] LABS: % BANDS 1 % (0-9); % LYMPHS 10 % (24-48); % MONOS 3 % (0-10); % SEGS 86 % (35-66); PLT ESTIMATE ADEQUATE (ADEQUATE)
[2019-04-06] MEDS: PIPERACILLIN/TAZOBACTAM 3.375 GM in IV NORMAL SALINE 50ML 50 ML IV SCH ×2 (14:03→18:40)
[2019-04-06] MEDS ORDERED: MIDO10TA PO (15:24)
[2019-04-06] MEDS ORDERED: LOPE2TAB27 PO (15:24)
[2019-04-06] MEDS ORDERED: FLUT9.9S NS (15:24)
[2019-04-06] MEDS ORDERED: FAMO10TA69 PO (15:24)
[2019-04-06] MEDS ORDERED: IV NORMAL SALINE 500ML BAG 500 ML IV PRN (17:45)
[2019-04-06] MEDS ORDERED: 0.9 % SODIUM CHLORIDE 10 ML DISP.SYRIN. IV PRN (17:45)
[2019-04-06] MEDS: IV NORMAL SALINE 1000ML BAG 1,000 ML IV SCH ×3 (17:45→18:36)
[2019-04-06] MEDS ORDERED: NOREPINEPHRIN 8MG/250ML PREMIX 250 ML IV PRN (17:45)
[2019-04-06] MEDS ORDERED: VANCOMYCIN 1 GM in IV NORMAL SALINE 250ML 250 ML IV ONE (18:00)
[2019-04-06] MEDS ORDERED: ENOXAPARIN 40 MG/0.4 ML SYRINGE. SQ SCH (18:00)
[2019-04-06 18:33] LABS: PROTHROMBIN TIME PATIENT 14.8 SEC (11.7-14.0)
[2019-04-06 18:34] LABS: D-DIMER 3.8 ug/mlFEU (0.00-0.50)
[2019-04-06] MEDS: VANCOMYCIN PER PHARMACY MC PRN (20:21)
[2019-04-06] MEDS: ENOXAPARIN 40 MG/0.4 ML SYRINGE. SQ SCH (21:32)
[2019-04-06] MEDS: CHLORHEXIDINE 0.12% 15 ML MOUTHWASH. MM SCH (21:32)
[2019-04-06] MEDS: FAMOTIDINE 20 MG/2 ML VIAL IVP SCH (21:32)
[2019-04-06] MEDS ORDERED: DEXTROSE 5% IV ONE ×2 (21:45)
[2019-04-06] MEDS ORDERED: SODIUM PHOSPHATE IV ONE ×2 (21:45)
[2019-04-07] VITALS (19 sets, daily range): BP systolic 95–198; BP diastolic 52–93
[2019-04-07] MEDS ORDERED: ATROPINE 1 MG/10 ML DISP.SYRINGE. ONE (00:56)
[2019-04-07] MEDS: PIPERACILLIN/TAZOBACTAM 3.375 GM in IV NORMAL SALINE 50ML 50 ML IV SCH ×4 (01:39→17:08)
[2019-04-07] MEDS: IV NORMAL SALINE 1000ML BAG 1,000 ML IV SCH ×2 (05:11→15:00)
[2019-04-07 05:21] LABS: BASO % 1 % (0-3); EOS # 0.1 x10^3/uL (0.0-0.7); EOS % 2 % (0-3); HEMOGLOBIN 11.3 g/dL (12.0-15.5); LYMPH # 1.6 x10^3/uL (1.0-4.8); LYMPH % 32 % (24-48); MEAN CORPUSCULAR HEMOGLOBIN 31 pg (25-35); MEAN CORPUSCULAR HGB CONC 34 g/dL (31-37); MEAN CORPUSCULAR VOLUME 90 fL (79-100); MONO # 0.4 x10^3/uL (0.0-1.1); MONO % 8 % (0-9); NEUT # 2.8 x10^3/uL (1.8-7.7); NEUT % 57 % (31-73); PLATELET COUNT 155 x10^3/uL (140-400); RED BLOOD COUNT 3.68 x10^6/uL (3.50-5.40); RED CELL DISTRIBUTION WIDTH 13.2 % (11.5-14.5); WHITE BLOOD COUNT 4.9 x10^3/uL (4.0-11.0)
[2019-04-07 05:56] LABS: ALBUMIN 2.9 g/dL (3.4-5.0); ALBUMIN/GLOBULIN RATIO 0.9 (1.0-1.7); CALCIUM 8.3 mg/dL (8.5-10.1); CREATININE 0.8 mg/dL (0.6-1.0); GFR 84.4; TOTAL BILIRUBIN 1.1 mg/dL (0.2-1.0)
[2019-04-07 06:00] LABS: MAGNESIUM 1.7 mg/dL (1.8-2.4); PHOSPHORUS 2.2 mg/dL (2.6-4.7)
[2019-04-07 06:14] LABS: POTASSIUM 2.4 mmol/L (3.5-5.1)
--- NOTE | 2019-04-07 06:24 | PDOC ---
Provider Note Provider Note [id number] acute/ chronic resp fail ae of copd acute resp fail see orders HUEY CHAUDHARI MD Apr 07, 2019 06:24
[2019-04-07] MEDS: methylPREDNISolone SOD SUCC PF 40 MG/ML VIAL. IV SCH ×3 (06:48→22:15)
[2019-04-07 07:55] LABS: BASO % 1 % (0-3); EOS # 0.1 x10^3/uL (0.0-0.7); EOS % 2 % (0-3); HEMATOCRIT 33.7 % (36.0-47.0); HEMOGLOBIN 11.3 g/dL (12.0-15.5); LYMPH # 1.8 x10^3/uL (1.0-4.8); LYMPH % 36 % (24-48); MEAN CORPUSCULAR HEMOGLOBIN 31 pg (25-35); MEAN CORPUSCULAR HGB CONC 34 g/dL (31-37); MEAN CORPUSCULAR VOLUME 91 fL (79-100); MONO # 0.4 x10^3/uL (0.0-1.1); MONO % 8 % (0-9); NEUT # 2.6 x10^3/uL (1.8-7.7); NEUT % 53 % (31-73); PLATELET COUNT 164 x10^3/uL (140-400); RED BLOOD COUNT 3.72 x10^6/uL (3.50-5.40); RED CELL DISTRIBUTION WIDTH 13.5 % (11.5-14.5); WHITE BLOOD COUNT 4.9 x10^3/uL (4.0-11.0)
[2019-04-07] MEDS: CHLORHEXIDINE 0.12% 15 ML MOUTHWASH. MM SCH ×2 (07:56→22:15)
[2019-04-07] MEDS ORDERED: DEXMEDETOMIDINE 400 MCG in IV NORMAL SALINE 100ML 96 ML IV PRN (08:00)
[2019-04-07 08:02] LABS: ALBUMIN 2.9 g/dL (3.4-5.0); CALCIUM 8.3 mg/dL (8.5-10.1); CREATININE 0.8 mg/dL (0.6-1.0); GFR 84.4; TOTAL PROTEIN 5.9 g/dL (6.4-8.2)
[2019-04-07 08:10] LABS: BASE EXCESS ABG 1 mmol/L (-3-3); HCO3 ABG 20 mmol/L (21-28); PO2 ABG 127 mmHg (65-108); SAT O2 ABG 99 % (92-99)
[2019-04-07 08:12] LABS: FIO2 ABG 40; PCO2 ABG 19 mmHg (35-46)
[2019-04-07] MEDS: POTASSIUM CHLORIDE 10MEQ 100 ML IV SCH ×11 (08:48→22:19)
[2019-04-07] MEDS: ELECTROLYTE (ICU) PROTOCOL. MC SCH (09:00)
--- NOTE | 2019-04-07 09:12 | PDOC ---
PROGRESS NOTES History of Present Illness History of Present Illness VTE Prophylaxis Ordered VTE Prophylaxis Devices: Yes VTE Pharmacological Prophylaxi: Yes Assessment/Plan Assessment/Plan IMPRESSION acute SEVERE Hypercarbic respiratory failure. REQUIRING VENT SUPPORT Lactic acidosis. Asthma. Diabetes. POSSIBLE ASPIRATION PNEUMONITIS sepsis WITH HYPOTENSION uti acute metabolic encephalopathy severe hypokalemia SEVERE PROTEIN, CALORIC MALNUTRITION ELEVATED TROPONIN I ADMIT ICU BED PULM CONSULT IV ZOSYN, vanc DVT PROPHYLAXIS blood and urine cultures sepsis protocol pressor support prn gi prophylaxis id consult replete K CARDIOLOGY CONSULT ECHO 33 MIN CC TIME Vitals Vitals Vital Signs Date Time Temp Pulse Resp B/P (MAP) Pulse Ox O2 Delivery O2 Flow Rate FiO2 04/07/19 07:50 100 Ventilator 04/07/19 06:00 62 24 125/53 (77) 04/07/19 04:00 99.0 99.0 04/06/19 07:57 15.0 Physical Exam Physical Exam Eyes: PERRLA, EOMI, conjunctiva normal, no discharge. [] Neck: Normal range of motion, no tenderness, supple, no stridor. [] Cardiovascular:Heart rate regular rhythm, no murmur [] Lungs & Thorax: Bilateral breath sounds clear to auscultation [] Abdomen: Bowel sounds normal, soft, no tenderness, no masses, no pulsatile masses. [] Skin: Warm, dry, no erythema, no rash. [] Back:NO INJURY Extremities: NO EVIDENCE OF TRAUMA Abdomen: Soft, No hepatosplenomegaly Extremities: No cyanosis Labs LABS PATIENT: LAN JACKSON ACCT: [id number] LOC: 1 [facility] U: [id number] AGE/SX: 78/F ROOM: 107 RE04/06/[address]: TORSTEN MILLER MD : [id number] BED: 1 DIS: STATUS: ADM IN TLOC: ------ ------ SPEC #: [id number] STEFAN: 04/06/19 STATUS: RES REQ #: [id number] RECD: 04/06/[address]: MARJORIE LEMOS DO SOURCE: BLOOD ENTR: 04/06/[address] [facility] [address]: MONIQUE ORNELAS MD [facility]: ORDERED: BCULT Procedure Result BLOOD CULTURE Preliminary NO GROWTH AFTER 1 DAY Mitral Valve MV E Velocity 44.5cm/s MV DECEL TIME 290ms MV A Velocity 57.2cm/s MV PHT 84ms E/A Ratio 0.8 MVA (PHT) 2.62cm2 TDI E/Lateral E' 6.4 E/Medial E' 7.9 Tricuspid Valve TR P. Velocity 209cm/s RAP ESTIMATE 3mmHg TR Peak Gr. 17mmHg RVSP 20mmHg LEFT VENTRICLE The left ventricle is normal size. There is mild concentric left ventricular hypertrophy. The left ventricular systolic function is normal. The Ejection Fraction is 65-70%. There is normal LV segmental wall motion. Transmitral Doppler flow pattern is Grade I-abnormal relaxation pattern. RIGHT VENTRICLE The right ventricle is normal size. The right ventricular systolic function is normal. ATRIA The left atrium size is normal. The right atrium size is normal. The interatrial septum is intact with no evidence for an atrial septal defect or patent foramen ovale as noted on 2-D or Doppler imaging. AORTIC VALVE The aortic valve is not well visualized but appears to be Doppler and Color Flow revealed no significant aortic regurgitation. There is no significant aortic valvular stenosis. MITRAL VALVE The mitral valve is calcified but opens well. There is no evidence of mitral valve prolapse. There is no mitral valve stenosis. Doppler and Color Flow revealed no mitral valve regurgitation noted. TRICUSPID VALVE The tricuspid valve is normal in structure and function. Doppler and Color Flow revealed trace tricuspid regurgitation. The PA pressure was estimated at 20 mmHg. There is no tricuspid valve stenosis. PULMONIC VALVE The pulmonic valve is not well visualized. Doppler and Color Flow revealed no pulmonic valvular regurgitation. There is no pulmonic valvular stenosis. GREAT VESSELS The aortic root is normal in size. The ascending aorta is normal in size. The IVC is normal in size and collapses >50% with inspiration. PERICARDIAL EFFUSION There is no evidence of significant pericardial effusion. Critical Notification Critical Value: No <Conclusion> The left ventricular systolic function is normal. The Ejection Fraction is 65-70%. There is normal LV segmental wall motion. Transmitral Doppler flow pattern is Grade I-abnormal relaxation pattern. Doppler and Color Flow revealed trace tricuspid regurgitation. The PA pressure was estimated at 20 mmHg. There is no evidence of significant pericardial effusion. Signed by : Nirav Pacheco, Electronically Approved : 11/08/2018 11:16:14 CT scan of the head without contrast 04/06/2019 . Clinical History: Headaches Technique: Unenhanced, contiguous, 5 mm axial sections were obtained through the head. One or more of the following individualized dose reduction techniques were utilized for this study: 1. Automated exposure control. 2. Adjustment of the mA and/or kV according to patient size. 3. Use of iterative reconstruction technique. Findings: Comparison study is dated 11/07/2018. There is generalized parenchymal atrophy. Areas of decreased attenuation are seen within the periventricular and subcortical white matter of both cerebral hemispheres consistent with areas of small vessel ischemic disease. No acute parenchymal abnormality is seen. No extra-axial fluid collection is noted. No skull fracture is seen. Impression: No acute intracranial abnormality is seen. Electronically signed by: Shubham Yañez MD (04/06/2019 10:35 AM) [facility] AP abdomen radiograph 04/07/2019 CLINICAL HISTORY: OG tube placement. An AP portable erect digital radiograph of the mid/lower chest/abdomen was obtained. The right costophrenic angle and lateral aspect of the right abdomen are cut off on this radiograph. The tip of the OG tube extends to overlie the body the stomach. The visualized lungs are clear. The visualized abdominal bowel gas pattern is nonobstructive. Mild S-shaped curvature of the thoracolumbar spine is seen. IMPRESSION: The tip of the OG tube extends to overlie the body of the stomach. Electronically signed by: Shubham Yañez MD (04/07/2019 10:59 AM) [facility] Laboratory Tests Test 04/06/19 09:45 04/06/19 11:40 04/06/19 12:32 04/06/19 18:05 O2 Saturation 98 % (92-99) 99 % (92-99) Arterial Blood pH 6.90 (7.35-7.45) 7.48 (7.35-7.45) Arterial Blood pO2 at Patient Temp 200 mmHg (65-108) > 503 mmHg (65-108) FiO2 100 100 Arterial Blood pCO2 at Patient Temp 33 mmHg (35-46) Arterial Blood HCO3 24 mmol/L (21-28) Arterial Blood Base Excess 1 mmol/L (-3-3) Oxyhemoglobin 98.5 % Methemoglobin 0.5 % (0.0-1.9) Carbon Monoxide, Quantitative 0.3 % (0.0-1.9) Lactic Acid Level 4.3 mmol/L (0.4-2.0) Prothrombin Time 14.8 SEC (11.7-14.0) Prothromb Time International Ratio 1.2 (0.8-1.1) Activated Partial Thromboplast Time 23 SEC (24-38) Fibrinogen 356 mg/dL (200-440) D-Dimer (Kay) 3.80 ug/mlFEU (0.00-0.50) Phosphorus Level 1.0 mg/dL (2.6-4.7) Troponin I Quantitative 0.817 ng/mL (0.000-0.055) Procalcitonin 0.69 ng/mL (0.00-0.10) Thyroid Stimulating Hormone (TSH) 3.077 uIU/mL (0.358-3.74) Test 04/06/19 19:45 04/06/19 23:15 04/07/19 00:05 04/07/19 05:04 Lactic Acid Level 2.5 mmol/L (0.4-2.0) 1.4 mmol/L (0.4-2.0) Troponin I Quantitative 0.716 ng/mL (0.000-0.055) White Blood Count 4.9 x10^3/uL (4.0-11.0) Red Blood Count 3.68 x10^6/uL (3.50-5.40) Hemoglobin 11.3 g/dL (12.0-15.5) Hematocrit 33.0 % (36.0-47.0) Mean Corpuscular Volume 90 fL (79-100) Mean Corpuscular Hemoglobin 31 pg (25-35) Mean Corpuscular Hemoglobin Concent 34 g/dL (31-37) Red Cell Distribution Width 13.2 % (11.5-14.5) Platelet Count 155 x10^3/uL (140-400) Neutrophils (%) (Auto) 57 % (31-73) Lymphocytes (%) (Auto) 32 % (24-48) Monocytes (%) (Auto) 8 % (0-9) Eosinophils (%) (Auto) 2 % (0-3) Basophils (%) (Auto) 1 % (0-3) Neutrophils # (Auto) 2.8 x10^3/uL (1.8-7.7) Lymphocytes # (Auto) 1.6 x10^3/uL (1.0-4.8) Monocytes # (Auto) 0.4 x10^3/uL (0.0-1.1) Eosinophils # (Auto) 0.1 x10^3/uL (0.0-0.7) Basophils # (Auto) 0.0 x10^3/uL (0.0-0.2) Sodium Level 146 mmol/L (136-145) Potassium Level 2.4 mmol/L (3.5-5.1) Chloride Level 108 mmol/L (98-107) Carbon Dioxide Level 25 mmol/L (21-32) Anion Gap 13 (6-14) Blood Urea Nitrogen 18 mg/dL (7-20) Creatinine 0.8 mg/dL (0.6-1.0) Estimated GFR (Cockcroft-Gault) 84.4 BUN/Creatinine Ratio 23 (6-20) Glucose Level 86 mg/dL (70-99) Calcium Level 8.3 mg/dL (8.5-10.1) Phosphorus Level 2.2 mg/dL (2.6-4.7) Magnesium Level 1.7 mg/dL (1.8-2.4) Total Bilirubin 1.1 mg/dL (0.2-1.0) Aspartate Amino Transf (AST/SGOT) 125 U/L (15-37) Alanine Aminotransferase (ALT/SGPT) 130 U/L (14-59) Alkaline Phosphatase 70 U/L (46-116) Total Protein 6.0 g/dL (6.4-8.2) Albumin 2.9 g/dL (3.4-5.0) Albumin/Globulin Ratio 0.9 (1.0-1.7) Test 04/07/19 07:10 04/07/19 08:00 White Blood Count 4.9 x10^3/uL (4.0-11.0) Red Blood Count 3.72 x10^6/uL (3.50-5.40) Hemoglobin 11.3 g/dL (12.0-15.5) Hematocrit 33.7 % (36.0-47.0) Mean Corpuscular Volume 91 fL (79-100) Mean Corpuscular Hemoglobin 31 pg (25-35) Mean Corpuscular Hemoglobin Concent 34 g/dL (31-37) Red Cell Distribution Width 13.5 % (11.5-14.5) Platelet Count 164 x10^3/uL (140-400) Neutrophils (%) (Auto) 53 % (31-73) Lymphocytes (%) (Auto) 36 % (24-48) Monocytes (%) (Auto) 8 % (0-9) Eosinophils (%) (Auto) 2 % (0-3) Basophils (%) (Auto) 1 % (0-3) Neutrophils # (Auto) 2.6 x10^3/uL (1.8-7.7) Lymphocytes # (Auto) 1.8 x10^3/uL (1.0-4.8) Monocytes # (Auto) 0.4 x10^3/uL (0.0-1.1) Eosinophils # (Auto) 0.1 x10^3/uL (0.0-0.7) Basophils # (Auto) 0.0 x10^3/uL (0.0-0.2) Sodium Level 146 mmol/L (136-145) Potassium Level 2.0 mmol/L (3.5-5.1) Chloride Level 109 mmol/L (98-107) Carbon Dioxide Level 25 mmol/L (21-32) Anion Gap 12 (6-14) Blood Urea Nitrogen 17 mg/dL (7-20) Creatinine 0.8 mg/dL (0.6-1.0) Estimated GFR (Cockcroft-Gault) 84.4 BUN/Creatinine Ratio 21 (6-20) Glucose Level 88 mg/dL (70-99) Calcium Level 8.3 mg/dL (8.5-10.1) Total Bilirubin 1.0 mg/dL (0.2-1.0) Aspartate Amino Transf (AST/SGOT) 106 U/L (15-37) Alanine Aminotransferase (ALT/SGPT) 119 U/L (14-59) Alkaline Phosphatase 67 U/L (46-116) Total Protein 5.9 g/dL (6.4-8.2) Albumin 2.9 g/dL (3.4-5.0) Albumin/Globulin Ratio 1.0 (1.0-1.7) O2 Saturation 99 % (92-99) Arterial Blood pH 7.64 (7.35-7.45) Arterial Blood pCO2 at Patient Temp 19 mmHg (35-46) Arterial Blood pO2 at Patient Temp 127 mmHg (65-108) Arterial Blood HCO3 20 mmol/L (21-28) Arterial Blood Base Excess 1 mmol/L (-3-3) FiO2 40 Assessment and Plan Assessmemt and Plan Problems Medical Problems: (1) Hypercapnic respiratory failure Status: Acute (2) Respiratory failure Status: Acute (3) UTI (urinary tract infection) Status: Acute Comment Review of Relevant I have reviewed the following items melody (where applicable) has been applied. Labs Laboratory Tests Test 04/06/19 08:09 04/06/19 08:10 04/06/19 08:30 04/06/19 08:34 Glucose (Fingerstick) 117 mg/dL (70-99) White Blood Count 4.4 x10^3/uL (4.0-11.0) Red Blood Count 4.21 x10^6/uL (3.50-5.40) Hemoglobin 12.8 g/dL (12.0-15.5) Hematocrit 38.5 % (36.0-47.0) Mean Corpuscular Volume 92 fL (79-100) Mean Corpuscular Hemoglobin 31 pg (25-35) Mean Corpuscular Hemoglobin Concent 33 g/dL (31-37) Red Cell Distribution Width 14.0 % (11.5-14.5) Platelet Count 168 x10^3/uL (140-400) Neutrophils (%) (Auto) 87 % (31-73) Lymphocytes (%) (Auto) 11 % (24-48) Monocytes (%) (Auto) 2 % (0-9) Eosinophils (%) (Auto) 0 % (0-3) Basophils (%) (Auto) 1 % (0-3) Neutrophils # (Auto) 3.8 x10^3/uL (1.8-7.7) Lymphocytes # (Auto) 0.5 x10^3/uL (1.0-4.8) Monocytes # (Auto) 0.1 x10^3/uL (0.0-1.1) Eosinophils # (Auto) 0.0 x10^3/uL (0.0-0.7) Basophils # (Auto) 0.0 x10^3/uL (0.0-0.2) Segmented Neutrophils % 86 % (35-66) Band Neutrophils % 1 % (0-9) Lymphocytes % 10 % (24-48) Monocytes % 3 % (0-10) Platelet Estimate Adequate (ADEQUATE) Lactic Acid Level 0.7 mmol/L (0.4-2.0) Urine Color Yellow Urine Clarity Clear Urine pH 6.5 Urine Specific [place] 1.020 Urine Protein 30 mg/dL (NEG-TRACE) Urine Glucose (UA) 100 mg/dL (NEG) Urine Ketones (Stick) 15 mg/dL (NEG) Urine Blood Trace (NEG) Urine Nitrite Negative (NEG) Urine Bilirubin Negative (NEG) Urine Urobilinogen Dipstick 1.0 mg/dL (0.2 mg/dL) Urine Leukocyte Esterase Small (NEG) Urine RBC 0 /HPF (0-2) Urine WBC 1-4 /HPF (0-4) Urine Squamous Epithelial Cells Few /LPF Urine Bacteria 0 /HPF (0-FEW) Prothrombin Time 13.4 SEC (11.7-14.0) Prothromb Time International Ratio 1.1 (0.8-1.1) Activated Partial Thromboplast Time 26 SEC (24-38) Test 04/06/19 08:50 04/06/19 09:45 04/06/19 11:40 04/06/19 12:32 Sodium Level 143 mmol/L (136-145) Potassium Level 3.8 mmol/L (3.5-5.1) Chloride Level 103 mmol/L (98-107) Carbon Dioxide Level 34 mmol/L (21-32) Anion Gap 6 (6-14) Blood Urea Nitrogen 17 mg/dL (7-20) Creatinine 0.7 mg/dL (0.6-1.0) Estimated GFR (Cockcroft-Gault) 98.4 BUN/Creatinine Ratio 24 (6-20) Glucose Level 122 mg/dL (70-99) Calcium Level 8.9 mg/dL (8.5-10.1) Magnesium Level 2.2 mg/dL (1.8-2.4) Total Bilirubin 0.4 mg/dL (0.2-1.0) Aspartate Amino Transf (AST/SGOT) 17 U/L (15-37) Alanine Aminotransferase (ALT/SGPT) 15 U/L (14-59) Alkaline Phosphatase 79 U/L (46-116) Troponin I Quantitative < 0.017 ng/mL (0.000-0.055) NW-Sjq-[id number]-Type Natriuretic Peptide 253 pg/mL (0-449) Total Protein 7.1 g/dL (6.4-8.2) Albumin 3.7 g/dL (3.4-5.0) Albumin/Globulin Ratio 1.1 (1.0-1.7) Lipase 49 U/L (73-393) O2 Saturation 98 % (92-99) 99 % (92-99) Arterial Blood pH 6.90 (7.35-7.45) 7.48 (7.35-7.45) Arterial Blood pO2 at Patient Temp 200 mmHg (65-108) > 503 mmHg (65-108) FiO2 100 100 Arterial Blood pCO2 at Patient Temp 33 mmHg (35-46) Arterial Blood HCO3 24 mmol/L (21-28) Arterial Blood Base Excess 1 mmol/L (-3-3) Oxyhemoglobin 98.5 % Methemoglobin 0.5 % (0.0-1.9) Carbon Monoxide, Quantitative 0.3 % (0.0-1.9) Lactic Acid Level 4.3 mmol/L (0.4-2.0) Test 04/06/19 18:05 04/06/19 19:45 04/06/19 23:15 04/07/19 00:05 Prothrombin Time 14.8 SEC (11.7-14.0) Prothromb Time International Ratio 1.2 (0.8-1.1) Activated Partial Thromboplast Time 23 SEC (24-38) Fibrinogen 356 mg/dL (200-440) D-Dimer (Kay) 3.80 ug/mlFEU (0.00-0.50) Phosphorus Level 1.0 mg/dL (2.6-4.7) Troponin I Quantitative 0.817 ng/mL (0.000-0.055) 0.716 ng/mL (0.000-0.055) Procalcitonin 0.69 ng/mL (0.00-0.10) Thyroid Stimulating Hormone (TSH) 3.077 uIU/mL (0.358-3.74) Lactic Acid Level 2.5 mmol/L (0.4-2.0) 1.4 mmol/L (0.4-2.0) Test 04/07/19 05:04 04/07/19 07:10 04/07/19 08:00 White Blood Count 4.9 x10^3/uL (4.0-11.0) 4.9 x10^3/uL (4.0-11.0) Red Blood Count 3.68 x10^6/uL (3.50-5.40) 3.72 x10^6/uL (3.50-5.40) Hemoglobin 11.3 g/dL (12.0-15.5) 11.3 g/dL (12.0-15.5) Hematocrit 33.0 % (36.0-47.0) 33.7 % (36.0-47.0) Mean Corpuscular Volume 90 fL (79-100) 91 fL (79-100) Mean Corpuscular Hemoglobin 31 pg (25-35) 31 pg (25-35) Mean Corpuscular Hemoglobin Concent 34 g/dL (31-37) 34 g/dL (31-37) Red Cell Distribution Width 13.2 % (11.5-14.5) 13.5 % (11.5-14.5) Platelet Count 155 x10^3/uL (140-400) 164 x10^3/uL (140-400) Neutrophils (%) (Auto) 57 % (31-73) 53 % (31-73) Lymphocytes (%) (Auto) 32 % (24-48) 36 % (24-48) Monocytes (%) (Auto) 8 % (0-9) 8 % (0-9) Eosinophils (%) (Auto) 2 % (0-3) 2 % (0-3) Basophils (%) (Auto) 1 % (0-3) 1 % (0-3) Neutrophils # (Auto) 2.8 x10^3/uL (1.8-7.7) 2.6 x10^3/uL (1.8-7.7) Lymphocytes # (Auto) 1.6 x10^3/uL (1.0-4.8) 1.8 x10^3/uL (1.0-4.8) Monocytes # (Auto) 0.4 x10^3/uL (0.0-1.1) 0.4 x10^3/uL (0.0-1.1) Eosinophils # (Auto) 0.1 x10^3/uL (0.0-0.7) 0.1 x10^3/uL (0.0-0.7) Basophils # (Auto) 0.0 x10^3/uL (0.0-0.2) 0.0 x10^3/uL (0.0-0.2) Sodium Level 146 mmol/L (136-145) 146 mmol/L (136-145) Potassium Level 2.4 mmol/L (3.5-5.1) 2.0 mmol/L (3.5-5.1) Chloride Level 108 mmol/L (98-107) 109 mmol/L (98-107) Carbon Dioxide Level 25 mmol/L (21-32) 25 mmol/L (21-32) Anion Gap 13 (6-14) 12 (6-14) Blood Urea Nitrogen 18 mg/dL (7-20) 17 mg/dL (7-20) Creatinine 0.8 mg/dL (0.6-1.0) 0.8 mg/dL (0.6-1.0) Estimated GFR (Cockcroft-Gault) 84.4 84.4 BUN/Creatinine Ratio 23 (6-20) 21 (6-20) Glucose Level 86 mg/dL (70-99) 88 mg/dL (70-99) Calcium Level 8.3 mg/dL (8.5-10.1) 8.3 mg/dL (8.5-10.1) Phosphorus Level 2.2 mg/dL (2.6-4.7) Magnesium Level 1.7 mg/dL (1.8-2.4) Total Bilirubin 1.1 mg/dL (0.2-1.0) 1.0 mg/dL (0.2-1.0) Aspartate Amino Transf (AST/SGOT) 125 U/L (15-37) 106 U/L (15-37) Alanine Aminotransferase (ALT/SGPT) 130 U/L (14-59) 119 U/L (14-59) Alkaline Phosphatase 70 U/L (46-116) 67 U/L (46-116) Total Protein 6.0 g/dL (6.4-8.2) 5.9 g/dL (6.4-8.2) Albumin 2.9 g/dL (3.4-5.0) 2.9 g/dL (3.4-5.0) Albumin/Globulin Ratio 0.9 (1.0-1.7) 1.0 (1.0-1.7) O2 Saturation 99 % (92-99) Arterial Blood pH 7.64 (7.35-7.45) Arterial Blood pCO2 at Patient Temp 19 mmHg (35-46) Arterial Blood pO2 at Patient Temp 127 mmHg (65-108) Arterial Blood HCO3 20 mmol/L (21-28) Arterial Blood Base Excess 1 mmol/L (-3-3) FiO2 40 Laboratory Tests Test 04/06/19 09:45 04/06/19 11:40 04/06/19 12:32 04/06/19 18:05 O2 Saturation 98 % (92-99) 99 % (92-99) Arterial Blood pH 6.90 (7.35-7.45) 7.48 (7.35-7.45) Arterial Blood pO2 at Patient Temp 200 mmHg (65-108) > 503 mmHg (65-108) FiO2 100 100 Arterial Blood pCO2 at Patient Temp 33 mmHg (35-46) Arterial Blood HCO3 24 mmol/L (21-28) Arterial Blood Base Excess 1 mmol/L (-3-3) Oxyhemoglobin 98.5 % Methemoglobin 0.5 % (0.0-1.9) Carbon Monoxide, Quantitative 0.3 % (0.0-1.9) Lactic Acid Level 4.3 mmol/L (0.4-2.0) Prothrombin Time 14.8 SEC (11.7-14.0) Prothromb Time International Ratio 1.2 (0.8-1.1) Activated Partial Thromboplast Time 23 SEC (24-38) Fibrinogen 356 mg/dL (200-440) D-Dimer (Kay) 3.80 ug/mlFEU (0.00-0.50) Phosphorus Level 1.0 mg/dL (2.6-4.7) Troponin I Quantitative 0.817 ng/mL (0.000-0.055) Procalcitonin 0.69 ng/mL (0.00-0.10) Thyroid Stimulating Hormone (TSH) 3.077 uIU/mL (0.358-3.74) Test 04/06/19 19:45 04/06/19 23:15 04/07/19 00:05 04/07/19 05:04 Lactic Acid Level 2.5 mmol/L (0.4-2.0) 1.4 mmol/L (0.4-2.0) Troponin I Quantitative 0.716 ng/mL (0.000-0.055) White Blood Count 4.9 x10^3/uL (4.0-11.0) Red Blood Count 3.68 x10^6/uL (3.50-5.40) Hemoglobin 11.3 g/dL (12.0-15.5) Hematocrit 33.0 % (36.0-47.0) Mean Corpuscular Volume 90 fL (79-100) Mean Corpuscular Hemoglobin 31 pg (25-35) Mean Corpuscular Hemoglobin Concent 34 g/dL (31-37) Red Cell Distribution Width 13.2 % (11.5-14.5) Platelet Count 155 x10^3/uL (140-400) Neutrophils (%) (Auto) 57 % (31-73) Lymphocytes (%) (Auto) 32 % (24-48) Monocytes (%) (Auto) 8 % (0-9) Eosinophils (%) (Auto) 2 % (0-3) Basophils (%) (Auto) 1 % (0-3) Neutrophils # (Auto) 2.8 x10^3/uL (1.8-7.7) Lymphocytes # (Auto) 1.6 x10^3/uL (1.0-4.8) Monocytes # (Auto) 0.4 x10^3/uL (0.0-1.1) Eosinophils # (Auto) 0.1 x10^3/uL (0.0-0.7) Basophils # (Auto) 0.0 x10^3/uL (0.0-0.2) Sodium Level 146 mmol/L (136-145) Potassium Level 2.4 mmol/L (3.5-5.1) Chloride Level 108 mmol/L (98-107) Carbon Dioxide Level 25 mmol/L (21-32) Anion Gap 13 (6-14) Blood Urea Nitrogen 18 mg/dL (7-20) Creatinine 0.8 mg/dL (0.6-1.0) Estimated GFR (Cockcroft-Gault) 84.4 BUN/Creatinine Ratio 23 (6-20) Glucose Level 86 mg/dL (70-99) Calcium Level 8.3 mg/dL (8.5-10.1) Phosphorus Level 2.2 mg/dL (2.6-4.7) Magnesium Level 1.7 mg/dL (1.8-2.4) Total Bilirubin 1.1 mg/dL (0.2-1.0) Aspartate Amino Transf (AST/SGOT) 125 U/L (15-37) Alanine Aminotransferase (ALT/SGPT) 130 U/L (14-59) Alkaline Phosphatase 70 U/L (46-116) Total Protein 6.0 g/dL (6.4-8.2) Albumin 2.9 g/dL (3.4-5.0) Albumin/Globulin Ratio 0.9 (1.0-1.7) Test 04/07/19 07:10 04/07/19 08:00 White Blood Count 4.9 x10^3/uL (4.0-11.0) Red Blood Count 3.72 x10^6/uL (3.50-5.40) Hemoglobin 11.3 g/dL (12.0-15.5) Hematocrit 33.7 % (36.0-47.0) Mean Corpuscular Volume 91 fL (79-100) Mean Corpuscular Hemoglobin 31 pg (25-35) Mean Corpuscular Hemoglobin Concent 34 g/dL (31-37) Red Cell Distribution Width 13.5 % (11.5-14.5) Platelet Count 164 x10^3/uL (140-400) Neutrophils (%) (Auto) 53 % (31-73) Lymphocytes (%) (Auto) 36 % (24-48) Monocytes (%) (Auto) 8 % (0-9) Eosinophils (%) (Auto) 2 % (0-3) Basophils (%) (Auto) 1 % (0-3) Neutrophils # (Auto) 2.6 x10^3/uL (1.8-7.7) Lymphocytes # (Auto) 1.8 x10^3/uL (1.0-4.8) Monocytes # (Auto) 0.4 x10^3/uL (0.0-1.1) Eosinophils # (Auto) 0.1 x10^3/uL (0.0-0.7) Basophils # (Auto) 0.0 x10^3/uL (0.0-0.2) Sodium Level 146 mmol/L (136-145) Potassium Level 2.0 mmol/L (3.5-5.1) Chloride Level 109 mmol/L (98-107) Carbon Dioxide Level 25 mmol/L (21-32) Anion Gap 12 (6-14) Blood Urea Nitrogen 17 mg/dL (7-20) Creatinine 0.8 mg/dL (0.6-1.0) Estimated GFR (Cockcroft-Gault) 84.4 BUN/Creatinine Ratio 21 (6-20) Glucose Level 88 mg/dL (70-99) Calcium Level 8.3 mg/dL (8.5-10.1) Total Bilirubin 1.0 mg/dL (0.2-1.0) Aspartate Amino Transf (AST/SGOT) 106 U/L (15-37) Alanine Aminotransferase (ALT/SGPT) 119 U/L (14-59) Alkaline Phosphatase 67 U/L (46-116) Total Protein 5.9 g/dL (6.4-8.2) Albumin 2.9 g/dL (3.4-5.0) Albumin/Globulin Ratio 1.0 (1.0-1.7) O2 Saturation 99 % (92-99) Arterial Blood pH 7.64 (7.35-7.45) Arterial Blood pCO2 at Patient Temp 19 mmHg (35-46) Arterial Blood pO2 at Patient Temp 127 mmHg (65-108) Arterial Blood HCO3 20 mmol/L (21-28) Arterial Blood Base Excess 1 mmol/L (-3-3) FiO2 40 Microbiology 04/06/19 Blood Culture - Preliminary, Resulted NO GROWTH AFTER 1 DAY Medications Current Medications Sodium Chloride 1,000 ml @ 1,000 mls/hr 1X ONCE IV Last administered on 04/06/19at 08:28; Start 04/06/19 at 08:15; Stop 04/06/19 at 09:14; Status DC Piperacillin Sod/ Tazobactam Sod 3.375 gm/Sodium Chloride 50 ml @ 100 mls/hr 1X ONCE IV Last administered on 04/06/19at 08:28; Start 04/06/19 at 08:15; Stop 04/06/19 at 08:44; Status DC Acetaminophen (Tylenol Supp) 650 mg 1X ONCE SD Last administered on 04/06/19at 08:31; Start 04/06/19 at 08:30; Stop 04/06/19 at 08:31; Status DC Propofol (Diprivan) 200 mg 1X ONCE IV ; Start 04/06/19 at 10:00; Stop 04/06/19 at 10:04; Status DC Etomidate (Amidate) 20 mg 1X ONCE IV ; Start 04/06/19 at 10:00; Stop 04/06/19 at 10:04; Status DC Succinylcholine Chloride (Anectine) 100 mg 1X ONCE IV ; Start 04/06/19 at 10:00; Stop 04/06/19 at 10:04; Status DC Ondansetron HCl (Zofran) 4 mg PRN Q8HRS PRN IV NAUSEA/VOMITING; Start 04/06/19 at 10:15; Stop 04/07/19 at 10:14 Sodium Chloride 1,000 ml @ 75 mls/hr [id number] IV Last administered on 04/06/19at 11:01; Start 04/06/19 at 10:14; Stop 04/06/19 at 18:06; Status DC Propofol 100 ml @ 1.239 mls/ hr CONT PRN IV SEE PROTOCOL Last administered on 04/06/19at 18:40; Start 04/06/19 at 10:15 Chlorhexidine Gluconate (Peridex) 15 ml BID MM Last administered on 04/07/19at 07:56; Start 04/06/19 at 21:00 Piperacillin Sod/ Tazobactam Sod 3.375 gm/Sodium Chloride 50 ml @ 100 mls/hr Q6HRS IV Last administered on 04/07/19at 05:11; Start 04/06/19 at 13:00 Enoxaparin Sodium (Lovenox 40mg Syringe) 40 mg HS SQ Last administered on 04/06/19at 21:32; Start 04/06/19 at 21:00 Vancomycin HCl (Vanco Per Pharmacy) 1 each PRN DAILY PRN MC SEE COMMENTS Last administered on 04/06/19at 20:21; Start 04/06/19 at 17:45 Sodium Chloride 1,000 ml @ 1,500 mls/hr Q40M IV Last administered on 04/06/19at 18:36; Start 04/06/19 at 17:43; Stop 04/06/19 at 18:42; Status DC Sodium Chloride 500 ml @ 1,000 mls/hr PRN Q30MIN PRN IV SEE COMMENTS; Start 04/06/19 at 17:45 Norepinephrine Bitartrate 250 ml @ 0 mls/hr CONT PRN IV SEE I/O RECORD; Start 04/06/19 at 17:45 Dobutamine HCl/ Dextrose 250 ml @ 0 mls/hr CONT PRN IV SEE I/O RECORD; Start 04/06/19 at 17:45 Vancomycin HCl 1 gm/Sodium Chloride 250 ml @ 250 mls/hr 1X ONCE IV Last administered on 04/06/19at 19:51; Start 04/06/19 at 18:00; Stop 04/06/19 at 18:59; Status DC Ondansetron HCl (Zofran) 4 mg PRN Q6HRS PRN IV NAUSEA/VOMITING; Start 04/06/19 at 17:45 Famotidine (Pepcid Vial) 20 mg HS IVP Last administered on 04/06/19at 21:32; Start 04/06/19 at 21:00 Info ([facility] Electrolyte Protocol) 1 ea DAILY MC Last administered on 04/07/19at 09:04; Start 04/07/19 at 09:00 Enoxaparin Sodium (Lovenox 40mg Syringe) 40 mg Q24H SQ ; Start 04/06/19 at 18:00; Status Cancel Sodium Chloride (Normal Saline Flush) 3 ml QSHIFT PRN IV AFTER MEDS AND BLOOD DRAWS; Start 04/06/19 at 17:45 Sodium Chloride 1,000 ml @ 100 mls/hr Q10H IV Last administered on 04/07/19at 05:11; Start 04/06/19 at 17:45 Vancomycin HCl 500 mg/Sodium Chloride 100 ml @ 100 mls/hr Q24H IV ; Start 04/07/19 at 20:00 Vancomycin HCl (Vancomycin Trough Level) 1 each 1X ONCE MC ; Start 04/08/19 at 19:30; Stop 04/08/19 at 19:31 Sodium Phosphate 0.32 mmol/Dextrose 250.1067 ml @ 62.5 mls/hr 1X ONCE IV ; Start 04/06/19 at 21:45; Stop 04/06/19 at 21:31; Status DC Sodium Phosphate 13 mmol/Dextrose 254.3333 ml @ 63.557 m... 1X ONCE IV Last administered on 04/06/19at 22:14; Start 04/06/19 at 21:45; Stop 04/07/19 at 01:45; Status DC Atropine Sulfate (ATROPINE 1mg SYRINGE) 1 mg STK-MED ONCE .ROUTE ; Start 04/07/19 at 00:56; Stop 04/07/19 at 00:56; Status DC Methylprednisolone Sodium Succinate (SOLU-Medrol 40MG VIAL) 40 mg Q8HRS IV Last administered on 04/07/19at 06:48; Start 04/07/19 at 06:30 Dexmedetomidine HCl 400 mcg/ Sodium Chloride 100 ml @ 2.05 mls/hr CONT PRN IV anxiety with weaning. Last administered on 04/07/19at 08:22; Start 04/07/19 at 08:00 Potassium Chloride/Water 100 ml @ 100 mls/hr Q1H IV Last administered on 04/07/19at 08:48; Start 04/07/19 at 08:15; Stop 04/07/19 at 20:14 Active Scripts Active Loperamide (Loperamide Hcl) 2 Mg Tablet 2 Mg PO PRN Q4-6HRS PRN 30 Days Prednisone 20 Mg Tablet 1 Tab PO DAILY Humalog (Insulin Lispro) 100 Unit/1 Ml Insuln.pen 0 Units SQ TIDWMEALS 30 Days BG 151-200 - 2u 201-250 - 3u 251-300 - 4u 301-350 - 5u >350 call Culturellolegario (Lactobacillus Rhamnosus Gg) 1 Each Cap.sprink 1 Cap PO BID 7 Days Famotidine 20 Mg Tablet 20 Mg PO DAILY 30 Days Acetaminophen Supp (Acetaminophen) 650 Mg Supp.rect 650 Mg SD PRN Q4HRS PRN 30 Days Duoneb 0.5-3(2.5) Mg/3 Ml (Albuterol/Ipratropium) 3 Ml Ampul.neb 3 Ml NEB RTQID 30 Days Amox Tr-K Clv 875-125 Mg Tab (Amoxicillin/Potassium Clav) 1 Each Tablet 1 Tab PO BID 2 Days Reported Famotidine 10 Mg Tablet 1 Mg PO HS Loperamide (Loperamide Hcl) 2 Mg Tablet 2 Mg PO PRN Q4HRS Flonase Allergy Relief (Fluticasone Propionate) 9.9 Ml [place].susp 2 Sprays NS DAILY Midodrine Hcl 10 Mg Tablet 10 Mg PO TID Vitals/I & O Vital Sign - Last 24 Hours 04/06/19 04/06/19 04/06/19 04/06/19 10:10 11:00 11:15 12:00 Temp 99.7 99.7 Pulse 102 86 B/P (MAP) 77/51 (60) Pulse Ox 100 97 96 O2 Delivery Ventilator Mechanical Ventilator Ventilator 04/06/19 04/06/19 04/06/19 04/06/19 12:00 12:17 13:00 13:18 Temp 99.7 99.7 Pulse 86 B/P (MAP) 107/62 (77) Pulse Ox 98 100 100 O2 Delivery Mechanical Ventilator Ventilator Ventilator Ventilator 04/06/19 04/06/19 04/06/19 04/06/19 14:00 15:00 15:53 16:00 Temp 100.0 100.0 100.4 100.0 100.0 100.4 Pulse 86 86 76 B/P (MAP) 80/55 (63) 113/56 (75) 113/54 (73) Pulse Ox 100 100 100 100 O2 Delivery Ventilator Ventilator Ventilator Ventilator 04/06/19 04/06/19 04/06/19 04/06/19 16:00 17:00 17:39 18:00 Temp 100.4 100.8 100.4 100.8 Pulse 72 74 B/P (MAP) 113/59 (77) 113/69 (84) Pulse Ox 100 100 100 O2 Delivery Mechanical Ventilator Ventilator Ventilator Ventilator 04/06/19 04/06/19 04/06/19 04/06/19 19:00 19:55 20:00 20:00 Temp 100.8 100.8 Pulse 74 72 Resp 24 24 B/P (MAP) 150/64 (92) Pulse Ox 100 99 100 O2 Delivery Ventilator Ventilator Mechanical Ventilator Ventilator 04/06/19 04/06/19 04/06/19 04/06/19 21:00 21:55 22:00 23:00 Pulse 74 73 76 Resp 24 24 24 B/P (MAP) 169/62 (97) 169/76 (107) 91/49 (63) Pulse Ox 100 100 100 100 O2 Delivery Ventilator Ventilator Ventilator Ventilator 04/06/19 04/07/19 04/07/19 04/07/19 23:46 00:00 02:33 03:00 Pulse 62 Resp 24 B/P (MAP) 95/52 (66) Pulse Ox 100 100 100 O2 Delivery Ventilator Mechanical Ventilator Ventilator Ventilator 04/07/19 04/07/19 04/07/19 04/07/19 04:00 04:00 05:00 06:00 Temp 99.0 99.0 Pulse 65 56 62 Resp 24 24 24 B/P (MAP) 136/60 (85) 146/60 (88) 125/53 (77) Pulse Ox 100 100 100 O2 Delivery Mechanical Ventilator Ventilator Ventilator Ventilator 04/07/19 07:50 Pulse Ox 100 O2 Delivery Ventilator Intake and Output 04/06/19 04/06/19 04/07/19 15:00 23:00 07:00 Intake Total 2050 ml 1050 ml 922 ml Output Total 85 ml 405 ml 645 ml Balance 1965 ml 645 ml 277 ml TORSTEN MILLER MD Apr 07, 2019 09:12
--- NOTE | 2019-04-07 09:27 | PDOC ---
Infectious Disease Note Vital Sign Vital Signs Vital Signs Date Time Temp Pulse Resp B/P (MAP) Pulse Ox O2 Delivery O2 Flow Rate FiO2 04/07/19 07:50 100 Ventilator 04/07/19 06:00 62 24 125/53 (77) 04/07/19 04:00 99.0 99.0 04/06/19 07:57 15.0 Labs Lab Laboratory Tests Test 04/06/19 09:45 04/06/19 11:40 04/06/19 12:32 04/06/19 18:05 O2 Saturation 98 % (92-99) 99 % (92-99) Arterial Blood pH 6.90 (7.35-7.45) 7.48 (7.35-7.45) Arterial Blood pO2 at Patient Temp 200 mmHg (65-108) > 503 mmHg (65-108) FiO2 100 100 Arterial Blood pCO2 at Patient Temp 33 mmHg (35-46) Arterial Blood HCO3 24 mmol/L (21-28) Arterial Blood Base Excess 1 mmol/L (-3-3) Oxyhemoglobin 98.5 % Methemoglobin 0.5 % (0.0-1.9) Carbon Monoxide, Quantitative 0.3 % (0.0-1.9) Lactic Acid Level 4.3 mmol/L (0.4-2.0) Prothrombin Time 14.8 SEC (11.7-14.0) Prothromb Time International Ratio 1.2 (0.8-1.1) Activated Partial Thromboplast Time 23 SEC (24-38) Fibrinogen 356 mg/dL (200-440) D-Dimer (Kay) 3.80 ug/mlFEU (0.00-0.50) Phosphorus Level 1.0 mg/dL (2.6-4.7) Troponin I Quantitative 0.817 ng/mL (0.000-0.055) Procalcitonin 0.69 ng/mL (0.00-0.10) Thyroid Stimulating Hormone (TSH) 3.077 uIU/mL (0.358-3.74) Test 04/06/19 19:45 04/06/19 23:15 04/07/19 00:05 04/07/19 05:04 Lactic Acid Level 2.5 mmol/L (0.4-2.0) 1.4 mmol/L (0.4-2.0) Troponin I Quantitative 0.716 ng/mL (0.000-0.055) White Blood Count 4.9 x10^3/uL (4.0-11.0) Red Blood Count 3.68 x10^6/uL (3.50-5.40) Hemoglobin 11.3 g/dL (12.0-15.5) Hematocrit 33.0 % (36.0-47.0) Mean Corpuscular Volume 90 fL (79-100) Mean Corpuscular Hemoglobin 31 pg (25-35) Mean Corpuscular Hemoglobin Concent 34 g/dL (31-37) Red Cell Distribution Width 13.2 % (11.5-14.5) Platelet Count 155 x10^3/uL (140-400) Neutrophils (%) (Auto) 57 % (31-73) Lymphocytes (%) (Auto) 32 % (24-48) Monocytes (%) (Auto) 8 % (0-9) Eosinophils (%) (Auto) 2 % (0-3) Basophils (%) (Auto) 1 % (0-3) Neutrophils # (Auto) 2.8 x10^3/uL (1.8-7.7) Lymphocytes # (Auto) 1.6 x10^3/uL (1.0-4.8) Monocytes # (Auto) 0.4 x10^3/uL (0.0-1.1) Eosinophils # (Auto) 0.1 x10^3/uL (0.0-0.7) Basophils # (Auto) 0.0 x10^3/uL (0.0-0.2) Sodium Level 146 mmol/L (136-145) Potassium Level 2.4 mmol/L (3.5-5.1) Chloride Level 108 mmol/L (98-107) Carbon Dioxide Level 25 mmol/L (21-32) Anion Gap 13 (6-14) Blood Urea Nitrogen 18 mg/dL (7-20) Creatinine 0.8 mg/dL (0.6-1.0) Estimated GFR (Cockcroft-Gault) 84.4 BUN/Creatinine Ratio 23 (6-20) Glucose Level 86 mg/dL (70-99) Calcium Level 8.3 mg/dL (8.5-10.1) Phosphorus Level 2.2 mg/dL (2.6-4.7) Magnesium Level 1.7 mg/dL (1.8-2.4) Total Bilirubin 1.1 mg/dL (0.2-1.0) Aspartate Amino Transf (AST/SGOT) 125 U/L (15-37) Alanine Aminotransferase (ALT/SGPT) 130 U/L (14-59) Alkaline Phosphatase 70 U/L (46-116) Total Protein 6.0 g/dL (6.4-8.2) Albumin 2.9 g/dL (3.4-5.0) Albumin/Globulin Ratio 0.9 (1.0-1.7) Test 04/07/19 07:10 04/07/19 08:00 White Blood Count 4.9 x10^3/uL (4.0-11.0) Red Blood Count 3.72 x10^6/uL (3.50-5.40) Hemoglobin 11.3 g/dL (12.0-15.5) Hematocrit 33.7 % (36.0-47.0) Mean Corpuscular Volume 91 fL (79-100) Mean Corpuscular Hemoglobin 31 pg (25-35) Mean Corpuscular Hemoglobin Concent 34 g/dL (31-37) Red Cell Distribution Width 13.5 % (11.5-14.5) Platelet Count 164 x10^3/uL (140-400) Neutrophils (%) (Auto) 53 % (31-73) Lymphocytes (%) (Auto) 36 % (24-48) Monocytes (%) (Auto) 8 % (0-9) Eosinophils (%) (Auto) 2 % (0-3) Basophils (%) (Auto) 1 % (0-3) Neutrophils # (Auto) 2.6 x10^3/uL (1.8-7.7) Lymphocytes # (Auto) 1.8 x10^3/uL (1.0-4.8) Monocytes # (Auto) 0.4 x10^3/uL (0.0-1.1) Eosinophils # (Auto) 0.1 x10^3/uL (0.0-0.7) Basophils # (Auto) 0.0 x10^3/uL (0.0-0.2) Sodium Level 146 mmol/L (136-145) Potassium Level 2.0 mmol/L (3.5-5.1) Chloride Level 109 mmol/L (98-107) Carbon Dioxide Level 25 mmol/L (21-32) Anion Gap 12 (6-14) Blood Urea Nitrogen 17 mg/dL (7-20) Creatinine 0.8 mg/dL (0.6-1.0) Estimated GFR (Cockcroft-Gault) 84.4 BUN/Creatinine Ratio 21 (6-20) Glucose Level 88 mg/dL (70-99) Calcium Level 8.3 mg/dL (8.5-10.1) Total Bilirubin 1.0 mg/dL (0.2-1.0) Aspartate Amino Transf (AST/SGOT) 106 U/L (15-37) Alanine Aminotransferase (ALT/SGPT) 119 U/L (14-59) Alkaline Phosphatase 67 U/L (46-116) Total Protein 5.9 g/dL (6.4-8.2) Albumin 2.9 g/dL (3.4-5.0) Albumin/Globulin Ratio 1.0 (1.0-1.7) O2 Saturation 99 % (92-99) Arterial Blood pH 7.64 (7.35-7.45) Arterial Blood pCO2 at Patient Temp 19 mmHg (35-46) Arterial Blood pO2 at Patient Temp 127 mmHg (65-108) Arterial Blood HCO3 20 mmol/L (21-28) Arterial Blood Base Excess 1 mmol/L (-3-3) FiO2 40 Micro Microbiology 04/06/19 Blood Culture - Preliminary, Resulted NO GROWTH AFTER 1 DAY Objective Assessment Sepsis with hypotension, responsive IVF resuscitation. Procalcitonin 0.69. UA neg Lactic acidosis Acute encephalopathy. CT head neg Acute respiratory failure s/p intubation and mechanical ventilation. Has Mitts on resisted eye opening some -CXR: no infiltrates, pleural effusion or PTX Transaminitis Elevated troponin COPD Diabetes II Plan Plan of Care Empiric vanc and Zosyn Monitor labs/VS and renal function closely f/u cultures Supportive care D/w nursing Critically ill Thank you [id number] Attending Co-Sign Attending Co-Sign The patient was seen and interviewed as well as examined at the bedside. The chart was reviewed. The case was discussed. Agree with the plan of care. CATHI BAUER APRN Apr 07, 2019 09:27 HARINDER MOODY MD Apr 07, 2019 12:19
[2019-04-07 10:00] LABS: BASE EXCESS ABG 2 mmol/L (-3-3); HCO3 ABG 24 mmol/L (21-28); PCO2 ABG 27 mmHg (35-46); PO2 ABG 153 mmHg (65-108); SAT O2 ABG 99 % (92-99)
[2019-04-07 10:01] LABS: FIO2 ABG 40
--- NOTE | 2019-04-07 10:39 | PDOC2 ---
CONSULT Date of Consult Date of Consult DATE: 04/07/19 TIME: 10:39 Reason for Consult Reason for Consult: Elevated troponin level Referring Physician Referring Physician: Dr. Bar Identification/Chief Complaint Chief Complaint Altered mental status Source Source: Chart review History of Present Illness Reason for Visit: 78-year-old female was brought by EMS from no single home for altered mental status and intubated for airway protection in ED. We have been consulted for slightly elevated troponin level. Patient does not have any known previous cardiac history. Past Medical History Past Medical History Asthma/COPD Hypertension Diabetes mellitus type 2 Cognitive communication deficit Past Surgical History Past Surgical History Tubal ligation Social History No ALCOHOL: none Drugs: None Current Problem List Problem List Problems Medical Problems: (1) Hypercapnic respiratory failure Status: Acute (2) Respiratory failure Status: Acute (3) UTI (urinary tract infection) Status: Acute Current Medications Current Medications Current Medications Sodium Chloride 1,000 ml @ 1,000 mls/hr 1X ONCE IV Last administered on 04/06/19at 08:28; Start 04/06/19 at 08:15; Stop 04/06/19 at 09:14; Status DC Piperacillin Sod/ Tazobactam Sod 3.375 gm/Sodium Chloride 50 ml @ 100 mls/hr 1X ONCE IV Last administered on 04/06/19at 08:28; Start 04/06/19 at 08:15; Stop 04/06/19 at 08:44; Status DC Acetaminophen (Tylenol Supp) 650 mg 1X ONCE UT Last administered on 04/06/19at 08:31; Start 04/06/19 at 08:30; Stop 04/06/19 at 08:31; Status DC Propofol (Diprivan) 200 mg 1X ONCE IV ; Start 04/06/19 at 10:00; Stop 04/06/19 at 10:04; Status DC Etomidate (Amidate) 20 mg 1X ONCE IV ; Start 04/06/19 at 10:00; Stop 04/06/19 at 10:04; Status DC Succinylcholine Chloride (Anectine) 100 mg 1X ONCE IV ; Start 04/06/19 at 10:00; Stop 04/06/19 at 10:04; Status DC Ondansetron HCl (Zofran) 4 mg PRN Q8HRS PRN IV NAUSEA/VOMITING; Start 04/06/19 at 10:15; Stop 04/07/19 at 10:14; Status DC Sodium Chloride 1,000 ml @ 75 mls/hr [id number] IV Last administered on 04/06/19at 11:01; Start 04/06/19 at 10:14; Stop 04/06/19 at 18:06; Status DC Propofol 100 ml @ 1.239 mls/ hr CONT PRN IV SEE PROTOCOL Last administered on 04/06/19at 18:40; Start 04/06/19 at 10:15 Chlorhexidine Gluconate (Peridex) 15 ml BID MM Last administered on 04/07/19at 07:56; Start 04/06/19 at 21:00 Piperacillin Sod/ Tazobactam Sod 3.375 gm/Sodium Chloride 50 ml @ 100 mls/hr Q6HRS IV Last administered on 04/07/19at 05:11; Start 04/06/19 at 13:00 Enoxaparin Sodium (Lovenox 40mg Syringe) 40 mg HS SQ Last administered on 04/06/19at 21:32; Start 04/06/19 at 21:00 Vancomycin HCl (Vanco Per Pharmacy) 1 each PRN DAILY PRN MC SEE COMMENTS Last administered on 04/06/19at 20:21; Start 04/06/19 at 17:45 Sodium Chloride 1,000 ml @ 1,500 mls/hr Q40M IV Last administered on 04/06/19at 18:36; Start 04/06/19 at 17:43; Stop 04/06/19 at 18:42; Status DC Sodium Chloride 500 ml @ 1,000 mls/hr PRN Q30MIN PRN IV SEE COMMENTS; Start 04/06/19 at 17:45 Norepinephrine Bitartrate 250 ml @ 0 mls/hr CONT PRN IV SEE I/O RECORD; Start 04/06/19 at 17:45 Dobutamine HCl/ Dextrose 250 ml @ 0 mls/hr CONT PRN IV SEE I/O RECORD; Start 04/06/19 at 17:45 Vancomycin HCl 1 gm/Sodium Chloride 250 ml @ 250 mls/hr 1X ONCE IV Last adm inistered on 04/06/19at 19:51; Start 04/06/19 at 18:00; Stop 04/06/19 at 18:59; Status DC Ondansetron HCl (Zofran) 4 mg PRN Q6HRS PRN IV NAUSEA/VOMITING; Start 04/06/19 at 17:45 Famotidine (Pepcid Vial) 20 mg HS IVP Last administered on 04/06/19at 21:32; Start 04/06/19 at 21:00 Info (Icu Electrolyte Protocol) 1 ea DAILY MC Last administered on 04/07/19at 09:04; Start 04/07/19 at 09:00 Enoxaparin Sodium (Lovenox 40mg Syringe) 40 mg Q24H SQ ; Start 04/06/19 at 18:00; Status Cancel Sodium Chloride (Normal Saline Flush) 3 ml QSHIFT PRN IV AFTER MEDS AND BLOOD DRAWS; Start 04/06/19 at 17:45 Sodium Chloride 1,000 ml @ 100 mls/hr Q10H IV Last administered on 04/07/19at 05:11; Start 04/06/19 at 17:45 Vancomycin HCl 500 mg/Sodium Chloride 100 ml @ 100 mls/hr Q24H IV ; Start 04/07/19 at 20:00 Vancomycin HCl (Vancomycin Trough Level) 1 each 1X ONCE MC ; Start 04/08/19 at 19:30; Stop 04/08/19 at 19:31 Sodium Phosphate 0.32 mmol/Dextrose 250.1067 ml @ 62.5 mls/hr 1X ONCE IV ; Start 04/06/19 at 21:45; Stop 04/06/19 at 21:31; Status DC Sodium Phosphate 13 mmol/Dextrose 254.3333 ml @ 63.557 m... 1X ONCE IV Last administered on 04/06/19at 22:14; Start 04/06/19 at 21:45; Stop 04/07/19 at 01:45; Status DC Atropine Sulfate (ATROPINE 1mg SYRINGE) 1 mg STK-MED ONCE .ROUTE ; Start 04/07/19 at 00:56; Stop 04/07/19 at 00:56; Status DC Methylprednisolone Sodium Succinate (SOLU-Medrol 40MG VIAL) 40 mg Q8HRS IV Last administered on 04/07/19at 06:48; Start 04/07/19 at 06:30 Dexmedetomidine HCl 400 mcg/ Sodium Chloride 100 ml @ 2.05 mls/hr CONT PRN IV anxiety with weaning. Last administered on 04/07/19at 08:22; Start 04/07/19 at 08:00 Potassium Chloride/Water 100 ml @ 100 mls/hr Q1H IV Last administered on 04/07/19at 09:53; Start 04/07/19 at 08:15; Stop 04/07/19 at 20:14 Active Scripts Active Loperamide (Loperamide Hcl) 2 Mg Tablet 2 Mg PO PRN Q4-6HRS PRN 30 Days Prednisone 20 Mg Tablet 1 Tab PO DAILY Humalog (Insulin Lispro) 100 Unit/1 Ml Insuln.pen 0 Units SQ TIDWMEALS 30 Days BG 151-200 - 2u 201-250 - 3u 251-300 - 4u 301-350 - 5u >350 call Culturellolegario (Lactobacillus Rhamnosus Gg) 1 Each Cap.sprink 1 Cap PO BID 7 Days Famotidine 20 Mg Tablet 20 Mg PO DAILY 30 Days Acetaminophen Supp (Acetaminophen) 650 Mg Supp.rect 650 Mg UT PRN Q4HRS PRN 30 Days Duoneb 0.5-3(2.5) Mg/3 Ml (Albuterol/Ipratropium) 3 Ml Ampul.neb 3 Ml NEB RTQID 30 Days Amox Tr-K Clv 875-125 Mg Tab (Amoxicillin/Potassium Clav) 1 Each Tablet 1 Tab PO BID 2 Days Reported Famotidine 10 Mg Tablet 1 Mg PO HS Loperamide (Loperamide Hcl) 2 Mg Tablet 2 Mg PO PRN Q4HRS Flonase Allergy Relief (Fluticasone Propionate) 9.9 Ml [place].susp 2 Sprays NS D AILY Midodrine Hcl 10 Mg Tablet 10 Mg PO TID Allergies Allergies: Coded Allergies: Milk Containing Products (Verified Allergy, Intermediate, 11/10/18) ROS Review of System Cannot be obtained since patient is intubated Physical Exam General: Other (Intubated) Lungs: Other (scattered crepts bilaterally) Abdomen: Soft, No tenderness Extremities: No edema Vitals VITALS Vital Signs Date Time Temp Pulse Resp B/P (MAP) Pulse Ox O2 Delivery O2 Flow Rate FiO2 04/07/19 09:00 46 132/70 (90) 100 Ventilator 04/07/19 06:00 24 04/07/19 04:00 99.0 99.0 04/06/19 07:57 15.0 Labs Labs Laboratory Tests Test 04/06/19 08:09 04/06/19 08:10 04/06/19 08:30 04/06/19 08:34 Glucose (Fingerstick) 117 mg/dL (70-99) White Blood Count 4.4 x10^3/uL (4.0-11.0) Red Blood Count 4.21 x10^6/uL (3.50-5.40) Hemoglobin 12.8 g/dL (12.0-15.5) Hematocrit 38.5 % (36.0-47.0) Mean Corpuscular Volume 92 fL (79-100) Mean Corpuscular Hemoglobin 31 pg (25-35) Mean Corpuscular Hemoglobin Concent 33 g/dL (31-37) Red Cell Distribution Width 14.0 % (11.5-14.5) Platelet Count 168 x10^3/uL (140-400) Neutrophils (%) (Auto) 87 % (31-73) Lymphocytes (%) (Auto) 11 % (24-48) Monocytes (%) (Auto) 2 % (0-9) Eosinophils (%) (Auto) 0 % (0-3) Basophils (%) (Auto) 1 % (0-3) Neutrophils # (Auto) 3.8 x10^3/uL (1.8-7.7) Lymphocytes # (Auto) 0.5 x10^3/uL (1.0-4.8) Monocytes # (Auto) 0.1 x10^3/uL (0.0-1.1) Eosinophils # (Auto) 0.0 x10^3/uL (0.0-0.7) Basophils # (Auto) 0.0 x10^3/uL (0.0-0.2) Segmented Neutrophils % 86 % (35-66) Band Neutrophils % 1 % (0-9) Lymphocytes % 10 % (24-48) Monocytes % 3 % (0-10) Platelet Estimate Adequate (ADEQUATE) Lactic Acid Level 0.7 mmol/L (0.4-2.0) Urine Color Yellow Urine Clarity Clear Urine pH 6.5 Urine Specific [place] 1.020 Urine Protein 30 mg/dL (NEG-TRACE) Urine Glucose (UA) 100 mg/dL (NEG) Urine Ketones (Stick) 15 mg/dL (NEG) Urine Blood Trace (NEG) Urine Nitrite Negative (NEG) Urine Bilirubin Negative (NEG) Urine Urobilinogen Dipstick 1.0 mg/dL (0.2 mg/dL) Urine Leukocyte Esterase Small (NEG) Urine RBC 0 /HPF (0-2) Urine WBC 1-4 /HPF (0-4) Urine Squamous Epithelial Cells Few /LPF Urine Bacteria 0 /HPF (0-FEW) Prothrombin Time 13.4 SEC (11.7-14.0) Prothromb Time International Ratio 1.1 (0.8-1.1) Activated Partial Thromboplast Time 26 SEC (24-38) Test 04/06/19 08:50 04/06/19 09:45 04/06/19 11:40 04/06/19 12:32 Sodium Level 143 mmol/L (136-145) Potassium Level 3.8 mmol/L (3.5-5.1) Chloride Level 103 mmol/L (98-107) Carbon Dioxide Level 34 mmol/L (21-32) Anion Gap 6 (6-14) Blood Urea Nitrogen 17 mg/dL (7-20) Creatinine 0.7 mg/dL (0.6-1.0) Estimated GFR (Cockcroft-Gault) 98.4 BUN/Creatinine Ratio 24 (6-20) Glucose Level 122 mg/dL (70-99) Calcium Level 8.9 mg/dL (8.5-10.1) Magnesium Level 2.2 mg/dL (1.8-2.4) Total Bilirubin 0.4 mg/dL (0.2-1.0) Aspartate Amino Transf (AST/SGOT) 17 U/L (15-37) Alanine Aminotransferase (ALT/SGPT) 15 U/L (14-59) Alkaline Phosphatase 79 U/L (46-116) Troponin I Quantitative < 0.017 ng/mL (0.000-0.055) OC-Gdj-T-Type Natriuretic Peptide 253 pg/mL (0-449) Total Protein 7.1 g/dL (6.4-8.2) Albumin 3.7 g/dL (3.4-5.0) Albumin/Globulin Ratio 1.1 (1.0-1.7) Lipase 49 U/L (73-393) O2 Saturation 98 % (92-99) 99 % (92-99) Arterial Blood pH 6.90 (7.35-7.45) 7.48 (7.35-7.45) Arterial Blood pO2 at Patient Temp 200 mmHg (65-108) > 503 mmHg (65-108) FiO2 100 100 Arterial Blood pCO2 at Patient Temp 33 mmHg (35-46) Arterial Blood HCO3 24 mmol/L (21-28) Arterial Blood Base Excess 1 mmol/L (-3-3) Oxyhemoglobin 98.5 % Methemoglobin 0.5 % (0.0-1.9) Carbon Monoxide, Quantitative 0.3 % (0.0-1.9) Lactic Acid Level 4.3 mmol/L (0.4-2.0) Test 04/06/19 18:05 04/06/19 19:45 04/06/19 23:15 04/07/19 00:05 Prothrombin Time 14.8 SEC (11.7-14.0) Prothromb Time International Ratio 1.2 (0.8-1.1) Activated Partial Thromboplast Time 23 SEC (24-38) Fibrinogen 356 mg/dL (200-440) D-Dimer (Kay) 3.80 ug/mlFEU (0.00-0.50) Phosphorus Level 1.0 mg/dL (2.6-4.7) Troponin I Quantitative 0.817 ng/mL (0.000-0.055) 0.716 ng/mL (0.000-0.055) Procalcitonin 0.69 ng/mL (0.00-0.10) Thyroid Stimulating Hormone (TSH) 3.077 uIU/mL (0.358-3.74) Lactic Acid Level 2.5 mmol/L (0.4-2.0) 1.4 mmol/L (0.4-2.0) Test 04/07/19 05:04 04/07/19 07:10 04/07/19 08:00 04/07/19 09:42 White Blood Count 4.9 x10^3/uL (4.0-11.0) 4.9 x10^3/uL (4.0-11.0) Red Blood Count 3.68 x10^6/uL (3.50-5.40) 3.72 x10^6/uL (3.50-5.40) Hemoglobin 11.3 g/dL (12.0-15.5) 11.3 g/dL (12.0-15.5) Hematocrit 33.0 % (36.0-47.0) 33.7 % (36.0-47.0) Mean Corpuscular Volume 90 fL (79-100) 91 fL (79-100) Mean Corpuscular Hemoglobin 31 pg (25-35) 31 pg (25-35) Mean Corpuscular Hemoglobin Concent 34 g/dL (31-37) 34 g/dL (31-37) Red Cell Distribution Width 13.2 % (11.5-14.5) 13.5 % (11.5-14.5) Platelet Count 155 x10^3/uL (140-400) 164 x10^3/uL (140-400) Neutrophils (%) (Auto) 57 % (31-73) 53 % (31-73) Lymphocytes (%) (Auto) 32 % (24-48) 36 % (24-48) Monocytes (%) (Auto) 8 % (0-9) 8 % (0-9) Eosinophils (%) (Auto) 2 % (0-3) 2 % (0-3) Basophils (%) (Auto) 1 % (0-3) 1 % (0-3) Neutrophils # (Auto) 2.8 x10^3/uL (1.8-7.7) 2.6 x10^3/uL (1.8-7.7) Lymphocytes # (Auto) 1.6 x10^3/uL (1.0-4.8) 1.8 x10^3/uL (1.0-4.8) Monocytes # (Auto) 0.4 x10^3/uL (0.0-1.1) 0.4 x10^3/uL (0.0-1.1) Eosinophils # (Auto) 0.1 x10^3/uL (0.0-0.7) 0.1 x10^3/uL (0.0-0.7) Basophils # (Auto) 0.0 x10^3/uL (0.0-0.2) 0.0 x10^3/uL (0.0-0.2) Sodium Level 146 mmol/L (136-145) 146 mmol/L (136-145) Potassium Level 2.4 mmol/L (3.5-5.1) 2.0 mmol/L (3.5-5.1) Chloride Level 108 mmol/L (98-107) 109 mmol/L (98-107) Carbon Dioxide Level 25 mmol/L (21-32) 25 mmol/L (21-32) Anion Gap 13 (6-14) 12 (6-14) Blood Urea Nitrogen 18 mg/dL (7-20) 17 mg/dL (7-20) Creatinine 0.8 mg/dL (0.6-1.0) 0.8 mg/dL (0.6-1.0) Estimated GFR (Cockcroft-Gault) 84.4 84.4 BUN/Creatinine Ratio 23 (6-20) 21 (6-20) Glucose Level 86 mg/dL (70-99) 88 mg/dL (70-99) Calcium Level 8.3 mg/dL (8.5-10.1) 8.3 mg/dL (8.5-10.1) Phosphorus Level 2.2 mg/dL (2.6-4.7) Magnesium Level 1.7 mg/dL (1.8-2.4) Total Bilirubin 1.1 mg/dL (0.2-1.0) 1.0 mg/dL (0.2-1.0) Aspartate Amino Transf (AST/SGOT) 125 U/L (15-37) 106 U/L (15-37) Alanine Aminotransferase (ALT/SGPT) 130 U/L (14-59) 119 U/L (14-59) Alkaline Phosphatase 70 U/L (46-116) 67 U/L (46-116) Total Protein 6.0 g/dL (6.4-8.2) 5.9 g/dL (6.4-8.2) Albumin 2.9 g/dL (3.4-5.0) 2.9 g/dL (3.4-5.0) Albumin/Globulin Ratio 0.9 (1.0-1.7) 1.0 (1.0-1.7) O2 Saturation 99 % (92-99) 99 % (92-99) Arterial Blood pH 7.64 (7.35-7.45) 7.56 (7.35-7.45) Arterial Blood pCO2 at Patient Temp 19 mmHg (35-46) 27 mmHg (35-46) Arterial Blood pO2 at Patient Temp 127 mmHg (65-108) 153 mmHg (65-108) Arterial Blood HCO3 20 mmol/L (21-28) 24 mmol/L (21-28) Arterial Blood Base Excess 1 mmol/L (-3-3) 2 mmol/L (-3-3) FiO2 40 40 Laboratory Tests Test 04/06/19 11:40 04/06/19 12:32 04/06/19 18:05 04/06/19 19:45 O2 Saturation 99 % (92-99) Arterial Blood pH 7.48 (7.35-7.45) Arterial Blood pCO2 at Patient Temp 33 mmHg (35-46) Arterial Blood pO2 at Patient Temp > 503 mmHg (65-108) Arterial Blood HCO3 24 mmol/L (21-28) Arterial Blood Base Excess 1 mmol/L (-3-3) Oxyhemoglobin 98.5 % Methemoglobin 0.5 % (0.0-1.9) Carbon Monoxide, Quantitative 0.3 % (0.0-1.9) FiO2 100 Lactic Acid Level 4.3 mmol/L (0.4-2.0) 2.5 mmol/L (0.4-2.0) Prothrombin Time 14.8 SEC (11.7-14.0) Prothromb Time International Ratio 1.2 (0.8-1.1) Activated Partial Thromboplast Time 23 SEC (24-38) Fibrinogen 356 mg/dL (200-440) D-Dimer (Kay) 3.80 ug/mlFEU (0.00-0.50) Phosphorus Level 1.0 mg/dL (2.6-4.7) Troponin I Quantitative 0.817 ng/mL (0.000-0.055) Procalcitonin 0.69 ng/mL (0.00-0.10) Thyroid Stimulating Hormone (TSH) 3.077 uIU/mL (0.358-3.74) Test 04/06/19 23:15 04/07/19 00:05 04/07/19 05:04 04/07/19 07:10 Lactic Acid Level 1.4 mmol/L (0.4-2.0) Troponin I Quantitative 0.716 ng/mL (0.000-0.055) White Blood Count 4.9 x10^3/uL (4.0-11.0) 4.9 x10^3/uL (4.0-11.0) Red Blood Count 3.68 x10^6/uL (3.50-5.40) 3.72 x10^6/uL (3.50-5.40) Hemoglobin 11.3 g/dL (12.0-15.5) 11.3 g/dL (12.0-15.5) Hematocrit 33.0 % (36.0-47.0) 33.7 % (36.0-47.0) Mean Corpuscular Volume 90 fL (79-100) 91 fL (79-100) Mean Corpuscular Hemoglobin 31 pg (25-35) 31 pg (25-35) Mean Corpuscular Hemoglobin Concent 34 g/dL (31-37) 34 g/dL (31-37) Red Cell Distribution Width 13.2 % (11.5-14.5) 13.5 % (11.5-14.5) Platelet Count 155 x10^3/uL (140-400) 164 x10^3/uL (140-400) Neutrophils (%) (Auto) 57 % (31-73) 53 % (31-73) Lymphocytes (%) (Auto) 32 % (24-48) 36 % (24-48) Monocytes (%) (Auto) 8 % (0-9) 8 % (0-9) Eosinophils (%) (Auto) 2 % (0-3) 2 % (0-3) Basophils (%) (Auto) 1 % (0-3) 1 % (0-3) Neutrophils # (Auto) 2.8 x10^3/uL (1.8-7.7) 2.6 x10^3/uL (1.8-7.7) Lymphocytes # (Auto) 1.6 x10^3/uL (1.0-4.8) 1.8 x10^3/uL (1.0-4.8) Monocytes # (Auto) 0.4 x10^3/uL (0.0-1.1) 0.4 x10^3/uL (0.0-1.1) Eosinophils # (Auto) 0.1 x10^3/uL (0.0-0.7) 0.1 x10^3/uL (0.0-0.7) Basophils # (Auto) 0.0 x10^3/uL (0.0-0.2) 0.0 x10^3/uL (0.0-0.2) Sodium Level 146 mmol/L (136-145) 146 mmol/L (136-145) Potassium Level 2.4 mmol/L (3.5-5.1) 2.0 mmol/L (3.5-5.1) Chloride Level 108 mmol/L (98-107) 109 mmol/L (98-107) Carbon Dioxide Level 25 mmol/L (21-32) 25 mmol/L (21-32) Anion Gap 13 (6-14) 12 (6-14) Blood Urea Nitrogen 18 mg/dL (7-20) 17 mg/dL (7-20) Creatinine 0.8 mg/dL (0.6-1.0) 0.8 mg/dL (0.6-1.0) Estimated GFR (Cockcroft-Gault) 84.4 84.4 BUN/Creatinine Ratio 23 (6-20) 21 (6-20) Glucose Level 86 mg/dL (70-99) 88 mg/dL (70-99) Calcium Level 8.3 mg/dL (8.5-10.1) 8.3 mg/dL (8.5-10.1) Phosphorus Level 2.2 mg/dL (2.6-4.7) Magnesium Level 1.7 mg/dL (1.8-2.4) Total Bilirubin 1.1 mg/dL (0.2-1.0) 1.0 mg/dL (0.2-1.0) Aspartate Amino Transf (AST/SGOT) 125 U/L (15-37) 106 U/L (15-37) Alanine Aminotransferase (ALT/SGPT) 130 U/L (14-59) 119 U/L (14-59) Alkaline Phosphatase 70 U/L (46-116) 67 U/L (46-116) Total Protein 6.0 g/dL (6.4-8.2) 5.9 g/dL (6.4-8.2) Albumin 2.9 g/dL (3.4-5.0) 2.9 g/dL (3.4-5.0) Albumin/Globulin Ratio 0.9 (1.0-1.7) 1.0 (1.0-1.7) Test 04/07/19 08:00 04/07/19 09:42 O2 Saturation 99 % (92-99) 99 % (92-99) Arterial Blood pH 7.64 (7.35-7.45) 7.56 (7.35-7.45) Arterial Blood pCO2 at Patient Temp 19 mmHg (35-46) 27 mmHg (35-46) Arterial Blood pO2 at Patient Temp 127 mmHg (65-108) 153 mmHg (65-108) Arterial Blood HCO3 20 mmol/L (21-28) 24 mmol/L (21-28) Arterial Blood Base Excess 1 mmol/L (-3-3) 2 mmol/L (-3-3) FiO2 40 40 Assessment/Plan Assessment/Plan 1. Acute respiratory failure s/p intubation possibly secondary to combination of acute COPD exacerbation and aspiration pneumonitis. Pulmonary team following. 2. Sepsis with hypotension. Antibiotics per ID team 3. Slight troponin elevation most probably demand ischemia. Recent 2-D echo from October 2018 showed LVEF 65-70% without any wall motion abnormalities. Doubt ACS. Ischemic workup could be considered as an outpatient. 4. Hypokalemia and hypomagnesemia: Replace IV 5. Diabetes mellitus type 2: Treat per IM Thank you for your consultation MIC ROCHA MD Apr 07, 2019 10:39
--- NOTE | 2019-04-07 10:53 | CONS ---
DATE OF CONSULTATION: 04/07/2019 REFERRING PHYSICIAN: Kartik Bar MD REASON FOR CONSULTATION: Sepsis. HISTORY OF PRESENT ILLNESS: This patient is a 78-year-old -[place] female, prison resident, who was sent to the ER with altered mental status following a fall about 5 days ago and fever. She was urgently intubated and mechanically ventilated. A CT scan of head showed no acute intracranial abnormality. A chest x-ray showed no acute pulmonary infiltrates, pleural effusion, or pneumothorax. Urinalysis was unremarkable for infection and blood cultures so far are negative. She is currently on empiric vancomycin and Zosyn. The patient has been admitted to the Intensive Care Unit. She is orally intubated and sedated, unable to provide history of present illness, past medical history, or review of systems. She was hypotensive, responsive to IV fluid resuscitation. She has been running low-grade fevers. White blood cell count is normal. No vomiting or diarrhea reported. Her urine output is low. PAST MEDICAL HISTORY: Diabetes type 2, COPD, hypertension, and asthma. PAST SURGICAL HISTORY: Tubal ligation. SOCIAL HISTORY: custodial resident. FAMILY HISTORY: COPD. ALLERGIES: No known drug allergies. MEDICATIONS: Vancomycin, Zosyn, and methylprednisolone. Other medications are available and have been reviewed on the SEP. PHYSICAL EXAMINATION: VITAL SIGNS: Temperature 99.0, T-max 100.4, blood pressure 125/53, heart rate 62, respiratory rate 24, and pulse oximetry is 100% on FiO2 40% via ventilator. GENERAL: The patient is propped up in bed, orally intubated and sedated. [place]. HEENT: Pupils equally round and small. OGT and ETT in place. NECK: Supple. LUNGS: Mechanical breath sounds. HEART: S1 and S2, bradycardia 50s, regular. ABDOMEN: Mildly distended, soft. Bowel sounds present. GENITOURINARY: Indwelling Acevedo in place. EXTREMITIES: No gross edema or cyanosis. Peripheral IV. SKIN: Warm to touch. No signs of rash. NEUROLOGIC: Sedated. LABORATORY DATA: WBC 4.9, hemoglobin 11.3, and platelets 164,000. Sodium 146, potassium 2.0, creatinine 0.8, BUN 17, and glucose 88. Lactic acid 1.4 from 4.3. Total bilirubin 1.0, AST 106 from 125, ALT 119 from 130. Troponin 0.716 and albumin 2.9. Procalcitonin 0.69. TSH 3.077. Urinalysis unremarkable for infection. Blood cultures from the 7th negative to date. Sputum culture and influenza screen pending. IMAGING: Per HPI. IMPRESSION: 1. Sepsis with hypotension, responsive to IV fluid resuscitation. 2. Lactic acidosis. 3. Acute encephalopathy. CT head negative. 4. Acute respiratory failure, status post intubation and mechanical ventilation. 5. Transaminitis. 6. Elevated troponin. 7. Chronic obstructive pulmonary disease. 8. Diabetes type 2. PLAN: 1. Continue empiric vancomycin and Zosyn. 2. Monitor laboratory values and renal function closely. 3. We will follow up on cultures. 4. Discussed with nursing. 5. Critically ill. Thank you, Dr. Bar, for asking us to participate in this patient's care. Should you have further questions or concerns, please call. HARINDER MOODY MD DR: GRABIEL/xiomara JOB#: [id number] / [id number]
[2019-04-07] MEDS: VANCOMYCIN PER PHARMACY MC PRN (10:59)
--- NOTE | 2019-04-07 11:02 | RAD ---
AP abdomen radiograph 04/07/2019 CLINICAL HISTORY: OG tube placement. An AP portable erect digital radiograph of the mid/lower chest/abdomen was obtained. The right costophrenic angle and lateral aspect of the right abdomen are cut off on this radiograph. The tip of the OG tube extends to overlie the body the stomach. The visualized lungs are clear. The visualized abdominal bowel gas pattern is nonobstructive. Mild S-shaped curvature of the thoracolumbar spine is seen. IMPRESSION: The tip of the OG tube extends to overlie the body of the stomach. Electronically signed by: Shubham Yañez MD (04/07/2019 10:59 AM) [facility]
--- NOTE | 2019-04-07 12:41 | CONS ---
DATE OF CONSULTATION: 04/07/2019 REASON FOR CONSULTATION: I was asked to see this 78-year-old lady for acute respiratory failure. HISTORY OF PRESENT ILLNESS: The patient is currently intubated. All of the information was obtained from chart and nursing staff. She was brought to the Emergency Room by EMS from correction for evaluation of altered mental status. Apparently, she was normal until 3 days ago. The night before last, she was acting confused and yesterday morning, they were not able to wake her up. She was brought to the Emergency Room. ABG: Her pH on arrival was pH 6.9, pO2 of 200, pCO2 not able to measure, 100% FiO2. The patient was intubated in the Emergency Room. She is currently intubated and sedated. She is not on any pressors. She has small amount of ET tube secretion. PAST MEDICAL HISTORY: COPD, diabetes mellitus, hypertension, cognitive communication deficits. PAST SURGICAL HISTORY: Tubal ligation. ALLERGIES: MILK CONTAINING PRODUCTS. MEDICATIONS: She is currently on vancomycin, Zosyn, Pepcid, Lovenox, and IV fluid. SOCIAL HISTORY: Unable to obtain. The patient is currently intubated and sedated. FAMILY HISTORY: Unable to obtain. The patient is currently intubated and sedated. REVIEW OF SYSTEMS: As mentioned above. I have discussed the patient with RN, other systems otherwise negative. PHYSICAL EXAMINATION: GENERAL: This is an elderly lady. VITAL SIGNS: Her O2 saturation on 40% FiO2 is 100%, respiratory rate 24, heart rate 56, blood pressure 146/60, temperature 99. HEENT: Normocephalic, atraumatic. Pupils equal, round, reactive to light. She is orally intubated. Nose is clear. NECK: There is no JVD, lymphadenopathy or thyromegaly. CARDIOVASCULAR: Regular rate and rhythm. PMI is nondisplaced. CHEST: Inspection is normal. LUNGS: There are a few end-expiratory wheezes, dullness at the bases. ABDOMEN: Soft. Bowel sounds are good. There is no mass. EXTREMITIES: There is no edema. LYMPHATICS: There is no lymphadenopathy. SKIN: Warm. NEUROLOGIC: She is sedated on the ventilator. LABORATORY DATA: I reviewed the following lab data at 11:40 a.m. yesterday, pH 7.48, pCO2 33, pO2 more than 503 on the ventilator and FiO2 100%. Sodium 143, potassium 3.8, chloride 103, CO2 of 34, glucose 122, BUN 17, creatinine 0.7. Troponin 0.017, 0.817, 0.716. WBC 4.9, hemoglobin 11.3, platelets 155. INR 1.1. BNP 253. Lactic acid on arrival 0.7, then 4.3, then 2.5, and then 1.4. Chest x-ray shows borderline cardiomegaly, increased vascular marking. ET tube in good position. Her echocardiogram on 10/2018. Ejection fraction 65%-70%, diastolic dysfunction, PA pressure 20. IMPRESSION: 1. [id number] hypoxemic and hypercarbic respiratory failure secondary to acute exacerbation of chronic obstructive pulmonary disease, acute bronchitis versus others. 2. Acute exacerbation of chronic obstructive pulmonary disease. 3. Acute bronchitis. 4. Diabetes mellitus. 5. Hypertension. 6. Questionable sepsis. PLAN AND RECOMMENDATIONS: 1. Titrate FiO2 to keep O2 saturation 94%. 2. Continue ventilator support. Vent setting was reviewed. I will do ABG. I will review ABG and chest x-ray. We will decrease sedation and do spontaneous breathing trial. 3. Start Solu-Medrol 40 mg IV every 8 hours, first dose now. 4. Lovenox for DVT prophylaxis. 5. Pepcid for stress ulcer prophylaxis. 6. Continue antibiotic. 7. Follow up cultures. 8. Elevate head of bed. 9. The findings and recommendations were discussed with RN. Thank you very much for allowing me to participate in care of this very nice lady. HUEY CHAUDHARI M.D. : PEG/xiomara JOB#: [id number] / [id number]
[2019-04-07 13:57] LABS: BASE EXCESS ABG -1 mmol/L (-3-3); HCO3 ABG 23 mmol/L (21-28); PCO2 ABG 35 mmHg (35-46); PO2 ABG 107 mmHg (65-108); SAT O2 ABG 98 % (92-99)
[2019-04-07 14:01] LABS: FIO2 ABG 40
--- NOTE | 2019-04-07 14:33 | NUR ---
Family has made a decision to make pt a DNR and discussed with Dr. Brown. Dr. Bar notified of families decision. Dr. Brown signed outside DNR form.
--- NOTE | 2019-04-07 15:19 | RAD ---
AP portable chest radiograph 04/17/2019 Clinical History: Respiratory failure. An AP erect portable digital radiograph of the chest was obtained. Comparison study is dated 04/06/2019. The tip of the NG tube extends to overlie the right main bronchus 1 cm below the level of the fabian. The NG tube is unchanged in position. The cardiac silhouette is normal in size. Atherosclerotic calcification thoracic aorta is seen. No acute pulmonary infiltrate is noted. No pneumothorax or pleural effusion is seen. The osseous structures are unchanged. Impression: The tip of the ET tube extends to overlie the right main bronchus 1 cm below the level of fabian. The patient's nurse was notified of this finding. Electronically signed by: Shubham Yañez MD (04/07/2019 3:17 PM) [facility]
[2019-04-07] MEDS: PROPOFOL 100 ML IV PRN ×2 (17:11→23:00)
--- NOTE | 2019-04-07 19:19 | NUR ---
Patient and family are going to discuss DNR tomorrow. It was too difficult to determine if patient was truly oriented or not to make this decision due to the fact that she was intubated.
[2019-04-07] MEDS ORDERED: VANCOMYCIN 500 MG in IV NORMAL SALINE 100ML 100 ML IV SCH (20:00)
[2019-04-07 20:44] LABS: CALCIUM 8.7 mg/dL (8.5-10.1); CREATININE 0.6 mg/dL (0.6-1.0); GFR 117.6; POTASSIUM 3.7 mmol/L (3.5-5.1)
[2019-04-07 20:50] LABS: ALBUMIN/GLOBULIN RATIO 0.9 (1.0-1.7); MAGNESIUM 1.7 mg/dL (1.8-2.4); PHOSPHORUS 4.6 mg/dL (2.6-4.7); TOTAL BILIRUBIN 0.7 mg/dL (0.2-1.0); TOTAL PROTEIN 6.4 g/dL (6.4-8.2)
[2019-04-07] MEDS: FAMOTIDINE 20 MG/2 ML VIAL IVP SCH (22:14)
[2019-04-07] MEDS: ENOXAPARIN 40 MG/0.4 ML SYRINGE. SQ SCH (22:15)
[2019-04-08] VITALS (23 sets, daily range): BP systolic 100–185; BP diastolic 52–84
[2019-04-08] MEDS: POTASSIUM CHLORIDE 10MEQ 100 ML IV SCH (00:12)
[2019-04-08] MEDS: IV NORMAL SALINE 1000ML BAG 1,000 ML IV SCH ×2 (00:12→12:00)
[2019-04-08] MEDS: PIPERACILLIN/TAZOBACTAM 3.375 GM in IV NORMAL SALINE 50ML 50 ML IV SCH ×4 (01:36→18:19)
[2019-04-08 04:20] LABS: BASO % 1 % (0-3); EOS % 0 % (0-3); HEMOGLOBIN 11.8 g/dL (12.0-15.5); LYMPH # 0.6 x10^3/uL (1.0-4.8); LYMPH % 9 % (24-48); MEAN CORPUSCULAR HEMOGLOBIN 30 pg (25-35); MEAN CORPUSCULAR HGB CONC 34 g/dL (31-37); MEAN CORPUSCULAR VOLUME 91 fL (79-100); MONO # 0.2 x10^3/uL (0.0-1.1); MONO % 3 % (0-9); NEUT # 5.5 x10^3/uL (1.8-7.7); NEUT % 87 % (31-73); PLATELET COUNT 159 x10^3/uL (140-400); RED BLOOD COUNT 3.87 x10^6/uL (3.50-5.40); RED CELL DISTRIBUTION WIDTH 14.3 % (11.5-14.5); WHITE BLOOD COUNT 6.4 x10^3/uL (4.0-11.0)
[2019-04-08 04:40] LABS: CALCIUM 8.6 mg/dL (8.5-10.1); CREATININE 0.6 mg/dL (0.6-1.0); GFR 117.6; POTASSIUM 3.8 mmol/L (3.5-5.1)
[2019-04-08] MEDS: methylPREDNISolone SOD SUCC PF 40 MG/ML VIAL. IV SCH ×3 (05:40→21:20)
--- NOTE | 2019-04-08 07:22 | EKG ---
[facility] [address] [place] [address] Test Date: 2019-04-06 Test Time: 08:03:18 Pat Name: LAN JACKSON Department: Room: Gender: F Maxillofacial Pathology: : 1940 Requested By: MARJORIE LEMOS Order Number: [id number] Reading MD: Measurements Intervals [place] Rate: 79 P: 59 AR: 132 QRS: 41 QRSD: 80 T: 56 QT: 340 QTc: 395 Interpretive Statements SINUS RHYTHM LEFT ATRIAL ABNORMALITY AMPLITUDE CRITERIA FOR LVH T ABNORMALITY IN ANTERIOR LEADS ABNORMAL ECG RI6.01 Unconfirmed report No previous ECG available for comparison
[2019-04-08 07:45] LABS: BASE EXCESS ABG -6 mmol/L (-3-3); HCO3 ABG 17 mmol/L (21-28); PCO2 ABG 24 mmHg (35-46); PO2 ABG 111 mmHg (65-108); SAT O2 ABG 98 % (92-99)
[2019-04-08 07:48] LABS: FIO2 ABG 40
--- NOTE | 2019-04-08 08:09 | PDOC ---
Infectious Disease Note Subjective: Subjective pt intubated,opens eyes, comfortable awaiting weaning trial off pressors no fevers d/w rn ROS: ROS unable to obtain Vital Signs: Vital Signs Vital Signs Date Time Temp Pulse Resp B/P (MAP) Pulse Ox O2 Delivery O2 Flow Rate FiO2 04/08/19 07:32 100 Ventilator 04/08/19 06:00 64 24 121/56 (77) 04/08/19 04:00 97.3 97.3 Physical Exam: PHYSICAL EXAM GENERAL: orally intubated and opens eyes comfortable [place]. HEENT: Pupils equally round and small. OGT and ETT in place. NECK: Supple. LUNGS: Mechanical breath sounds. HEART: S1 and S2, bradycardia 50s, regular. ABDOMEN: Mildly distended, soft. Bowel sounds present. GENITOURINARY: Indwelling Acevedo in place. EXTREMITIES: No gross edema or cyanosis. Peripheral IV. SKIN: Warm to touch. No signs of rash. NEUROLOGIC: Sedated. Medications: Inpatient Meds: Current Medications Medications (Trade) Dose Ordered Sig/Usman Start Time Stop Time Status Last Admin Dose Admin Acetaminophen (Tylenol Supp) 650 mg 1X ONCE 04/06/19 08:30 04/06/19 08:31 DC 04/06/19 08:31 650 MG Atropine Sulfate (ATROPINE 1mg SYRINGE) 1 mg STK-MED ONCE 04/07/19 00:56 04/07/19 00:56 DC Chlorhexidine Gluconate (Peridex) 15 ml BID 04/06/19 21:00 04/07/19 22:15 15 ML Dexmedetomidine HCl 400 mcg/ Sodium Chloride 100 ml @ 2.05 mls/hr CONT PRN 04/07/19 08:00 04/07/19 08:22 2.05 MLS/HR Dobutamine HCl/ Dextrose 250 ml @ 0 mls/hr CONT PRN 04/06/19 17:45 Enoxaparin Sodium (Lovenox 40mg Syringe) 40 mg Q24H 04/06/19 18:00 Cancel Etomidate (Amidate) 20 mg 1X ONCE 04/06/19 10:00 04/06/19 10:04 DC Famotidine (Pepcid Vial) 20 mg HS 04/06/19 21:00 04/07/19 22:15 20 MG Info (Icu Electrolyte Protocol) 1 ea DAILY 04/07/19 09:00 04/07/19 09:04 1 EA Methylprednisolone Sodium Succinate (SOLU-Medrol 40MG VIAL) 40 mg Q8HRS 04/07/19 06:30 04/08/19 05:40 40 MG Norepinephrine Bitartrate 250 ml @ 0 mls/hr CONT PRN 04/06/19 17:45 Ondansetron HCl (Zofran) 4 mg PRN Q6HRS PRN 04/06/19 17:45 Piperacillin Sod/ Tazobactam Sod 3.375 gm/Sodium Chloride 50 ml @ 100 mls/hr Q6HRS 04/06/19 13:00 04/08/19 05:40 100 MLS/HR Potassium Chloride/Water 100 ml @ 100 mls/hr Q1H 04/07/19 08:15 04/07/19 20:14 DC 04/08/19 00:12 100 MLS/HR Propofol 100 ml @ 1.239 mls/ hr CONT PRN 04/06/19 10:15 04/08/19 06:45 1.239 MLS/HR Propofol (Diprivan) 200 mg 1X ONCE 04/06/19 10:00 04/06/19 10:04 DC Sodium Chloride 1,000 ml @ 100 mls/hr Q10H 04/06/19 17:45 04/08/19 00:12 100 MLS/HR Sodium Chloride (Normal Saline Flush) 3 ml QSHIFT PRN 04/06/19 17:45 Sodium Phosphate 0.32 mmol/Dextrose 250.1067 ml @ 62.5 mls/hr 1X ONCE 04/06/19 21:45 04/06/19 21:31 DC Sodium Phosphate 13 mmol/Dextrose 254.3333 ml @ 63.557 m... 1X ONCE 04/06/19 21:45 04/07/19 01:45 DC 04/06/19 22:14 63.557 MLS/HR Succinylcholine Chloride (Anectine) 100 mg 1X ONCE 04/06/19 10:00 04/06/19 10:04 DC Vancomycin HCl (Vanco Per Pharmacy) 1 each PRN DAILY PRN 04/06/19 17:45 04/07/19 10:59 1 EACH Vancomycin HCl (Vancomycin Trough Level) 1 each 1X ONCE 04/08/19 19:30 04/08/19 19:31 Vancomycin HCl 500 mg/Sodium Chloride 100 ml @ 100 mls/hr Q24H 04/07/19 20:00 04/07/19 22:43 100 MLS/HR Vancomycin HCl 1 gm/Sodium Chloride 250 ml @ 250 mls/hr 1X ONCE 04/06/19 18:00 04/06/19 18:59 DC 04/06/19 19:51 250 MLS/HR Labs: Lab Laboratory Tests Test 04/07/19 09:42 04/07/19 13:45 04/07/19 20:25 04/08/19 04:00 O2 Saturation 99 % (92-99) 98 % (92-99) Arterial Blood pH 7.56 (7.35-7.45) 7.43 (7.35-7.45) Arterial Blood pCO2 at Patient Temp 27 mmHg (35-46) 35 mmHg (35-46) Arterial Blood pO2 at Patient Temp 153 mmHg (65-108) 107 mmHg (65-108) Arterial Blood HCO3 24 mmol/L (21-28) 23 mmol/L (21-28) Arterial Blood Base Excess 2 mmol/L (-3-3) -1 mmol/L (-3-3) FiO2 40 40 Sodium Level 143 mmol/L (136-145) 142 mmol/L (136-145) Potassium Level 3.7 mmol/L (3.5-5.1) 3.8 mmol/L (3.5-5.1) Chloride Level 107 mmol/L (98-107) 108 mmol/L (98-107) Carbon Dioxide Level 24 mmol/L (21-32) 21 mmol/L (21-32) Anion Gap 12 (6-14) 13 (6-14) Blood Urea Nitrogen 18 mg/dL (7-20) 15 mg/dL (7-20) Creatinine 0.6 mg/dL (0.6-1.0) 0.6 mg/dL (0.6-1.0) Estimated GFR (Cockcroft-Gault) 117.6 117.6 BUN/Creatinine Ratio 30 (6-20) Glucose Level 110 mg/dL (70-99) 102 mg/dL (70-99) Calcium Level 8.7 mg/dL (8.5-10.1) 8.6 mg/dL (8.5-10.1) Phosphorus Level 4.6 mg/dL (2.6-4.7) Magnesium Level 1.7 mg/dL (1.8-2.4) Total Bilirubin 0.7 mg/dL (0.2-1.0) Aspartate Amino Transf (AST/SGOT) 72 U/L (15-37) Alanine Aminotransferase (ALT/SGPT) 104 U/L (14-59) Alkaline Phosphatase 74 U/L (46-116) Total Protein 6.4 g/dL (6.4-8.2) Albumin 3.0 g/dL (3.4-5.0) Albumin/Globulin Ratio 0.9 (1.0-1.7) White Blood Count 6.4 x10^3/uL (4.0-11.0) Red Blood Count 3.87 x10^6/uL (3.50-5.40) Hemoglobin 11.8 g/dL (12.0-15.5) Hematocrit 35.0 % (36.0-47.0) Mean Corpuscular Volume 91 fL (79-100) Mean Corpuscular Hemoglobin 30 pg (25-35) Mean Corpuscular Hemoglobin Concent 34 g/dL (31-37) Red Cell Distribution Width 14.3 % (11.5-14.5) Platelet Count 159 x10^3/uL (140-400) Neutrophils (%) (Auto) 87 % (31-73) Lymphocytes (%) (Auto) 9 % (24-48) Monocytes (%) (Auto) 3 % (0-9) Eosinophils (%) (Auto) 0 % (0-3) Basophils (%) (Auto) 1 % (0-3) Neutrophils # (Auto) 5.5 x10^3/uL (1.8-7.7) Lymphocytes # (Auto) 0.6 x10^3/uL (1.0-4.8) Monocytes # (Auto) 0.2 x10^3/uL (0.0-1.1) Eosinophils # (Auto) 0.0 x10^3/uL (0.0-0.7) Basophils # (Auto) 0.0 x10^3/uL (0.0-0.2) Test 04/08/19 07:30 O2 Saturation 98 % (92-99) Arterial Blood pH 7.45 (7.35-7.45) Arterial Blood pCO2 at Patient Temp 24 mmHg (35-46) Arterial Blood pO2 at Patient Temp 111 mmHg (65-108) Arterial Blood HCO3 17 mmol/L (21-28) Arterial Blood Base Excess -6 mmol/L (-3-3) FiO2 40 Objective: Assessment: 1. Sepsis with hypotension, cultures negative,off levophed 2. Lactic acidosis.improved 3. Acute encephalopathy. CT head negative. 4. Acute respiratory failure, status post intubation and mechanical ventilation. 5. Transaminitis. 6. Elevated troponin. 7. Chronic obstructive pulmonary disease. 8. Diabetes type 2. Plan: Plan of Care cont Zosyn DC IV Vanc start zyvox Monitor labs f/u cultures Supportive care D/w nursing HAKEEM BURGER MD Apr 08, 2019 08:09
[2019-04-08 08:14] LABS: MAGNESIUM 1.7 mg/dL (1.8-2.4); PHOSPHORUS 3.8 mg/dL (2.6-4.7)
--- NOTE | 2019-04-08 08:44 | PDOC ---
ESTEFANY BONNER FRANCHISE MANAGER 04/08/19 0844: CARDIO Progress Notes Date and Time Date of Service 04/08/19 Subjective Subjective: Other (intubated ) Vitals Vitals Vital Signs Date Time Temp Pulse Resp B/P (MAP) Pulse Ox O2 Delivery O2 Flow Rate FiO2 04/08/19 07:32 100 Ventilator 04/08/19 06:00 64 24 121/56 (77) 04/08/19 04:00 97.3 97.3 Weight Weight [ ] Input and Output Intake and Output Intake and Output 04/08/19 06:59 Intake Total 3073.04 ml Output Total 1515 ml Balance 1558.04 ml Intake IV Total 3073.04 ml Output Urine Total 1515 ml Laboratory Labs Laboratory Tests Test 04/07/19 09:42 04/07/19 13:45 04/07/19 20:25 04/08/19 04:00 O2 Saturation 99 % (92-99) 98 % (92-99) Arterial Blood pH 7.56 (7.35-7.45) 7.43 (7.35-7.45) Arterial Blood pCO2 at Patient Temp 27 mmHg (35-46) 35 mmHg (35-46) Arterial Blood pO2 at Patient Temp 153 mmHg (65-108) 107 mmHg (65-108) Arterial Blood HCO3 24 mmol/L (21-28) 23 mmol/L (21-28) Arterial Blood Base Excess 2 mmol/L (-3-3) -1 mmol/L (-3-3) FiO2 40 40 Sodium Level 143 mmol/L (136-145) 142 mmol/L (136-145) Potassium Level 3.7 mmol/L (3.5-5.1) 3.8 mmol/L (3.5-5.1) Chloride Level 107 mmol/L (98-107) 108 mmol/L (98-107) Carbon Dioxide Level 24 mmol/L (21-32) 21 mmol/L (21-32) Anion Gap 12 (6-14) 13 (6-14) Blood Urea Nitrogen 18 mg/dL (7-20) 15 mg/dL (7-20) Creatinine 0.6 mg/dL (0.6-1.0) 0.6 mg/dL (0.6-1.0) Estimated GFR (Cockcroft-Gault) 117.6 117.6 BUN/Creatinine Ratio 30 (6-20) Glucose Level 110 mg/dL (70-99) 102 mg/dL (70-99) Calcium Level 8.7 mg/dL (8.5-10.1) 8.6 mg/dL (8.5-10.1) Phosphorus Level 4.6 mg/dL (2.6-4.7) 3.8 mg/dL (2.6-4.7) Magnesium Level 1.7 mg/dL (1.8-2.4) 1.7 mg/dL (1.8-2.4) Total Bilirubin 0.7 mg/dL (0.2-1.0) Aspartate Amino Transf (AST/SGOT) 72 U/L (15-37) Alanine Aminotransferase (ALT/SGPT) 104 U/L (14-59) Alkaline Phosphatase 74 U/L (46-116) Total Protein 6.4 g/dL (6.4-8.2) Albumin 3.0 g/dL (3.4-5.0) Albumin/Globulin Ratio 0.9 (1.0-1.7) White Blood Count 6.4 x10^3/uL (4.0-11.0) Red Blood Count 3.87 x10^6/uL (3.50-5.40) Hemoglobin 11.8 g/dL (12.0-15.5) Hematocrit 35.0 % (36.0-47.0) Mean Corpuscular Volume 91 fL (79-100) Mean Corpuscular Hemoglobin 30 pg (25-35) Mean Corpuscular Hemoglobin Concent 34 g/dL (31-37) Red Cell Distribution Width 14.3 % (11.5-14.5) Platelet Count 159 x10^3/uL (140-400) Neutrophils (%) (Auto) 87 % (31-73) Lymphocytes (%) (Auto) 9 % (24-48) Monocytes (%) (Auto) 3 % (0-9) Eosinophils (%) (Auto) 0 % (0-3) Basophils (%) (Auto) 1 % (0-3) Neutrophils # (Auto) 5.5 x10^3/uL (1.8-7.7) Lymphocytes # (Auto) 0.6 x10^3/uL (1.0-4.8) Monocytes # (Auto) 0.2 x10^3/uL (0.0-1.1) Eosinophils # (Auto) 0.0 x10^3/uL (0.0-0.7) Basophils # (Auto) 0.0 x10^3/uL (0.0-0.2) Test 04/08/19 07:30 O2 Saturation 98 % (92-99) Arterial Blood pH 7.45 (7.35-7.45) Arterial Blood pCO2 at Patient Temp 24 mmHg (35-46) Arterial Blood pO2 at Patient Temp 111 mmHg (65-108) Arterial Blood HCO3 17 mmol/L (21-28) Arterial Blood Base Excess -6 mmol/L (-3-3) FiO2 40 Microbiology Micro Microbiology 04/06/19 Blood Culture - Preliminary, Resulted NO GROWTH AFTER 1 DAY Physical Exam HEENT: Neck Supple W Full Motion Chest: Symmetric LUNGS: Other (diminished, mechanical vent ) Heart: S1S2, RRR Abdomen: Other (soft ) Extremities: No Edema Neurology: alert, other (intubated ) Assessment Assessment 1. Acute respiratory failure secondary to AE COPD; s/p intubation. 2. Lactic acidosis, ? sepsis. 3. Mild troponin elevation; peak 0.8. Most probably type II, demand ischemia in the setting of above. Recent echo with preserved LV function with an EF of 65- 70%, no WMA. 4. Hypokalemia and hypomagnesemia: Replacement ongoing 5. Diabetes, II; as per PCP 6. Transaminitis Recommendations Lipids panel ASA Supportive care from a CV standpoint. Follow pulmonary recs Consider outpatient ischemic evaluation. MIC ROCHA MD 04/08/192041: CARDIO Progress Notes Assessment Assessment Patient seen and examined. Agree with FORMULATOR's assessment and plan. Tele did not show any significant arrhythmias Continue vent management per pulm team Slight trop elevation demand ischemia Recent 2D echo showed normal LVF Plan ischemic eval as outpatient ESTEFANY BONNER APRN Apr 08, 2019 08:44 MIC ROCHA MD Apr 08, 2019 20:42
[2019-04-08] MEDS ORDERED: MAGNESIUM SULFATE 4GM 100 ML IV PRN (09:00)
[2019-04-08] MEDS: ELECTROLYTE (ICU) PROTOCOL. MC SCH (09:00)
[2019-04-08] MEDS: CHLORHEXIDINE 0.12% 15 ML MOUTHWASH. MM SCH (10:08)
--- NOTE | 2019-04-08 10:55 | PDOC ---
PULMONARY PROGRESS NOTES Subjective doing well on AC mode Vitals Vital Signs Date Time Temp Pulse Resp B/P (MAP) Pulse Ox O2 Delivery O2 Flow Rate FiO2 04/08/19 07:32 100 Ventilator 04/08/19 06:00 64 24 121/56 (77) 04/08/19 04:00 97.3 97.3 Lungs: Clear Cardiovascular: S1 Abdomen: Soft Neuro Exam: Alert Extremities: No Edema Skin: Warm Labs Laboratory Tests Test 04/06/19 11:40 04/06/19 12:32 04/06/19 18:05 04/06/19 19:45 O2 Saturation 99 % (92-99) Arterial Blood pH 7.48 (7.35-7.45) Arterial Blood pCO2 at Patient Temp 33 mmHg (35-46) Arterial Blood pO2 at Patient Temp > 503 mmHg (65-108) Arterial Blood HCO3 24 mmol/L (21-28) Arterial Blood Base Excess 1 mmol/L (-3-3) Oxyhemoglobin 98.5 % Methemoglobin 0.5 % (0.0-1.9) Carbon Monoxide, Quantitative 0.3 % (0.0-1.9) FiO2 100 Lactic Acid Level 4.3 mmol/L (0.4-2.0) 2.5 mmol/L (0.4-2.0) Prothrombin Time 14.8 SEC (11.7-14.0) Prothromb Time International Ratio 1.2 (0.8-1.1) Activated Partial Thromboplast Time 23 SEC (24-38) Fibrinogen 356 mg/dL (200-440) D-Dimer (Kay) 3.80 ug/mlFEU (0.00-0.50) Phosphorus Level 1.0 mg/dL (2.6-4.7) Troponin I Quantitative 0.817 ng/mL (0.000-0.055) Procalcitonin 0.69 ng/mL (0.00-0.10) Thyroid Stimulating Hormone (TSH) 3.077 uIU/mL (0.358-3.74) Test 04/06/19 23:15 04/07/19 00:05 04/07/19 05:04 04/07/19 07:10 Lactic Acid Level 1.4 mmol/L (0.4-2.0) Troponin I Quantitative 0.716 ng/mL (0.000-0.055) White Blood Count 4.9 x10^3/uL (4.0-11.0) 4.9 x10^3/uL (4.0-11.0) Red Blood Count 3.68 x10^6/uL (3.50-5.40) 3.72 x10^6/uL (3.50-5.40) Hemoglobin 11.3 g/dL (12.0-15.5) 11.3 g/dL (12.0-15.5) Hematocrit 33.0 % (36.0-47.0) 33.7 % (36.0-47.0) Mean Corpuscular Volume 90 fL (79-100) 91 fL (79-100) Mean Corpuscular Hemoglobin 31 pg (25-35) 31 pg (25-35) Mean Corpuscular Hemoglobin Concent 34 g/dL (31-37) 34 g/dL (31-37) Red Cell Distribution Width 13.2 % (11.5-14.5) 13.5 % (11.5-14.5) Platelet Count 155 x10^3/uL (140-400) 164 x10^3/uL (140-400) Neutrophils (%) (Auto) 57 % (31-73) 53 % (31-73) Lymphocytes (%) (Auto) 32 % (24-48) 36 % (24-48) Monocytes (%) (Auto) 8 % (0-9) 8 % (0-9) Eosinophils (%) (Auto) 2 % (0-3) 2 % (0-3) Basophils (%) (Auto) 1 % (0-3) 1 % (0-3) Neutrophils # (Auto) 2.8 x10^3/uL (1.8-7.7) 2.6 x10^3/uL (1.8-7.7) Lymphocytes # (Auto) 1.6 x10^3/uL (1.0-4.8) 1.8 x10^3/uL (1.0-4.8) Monocytes # (Auto) 0.4 x10^3/uL (0.0-1.1) 0.4 x10^3/uL (0.0-1.1) Eosinophils # (Auto) 0.1 x10^3/uL (0.0-0.7) 0.1 x10^3/uL (0.0-0.7) Basophils # (Auto) 0.0 x10^3/uL (0.0-0.2) 0.0 x10^3/uL (0.0-0.2) Sodium Level 146 mmol/L (136-145) 146 mmol/L (136-145) Potassium Level 2.4 mmol/L (3.5-5.1) 2.0 mmol/L (3.5-5.1) Chloride Level 108 mmol/L (98-107) 109 mmol/L (98-107) Carbon Dioxide Level 25 mmol/L (21-32) 25 mmol/L (21-32) Anion Gap 13 (6-14) 12 (6-14) Blood Urea Nitrogen 18 mg/dL (7-20) 17 mg/dL (7-20) Creatinine 0.8 mg/dL (0.6-1.0) 0.8 mg/dL (0.6-1.0) Estimated GFR (Cockcroft-Gault) 84.4 84.4 BUN/Creatinine Ratio 23 (6-20) 21 (6-20) Glucose Level 86 mg/dL (70-99) 88 mg/dL (70-99) Calcium Level 8.3 mg/dL (8.5-10.1) 8.3 mg/dL (8.5-10.1) Phosphorus Level 2.2 mg/dL (2.6-4.7) Magnesium Level 1.7 mg/dL (1.8-2.4) Total Bilirubin 1.1 mg/dL (0.2-1.0) 1.0 mg/dL (0.2-1.0) Aspartate Amino Transf (AST/SGOT) 125 U/L (15-37) 106 U/L (15-37) Alanine Aminotransferase (ALT/SGPT) 130 U/L (14-59) 119 U/L (14-59) Alkaline Phosphatase 70 U/L (46-116) 67 U/L (46-116) Total Protein 6.0 g/dL (6.4-8.2) 5.9 g/dL (6.4-8.2) Albumin 2.9 g/dL (3.4-5.0) 2.9 g/dL (3.4-5.0) Albumin/Globulin Ratio 0.9 (1.0-1.7) 1.0 (1.0-1.7) Test 04/07/19 08:00 04/07/19 09:42 04/07/19 13:45 04/07/19 20:25 O2 Saturation 99 % (92-99) 99 % (92-99) 98 % (92-99) Arterial Blood pH 7.64 (7.35-7.45) 7.56 (7.35-7.45) 7.43 (7.35-7.45) Arterial Blood pCO2 at Patient Temp 19 mmHg (35-46) 27 mmHg (35-46) 35 mmHg (35-46) Arterial Blood pO2 at Patient Temp 127 mmHg (65-108) 153 mmHg (65-108) 107 mmHg (65-108) Arterial Blood HCO3 20 mmol/L (21-28) 24 mmol/L (21-28) 23 mmol/L (21-28) Arterial Blood Base Excess 1 mmol/L (-3-3) 2 mmol/L (-3-3) -1 mmol/L (-3-3) FiO2 40 40 40 Sodium Level 143 mmol/L (136-145) Potassium Level 3.7 mmol/L (3.5-5.1) Chloride Level 107 mmol/L (98-107) Carbon Dioxide Level 24 mmol/L (21-32) Anion Gap 12 (6-14) Blood Urea Nitrogen 18 mg/dL (7-20) Creatinine 0.6 mg/dL (0.6-1.0) Estimated GFR (Cockcroft-Gault) 117.6 BUN/Creatinine Ratio 30 (6-20) Glucose Level 110 mg/dL (70-99) Calcium Level 8.7 mg/dL (8.5-10.1) Phosphorus Level 4.6 mg/dL (2.6-4.7) Magnesium Level 1.7 mg/dL (1.8-2.4) Total Bilirubin 0.7 mg/dL (0.2-1.0) Aspartate Amino Transf (AST/SGOT) 72 U/L (15-37) Alanine Aminotransferase (ALT/SGPT) 104 U/L (14-59) Alkaline Phosphatase 74 U/L (46-116) Total Protein 6.4 g/dL (6.4-8.2) Albumin 3.0 g/dL (3.4-5.0) Albumin/Globulin Ratio 0.9 (1.0-1.7) Test 04/08/19 04:00 04/08/19 07:30 White Blood Count 6.4 x10^3/uL (4.0-11.0) Red Blood Count 3.87 x10^6/uL (3.50-5.40) Hemoglobin 11.8 g/dL (12.0-15.5) Hematocrit 35.0 % (36.0-47.0) Mean Corpuscular Volume 91 fL (79-100) Mean Corpuscular Hemoglobin 30 pg (25-35) Mean Corpuscular Hemoglobin Concent 34 g/dL (31-37) Red Cell Distribution Width 14.3 % (11.5-14.5) Platelet Count 159 x10^3/uL (140-400) Neutrophils (%) (Auto) 87 % (31-73) Lymphocytes (%) (Auto) 9 % (24-48) Monocytes (%) (Auto) 3 % (0-9) Eosinophils (%) (Auto) 0 % (0-3) Basophils (%) (Auto) 1 % (0-3) Neutrophils # (Auto) 5.5 x10^3/uL (1.8-7.7) Lymphocytes # (Auto) 0.6 x10^3/uL (1.0-4.8) Monocytes # (Auto) 0.2 x10^3/uL (0.0-1.1) Eosinophils # (Auto) 0.0 x10^3/uL (0.0-0.7) Basophils # (Auto) 0.0 x10^3/uL (0.0-0.2) Sodium Level 142 mmol/L (136-145) Potassium Level 3.8 mmol/L (3.5-5.1) Chloride Level 108 mmol/L (98-107) Carbon Dioxide Level 21 mmol/L (21-32) Anion Gap 13 (6-14) Blood Urea Nitrogen 15 mg/dL (7-20) Creatinine 0.6 mg/dL (0.6-1.0) Estimated GFR (Cockcroft-Gault) 117.6 Glucose Level 102 mg/dL (70-99) Calcium Level 8.6 mg/dL (8.5-10.1) Phosphorus Level 3.8 mg/dL (2.6-4.7) Magnesium Level 1.7 mg/dL (1.8-2.4) O2 Saturation 98 % (92-99) Arterial Blood pH 7.45 (7.35-7.45) Arterial Blood pCO2 at Patient Temp 24 mmHg (35-46) Arterial Blood pO2 at Patient Temp 111 mmHg (65-108) Arterial Blood HCO3 17 mmol/L (21-28) Arterial Blood Base Excess -6 mmol/L (-3-3) FiO2 40 Laboratory Tests Test 04/07/19 13:45 04/07/19 20:25 04/08/19 04:00 04/08/19 07:30 O2 Saturation 98 % (92-99) 98 % (92-99) Arterial Blood pH 7.43 (7.35-7.45) 7.45 (7.35-7.45) Arterial Blood pCO2 at Patient Temp 35 mmHg (35-46) 24 mmHg (35-46) Arterial Blood pO2 at Patient Temp 107 mmHg (65-108) 111 mmHg (65-108) Arterial Blood HCO3 23 mmol/L (21-28) 17 mmol/L (21-28) Arterial Blood Base Excess -1 mmol/L (-3-3) -6 mmol/L (-3-3) FiO2 40 40 Sodium Level 143 mmol/L (136-145) 142 mmol/L (136-145) Potassium Level 3.7 mmol/L (3.5-5.1) 3.8 mmol/L (3.5-5.1) Chloride Level 107 mmol/L (98-107) 108 mmol/L (98-107) Carbon Dioxide Level 24 mmol/L (21-32) 21 mmol/L (21-32) Anion Gap 12 (6-14) 13 (6-14) Blood Urea Nitrogen 18 mg/dL (7-20) 15 mg/dL (7-20) Creatinine 0.6 mg/dL (0.6-1.0) 0.6 mg/dL (0.6-1.0) Estimated GFR (Cockcroft-Gault) 117.6 117.6 BUN/Creatinine Ratio 30 (6-20) Glucose Level 110 mg/dL (70-99) 102 mg/dL (70-99) Calcium Level 8.7 mg/dL (8.5-10.1) 8.6 mg/dL (8.5-10.1) Phosphorus Level 4.6 mg/dL (2.6-4.7) 3.8 mg/dL (2.6-4.7) Magnesium Level 1.7 mg/dL (1.8-2.4) 1.7 mg/dL (1.8-2.4) Total Bilirubin 0.7 mg/dL (0.2-1.0) Aspartate Amino Transf (AST/SGOT) 72 U/L (15-37) Alanine Aminotransferase (ALT/SGPT) 104 U/L (14-59) Alkaline Phosphatase 74 U/L (46-116) Total Protein 6.4 g/dL (6.4-8.2) Albumin 3.0 g/dL (3.4-5.0) Albumin/Globulin Ratio 0.9 (1.0-1.7) White Blood Count 6.4 x10^3/uL (4.0-11.0) Red Blood Count 3.87 x10^6/uL (3.50-5.40) Hemoglobin 11.8 g/dL (12.0-15.5) Hematocrit 35.0 % (36.0-47.0) Mean Corpuscular Volume 91 fL (79-100) Mean Corpuscular Hemoglobin 30 pg (25-35) Mean Corpuscular Hemoglobin Concent 34 g/dL (31-37) Red Cell Distribution Width 14.3 % (11.5-14.5) Platelet Count 159 x10^3/uL (140-400) Neutrophils (%) (Auto) 87 % (31-73) Lymphocytes (%) (Auto) 9 % (24-48) Monocytes (%) (Auto) 3 % (0-9) Eosinophils (%) (Auto) 0 % (0-3) Basophils (%) (Auto) 1 % (0-3) Neutrophils # (Auto) 5.5 x10^3/uL (1.8-7.7) Lymphocytes # (Auto) 0.6 x10^3/uL (1.0-4.8) Monocytes # (Auto) 0.2 x10^3/uL (0.0-1.1) Eosinophils # (Auto) 0.0 x10^3/uL (0.0-0.7) Basophils # (Auto) 0.0 x10^3/uL (0.0-0.2) Medications Active Scripts Medications Dose Route/Sig Max Daily Dose Days Date Category Dose Instructions Famotidine 10 Mg Tablet 1 Mg PO HS 04/06/19 Reported Loperamide (Loperamide Hcl) 2 Mg Tablet 2 Mg PO PRN Q4HRS 04/06/19 Reported Flonase Allergy Relief (Fluticasone Propionate) 9.9 Ml [place].susp 2 Sprays NS DAILY 04/06/19 Reported Midodrine Hcl 10 Mg Tablet 10 Mg PO TID 04/06/19 Reported Loperamide (Loperamide Hcl) 2 Mg Tablet 2 Mg PO PRN Q4-6HRS PRN 30 11/14/18 Rx Prednisone 20 Mg Tablet 1 Tab PO DAILY 11/14/18 Rx Humalog (Insulin Lispro) 100 Unit/1 Ml Insuln.pen 0 Units SQ TIDWMEALS 30 11/14/18 Rx BG 151-200 - 2u 201-250 - 3u 251-300 - 4u 301-350 - 5u >350 call Culturelle (Lactobacillus Rhamnosus Gg) 1 Each Cap.sprink 1 Cap PO BID 7 11/14/18 Rx Famotidine 20 Mg Tablet 20 Mg PO DAILY 30 11/14/18 Rx Acetaminophen Supp (Acetaminophen) 650 Mg Supp.rect 650 Mg AK PRN Q4HRS PRN 30 11/14/18 Rx Duoneb 0.5-3(2.5) Mg/3 Ml (Albuterol/Ipratropium) 3 Ml Ampul.neb 3 Ml NEB RTQID 30 11/14/18 Rx Amox Tr-K Clv 875-125 Mg Tab (Amoxicillin/Potassium Clav) 1 Each Tablet 1 Tab PO BID 2 11/14/18 Rx Comments cxr 04/07 ET right main stem Impression . 1. [id number]-nc-[id number] hypoxemic respiratory failure secondary to acute exacerbation of chronic obstructive pulmonary disease, acute bronchitis 2. Acute exacerbation of chronic obstructive pulmonary disease. 3. Acute bronchitis. 4. Diabetes mellitus. 5. Hypertension. 6. Questionable sepsis. Plan . 1. Titrate FiO2 to keep O2 saturation 94%. 2. dc sedation and do spontaneous breathing trial. 3. Solu-Medrol 4. Lovenox for DVT prophylaxis. 5. Pepcid for stress ulcer prophylaxis. 6. Continue antibiotic. 7. Follow up cultures. 8. Elevate head of bed. 9. The findings and recommendations were discussed with RN./ RT 10. will get cxr today and verify ET position SANTOS DORSEY MD Apr 08, 2019 10:54
[2019-04-08] MEDS ORDERED: SODIUM BICARB ADULT 8.4% 50 MEQ/50 ML DISP.SYRIN. IV ONE (11:00)
[2019-04-08] MEDS: MAGNESIUM SULFATE 4GM 100 ML IV SCH (11:00)
--- NOTE | 2019-04-08 11:03 | PDOC ---
PROGRESS NOTES History of Present Illness History of Present Illness VTE Prophylaxis Ordered VTE Prophylaxis Devices: Yes VTE Pharmacological Prophylaxi: Yes Assessment/Plan Assessment/Plan IMPRESSION acute SEVERE Hypercarbic respiratory failure. REQUIRING VENT SUPPORT Lactic acidosis. Asthma. Diabetes. POSSIBLE ASPIRATION PNEUMONITIS sepsis WITH HYPOTENSION uti acute metabolic encephalopathy severe hypokalemia SEVERE PROTEIN, CALORIC MALNUTRITION ELEVATED TROPONIN I ADMIT ICU BED PULM CONSULT IV ZOSYN, vanc DVT PROPHYLAXIS blood and urine cultures sepsis protocol pressor support prn gi prophylaxis id consult replete K CARDIOLOGY following ECHO Consider outpatient ischemic evaluation. now DNR STATUS, EXTUBATED 35 MIN CC TIME Vitals Vitals Vital Signs Date Time Temp Pulse Resp B/P (MAP) Pulse Ox O2 Delivery O2 Flow Rate FiO2 04/08/19 07:32 100 Ventilator 04/08/19 06:00 64 24 121/56 (77) 04/08/19 04:00 97.3 97.3 Physical Exam Physical Exam GENERAL: orally intubated and opens eyes comfortable Mittens. HEENT: Pupils equally round and small. OGT and ETT in place. NECK: Supple. LUNGS: Mechanical breath sounds. HEART: S1 and S2, bradycardia 50s, regular. ABDOMEN: Mildly distended, soft. Bowel sounds present. GENITOURINARY: Indwelling Acevedo in place. EXTREMITIES: No gross edema or cyanosis. Peripheral IV. SKIN: Warm to touch. No signs of rash. NEUROLOGIC: Sedated. General: Cooperative, Other (Intubated) Heart: Regular rate Lungs: Clear Abdomen: Normal bowel sounds, Soft, No tenderness Extremities: No clubbing, No cyanosis, No edema Labs LABS CT scan of the head without contrast 04/06/2019 . Clinical History: Headaches Technique: Unenhanced, contiguous, 5 mm axial sections were obtained through the head. One or more of the following individualized dose reduction techniques were utilized for this study: 1. Automated exposure control. 2. Adjustment of the mA and/or kV according to patient size. 3. Use of iterative reconstruction technique. Findings: Comparison study is dated 11/07/2018. There is generalized parenchymal atrophy. Areas of decreased attenuation are seen within the periventricular and subcortical white matter of both cerebral hemispheres consistent with areas of small vessel ischemic disease. No acute parenchymal abnormality is seen. No extra-axial fluid collection is noted. No skull fracture is seen. Impression: No acute intracranial abnormality is seen. Electronically signed by: Shubham Yañez MD (04/06/2019 10:35 AM) [facility] PATIENT: LAN JACKSON ACCT: [id number] LOC: 1 [facility] ICU U: [id number] AGE/SX: 78/F ROOM: [facility] RE04/06/[address]: TORSTEN MILLER MD : [id number] BED: 1 DIS: STATUS: ADM IN TLOC: SPEC #: [id number] STEFAN: 04/06/19 STATUS: RES REQ #: [id number] RECD: 04/06/[address]: MARJORIE LEMOS DO SOURCE: BLOOD ENTR: 04/06/[address] [facility] [address]: MONIQUE ORNELAS MD SPDC: ORDERED: BCULT Procedure Result BLOOD CULTURE Preliminary NO GROWTH AFTER 2 DAYS -- AP portable chest radiograph 04/17/2019 Clinical History: Respiratory failure. An AP erect portable digital radiograph of the chest was obtained. Comparison study is dated 04/06/2019. The tip of the NG tube extends to overlie the right main bronchus 1 cm below the level of the fabian. The NG tube is unchanged in position. The cardiac silhouette is normal in size. Atherosclerotic calcification thoracic aorta is seen. No acute pulmonary infiltrate is noted. No pneumothorax or pleural effusion is seen. The osseous structures are unchanged. Impression: The tip of the ET tube extends to overlie the right main bronchus 1 cm below the level of fabian. The patient's nurse was notified of this finding. Electronically signed by: Shubham Yañez MD (04/07/2019 3:17 PM) [facility] Laboratory Tests Test 04/07/19 13:45 04/07/19 20:25 04/08/19 04:00 04/08/19 07:30 O2 Saturation 98 % (92-99) 98 % (92-99) Arterial Blood pH 7.43 (7.35-7.45) 7.45 (7.35-7.45) Arterial Blood pCO2 at Patient Temp 35 mmHg (35-46) 24 mmHg (35-46) Arterial Blood pO2 at Patient Temp 107 mmHg (65-108) 111 mmHg (65-108) Arterial Blood HCO3 23 mmol/L (21-28) 17 mmol/L (21-28) Arterial Blood Base Excess -1 mmol/L (-3-3) -6 mmol/L (-3-3) FiO2 40 40 Sodium Level 143 mmol/L (136-145) 142 mmol/L (136-145) Potassium Level 3.7 mmol/L (3.5-5.1) 3.8 mmol/L (3.5-5.1) Chloride Level 107 mmol/L (98-107) 108 mmol/L (98-107) Carbon Dioxide Level 24 mmol/L (21-32) 21 mmol/L (21-32) Anion Gap 12 (6-14) 13 (6-14) Blood Urea Nitrogen 18 mg/dL (7-20) 15 mg/dL (7-20) Creatinine 0.6 mg/dL (0.6-1.0) 0.6 mg/dL (0.6-1.0) Estimated GFR (Cockcroft-Gault) 117.6 117.6 BUN/Creatinine Ratio 30 (6-20) Glucose Level 110 mg/dL (70-99) 102 mg/dL (70-99) Calcium Level 8.7 mg/dL (8.5-10.1) 8.6 mg/dL (8.5-10.1) Phosphorus Level 4.6 mg/dL (2.6-4.7) 3.8 mg/dL (2.6-4.7) Magnesium Level 1.7 mg/dL (1.8-2.4) 1.7 mg/dL (1.8-2.4) Total Bilirubin 0.7 mg/dL (0.2-1.0) Aspartate Amino Transf (AST/SGOT) 72 U/L (15-37) Alanine Aminotransferase (ALT/SGPT) 104 U/L (14-59) Alkaline Phosphatase 74 U/L (46-116) Total Protein 6.4 g/dL (6.4-8.2) Albumin 3.0 g/dL (3.4-5.0) Albumin/Globulin Ratio 0.9 (1.0-1.7) White Blood Count 6.4 x10^3/uL (4.0-11.0) Red Blood Count 3.87 x10^6/uL (3.50-5.40) Hemoglobin 11.8 g/dL (12.0-15.5) Hematocrit 35.0 % (36.0-47.0) Mean Corpuscular Volume 91 fL (79-100) Mean Corpuscular Hemoglobin 30 pg (25-35) Mean Corpuscular Hemoglobin Concent 34 g/dL (31-37) Red Cell Distribution Width 14.3 % (11.5-14.5) Platelet Count 159 x10^3/uL (140-400) Neutrophils (%) (Auto) 87 % (31-73) Lymphocytes (%) (Auto) 9 % (24-48) Monocytes (%) (Auto) 3 % (0-9) Eosinophils (%) (Auto) 0 % (0-3) Basophils (%) (Auto) 1 % (0-3) Neutrophils # (Auto) 5.5 x10^3/uL (1.8-7.7) Lymphocytes # (Auto) 0.6 x10^3/uL (1.0-4.8) Monocytes # (Auto) 0.2 x10^3/uL (0.0-1.1) Eosinophils # (Auto) 0.0 x10^3/uL (0.0-0.7) Basophils # (Auto) 0.0 x10^3/uL (0.0-0.2) Assessment and Plan Assessmemt and Plan Problems Medical Problems: (1) Acute bronchitis Status: Acute (2) COPD exacerbation Status: Acute (3) Diabetes mellitus Status: Chronic (4) HTN (hypertension) Status: Chronic (5) Hypercapnic respiratory failure Status: Acute (6) Respiratory failure Status: Acute (7) UTI (urinary tract infection) Status: Acute Comment Review of Relevant I have reviewed the following items melody (where applicable) has been applied. Labs Laboratory Tests Test 04/06/19 11:40 04/06/19 12:32 04/06/19 18:05 04/06/19 19:45 O2 Saturation 99 % (92-99) Arterial Blood pH 7.48 (7.35-7.45) Arterial Blood pCO2 at Patient Temp 33 mmHg (35-46) Arterial Blood pO2 at Patient Temp > 503 mmHg (65-108) Arterial Blood HCO3 24 mmol/L (21-28) Arterial Blood Base Excess 1 mmol/L (-3-3) Oxyhemoglobin 98.5 % Methemoglobin 0.5 % (0.0-1.9) Carbon Monoxide, Quantitative 0.3 % (0.0-1.9) FiO2 100 Lactic Acid Level 4.3 mmol/L (0.4-2.0) 2.5 mmol/L (0.4-2.0) Prothrombin Time 14.8 SEC (11.7-14.0) Prothromb Time International Ratio 1.2 (0.8-1.1) Activated Partial Thromboplast Time 23 SEC (24-38) Fibrinogen 356 mg/dL (200-440) D-Dimer (Kay) 3.80 ug/mlFEU (0.00-0.50) Phosphorus Level 1.0 mg/dL (2.6-4.7) Troponin I Quantitative 0.817 ng/mL (0.000-0.055) Procalcitonin 0.69 ng/mL (0.00-0.10) Thyroid Stimulating Hormone (TSH) 3.077 uIU/mL (0.358-3.74) Test 04/06/19 23:15 04/07/19 00:05 04/07/19 05:04 04/07/19 07:10 Lactic Acid Level 1.4 mmol/L (0.4-2.0) Troponin I Quantitative 0.716 ng/mL (0.000-0.055) White Blood Count 4.9 x10^3/uL (4.0-11.0) 4.9 x10^3/uL (4.0-11.0) Red Blood Count 3.68 x10^6/uL (3.50-5.40) 3.72 x10^6/uL (3.50-5.40) Hemoglobin 11.3 g/dL (12.0-15.5) 11.3 g/dL (12.0-15.5) Hematocrit 33.0 % (36.0-47.0) 33.7 % (36.0-47.0) Mean Corpuscular Volume 90 fL (79-100) 91 fL (79-100) Mean Corpuscular Hemoglobin 31 pg (25-35) 31 pg (25-35) Mean Corpuscular Hemoglobin Concent 34 g/dL (31-37) 34 g/dL (31-37) Red Cell Distribution Width 13.2 % (11.5-14.5) 13.5 % (11.5-14.5) Platelet Count 155 x10^3/uL (140-400) 164 x10^3/uL (140-400) Neutrophils (%) (Auto) 57 % (31-73) 53 % (31-73) Lymphocytes (%) (Auto) 32 % (24-48) 36 % (24-48) Monocytes (%) (Auto) 8 % (0-9) 8 % (0-9) Eosinophils (%) (Auto) 2 % (0-3) 2 % (0-3) Basophils (%) (Auto) 1 % (0-3) 1 % (0-3) Neutrophils # (Auto) 2.8 x10^3/uL (1.8-7.7) 2.6 x10^3/uL (1.8-7.7) Lymphocytes # (Auto) 1.6 x10^3/uL (1.0-4.8) 1.8 x10^3/uL (1.0-4.8) Monocytes # (Auto) 0.4 x10^3/uL (0.0-1.1) 0.4 x10^3/uL (0.0-1.1) Eosinophils # (Auto) 0.1 x10^3/uL (0.0-0.7) 0.1 x10^3/uL (0.0-0.7) Basophils # (Auto) 0.0 x10^3/uL (0.0-0.2) 0.0 x10^3/uL (0.0-0.2) Sodium Level 146 mmol/L (136-145) 146 mmol/L (136-145) Potassium Level 2.4 mmol/L (3.5-5.1) 2.0 mmol/L (3.5-5.1) Chloride Level 108 mmol/L (98-107) 109 mmol/L (98-107) Carbon Dioxide Level 25 mmol/L (21-32) 25 mmol/L (21-32) Anion Gap 13 (6-14) 12 (6-14) Blood Urea Nitrogen 18 mg/dL (7-20) 17 mg/dL (7-20) Creatinine 0.8 mg/dL (0.6-1.0) 0.8 mg/dL (0.6-1.0) Estimated GFR (Cockcroft-Gault) 84.4 84.4 BUN/Creatinine Ratio 23 (6-20) 21 (6-20) Glucose Level 86 mg/dL (70-99) 88 mg/dL (70-99) Calcium Level 8.3 mg/dL (8.5-10.1) 8.3 mg/dL (8.5-10.1) Phosphorus Level 2.2 mg/dL (2.6-4.7) Magnesium Level 1.7 mg/dL (1.8-2.4) Total Bilirubin 1.1 mg/dL (0.2-1.0) 1.0 mg/dL (0.2-1.0) Aspartate Amino Transf (AST/SGOT) 125 U/L (15-37) 106 U/L (15-37) Alanine Aminotransferase (ALT/SGPT) 130 U/L (14-59) 119 U/L (14-59) Alkaline Phosphatase 70 U/L (46-116) 67 U/L (46-116) Total Protein 6.0 g/dL (6.4-8.2) 5.9 g/dL (6.4-8.2) Albumin 2.9 g/dL (3.4-5.0) 2.9 g/dL (3.4-5.0) Albumin/Globulin Ratio 0.9 (1.0-1.7) 1.0 (1.0-1.7) Test 04/07/19 08:00 04/07/19 09:42 04/07/19 13:45 04/07/19 20:25 O2 Saturation 99 % (92-99) 99 % (92-99) 98 % (92-99) Arterial Blood pH 7.64 (7.35-7.45) 7.56 (7.35-7.45) 7.43 (7.35-7.45) Arterial Blood pCO2 at Patient Temp 19 mmHg (35-46) 27 mmHg (35-46) 35 mmHg (35-46) Arterial Blood pO2 at Patient Temp 127 mmHg (65-108) 153 mmHg (65-108) 107 mmHg (65-108) Arterial Blood HCO3 20 mmol/L (21-28) 24 mmol/L (21-28) 23 mmol/L (21-28) Arterial Blood Base Excess 1 mmol/L (-3-3) 2 mmol/L (-3-3) -1 mmol/L (-3-3) FiO2 40 40 40 Sodium Level 143 mmol/L (136-145) Potassium Level 3.7 mmol/L (3.5-5.1) Chloride Level 107 mmol/L (98-107) Carbon Dioxide Level 24 mmol/L (21-32) Anion Gap 12 (6-14) Blood Urea Nitrogen 18 mg/dL (7-20) Creatinine 0.6 mg/dL (0.6-1.0) Estimated GFR (Cockcroft-Gault) 117.6 BUN/Creatinine Ratio 30 (6-20) Glucose Level 110 mg/dL (70-99) Calcium Level 8.7 mg/dL (8.5-10.1) Phosphorus Level 4.6 mg/dL (2.6-4.7) Magnesium Level 1.7 mg/dL (1.8-2.4) Total Bilirubin 0.7 mg/dL (0.2-1.0) Aspartate Amino Transf (AST/SGOT) 72 U/L (15-37) Alanine Aminotransferase (ALT/SGPT) 104 U/L (14-59) Alkaline Phosphatase 74 U/L (46-116) Total Protein 6.4 g/dL (6.4-8.2) Albumin 3.0 g/dL (3.4-5.0) Albumin/Globulin Ratio 0.9 (1.0-1.7) Test 04/08/19 04:00 04/08/19 07:30 White Blood Count 6.4 x10^3/uL (4.0-11.0) Red Blood Count 3.87 x10^6/uL (3.50-5.40) Hemoglobin 11.8 g/dL (12.0-15.5) Hematocrit 35.0 % (36.0-47.0) Mean Corpuscular Volume 91 fL (79-100) Mean Corpuscular Hemoglobin 30 pg (25-35) Mean Corpuscular Hemoglobin Concent 34 g/dL (31-37) Red Cell Distribution Width 14.3 % (11.5-14.5) Platelet Count 159 x10^3/uL (140-400) Neutrophils (%) (Auto) 87 % (31-73) Lymphocytes (%) (Auto) 9 % (24-48) Monocytes (%) (Auto) 3 % (0-9) Eosinophils (%) (Auto) 0 % (0-3) Basophils (%) (Auto) 1 % (0-3) Neutrophils # (Auto) 5.5 x10^3/uL (1.8-7.7) Lymphocytes # (Auto) 0.6 x10^3/uL (1.0-4.8) Monocytes # (Auto) 0.2 x10^3/uL (0.0-1.1) Eosinophils # (Auto) 0.0 x10^3/uL (0.0-0.7) Basophils # (Auto) 0.0 x10^3/uL (0.0-0.2) Sodium Level 142 mmol/L (136-145) Potassium Level 3.8 mmol/L (3.5-5.1) Chloride Level 108 mmol/L (98-107) Carbon Dioxide Level 21 mmol/L (21-32) Anion Gap 13 (6-14) Blood Urea Nitrogen 15 mg/dL (7-20) Creatinine 0.6 mg/dL (0.6-1.0) Estimated GFR (Cockcroft-Gault) 117.6 Glucose Level 102 mg/dL (70-99) Calcium Level 8.6 mg/dL (8.5-10.1) Phosphorus Level 3.8 mg/dL (2.6-4.7) Magnesium Level 1.7 mg/dL (1.8-2.4) O2 Saturation 98 % (92-99) Arterial Blood pH 7.45 (7.35-7.45) Arterial Blood pCO2 at Patient Temp 24 mmHg (35-46) Arterial Blood pO2 at Patient Temp 111 mmHg (65-108) Arterial Blood HCO3 17 mmol/L (21-28) Arterial Blood Base Excess -6 mmol/L (-3-3) FiO2 40 Laboratory Tests Test 04/07/19 13:45 04/07/19 20:25 04/08/19 04:00 04/08/19 07:30 O2 Saturation 98 % (92-99) 98 % (92-99) Arterial Blood pH 7.43 (7.35-7.45) 7.45 (7.35-7.45) Arterial Blood pCO2 at Patient Temp 35 mmHg (35-46) 24 mmHg (35-46) Arterial Blood pO2 at Patient Temp 107 mmHg (65-108) 111 mmHg (65-108) Arterial Blood HCO3 23 mmol/L (21-28) 17 mmol/L (21-28) Arterial Blood Base Excess -1 mmol/L (-3-3) -6 mmol/L (-3-3) FiO2 40 40 Sodium Level 143 mmol/L (136-145) 142 mmol/L (136-145) Potassium Level 3.7 mmol/L (3.5-5.1) 3.8 mmol/L (3.5-5.1) Chloride Level 107 mmol/L (98-107) 108 mmol/L (98-107) Carbon Dioxide Level 24 mmol/L (21-32) 21 mmol/L (21-32) Anion Gap 12 (6-14) 13 (6-14) Blood Urea Nitrogen 18 mg/dL (7-20) 15 mg/dL (7-20) Creatinine 0.6 mg/dL (0.6-1.0) 0.6 mg/dL (0.6-1.0) Estimated GFR (Cockcroft-Gault) 117.6 117.6 BUN/Creatinine Ratio 30 (6-20) Glucose Level 110 mg/dL (70-99) 102 mg/dL (70-99) Calcium Level 8.7 mg/dL (8.5-10.1) 8.6 mg/dL (8.5-10.1) Phosphorus Level 4.6 mg/dL (2.6-4.7) 3.8 mg/dL (2.6-4.7) Magnesium Level 1.7 mg/dL (1.8-2.4) 1.7 mg/dL (1.8-2.4) Total Bilirubin 0.7 mg/dL (0.2-1.0) Aspartate Amino Transf (AST/SGOT) 72 U/L (15-37) Alanine Aminotransferase (ALT/SGPT) 104 U/L (14-59) Alkaline Phosphatase 74 U/L (46-116) Total Protein 6.4 g/dL (6.4-8.2) Albumin 3.0 g/dL (3.4-5.0) Albumin/Globulin Ratio 0.9 (1.0-1.7) White Blood Count 6.4 x10^3/uL (4.0-11.0) Red Blood Count 3.87 x10^6/uL (3.50-5.40) Hemoglobin 11.8 g/dL (12.0-15.5) Hematocrit 35.0 % (36.0-47.0) Mean Corpuscular Volume 91 fL (79-100) Mean Corpuscular Hemoglobin 30 pg (25-35) Mean Corpuscular Hemoglobin Concent 34 g/dL (31-37) Red Cell Distribution Width 14.3 % (11.5-14.5) Platelet Count 159 x10^3/uL (140-400) Neutrophils (%) (Auto) 87 % (31-73) Lymphocytes (%) (Auto) 9 % (24-48) Monocytes (%) (Auto) 3 % (0-9) Eosinophils (%) (Auto) 0 % (0-3) Basophils (%) (Auto) 1 % (0-3) Neutrophils # (Auto) 5.5 x10^3/uL (1.8-7.7) Lymphocytes # (Auto) 0.6 x10^3/uL (1.0-4.8) Monocytes # (Auto) 0.2 x10^3/uL (0.0-1.1) Eosinophils # (Auto) 0.0 x10^3/uL (0.0-0.7) Basophils # (Auto) 0.0 x10^3/uL (0.0-0.2) Microbiology 04/06/19 Blood Culture - Preliminary, Resulted NO GROWTH AFTER 1 DAY Medications Current Medications Sodium Chloride 1,000 ml @ 1,000 mls/hr 1X ONCE IV Last administered on 04/06/19at 08:28; Start 04/06/19 at 08:15; Stop 04/06/19 at 09:14; Status DC Piperacillin Sod/ Tazobactam Sod 3.375 gm/Sodium Chloride 50 ml @ 100 mls/hr 1X ONCE IV Last administered on 04/06/19at 08:28; Start 04/06/19 at 08:15; Stop 04/06/19 at 08:44; Status DC Acetaminophen (Tylenol Supp) 650 mg 1X ONCE ID Last administered on 04/06/19at 08:31; Start 04/06/19 at 08:30; Stop 04/06/19 at 08:31; Status DC Propofol (Diprivan) 200 mg 1X ONCE IV ; Start 04/06/19 at 10:00; Stop 04/06/19 at 10:04; Status DC Etomidate (Amidate) 20 mg 1X ONCE IV ; Start 04/06/19 at 10:00; Stop 04/06/19 at 10:04; Status DC Succinylcholine Chloride (Anectine) 100 mg 1X ONCE IV ; Start 04/06/19 at 10:00; Stop 04/06/19 at 10:04; Status DC Ondansetron HCl (Zofran) 4 mg PRN Q8HRS PRN IV NAUSEA/VOMITING; Start 04/06/19 at 10:15; Stop 04/07/19 at 10:14; Status DC Sodium Chloride 1,000 ml @ 75 mls/hr [id number] IV Last administered on 04/06/19at 11:01; Start 04/06/19 at 10:14; Stop 04/06/19 at 18:06; Status DC Propofol 100 ml @ 1.239 mls/ hr CONT PRN IV SEE PROTOCOL Last administered on 04/08/19at 06:45; Start 04/06/19 at 10:15 Chlorhexidine Gluconate (Peridex) 15 ml BID MM Last administered on 04/08/19at 10:10; Start 04/06/19 at 21:00 Piperacillin Sod/ Tazobactam Sod 3.375 gm/Sodium Chloride 50 ml @ 100 mls/hr Q6HRS IV Last administered on 04/08/19at 05:40; Start 04/06/19 at 13:00 Enoxaparin Sodium (Lovenox 40mg Syringe) 40 mg HS SQ Last administered on 04/07/19at 22:15; Start 04/06/19 at 21:00 Vancomycin HCl (Vanco Per Pharmacy) 1 each PRN DAILY PRN MC SEE COMMENTS Last administered on 04/07/19at 10:59; Start 04/06/19 at 17:45; Stop 04/08/19 at 08:12; Status DC Sodium Chloride 1,000 ml @ 1,500 mls/hr Q40M IV Last administered on 04/06/19at 18:36; Start 04/06/19 at 17:43; Stop 04/06/19 at 18:42; Status DC Sodium Chloride 500 ml @ 1,000 mls/hr PRN Q30MIN PRN IV SEE COMMENTS; Start 04/06/19 at 17:45 Norepinephrine Bitartrate 250 ml @ 0 mls/hr CONT PRN IV SEE I/O RECORD; Start 04/06/19 at 17:45 Dobutamine HCl/ Dextrose 250 ml @ 0 mls/hr CONT PRN IV SEE I/O RECORD; Start 04/06/19 at 17:45 Vancomycin HCl 1 gm/Sodium Chloride 250 ml @ 250 mls/hr 1X ONCE IV Last administered on 04/06/19at 19:51; Start 04/06/19 at 18:00; Stop 04/06/19 at 18:59; Status DC Ondansetron HCl (Zofran) 4 mg PRN Q6HRS PRN IV NAUSEA/VOMITING; Start 04/06/19 at 17:45 Famotidine (Pepcid Vial) 20 mg HS IVP Last administered on 04/07/19at 22:15; Start 04/06/19 at 21:00 Info (Icu Electrolyte Protocol) 1 ea DAILY MC Last administered on 04/07/19at 09:04; Start 04/07/19 at 09:00 Enoxaparin Sodium (Lovenox 40mg Syringe) 40 mg Q24H SQ ; Start 04/06/19 at 18:00; Status Cancel Sodium Chloride (Normal Saline Flush) 3 ml QSHIFT PRN IV AFTER MEDS AND BLOOD DRAWS; Start 04/06/19 at 17:45 Sodium Chloride 1,000 ml @ 100 mls/hr Q10H IV Last administered on 04/08/19at 00:12; Start 04/06/19 at 17:45 Vancomycin HCl 500 mg/Sodium Chloride 100 ml @ 100 mls/hr Q24H IV Last administered on 04/07/19at 22:43; Start 04/07/19 at 20:00; Stop 04/08/19 at 08:09; Status DC Vancomycin HCl (Vancomycin Trough Level) 1 each 1X ONCE MC ; Start 04/08/19 at 19:30; Stop 04/08/19 at 08:12; Status DC Sodium Phosphate 0.32 mmol/Dextrose 250.1067 ml @ 62.5 mls/hr 1X ONCE IV ; Start 04/06/19 at 21:45; Stop 04/06/19 at 21:31; Status DC Sodium Phosphate 13 mmol/Dextrose 254.3333 ml @ 63.557 m... 1X ONCE IV Last administered on 04/06/19at 22:14; Start 04/06/19 at 21:45; Stop 04/07/19 at 01:45; Status DC Atropine Sulfate (ATROPINE 1mg SYRINGE) 1 mg STK-MED ONCE .ROUTE ; Start 04/07/19 at 00:56; Stop 04/07/19 at 00:56; Status DC Methylprednisolone Sodium Succinate (SOLU-Medrol 40MG VIAL) 40 mg Q8HRS IV Last administered on 04/08/19at 05:40; Start 04/07/19 at 06:30 Dexmedetomidine HCl 400 mcg/ Sodium Chloride 100 ml @ 2.05 mls/hr CONT PRN IV anxiety with weaning. Last administered on 04/07/19at 08:22; Start 04/07/19 at 08:00 Potassium Chloride/Water 100 ml @ 100 mls/hr Q1H IV Last administered on 04/08/19at 00:12; Start 04/07/19 at 08:15; Stop 04/07/19 at 20:14; Status DC Linezolid/Dextrose 300 ml @ 300 mls/hr Q12HR IV Last administered on 04/08/19at 10:10; Start 04/08/19 at 09:00 Magnesium Sulfate 100 ml @ 50 mls/hr PRN DAILY PRN IV SEE COMMENTS; Start 04/08 at 09:00; Stop 04/08/19 at 10:13; Status DC Magnesium Sulfate 100 ml @ 50 mls/hr DAILY IV Last administered on 04/08/19at 11 :01; Start 04/08/19 at 10:30; Stop 04/10/19 at 10:59 Sodium Bicarbonate (Sodium Bicarb Adult 8.4% Syr) 50 meq 1X ONCE IV ; Start 04/08/19 at 11:00; Stop 04/08/19 at 11:01; Status DC Active Scripts Active Loperamide (Loperamide Hcl) 2 Mg Tablet 2 Mg PO PRN Q4-6HRS PRN 30 Days Prednisone 20 Mg Tablet 1 Tab PO DAILY Humalog (Insulin Lispro) 100 Unit/1 Ml Insuln.pen 0 Units SQ TIDWMEALS 30 Days BG 151-200 - 2u 201-250 - 3u 251-300 - 4u 301-350 - 5u >350 call MD Sandoval (Lactobacillus Rhamnosus Gg) 1 Each Cap.sprink 1 Cap PO BID 7 Days Famotidine 20 Mg Tablet 20 Mg PO DAILY 30 Days Acetaminophen Supp (Acetaminophen) 650 Mg Supp.rect 650 Mg ID PRN Q4HRS PRN 30 Days Duoneb 0.5-3(2.5) Mg/3 Ml (Albuterol/Ipratropium) 3 Ml Ampul.neb 3 Ml NEB RTQID 30 Days Amox Tr-K Clv 875-125 Mg Tab (Amoxicillin/Potassium Clav) 1 Each Tablet 1 Tab PO BID 2 Days Reported Famotidine 10 Mg Tablet 1 Mg PO HS Loperamide (Loperamide Hcl) 2 Mg Tablet 2 Mg PO PRN Q4HRS Flonase Allergy Relief (Fluticasone Propionate) 9.9 Ml Clymer.susp 2 Sprays NS DAILY Midodrine Hcl 10 Mg Tablet 10 Mg PO TID Vitals/I & O Vital Sign - Last 24 Hours 04/07/19 04/07/19 04/07/19 04/07/19 11:50 12:00 12:00 13:00 Temp 97.9 97.9 Pulse 48 64 B/P (MAP) 148/70 (96) 198/93 (128) Pulse Ox 100 100 100 O2 Delivery Ventilator Ventilator Mechanical Ventilator Ventilator 04/07/19 04/07/19 04/07/19 04/07/19 13:05 14:00 15:00 15:39 Pulse 62 48 B/P (MAP) 134/64 (87) 111/57 (75) Pulse Ox 100 100 100 O2 Delivery Ventilator Ventilator Ventilator Ventilator 04/07/19 04/07/19 04/07/19 04/07/19 16:00 16:00 17:00 17:30 Temp 97.7 97.7 Pulse 46 40 B/P (MAP) 112/64 (80) 158/62 (94) Pulse Ox 100 100 100 O2 Delivery Ventilator Mechanical Ventilator Ventilator Ventilator 04/07/19 04/07/19 04/07/19 04/07/19 18:00 20:00 20:22 21:00 Pulse 40 88 Resp 24 B/P (MAP) 147/65 (92) 186/75 (112) Pulse Ox 100 100 100 O2 Delivery Ventilator Mechanical Ventilator Ventilator Ventilator 04/07/19 04/07/19 04/08/19 04/08/19 22:00 23:00 00:00 00:00 Temp 97.4 97.4 Pulse 88 45 45 Resp 24 24 24 B/P (MAP) 159/69 (99) 156/72 (100) 185/83 (117) Pulse Ox 100 100 100 O2 Delivery Ventilator Ventilator Ventilator Mechanical Ventilator 04/08/19 04/08/19 04/08/19 04/08/19 00:09 01:00 02:00 02:16 Pulse 45 44 Resp 24 24 B/P (MAP) 147/67 (93) 148/64 (92) Pulse Ox 100 100 100 100 O2 Delivery Ventilator Ventilator Ventilator Ventilator 04/08/19 04/08/19 04/08/19 04/08/19 03:00 04:00 04:00 05:00 Temp 97.3 97.3 Pulse 55 48 60 Resp 24 24 24 B/P (MAP) 158/66 (96) 161/61 (94) Pulse Ox 100 100 100 O2 Delivery Ventilator Ventilator Mechanical Ventilator Ventilator 04/08/19 04/08/19 04/08/19 05:08 06:00 07:32 Pulse 64 Resp 24 B/P (MAP) 121/56 (77) Pulse Ox 100 100 100 O2 Delivery Ventilator Ventilator Ventilator Intake and Output 04/07/19 04/07/19 04/08/19 14:59 22:59 06:59 Intake Total 300 ml 387.04 ml 2386 ml Output Total 385 ml 475 ml 655 ml Balance -85 ml -87.96 ml 1731 ml TORSTEN MILLER MD Apr 08, 2019 11:03
[2019-04-08 11:40] LABS: BASE EXCESS ABG -2 mmol/L (-3-3); HCO3 ABG 20 mmol/L (21-28); PCO2 ABG 28 mmHg (35-46); PO2 ABG 100 mmHg (65-108); SAT O2 ABG 98 % (92-99)
[2019-04-08 11:42] LABS: FIO2 ABG 40
[2019-04-08] MEDS: ASPIRIN ENTERIC COATED 81 MG TABLET.DR. PO SCH (12:00)
[2019-04-08] MEDS ORDERED: MAGNESIUM SULFATE 1GM 100 ML IV ONE (12:30)
[2019-04-08 12:35] LABS: CHOLESTEROL/HDL RATIO 2.8
--- NOTE | 2019-04-08 15:30 | NUR ---
SS following for discharge planning. SS reviewed pt chart and received notification that pt was from [facility], ; fax [phone]. SS contacted [facility] and verified that pt was a LTC resident from there facility and was able to return when medically stable for discharge. SS will continue to follow for discharge planning.
--- NOTE | 2019-04-08 17:30 | RAD ---
Examination: CERVICAL SPINE 1V History: Inability to turn head to the right Comparison/Correlation: None Findings: Frontal views of the cervical spine were obtained. Degenerative changes of the uncovertebral joints noted. No fracture or bony destruction. Dextroconvexity of the upper thoracic spine is partially visualized. Interstitial thickening of the lung apices appear to be present. Impression: No suspicious process. Electronically signed by: Med Walker MD (04/08/2019 5:28 PM) [facility]
[2019-04-08] MEDS: ENOXAPARIN 40 MG/0.4 ML SYRINGE. SQ SCH (21:20)
[2019-04-08] MEDS: FAMOTIDINE 20 MG/2 ML VIAL IVP SCH (21:20)
--- NOTE | 2019-04-08 23:24 | NUR ---
Pt increasingly alert so far this shift. Pt is alert and oriented to self, with confusion and delusions noted. Pt stated "The man with the cane yesterday came in here to kill people. There was a line of people waiting to be lied to and killed by him. Close the door. Close the door. There are bad people out there." Pt reminded that she is in [facility] in the ICU and that she was just extubated today. Pt stated "Well I'm leaving tomorrow and I'm not telling anyone where I'm going. I don't trust anyone but myself." Pt reoriented to situation, time, and location. Pt currently resting with eyes closed and call light within reach.
[2019-04-09] VITALS (24 sets, daily range): BP systolic 67–171; BP diastolic 41–71
[2019-04-09] MEDS: IV NORMAL SALINE 1000ML BAG 1,000 ML IV SCH ×3 (00:03→20:45)
[2019-04-09] MEDS: PIPERACILLIN/TAZOBACTAM 3.375 GM in IV NORMAL SALINE 50ML 50 ML IV SCH ×5 (00:03→23:32)
[2019-04-09 05:08] LABS: BASO % 0 % (0-3); EOS % 0 % (0-3); HEMATOCRIT 37.9 % (36.0-47.0); HEMOGLOBIN 12.5 g/dL (12.0-15.5); LYMPH # 0.4 x10^3/uL (1.0-4.8); LYMPH % 4 % (24-48); MEAN CORPUSCULAR HEMOGLOBIN 30 pg (25-35); MEAN CORPUSCULAR HGB CONC 33 g/dL (31-37); MEAN CORPUSCULAR VOLUME 92 fL (79-100); MONO # 0.3 x10^3/uL (0.0-1.1); MONO % 3 % (0-9); NEUT # 9.7 x10^3/uL (1.8-7.7); NEUT % 93 % (31-73); PLATELET COUNT 169 x10^3/uL (140-400); RED BLOOD COUNT 4.11 x10^6/uL (3.50-5.40); RED CELL DISTRIBUTION WIDTH 14.7 % (11.5-14.5); WHITE BLOOD COUNT 10.4 x10^3/uL (4.0-11.0)
[2019-04-09 05:18] LABS: ALBUMIN 2.7 g/dL (3.4-5.0); ALBUMIN/GLOBULIN RATIO 0.8 (1.0-1.7); CALCIUM 8.4 mg/dL (8.5-10.1); CREATININE 0.5 mg/dL (0.6-1.0); GFR 145.1; MAGNESIUM 2.2 mg/dL (1.8-2.4); POTASSIUM 3.6 mmol/L (3.5-5.1); TOTAL BILIRUBIN 0.3 mg/dL (0.2-1.0); TOTAL PROTEIN 6.2 g/dL (6.4-8.2)
[2019-04-09] MEDS: methylPREDNISolone SOD SUCC PF 40 MG/ML VIAL. IV SCH ×3 (05:57→22:26)
--- NOTE | 2019-04-09 07:28 | PDOC ---
Infectious Disease Note Subjective: Subjective Pt extubated, tachypneic resting quietly has loose bm no fevers d/w rn ROS: ROS unable to obtain Vital Signs: Vital Signs Vital Signs Date Time Temp Pulse Resp B/P (MAP) Pulse Ox O2 Delivery O2 Flow Rate FiO2 04/09/19 06:00 64 40 94/41 (58) 100 Nasal Cannula 4.0 04/09/19 04:00 98.0 98.0 Physical Exam: PHYSICAL EXAM GENERAL:pt sleeping, opens eyes, comfortable HEENT: anicteric NECK: Supple. LUNGS: bs dec at bases , HEART: S1 and S2, egular. ABDOMEN: Mildly distended, soft. Bowel sounds present. GENITOURINARY: Indwelling Acevedo in place. EXTREMITIES: No gross edema or cyanosis. Peripheral IV. SKIN: Warm to touch. No signs of rash. NEUROLOGIC: sleeping ,arousable Medications: Inpatient Meds: Current Medications Medications (Trade) Dose Ordered Sig/Usman Start Time Stop Time Status Last Admin Dose Admin Acetaminophen (Tylenol Supp) 650 mg 1X ONCE 04/06/19 08:30 04/06/19 08:31 DC 04/06/19 08:31 650 MG Aspirin (Ecotrin) 81 mg DAILYWBKFT 04/08/19 12:00 Atropine Sulfate (ATROPINE 1mg SYRINGE) 1 mg STK-MED ONCE 04/07/19 00:56 04/07/19 00:56 DC Chlorhexidine Gluconate (Peridex) 15 ml BID 04/06/19 21:00 04/08/19 21:23 DC 04/08/19 10:10 15 ML Dexmedetomidine HCl 400 mcg/ Sodium Chloride 100 ml @ 2.05 mls/hr CONT PRN 04/07/19 08:00 04/07/19 08:22 2.05 MLS/HR Dobutamine HCl/ Dextrose 250 ml @ 0 mls/hr CONT PRN 04/06/19 17:45 Enoxaparin Sodium (Lovenox 40mg Syringe) 40 mg Q24H 04/06/19 18:00 Cancel Etomidate (Amidate) 20 mg 1X ONCE 04/06/19 10:00 04/06/19 10:04 DC Famotidine (Pepcid Vial) 20 mg HS 04/06/19 21:00 04/08/19 21:20 20 MG Info ([facility] Electrolyte Protocol) 1 ea DAILY 04/07/19 09:00 04/08/19 11:05 1 EA Linezolid/Dextrose 300 ml @ 300 mls/hr Q12HR 04/08/19 09:00 04/08/19 21:20 300 MLS/HR Magnesium Sulfate 100 ml @ 50 mls/hr DAILY 04/08/19 10:30 04/10/19 10:59 04/08/19 11:01 50 MLS/HR Magnesium Sulfate/ Dextrose 100 ml @ 100 mls/hr 1X ONCE 04/08/19 12:30 04/08/19 13:29 UNV Methylprednisolone Sodium Succinate (SOLU-Medrol 40MG VIAL) 40 mg Q8HRS 04/07/19 06:30 04/09/19 05:57 40 MG Norepinephrine Bitartrate 250 ml @ 0 mls/hr CONT PRN 04/06/19 17:45 Ondansetron HCl (Zofran) 4 mg PRN Q6HRS PRN 04/06/19 17:45 Piperacillin Sod/ Tazobactam Sod 3.375 gm/Sodium Chloride 50 ml @ 100 mls/hr Q6HRS 04/06/19 13:00 04/09/19 05:57 100 MLS/HR Potassium Chloride/Water 100 ml @ 100 mls/hr Q1H 04/07/19 08:15 04/07/19 20:14 DC 04/08/19 00:12 100 MLS/HR Propofol 100 ml @ 1.239 mls/ hr CONT PRN 04/06/19 10:15 04/08/19 21:23 DC 04/08/19 06:45 1.239 MLS/HR Propofol (Diprivan) 200 mg 1X ONCE 04/06/19 10:00 04/06/19 10:04 DC Sodium Bicarbonate (Sodium Bicarb Adult 8.4% Syr) 50 meq 1X ONCE 04/08/19 11:00 04/08/19 11:01 DC 04/08/19 11:02 50 MEQ Sodium Chloride 1,000 ml @ 100 mls/hr Q10H 04/06/19 17:45 04/09/19 00:03 100 MLS/HR Sodium Chloride (Normal Saline Flush) 3 ml QSHIFT PRN 04/06/19 17:45 Sodium Phosphate 0.32 mmol/Dextrose 250.1067 ml @ 62.5 mls/hr 1X ONCE 04/06/19 21:45 04/06/19 21:31 DC Sodium Phosphate 13 mmol/Dextrose 254.3333 ml @ 63.557 m... 1X ONCE 04/06/19 21:45 04/07/19 01:45 DC 04/06/19 22:14 63.557 MLS/HR Succinylcholine Chloride (Anectine) 100 mg 1X ONCE 04/06/19 10:00 04/06/19 10:04 DC Vancomycin HCl (Vanco Per Pharmacy) 1 each PRN DAILY PRN 04/06/19 17:45 04/08/19 08:12 DC 04/07/19 10:59 1 EACH Vancomycin HCl (Vancomycin Trough Level) 1 each 1X ONCE 04/08/19 19:30 04/08/19 08:12 DC Vancomycin HCl 500 mg/Sodium Chloride 100 ml @ 100 mls/hr Q24H 04/07/19 20:00 04/08/19 08:09 DC 04/07/19 22:43 100 MLS/HR Vancomycin HCl 1 gm/Sodium Chloride 250 ml @ 250 mls/hr 1X ONCE 04/06/19 18:00 04/06/19 18:59 DC 04/06/19 19:51 250 MLS/HR Labs: Lab Laboratory Tests Test 04/08/19 07:30 04/08/19 11:30 04/09/19 04:40 O2 Saturation 98 % (92-99) 98 % (92-99) Arterial Blood pH 7.45 (7.35-7.45) 7.47 (7.35-7.45) Arterial Blood pCO2 at Patient Temp 24 mmHg (35-46) 28 mmHg (35-46) Arterial Blood pO2 at Patient Temp 111 mmHg (65-108) 100 mmHg (65-108) Arterial Blood HCO3 17 mmol/L (21-28) 20 mmol/L (21-28) Arterial Blood Base Excess -6 mmol/L (-3-3) -2 mmol/L (-3-3) FiO2 40 40 White Blood Count 10.4 x10^3/uL (4.0-11.0) Red Blood Count 4.11 x10^6/uL (3.50-5.40) Hemoglobin 12.5 g/dL (12.0-15.5) Hematocrit 37.9 % (36.0-47.0) Mean Corpuscular Volume 92 fL (79-100) Mean Corpuscular Hemoglobin 30 pg (25-35) Mean Corpuscular Hemoglobin Concent 33 g/dL (31-37) Red Cell Distribution Width 14.7 % (11.5-14.5) Platelet Count 169 x10^3/uL (140-400) Neutrophils (%) (Auto) 93 % (31-73) Lymphocytes (%) (Auto) 4 % (24-48) Monocytes (%) (Auto) 3 % (0-9) Eosinophils (%) (Auto) 0 % (0-3) Basophils (%) (Auto) 0 % (0-3) Neutrophils # (Auto) 9.7 x10^3/uL (1.8-7.7) Lymphocytes # (Auto) 0.4 x10^3/uL (1.0-4.8) Monocytes # (Auto) 0.3 x10^3/uL (0.0-1.1) Eosinophils # (Auto) 0.0 x10^3/uL (0.0-0.7) Basophils # (Auto) 0.0 x10^3/uL (0.0-0.2) Sodium Level 145 mmol/L (136-145) Potassium Level 3.6 mmol/L (3.5-5.1) Chloride Level 109 mmol/L (98-107) Carbon Dioxide Level 31 mmol/L (21-32) Anion Gap 5 (6-14) Blood Urea Nitrogen 11 mg/dL (7-20) Creatinine 0.5 mg/dL (0.6-1.0) Estimated GFR (Cockcroft-Gault) 145.1 BUN/Creatinine Ratio 22 (6-20) Glucose Level 119 mg/dL (70-99) Calcium Level 8.4 mg/dL (8.5-10.1) Magnesium Level 2.2 mg/dL (1.8-2.4) Total Bilirubin 0.3 mg/dL (0.2-1.0) Aspartate Amino Transf (AST/SGOT) 31 U/L (15-37) Alanine Aminotransferase (ALT/SGPT) 63 U/L (14-59) Alkaline Phosphatase 65 U/L (46-116) Total Protein 6.2 g/dL (6.4-8.2) Albumin 2.7 g/dL (3.4-5.0) Albumin/Globulin Ratio 0.8 (1.0-1.7) Objective: Assessment: 1. Sepsis with hypotension, cultures negative,off levophed 2. Lactic acidosis.improved 3. Acute encephalopathy. CT head negative. 4. Acute respiratory failure, status post intubation and mechanical ventilation.now extubated 5. Transaminitis. 6. Elevated troponin. 7. Chronic obstructive pulmonary disease. 8. Diabetes type 2. Plan: Plan of Care cont Zosyn DC zyvox Monitor labs f/u cultures Supportive care check c diff pcr D/w nursing HAKEEM BURGER MD Apr 09, 2019 07:28
[2019-04-09] MEDS: ASPIRIN ENTERIC COATED 81 MG TABLET.DR. PO SCH (08:00)
[2019-04-09 08:42] LABS: BASE EXCESS ABG -1 mmol/L (-3-3); HCO3 ABG 28 mmol/L (21-28); PO2 ABG 65 mmHg (65-108); SAT O2 ABG 92 % (92-99)
[2019-04-09] MEDS ORDERED: DEXTROSE 50% 25 GM / 50ML DISP.SYRIN. IV ONE (08:45)
[2019-04-09 08:49] LABS: FIO2 ABG 36; PCO2 ABG 68 mmHg (35-46)
[2019-04-09] MEDS: MAGNESIUM SULFATE 4GM 100 ML IV SCH (09:00)
[2019-04-09] MEDS: ELECTROLYTE (ICU) PROTOCOL. MC SCH (09:00)
[2019-04-09] MEDS: DEXTROSE 50% 25 GM / 50ML DISP.SYRIN. IV PRN ×3 (09:34→17:46)
--- NOTE | 2019-04-09 10:42 | PDOC ---
PULMONARY PROGRESS NOTES Subjective EXTUBATED 04/08 BECAME LETHARGIC/ HYPOGLYCEMIC THIS AM. RESP ACIDOSIS/ LETHARGIC BACK ON BIPAP Vitals Vital Signs Date Time Temp Pulse Resp B/P (MAP) Pulse Ox O2 Delivery O2 Flow Rate FiO2 04/09/19 09:50 BiPAP/CPAP 04/09/19 09:05 96 04/09/19 06:00 64 40 94/41 (58) 4.0 04/09/19 04:00 98.0 98.0 General: Lethargic, Mild Distress Lungs: Other (rhonchi) Cardiovascular: S1 Abdomen: Soft Neuro Exam: Alert Extremities: No Edema Skin: Warm Labs Laboratory Tests Test 04/07/19 13:45 04/07/19 20:25 04/08/19 04:00 04/08/19 07:30 O2 Saturation 98 % (92-99) 98 % (92-99) Arterial Blood pH 7.43 (7.35-7.45) 7.45 (7.35-7.45) Arterial Blood pCO2 at Patient Temp 35 mmHg (35-46) 24 mmHg (35-46) Arterial Blood pO2 at Patient Temp 107 mmHg (65-108) 111 mmHg (65-108) Arterial Blood HCO3 23 mmol/L (21-28) 17 mmol/L (21-28) Arterial Blood Base Excess -1 mmol/L (-3-3) -6 mmol/L (-3-3) FiO2 40 40 Sodium Level 143 mmol/L (136-145) 142 mmol/L (136-145) Potassium Level 3.7 mmol/L (3.5-5.1) 3.8 mmol/L (3.5-5.1) Chloride Level 107 mmol/L (98-107) 108 mmol/L (98-107) Carbon Dioxide Level 24 mmol/L (21-32) 21 mmol/L (21-32) Anion Gap 12 (6-14) 13 (6-14) Blood Urea Nitrogen 18 mg/dL (7-20) 15 mg/dL (7-20) Creatinine 0.6 mg/dL (0.6-1.0) 0.6 mg/dL (0.6-1.0) Estimated GFR (Cockcroft-Gault) 117.6 117.6 BUN/Creatinine Ratio 30 (6-20) Glucose Level 110 mg/dL (70-99) 102 mg/dL (70-99) Calcium Level 8.7 mg/dL (8.5-10.1) 8.6 mg/dL (8.5-10.1) Phosphorus Level 4.6 mg/dL (2.6-4.7) 3.8 mg/dL (2.6-4.7) Magnesium Level 1.7 mg/dL (1.8-2.4) 1.7 mg/dL (1.8-2.4) Total Bilirubin 0.7 mg/dL (0.2-1.0) Aspartate Amino Transf (AST/SGOT) 72 U/L (15-37) Alanine Aminotransferase (ALT/SGPT) 104 U/L (14-59) Alkaline Phosphatase 74 U/L (46-116) Total Protein 6.4 g/dL (6.4-8.2) Albumin 3.0 g/dL (3.4-5.0) Albumin/Globulin Ratio 0.9 (1.0-1.7) White Blood Count 6.4 x10^3/uL (4.0-11.0) Red Blood Count 3.87 x10^6/uL (3.50-5.40) Hemoglobin 11.8 g/dL (12.0-15.5) Hematocrit 35.0 % (36.0-47.0) Mean Corpuscular Volume 91 fL (79-100) Mean Corpuscular Hemoglobin 30 pg (25-35) Mean Corpuscular Hemoglobin Concent 34 g/dL (31-37) Red Cell Distribution Width 14.3 % (11.5-14.5) Platelet Count 159 x10^3/uL (140-400) Neutrophils (%) (Auto) 87 % (31-73) Lymphocytes (%) (Auto) 9 % (24-48) Monocytes (%) (Auto) 3 % (0-9) Eosinophils (%) (Auto) 0 % (0-3) Basophils (%) (Auto) 1 % (0-3) Neutrophils # (Auto) 5.5 x10^3/uL (1.8-7.7) Lymphocytes # (Auto) 0.6 x10^3/uL (1.0-4.8) Monocytes # (Auto) 0.2 x10^3/uL (0.0-1.1) Eosinophils # (Auto) 0.0 x10^3/uL (0.0-0.7) Basophils # (Auto) 0.0 x10^3/uL (0.0-0.2) Triglycerides Level 77 mg/dL (0-150) Cholesterol Level 172 mg/dL (0-200) LDL Cholesterol, Calculated 95 mg/dL (0-100) VLDL Cholesterol, Calculated 15 mg/dL (0-40) Non-HDL Cholesterol Calculated 110 mg/dL (0-129) HDL Cholesterol 62 mg/dL (40-60) Cholesterol/HDL Ratio 2.8 Test 04/08/19 11:30 04/09/19 04:40 04/09/19 08:43 04/09/19 08:44 O2 Saturation 98 % (92-99) 92 % (92-99) Arterial Blood pH 7.47 (7.35-7.45) 7.24 (7.35-7.45) Arterial Blood pCO2 at Patient Temp 28 mmHg (35-46) 68 mmHg (35-46) Arterial Blood pO2 at Patient Temp 100 mmHg (65-108) 65 mmHg (65-108) Arterial Blood HCO3 20 mmol/L (21-28) 28 mmol/L (21-28) Arterial Blood Base Excess -2 mmol/L (-3-3) -1 mmol/L (-3-3) FiO2 40 36 White Blood Count 10.4 x10^3/uL (4.0-11.0) Red Blood Count 4.11 x10^6/uL (3.50-5.40) Hemoglobin 12.5 g/dL (12.0-15.5) Hematocrit 37.9 % (36.0-47.0) Mean Corpuscular Volume 92 fL (79-100) Mean Corpuscular Hemoglobin 30 pg (25-35) Mean Corpuscular Hemoglobin Concent 33 g/dL (31-37) Red Cell Distribution Width 14.7 % (11.5-14.5) Platelet Count 169 x10^3/uL (140-400) Neutrophils (%) (Auto) 93 % (31-73) Lymphocytes (%) (Auto) 4 % (24-48) Monocytes (%) (Auto) 3 % (0-9) Eosinophils (%) (Auto) 0 % (0-3) Basophils (%) (Auto) 0 % (0-3) Neutrophils # (Auto) 9.7 x10^3/uL (1.8-7.7) Lymphocytes # (Auto) 0.4 x10^3/uL (1.0-4.8) Monocytes # (Auto) 0.3 x10^3/uL (0.0-1.1) Eosinophils # (Auto) 0.0 x10^3/uL (0.0-0.7) Basophils # (Auto) 0.0 x10^3/uL (0.0-0.2) Sodium Level 145 mmol/L (136-145) Potassium Level 3.6 mmol/L (3.5-5.1) Chloride Level 109 mmol/L (98-107) Carbon Dioxide Level 31 mmol/L (21-32) Anion Gap 5 (6-14) Blood Urea Nitrogen 11 mg/dL (7-20) Creatinine 0.5 mg/dL (0.6-1.0) Estimated GFR (Cockcroft-Gault) 145.1 BUN/Creatinine Ratio 22 (6-20) Glucose Level 119 mg/dL (70-99) Calcium Level 8.4 mg/dL (8.5-10.1) Magnesium Level 2.2 mg/dL (1.8-2.4) Total Bilirubin 0.3 mg/dL (0.2-1.0) Aspartate Amino Transf (AST/SGOT) 31 U/L (15-37) Alanine Aminotransferase (ALT/SGPT) 63 U/L (14-59) Alkaline Phosphatase 65 U/L (46-116) Total Protein 6.2 g/dL (6.4-8.2) Albumin 2.7 g/dL (3.4-5.0) Albumin/Globulin Ratio 0.8 (1.0-1.7) Glucose (Fingerstick) 52 mg/dL (70-99) Test 04/09/19 08:55 04/09/19 09:30 Glucose (Fingerstick) 65 mg/dL (70-99) 58 mg/dL (70-99) Laboratory Tests Test 04/08/19 11:30 04/09/19 04:40 04/09/19 08:43 04/09/19 08:44 O2 Saturation 98 % (92-99) 92 % (92-99) Arterial Blood pH 7.47 (7.35-7.45) 7.24 (7.35-7.45) Arterial Blood pCO2 at Patient Temp 28 mmHg (35-46) 68 mmHg (35-46) Arterial Blood pO2 at Patient Temp 100 mmHg (65-108) 65 mmHg (65-108) Arterial Blood HCO3 20 mmol/L (21-28) 28 mmol/L (21-28) Arterial Blood Base Excess -2 mmol/L (-3-3) -1 mmol/L (-3-3) FiO2 40 36 White Blood Count 10.4 x10^3/uL (4.0-11.0) Red Blood Count 4.11 x10^6/uL (3.50-5.40) Hemoglobin 12.5 g/dL (12.0-15.5) Hematocrit 37.9 % (36.0-47.0) Mean Corpuscular Volume 92 fL (79-100) Mean Corpuscular Hemoglobin 30 pg (25-35) Mean Corpuscular Hemoglobin Concent 33 g/dL (31-37) Red Cell Distribution Width 14.7 % (11.5-14.5) Platelet Count 169 x10^3/uL (140-400) Neutrophils (%) (Auto) 93 % (31-73) Lymphocytes (%) (Auto) 4 % (24-48) Monocytes (%) (Auto) 3 % (0-9) Eosinophils (%) (Auto) 0 % (0-3) Basophils (%) (Auto) 0 % (0-3) Neutrophils # (Auto) 9.7 x10^3/uL (1.8-7.7) Lymphocytes # (Auto) 0.4 x10^3/uL (1.0-4.8) Monocytes # (Auto) 0.3 x10^3/uL (0.0-1.1) Eosinophils # (Auto) 0.0 x10^3/uL (0.0-0.7) Basophils # (Auto) 0.0 x10^3/uL (0.0-0.2) Sodium Level 145 mmol/L (136-145) Potassium Level 3.6 mmol/L (3.5-5.1) Chloride Level 109 mmol/L (98-107) Carbon Dioxide Level 31 mmol/L (21-32) Anion Gap 5 (6-14) Blood Urea Nitrogen 11 mg/dL (7-20) Creatinine 0.5 mg/dL (0.6-1.0) Estimated GFR (Cockcroft-Gault) 145.1 BUN/Creatinine Ratio 22 (6-20) Glucose Level 119 mg/dL (70-99) Calcium Level 8.4 mg/dL (8.5-10.1) Magnesium Level 2.2 mg/dL (1.8-2.4) Total Bilirubin 0.3 mg/dL (0.2-1.0) Aspartate Amino Transf (AST/SGOT) 31 U/L (15-37) Alanine Aminotransferase (ALT/SGPT) 63 U/L (14-59) Alkaline Phosphatase 65 U/L (46-116) Total Protein 6.2 g/dL (6.4-8.2) Albumin 2.7 g/dL (3.4-5.0) Albumin/Globulin Ratio 0.8 (1.0-1.7) Glucose (Fingerstick) 52 mg/dL (70-99) Test 04/09/19 08:55 04/09/19 09:30 Glucose (Fingerstick) 65 mg/dL (70-99) 58 mg/dL (70-99) Medications Active Scripts Medications Dose Route/Sig Max Daily Dose Days Date Category Dose Instructions Famotidine 10 Mg Tablet 1 Mg PO HS 04/06/19 Reported Loperamide (Loperamide Hcl) 2 Mg Tablet 2 Mg PO PRN Q4HRS 04/06/19 Reported Flonase Allergy Relief (Fluticasone Propionate) 9.9 Ml Killbuck.susp 2 Sprays NS DAILY 04/06/19 Reported Midodrine Hcl 10 Mg Tablet 10 Mg PO TID 04/06/19 Reported Loperamide (Loperamide Hcl) 2 Mg Tablet 2 Mg PO PRN Q4-6HRS PRN 30 11/14/18 Rx Prednisone 20 Mg Tablet 1 Tab PO DAILY 11/14/18 Rx Humalog (Insulin Lispro) 100 Unit/1 Ml Insuln.pen 0 Units SQ TIDWMEALS 30 11/14/18 Rx BG 151-200 - 2u 201-250 - 3u 251-300 - 4u 301-350 - 5u >350 call MD Sandoval (Lactobacillus Rhamnosus Gg) 1 Each Cap.sprink 1 Cap PO BID 7 11/14/18 Rx Famotidine 20 Mg Tablet 20 Mg PO DAILY 30 11/14/18 Rx Acetaminophen Supp (Acetaminophen) 650 Mg Supp.rect 650 Mg DE PRN Q4HRS PRN 30 11/14/18 Rx Duoneb 0.5-3(2.5) Mg/3 Ml (Albuterol/Ipratropium) 3 Ml Ampul.neb 3 Ml NEB RTQID 30 11/14/18 Rx Amox Tr-K Clv 875-125 Mg Tab (Amoxicillin/Potassium Clav) 1 Each Tablet 1 Tab PO BID 2 11/14/18 Rx Comments cxr 04/08 chf Impression . 1. Nhlfx-uh-isgqvdu hypoxemic respiratory failure secondary to acute exacerbation of chronic obstructive pulmonary disease, acute bronchitis/ extubated 04/08. BECAME LETHARGIC/ HYPOGLYCEMIC THIS AM. RESP ACIDOSIS/ LETHARGIC BACK ON BIPAP 2. Acute exacerbation of chronic obstructive pulmonary disease. 3. Acute bronchitis. 4. Diabetes mellitus. 5. Hypertension. 6. Questionable sepsis. 7. Hypoglycemic encephalopathy 8. Acute on chronic hypercapnic RF 9. Abnormal cxr with CHF Plan . 1. BIPAP/ follow ABG/ Closely watch respiratory status. No re-intubation / DNR 2. Monitor BS closely 3. Solu-Medrol 4. Lovenox for DVT prophylaxis. 5. Pepcid for stress ulcer prophylaxis. 6. Continue antibiotic. 7. Follow up cultures. 8. lasix 9. The findings and recommendations were discussed with RN./ RT d/w RN/RT/ CCT 35 MIN SANTOS DORSEY MD Apr 09, 2019 10:42
--- NOTE | 2019-04-09 10:51 | RAD ---
PORTABLE CHEST 1V History: Increasing oxygen demand Comparison: April 07, 2019 Findings: Single view of the chest is submitted. There is now obscuration of left hemidiaphragm with probable small to moderate left pleural effusion and adjacent atelectasis/infiltrate. There is also new right base airspace opacity. No pneumothorax is identified. Heart size is similar. Previously seen enteric catheter and endotracheal tube have been removed. There is atherosclerotic calcification near the aortic arch. There is thoracic dextroscoliosis. Impression: 1. There is now left pleural effusion with adjacent atelectasis/infiltrate, also new right base infiltrate. Electronically signed by: Yash Encarnacion MD (04/09/2019 10:49 AM) [id number]
[2019-04-09] MEDS ORDERED: FUROSEMIDE 20 MG/2 ML VIAL. IVP ONE (11:00)
--- NOTE | 2019-04-09 11:06 | PDOC ---
[employer] PROGRESS NOTE Chief Complaint Chief Complaint Acute Respiratory Failure Hypercapnea Respiratory Failure HTN UTI Diabetes Mellitus Acute Bronchitis COPD History of Present Illness History of Present Illness 04/09/19 Pt seen and examined in ICU on BIPAP DW RN RN reports AMS; DW5 given but with no improvement to mental status Reviewed chart Vitals/I&O Vitals/I&O: Vital Signs Date Time Temp Pulse Resp B/P (MAP) Pulse Ox O2 Delivery O2 Flow Rate FiO2 04/09/19 09:50 BiPAP/CPAP 04/09/19 09:05 96 04/09/19 06:00 64 40 94/41 (58) 4.0 04/09/19 04:00 98.0 98.0 I & O 04/08/19 04/08/19 04/09/19 15:00 23:00 07:00 Intake Total 450 ml 350 ml 2044.48 ml Output Total 175 ml 880 ml 425 ml Balance 275 ml -530 ml 1619.48 ml Physical Exam Physical Exam: GENERAL:pt sleeping, opens eyes, comfortable HEENT: anicteric NECK: Supple. LUNGS: bs dec at bases , HEART: S1 and S2, egular. ABDOMEN: Mildly distended, soft. Bowel sounds present. GENITOURINARY: Indwelling Acevedo in place. EXTREMITIES: No gross edema or cyanosis. Peripheral IV. SKIN: Warm to touch. No signs of rash. NEUROLOGIC: sleeping ,arousable General: Cooperative, Other (Intubated) Heart: Regular rate Lungs: Other (rhonchi) Abdomen: Normal bowel sounds, Soft, No tenderness Extremities: No clubbing, No cyanosis, No edema Labs Labs: Laboratory Tests Test 04/08/19 11:30 04/09/19 04:40 04/09/19 08:43 04/09/19 08:44 O2 Saturation 98 % (92-99) 92 % (92-99) Arterial Blood pH 7.47 (7.35-7.45) 7.24 (7.35-7.45) Arterial Blood pCO2 at Patient Temp 28 mmHg (35-46) 68 mmHg (35-46) Arterial Blood pO2 at Patient Temp 100 mmHg (65-108) 65 mmHg (65-108) Arterial Blood HCO3 20 mmol/L (21-28) 28 mmol/L (21-28) Arterial Blood Base Excess -2 mmol/L (-3-3) -1 mmol/L (-3-3) FiO2 40 36 White Blood Count 10.4 x10^3/uL (4.0-11.0) Red Blood Count 4.11 x10^6/uL (3.50-5.40) Hemoglobin 12.5 g/dL (12.0-15.5) Hematocrit 37.9 % (36.0-47.0) Mean Corpuscular Volume 92 fL (79-100) Mean Corpuscular Hemoglobin 30 pg (25-35) Mean Corpuscular Hemoglobin Concent 33 g/dL (31-37) Red Cell Distribution Width 14.7 % (11.5-14.5) Platelet Count 169 x10^3/uL (140-400) Neutrophils (%) (Auto) 93 % (31-73) Lymphocytes (%) (Auto) 4 % (24-48) Monocytes (%) (Auto) 3 % (0-9) Eosinophils (%) (Auto) 0 % (0-3) Basophils (%) (Auto) 0 % (0-3) Neutrophils # (Auto) 9.7 x10^3/uL (1.8-7.7) Lymphocytes # (Auto) 0.4 x10^3/uL (1.0-4.8) Monocytes # (Auto) 0.3 x10^3/uL (0.0-1.1) Eosinophils # (Auto) 0.0 x10^3/uL (0.0-0.7) Basophils # (Auto) 0.0 x10^3/uL (0.0-0.2) Sodium Level 145 mmol/L (136-145) Potassium Level 3.6 mmol/L (3.5-5.1) Chloride Level 109 mmol/L (98-107) Carbon Dioxide Level 31 mmol/L (21-32) Anion Gap 5 (6-14) Blood Urea Nitrogen 11 mg/dL (7-20) Creatinine 0.5 mg/dL (0.6-1.0) Estimated GFR (Cockcroft-Gault) 145.1 BUN/Creatinine Ratio 22 (6-20) Glucose Level 119 mg/dL (70-99) Calcium Level 8.4 mg/dL (8.5-10.1) Magnesium Level 2.2 mg/dL (1.8-2.4) Total Bilirubin 0.3 mg/dL (0.2-1.0) Aspartate Amino Transf (AST/SGOT) 31 U/L (15-37) Alanine Aminotransferase (ALT/SGPT) 63 U/L (14-59) Alkaline Phosphatase 65 U/L (46-116) Total Protein 6.2 g/dL (6.4-8.2) Albumin 2.7 g/dL (3.4-5.0) Albumin/Globulin Ratio 0.8 (1.0-1.7) Glucose (Fingerstick) 52 mg/dL (70-99) Test 04/09/19 08:55 04/09/19 09:30 04/09/19 10:38 Glucose (Fingerstick) 65 mg/dL (70-99) 58 mg/dL (70-99) 191 mg/dL (70-99) Review of Systems Review of Systems: Altered mental status No co changes in vision Assessment and Plan Assessmemt and Plan Problems Medical Problems: (1) Acute bronchitis Status: Acute (2) COPD exacerbation Status: Acute (3) Diabetes mellitus Status: Chronic (4) HTN (hypertension) Status: Chronic (5) Hypercapnic respiratory failure Status: Acute (6) Respiratory failure Status: Acute (7) UTI (urinary tract infection) Status: Acute Assessment Acute Respiratory Failure Hypercapnea Respiratory Failure HTN UTI Diabetes Mellitus Acute Bronchitis COPD Plan ICU monitoring BIPAP Hyperventilate Recheck ABG's DVT prophylaxis Home meds Trend labs Prognosis guarded Appreciate pulmonary input Total time 32 min Comment Review of Relevant I have reviewed the following items melody (where applicable) has been applied. Medications: Current Medications Medications (Trade) Dose Ordered Sig/Usman Route PRN Reason Start Time Stop Time Status Last Admin Dose Admin Sodium Bicarbonate (Sodium Bicarb Adult 8.4% Syr) 50 meq 1X ONCE IV 04/08/19 11:00 04/08/19 11:01 DC 04/08/19 11:02 Dextrose (Dextrose 50%-Water Syringe) 12.5 gm PRN Q15MIN PRN IV SEE COMMENTS 04/09/19 09:00 04/09/19 09:52 Furosemide (Lasix) 20 mg 1X ONCE IVP 04/09/19 11:00 04/09/19 11:01 04/09/19 10:42 ZACK JEWELL III DO Apr 09, 2019 11:06
[2019-04-09 11:48] LABS: BASE EXCESS ABG 3 mmol/L (-3-3); HCO3 ABG 30 mmol/L (21-28); PCO2 ABG 59 mmHg (35-46); PO2 ABG 117 mmHg (65-108); SAT O2 ABG 98 % (92-99)
[2019-04-09 12:47] LABS: FIO2 ABG 45
[2019-04-09] MEDS ORDERED: ALBUMIN HUMAN 5% 250 ML IV ONE (14:30)
[2019-04-09] MEDS: FAMOTIDINE 20 MG/2 ML VIAL IVP SCH (20:46)
[2019-04-09] MEDS: ENOXAPARIN 30 MG/0.3 ML SYRINGE. SQ SCH (20:46)
[2019-04-10] VITALS (18 sets, daily range): BP systolic 115–191; BP diastolic 51–92
[2019-04-10] MEDS: IV NORMAL SALINE 1000ML BAG 1,000 ML IV SCH ×2 (01:45→15:54)
[2019-04-10 05:17] LABS: CALCIUM 8.6 mg/dL (8.5-10.1); CREATININE 0.5 mg/dL (0.6-1.0); GFR 145.1; MAGNESIUM 1.9 mg/dL (1.8-2.4); POTASSIUM 3.1 mmol/L (3.5-5.1)
[2019-04-10] MEDS: PIPERACILLIN/TAZOBACTAM 3.375 GM in IV NORMAL SALINE 50ML 50 ML IV SCH ×3 (06:03→16:13)
[2019-04-10] MEDS: methylPREDNISolone SOD SUCC PF 40 MG/ML VIAL. IV SCH (06:03)
--- NOTE | 2019-04-10 07:09 | PDOC ---
Infectious Disease Note Subjective: Subjective Pt more awake today required bipap yesterday,now on O2 resting quietly no fevers d/w rn ROS: ROS Negative otherwise. Vital Signs: Vital Signs Vital Signs Date Time Temp Pulse Resp B/P (MAP) Pulse Ox O2 Delivery O2 Flow Rate FiO2 04/10/19 06:04 76 142/81 (101) 04/10/19 05:51 26 100 4.0 04/10/19 05:50 BiPAP/CPAP 04/10/19 03:00 98.4 98.4 Physical Exam: PHYSICAL EXAM GENERAL:pt awake, comfortable HEENT: anicteric NECK: Supple. LUNGS: bs dec at bases , HEART: S1 and S2, egular. ABDOMEN: Mildly distended, soft. Bowel sounds present. GENITOURINARY: Indwelling Acevedo in place. EXTREMITIES: No gross edema , rt foot mottling barry 2nd finger, unable to feel the dorsalis pedis Peripheral IV. SKIN: Warm to touch. No signs of rash. NEUROLOGIC:alert awake Medications: Inpatient Meds: Current Medications Medications (Trade) Dose Ordered Sig/Usman Start Time Stop Time Status Last Admin Dose Admin Acetaminophen (Tylenol Supp) 650 mg 1X ONCE 04/06/19 08:30 04/06/19 08:31 DC 04/06/19 08:31 650 MG Albumin Human 250 ml @ 62.5 mls/hr 1X ONCE 04/09/19 14:30 04/09/19 18:29 DC 04/09/19 14:47 62.5 MLS/HR Aspirin (Ecotrin) 81 mg DAILYWBKFT 04/08/19 12:00 Atropine Sulfate (ATROPINE 1mg SYRINGE) 1 mg STK-MED ONCE 04/07/19 00:56 04/07/19 00:56 DC Chlorhexidine Gluconate (Peridex) 15 ml BID 04/06/19 21:00 04/08/19 21:23 DC 04/08/19 10:10 15 ML Dexmedetomidine HCl 400 mcg/ Sodium Chloride 100 ml @ 2.05 mls/hr CONT PRN 04/07/19 08:00 04/07/19 08:22 2.05 MLS/HR Dextrose (Dextrose 50%-Water Syringe) 12.5 gm PRN Q15MIN PRN 04/09/19 09:00 04/09/19 17:46 12.5 GM Dobutamine HCl/ Dextrose 250 ml @ 0 mls/hr CONT PRN 04/06/19 17:45 Enoxaparin Sodium (Lovenox 30mg Syringe) 30 mg QHS 04/09/19 21:00 04/09/19 20:47 30 MG Enoxaparin Sodium (Lovenox 40mg Syringe) 40 mg Q24H 04/06/19 18:00 Cancel Etomidate (Amidate) 20 mg 1X ONCE 04/06/19 10:00 04/06/19 10:04 DC Famotidine (Pepcid Vial) 20 mg HS 04/06/19 21:00 04/09/19 20:47 20 MG Furosemide (Lasix) 20 mg 1X ONCE 04/09/19 11:00 04/09/19 11:01 DC 04/09/19 10:42 20 MG Info ([facility] Electrolyte Protocol) 1 ea DAILY 04/07/19 09:00 04/08/19 11:05 1 EA Linezolid/Dextrose 300 ml @ 300 mls/hr Q12HR 04/08/19 09:00 04/09/19 07:29 DC 04/08/19 21:20 300 MLS/HR Magnesium Sulfate 100 ml @ 50 mls/hr DAILY 04/08/19 10:30 04/10/19 10:59 04/08/19 11:01 50 MLS/HR Magnesium Sulfate/ Dextrose 100 ml @ 100 mls/hr 1X ONCE 04/08/19 12:30 04/08/19 13:29 UNV Methylprednisolone Sodium Succinate (SOLU-Medrol 40MG VIAL) 40 mg Q8HRS 04/07/19 06:30 04/10/19 06:03 40 MG Norepinephrine Bitartrate 250 ml @ 0 mls/hr CONT PRN 04/06/19 17:45 Ondansetron HCl (Zofran) 4 mg PRN Q6HRS PRN 04/06/19 17:45 Piperacillin Sod/ Tazobactam Sod 3.375 gm/Sodium Chloride 50 ml @ 100 mls/hr Q6HRS 04/06/19 13:00 04/10/19 06:03 100 MLS/HR Potassium Chloride/Water 100 ml @ 100 mls/hr Q1H 04/07/19 08:15 04/07/19 20:14 DC 04/08/19 00:12 100 MLS/HR Propofol 100 ml @ 1.239 mls/ hr CONT PRN 04/06/19 10:15 04/08/19 21:23 DC 04/08/19 06:45 1.239 MLS/HR Propofol (Diprivan) 200 mg 1X ONCE 04/06/19 10:00 04/06/19 10:04 DC Sodium Bicarbonate (Sodium Bicarb Adult 8.4% Syr) 50 meq 1X ONCE 04/08/19 11:00 04/08/19 11:01 DC 04/08/19 11:02 50 MEQ Sodium Chloride 1,000 ml @ 100 mls/hr Q10H 04/06/19 17:45 04/09/19 13:14 100 MLS/HR Sodium Chloride (Normal Saline Flush) 3 ml QSHIFT PRN 04/06/19 17:45 Sodium Phosphate 0.32 mmol/Dextrose 250.1067 ml @ 62.5 mls/hr 1X ONCE 04/06/19 21:45 04/06/19 21:31 DC Sodium Phosphate 13 mmol/Dextrose 254.3333 ml @ 63.557 m... 1X ONCE 04/06/19 21:45 04/07/19 01:45 DC 04/06/19 22:14 63.557 MLS/HR Succinylcholine Chloride (Anectine) 100 mg 1X ONCE 04/06/19 10:00 04/06/19 10:04 DC Vancomycin HCl (Vanco Per Pharmacy) 1 each PRN DAILY PRN 04/06/19 17:45 04/08/19 08:12 DC 04/07/19 10:59 1 EACH Vancomycin HCl (Vancomycin Trough Level) 1 each 1X ONCE 04/08/19 19:30 04/08/19 08:12 DC Vancomycin HCl 500 mg/Sodium Chloride 100 ml @ 100 mls/hr Q24H 04/07/19 20:00 04/08/19 08:09 DC 04/07/19 22:43 100 MLS/HR Vancomycin HCl 1 gm/Sodium Chloride 250 ml @ 250 mls/hr 1X ONCE 04/06/19 18:00 04/06/19 18:59 DC 04/06/19 19:51 250 MLS/HR Labs: Lab Laboratory Tests Test 04/09/19 07:40 04/09/19 08:43 04/09/19 08:44 04/09/19 08:55 Clostridium difficile Toxin B Gene Negative (Negative) Glucose (Fingerstick) 52 mg/dL (70-99) 65 mg/dL (70-99) O2 Saturation 92 % (92-99) Arterial Blood pH 7.24 (7.35-7.45) Arterial Blood pCO2 at Patient Temp 68 mmHg (35-46) Arterial Blood pO2 at Patient Temp 65 mmHg (65-108) Arterial Blood HCO3 28 mmol/L (21-28) Arterial Blood Base Excess -1 mmol/L (-3-3) FiO2 36 Test 04/09/19 09:30 04/09/19 10:38 04/09/19 11:40 04/09/19 11:43 Glucose (Fingerstick) 58 mg/dL (70-99) 191 mg/dL (70-99) 256 mg/dL (70-99) O2 Saturation 98 % (92-99) Arterial Blood pH 7.33 (7.35-7.45) Arterial Blood pCO2 at Patient Temp 59 mmHg (35-46) Arterial Blood pO2 at Patient Temp 117 mmHg (65-108) Arterial Blood HCO3 30 mmol/L (21-28) Arterial Blood Base Excess 3 mmol/L (-3-3) FiO2 45 Test 04/09/19 11:44 04/09/19 17:43 04/09/19 18:48 04/09/19 19:10 Glucose (Fingerstick) 256 mg/dL (70-99) 65 mg/dL (70-99) 56 mg/dL (70-99) Glucose Level 183 mg/dL (70-99) Test 04/09/19 22:10 04/09/19 22:45 04/10/19 04:30 Glucose (Fingerstick) 46 mg/dL (70-99) Glucose Level 114 mg/dL (70-99) 115 mg/dL (70-99) Sodium Level 147 mmol/L (136-145) Potassium Level 3.1 mmol/L (3.5-5.1) Chloride Level 107 mmol/L (98-107) Carbon Dioxide Level 35 mmol/L (21-32) Anion Gap 5 (6-14) Blood Urea Nitrogen 10 mg/dL (7-20) Creatinine 0.5 mg/dL (0.6-1.0) Estimated GFR (Cockcroft-Gault) 145.1 Calcium Level 8.6 mg/dL (8.5-10.1) Magnesium Level 1.9 mg/dL (1.8-2.4) Objective: Assessment: 1. Sepsis with hypotension, cultures negative,off levophed 2. Lactic acidosis.improved 3. Acute encephalopathy. CT head negative. 4. Acute respiratory failure, status post intubation and mechanical ventilation.now extubated 5. Transaminitis. 6. Elevated troponin. 7. Chronic obstructive pulmonary disease. 8. Diabetes type 2. 9. UC Escherichia coli, 10,000-25,000 cfu/ml 10. PAD with ?ischemic toes rt foot Plan: Plan of Care cont Zosyn off zyvox 04/09 arterial doppler ble, may need vascular evaluation, Monitor labs f/u cultures Supportive care c diff neg D/w nursing HAKEEM BURGER MD Apr 10, 2019 07:09
[2019-04-10] MEDS: ASPIRIN ENTERIC COATED 81 MG TABLET.DR. PO SCH (08:00)
[2019-04-10] MEDS: MAGNESIUM SULFATE 4GM 100 ML IV SCH (09:00)
[2019-04-10] MEDS: ELECTROLYTE (ICU) PROTOCOL. MC SCH (09:00)
[2019-04-10 10:10] LABS: BASO % 0 % (0-3); EOS % 0 % (0-3); HEMOGLOBIN 13.1 g/dL (12.0-15.5); LYMPH # 0.9 x10^3/uL (1.0-4.8); LYMPH % 10 % (24-48); MEAN CORPUSCULAR HEMOGLOBIN 30 pg (25-35); MEAN CORPUSCULAR HGB CONC 33 g/dL (31-37); MEAN CORPUSCULAR VOLUME 92 fL (79-100); MONO # 0.5 x10^3/uL (0.0-1.1); MONO % 5 % (0-9); NEUT # 8.1 x10^3/uL (1.8-7.7); NEUT % 85 % (31-73); PLATELET COUNT 123 x10^3/uL (140-400); RED BLOOD COUNT 4.33 x10^6/uL (3.50-5.40); RED CELL DISTRIBUTION WIDTH 14.4 % (11.5-14.5); WHITE BLOOD COUNT 9.5 x10^3/uL (4.0-11.0)
--- NOTE | 2019-04-10 10:48 | NUR ---
SS following up with discharge planning. Pt is currently requiring oxygen. Pt is a LTC resident from [facility], ; fax [phone], and is able to return when medically stable for discharge. SS will continue to follow for discharge planning.
--- NOTE | 2019-04-10 10:56 | PDOC ---
PULMONARY PROGRESS NOTES Subjective FULLY AWAKE OFF BIPAP Vitals Vital Signs Date Time Temp Pulse Resp B/P (MAP) Pulse Ox O2 Delivery O2 Flow Rate FiO2 04/10/19 10:00 72 39 172/84 (113) 100 Nasal Cannula 2.0 04/10/19 08:00 98.6 98.6 General: Alert, No acute distress Lungs: Other (decrease bases) Cardiovascular: S1 Abdomen: Soft Neuro Exam: Alert Extremities: No Edema Skin: Warm Labs Laboratory Tests Test 04/08/19 11:30 04/09/19 04:40 04/09/19 07:40 04/09/19 08:43 O2 Saturation 98 % (92-99) Arterial Blood pH 7.47 (7.35-7.45) Arterial Blood pCO2 at Patient Temp 28 mmHg (35-46) Arterial Blood pO2 at Patient Temp 100 mmHg (65-108) Arterial Blood HCO3 20 mmol/L (21-28) Arterial Blood Base Excess -2 mmol/L (-3-3) FiO2 40 White Blood Count 10.4 x10^3/uL (4.0-11.0) Red Blood Count 4.11 x10^6/uL (3.50-5.40) Hemoglobin 12.5 g/dL (12.0-15.5) Hematocrit 37.9 % (36.0-47.0) Mean Corpuscular Volume 92 fL (79-100) Mean Corpuscular Hemoglobin 30 pg (25-35) Mean Corpuscular Hemoglobin Concent 33 g/dL (31-37) Red Cell Distribution Width 14.7 % (11.5-14.5) Platelet Count 169 x10^3/uL (140-400) Neutrophils (%) (Auto) 93 % (31-73) Lymphocytes (%) (Auto) 4 % (24-48) Monocytes (%) (Auto) 3 % (0-9) Eosinophils (%) (Auto) 0 % (0-3) Basophils (%) (Auto) 0 % (0-3) Neutrophils # (Auto) 9.7 x10^3/uL (1.8-7.7) Lymphocytes # (Auto) 0.4 x10^3/uL (1.0-4.8) Monocytes # (Auto) 0.3 x10^3/uL (0.0-1.1) Eosinophils # (Auto) 0.0 x10^3/uL (0.0-0.7) Basophils # (Auto) 0.0 x10^3/uL (0.0-0.2) Sodium Level 145 mmol/L (136-145) Potassium Level 3.6 mmol/L (3.5-5.1) Chloride Level 109 mmol/L (98-107) Carbon Dioxide Level 31 mmol/L (21-32) Anion Gap 5 (6-14) Blood Urea Nitrogen 11 mg/dL (7-20) Creatinine 0.5 mg/dL (0.6-1.0) Estimated GFR (Cockcroft-Gault) 145.1 BUN/Creatinine Ratio 22 (6-20) Glucose Level 119 mg/dL (70-99) Calcium Level 8.4 mg/dL (8.5-10.1) Magnesium Level 2.2 mg/dL (1.8-2.4) Total Bilirubin 0.3 mg/dL (0.2-1.0) Aspartate Amino Transf (AST/SGOT) 31 U/L (15-37) Alanine Aminotransferase (ALT/SGPT) 63 U/L (14-59) Alkaline Phosphatase 65 U/L (46-116) Total Protein 6.2 g/dL (6.4-8.2) Albumin 2.7 g/dL (3.4-5.0) Albumin/Globulin Ratio 0.8 (1.0-1.7) Clostridium difficile Toxin B Gene Negative (Negative) Glucose (Fingerstick) 52 mg/dL (70-99) Test 04/09/19 08:44 04/09/19 08:55 04/09/19 09:30 04/09/19 10:38 O2 Saturation 92 % (92-99) Arterial Blood pH 7.24 (7.35-7.45) Arterial Blood pCO2 at Patient Temp 68 mmHg (35-46) Arterial Blood pO2 at Patient Temp 65 mmHg (65-108) Arterial Blood HCO3 28 mmol/L (21-28) Arterial Blood Base Excess -1 mmol/L (-3-3) FiO2 36 Glucose (Fingerstick) 65 mg/dL (70-99) 58 mg/dL (70-99) 191 mg/dL (70-99) Test 04/09/19 11:40 04/09/19 11:43 04/09/19 11:44 04/09/19 17:43 O2 Saturation 98 % (92-99) Arterial Blood pH 7.33 (7.35-7.45) Arterial Blood pCO2 at Patient Temp 59 mmHg (35-46) Arterial Blood pO2 at Patient Temp 117 mmHg (65-108) Arterial Blood HCO3 30 mmol/L (21-28) Arterial Blood Base Excess 3 mmol/L (-3-3) FiO2 45 Glucose (Fingerstick) 256 mg/dL (70-99) 256 mg/dL (70-99) 65 mg/dL (70-99) Test 04/09/19 18:48 04/09/19 19:10 04/09/19 22:10 04/09/19 22:45 Glucose (Fingerstick) 56 mg/dL (70-99) 46 mg/dL (70-99) Glucose Level 183 mg/dL (70-99) 114 mg/dL (70-99) Test 04/10/19 04:30 04/10/19 09:45 Sodium Level 147 mmol/L (136-145) Potassium Level 3.1 mmol/L (3.5-5.1) Chloride Level 107 mmol/L (98-107) Carbon Dioxide Level 35 mmol/L (21-32) Anion Gap 5 (6-14) Blood Urea Nitrogen 10 mg/dL (7-20) Creatinine 0.5 mg/dL (0.6-1.0) Estimated GFR (Cockcroft-Gault) 145.1 Glucose Level 115 mg/dL (70-99) Calcium Level 8.6 mg/dL (8.5-10.1) Magnesium Level 1.9 mg/dL (1.8-2.4) White Blood Count 9.5 x10^3/uL (4.0-11.0) Red Blood Count 4.33 x10^6/uL (3.50-5.40) Hemoglobin 13.1 g/dL (12.0-15.5) Hematocrit 40.0 % (36.0-47.0) Mean Corpuscular Volume 92 fL (79-100) Mean Corpuscular Hemoglobin 30 pg (25-35) Mean Corpuscular Hemoglobin Concent 33 g/dL (31-37) Red Cell Distribution Width 14.4 % (11.5-14.5) Platelet Count 123 x10^3/uL (140-400) Neutrophils (%) (Auto) 85 % (31-73) Lymphocytes (%) (Auto) 10 % (24-48) Monocytes (%) (Auto) 5 % (0-9) Eosinophils (%) (Auto) 0 % (0-3) Basophils (%) (Auto) 0 % (0-3) Neutrophils # (Auto) 8.1 x10^3/uL (1.8-7.7) Lymphocytes # (Auto) 0.9 x10^3/uL (1.0-4.8) Monocytes # (Auto) 0.5 x10^3/uL (0.0-1.1) Eosinophils # (Auto) 0.0 x10^3/uL (0.0-0.7) Basophils # (Auto) 0.0 x10^3/uL (0.0-0.2) Laboratory Tests Test 04/09/19 11:40 04/09/19 11:43 04/09/19 11:44 04/09/19 17:43 O2 Saturation 98 % (92-99) Arterial Blood pH 7.33 (7.35-7.45) Arterial Blood pCO2 at Patient Temp 59 mmHg (35-46) Arterial Blood pO2 at Patient Temp 117 mmHg (65-108) Arterial Blood HCO3 30 mmol/L (21-28) Arterial Blood Base Excess 3 mmol/L (-3-3) FiO2 45 Glucose (Fingerstick) 256 mg/dL (70-99) 256 mg/dL (70-99) 65 mg/dL (70-99) Test 04/09/19 18:48 04/09/19 19:10 04/09/19 22:10 04/09/19 22:45 Glucose (Fingerstick) 56 mg/dL (70-99) 46 mg/dL (70-99) Glucose Level 183 mg/dL (70-99) 114 mg/dL (70-99) Test 04/10/19 04:30 04/10/19 09:45 Sodium Level 147 mmol/L (136-145) Potassium Level 3.1 mmol/L (3.5-5.1) Chloride Level 107 mmol/L (98-107) Carbon Dioxide Level 35 mmol/L (21-32) Anion Gap 5 (6-14) Blood Urea Nitrogen 10 mg/dL (7-20) Creatinine 0.5 mg/dL (0.6-1.0) Estimated GFR (Cockcroft-Gault) 145.1 Glucose Level 115 mg/dL (70-99) Calcium Level 8.6 mg/dL (8.5-10.1) Magnesium Level 1.9 mg/dL (1.8-2.4) White Blood Count 9.5 x10^3/uL (4.0-11.0) Red Blood Count 4.33 x10^6/uL (3.50-5.40) Hemoglobin 13.1 g/dL (12.0-15.5) Hematocrit 40.0 % (36.0-47.0) Mean Corpuscular Volume 92 fL (79-100) Mean Corpuscular Hemoglobin 30 pg (25-35) Mean Corpuscular Hemoglobin Concent 33 g/dL (31-37) Red Cell Distribution Width 14.4 % (11.5-14.5) Platelet Count 123 x10^3/uL (140-400) Neutrophils (%) (Auto) 85 % (31-73) Lymphocytes (%) (Auto) 10 % (24-48) Monocytes (%) (Auto) 5 % (0-9) Eosinophils (%) (Auto) 0 % (0-3) Basophils (%) (Auto) 0 % (0-3) Neutrophils # (Auto) 8.1 x10^3/uL (1.8-7.7) Lymphocytes # (Auto) 0.9 x10^3/uL (1.0-4.8) Monocytes # (Auto) 0.5 x10^3/uL (0.0-1.1) Eosinophils # (Auto) 0.0 x10^3/uL (0.0-0.7) Basophils # (Auto) 0.0 x10^3/uL (0.0-0.2) Medications Active Scripts Medications Dose Route/Sig Max Daily Dose Days Date Category Dose Instructions Famotidine 10 Mg Tablet 1 Mg PO HS 04/06/19 Reported Loperamide (Loperamide Hcl) 2 Mg Tablet 2 Mg PO PRN Q4HRS 04/06/19 Reported Flonase Allergy Relief (Fluticasone Propionate) 9.9 Ml [place].susp 2 Sprays NS DAILY 04/06/19 Reported Midodrine Hcl 10 Mg Tablet 10 Mg PO TID 04/06/19 Reported Loperamide (Loperamide Hcl) 2 Mg Tablet 2 Mg PO PRN Q4-6HRS PRN 30 11/14/18 Rx Prednisone 20 Mg Tablet 1 Tab PO DAILY 11/14/18 Rx Humalog (Insulin Lispro) 100 Unit/1 Ml Insuln.pen 0 Units SQ TIDWMEALS 30 11/14/18 Rx BG 151-200 - 2u 201-250 - 3u 251-300 - 4u 301-350 - 5u >350 call Culturellolegario (Lactobacillus Rhamnosus Gg) 1 Each Cap.sprink 1 Cap PO BID 7 11/14/18 Rx Famotidine 20 Mg Tablet 20 Mg PO DAILY 30 11/14/18 Rx Acetaminophen Supp (Acetaminophen) 650 Mg Supp.rect 650 Mg ME PRN Q4HRS PRN 30 11/14/18 Rx Duoneb 0.5-3(2.5) Mg/3 Ml (Albuterol/Ipratropium) 3 Ml Ampul.neb 3 Ml NEB RTQID 30 11/14/18 Rx Amox Tr-K Clv 875-125 Mg Tab (Amoxicillin/Potassium Clav) 1 Each Tablet 1 Tab PO BID 2 11/14/18 Rx Comments cxr 04/08 chf Impression . 1. Egiis-hb-fdmkgko hypoxemic respiratory failure secondary to acute exacerbation of chronic obstructive pulmonary disease, acute bronchitis/ extubated 04/08. BECAME LETHARGIC/ HYPOGLYCEMIC 04/09. RESP ACIDOSIS/ MUCH IMPROVED WITH BIPAP 2. Acute exacerbation of chronic obstructive pulmonary disease.IMPROVED 3. Acute bronchitis. 4. Diabetes mellitus. 5. Hypertension. 6. Questionable sepsis. 7. Hypoglycemic encephalopathy, IMPROVED 8. Acute on chronic hypercapnic RF 9. Abnormal cxr small effusion Plan . 1. Nasal canula 2. Monitor BS closely 3. Solu-Medrol with taper 4. Lovenox for DVT prophylaxis. 5. Pepcid for stress ulcer prophylaxis. 6. Continue antibiotic. 7. Follow up cultures. 8. off lasix 9. The findings and recommendations were discussed with RN DNR/ transfer to floor SANTOS DORSEY MD Apr 10, 2019 10:56
--- NOTE | 2019-04-10 11:06 | RAD ---
ARTERIAL STUDY LOWER EXT BI Indication: Poor perfusion bilateral lower extremities. Comparison: None. Procedure: Real-time grayscale, color flow Doppler, and Doppler spectral waveform analysis of the arterial system of the lower extremity is performed. Findings: Triphasic and biphasic waveforms are present in the common femoral artery, superficial femoral artery, popliteal artery, anterior tibial artery, posterior tibial artery and dorsalis pedis artery. Left distal superficial femoral artery measures 154 cm/s, indicating 30-49 percent stenosis. Mild atheromatous plaque within the bilateral lower extremities. IMPRESSION: 1. Mild stenosis within the left distal superficial femoral artery. No high-grade stenosis or occlusion. 2. Mild atheromatous plaque bilaterally. Electronically signed by: Jim Orta DO (04/10/2019 11:04 AM) [id number]
--- NOTE | 2019-04-10 12:38 | PDOC ---
[employer] PROGRESS NOTE Chief Complaint Chief Complaint Acute Respiratory Failure Hypercapnea Respiratory Failure HTN UTI Diabetes Mellitus Acute Bronchitis COPD History of Present Illness History of Present Illness 04/10/19 Pt seen and examined in ICU; off BIPAP KATIE RN RN having trouble accessing vein; PICC line ordered Reviewed chart 04/09/19 Pt seen and examined in ICU on BIPAP KATIE RN RN reports AMS; DW5 given but with no improvement to mental status Reviewed chart Vitals/I&O Vitals/I&O: Vital Signs Date Time Temp Pulse Resp B/P (MAP) Pulse Ox O2 Delivery O2 Flow Rate FiO2 04/10/19 10:00 72 39 172/84 (113) 100 Nasal Cannula 2.0 04/10/19 08:00 98.6 98.6 I & O 04/09/19 04/09/19 04/10/19 15:00 23:00 07:00 Intake Total 50 ml 50 ml 100 ml Output Total 730 ml 270 ml 520 ml Balance -680 ml -220 ml -420 ml Physical Exam Physical Exam: GENERAL:pt awake, comfortable HEENT: anicteric NECK: Supple. LUNGS: bs dec at bases , HEART: S1 and S2, egular. ABDOMEN: Mildly distended, soft. Bowel sounds present. GENITOURINARY: Indwelling Acevedo in place. EXTREMITIES: No gross edema , rt foot mottling barry 2nd finger, unable to feel the dorsalis pedis Peripheral IV. SKIN: Warm to touch. No signs of rash. NEUROLOGIC:alert awake General: Cooperative, Other (Intubated) Heart: Regular rate Lungs: Other (decrease bases) Abdomen: Normal bowel sounds, Soft, No tenderness Extremities: No clubbing, No cyanosis, No edema Skin: No rashes, No significant lesion Labs Labs: Laboratory Tests Test 04/09/19 17:43 04/09/19 18:48 04/09/19 19:10 04/09/19 22:10 Glucose (Fingerstick) 65 mg/dL (70-99) 56 mg/dL (70-99) 46 mg/dL (70-99) Glucose Level 183 mg/dL (70-99) Test 04/09/19 22:45 04/10/19 04:30 04/10/19 09:45 Glucose Level 114 mg/dL (70-99) 115 mg/dL (70-99) Sodium Level 147 mmol/L (136-145) Potassium Level 3.1 mmol/L (3.5-5.1) Chloride Level 107 mmol/L (98-107) Carbon Dioxide Level 35 mmol/L (21-32) Anion Gap 5 (6-14) Blood Urea Nitrogen 10 mg/dL (7-20) Creatinine 0.5 mg/dL (0.6-1.0) Estimated GFR (Cockcroft-Gault) 145.1 Calcium Level 8.6 mg/dL (8.5-10.1) Magnesium Level 1.9 mg/dL (1.8-2.4) White Blood Count 9.5 x10^3/uL (4.0-11.0) Red Blood Count 4.33 x10^6/uL (3.50-5.40) Hemoglobin 13.1 g/dL (12.0-15.5) Hematocrit 40.0 % (36.0-47.0) Mean Corpuscular Volume 92 fL (79-100) Mean Corpuscular Hemoglobin 30 pg (25-35) Mean Corpuscular Hemoglobin Concent 33 g/dL (31-37) Red Cell Distribution Width 14.4 % (11.5-14.5) Platelet Count 123 x10^3/uL (140-400) Neutrophils (%) (Auto) 85 % (31-73) Lymphocytes (%) (Auto) 10 % (24-48) Monocytes (%) (Auto) 5 % (0-9) Eosinophils (%) (Auto) 0 % (0-3) Basophils (%) (Auto) 0 % (0-3) Neutrophils # (Auto) 8.1 x10^3/uL (1.8-7.7) Lymphocytes # (Auto) 0.9 x10^3/uL (1.0-4.8) Monocytes # (Auto) 0.5 x10^3/uL (0.0-1.1) Eosinophils # (Auto) 0.0 x10^3/uL (0.0-0.7) Basophils # (Auto) 0.0 x10^3/uL (0.0-0.2) Review of Systems Review of Systems: No co changes in vision No co skin changes Assessment and Plan Assessmemt and Plan Problems Medical Problems: (1) Acute bronchitis Status: Acute (2) COPD exacerbation Status: Acute (3) Diabetes mellitus Status: Chronic (4) HTN (hypertension) Status: Chronic (5) Hypercapnic respiratory failure Status: Acute (6) Respiratory failure Status: Acute (7) UTI (urinary tract infection) Status: Acute Assessment Acute Respiratory Failure Hypercapnea Respiratory Failure HTN UTI Diabetes Mellitus Acute Bronchitis COPD Plan Cardiac Monitoring Recheck ABG's Trend labs DVT prophylaxis Home meds Prognosis guarded Appreciate pulmonary input Total time 34 min Comment Review of Relevant I have reviewed the following items melody (where applicable) has been applied. Medications: Current Medications Medications (Trade) Dose Ordered Sig/Usman Route PRN Reason Start Time Stop Time Status Last Admin Dose Admin Enoxaparin Sodium (Lovenox 30mg Syringe) 30 mg QHS SQ 04/09/19 21:00 04/09/19 20:47 Albumin Human 250 ml @ 62.5 mls/hr 1X ONCE IV 04/09/19 14:30 04/09/19 18:29 DC 04/09/19 14:47 ZACK JEWELL III DO Apr 10, 2019 12:38
[2019-04-10] MEDS: POTASSIUM CHLORIDE 10MEQ 100 ML IV SCH ×4 (13:00→16:12)
--- NOTE | 2019-04-10 13:03 | RAD ---
EXAM: Supine AP view of the abdomen DATE: 04/10/2019 12:29 PM INDICATION: Dobhoff placement COMPARISON: No Prior FINDINGS: No abnormal small or large bowel dilatation. Dobbhoff tube tip projects over the expected body of the stomach. Moderate colonic stool content. Displacement of the bowel loops into the left hemiabdomen and pelvis possibly from enlarged liver. No suspicious calcifications are seen. Evaluation for free intraperitoneal gas is limited on this supine exam. Left lung base patchy airspace opacities may represent atelectasis or consolidation. IMPRESSION: 1. Dobbhoff tube projects over the expected body of the stomach. 2. Left lung base airspace opacities may represent atelectasis or consolidation. 3. No evidence for bowel obstruction. 4. Mild apparent mass effect on the bowel loops, possibly from enlarged liver. Electronically signed by: Mateo Ramos MD (04/10/2019 1:01 PM) [id number]
--- NOTE | 2019-04-10 14:25 | NUR ---
Wound care: Patient seen per wound care consult regarding Coccyx. See wound assessment. Patient has stage III pressure with DTI to Coccyx. Wound cleansed and assessed. Recommendations for contact layer (greasy gauze) and foam dressing. Dressing applied. No other wounds noted upon complete head to toe assessment. Patient is to be a turn every 2 hours and a P-500 bed when transfers to [facility]. Dressing change instructions placed in patient belongings bag as she will be transferring off the unit when transport arrives. Will follow patient regarding wound care. Patient in chair at this time and alarm on.
[2019-04-10] MEDS: DEXTROSE 50% 25 GM / 50ML DISP.SYRIN. IV PRN ×4 (16:52→21:33)
[2019-04-10] MEDS: ENOXAPARIN 30 MG/0.3 ML SYRINGE. SQ SCH (22:42)
[2019-04-10] MEDS: FAMOTIDINE 20 MG/2 ML VIAL IVP SCH (22:42)
--- NOTE | 2019-04-10 23:45 | NUR ---
Spoke with Dr Coy regarding patient's low blood glucose(s), D50 ivp given (see medication documentation), continuing as ordered. Suction set up as patient having thin secretions from mouth, suctioned with [place].
[2019-04-11] MEDS: PIPERACILLIN/TAZOBACTAM 3.375 GM in IV NORMAL SALINE 50ML 50 ML IV SCH ×2 (00:23→05:43)
[2019-04-11 03:00] VITALS: BP 99/52
[2019-04-11] MEDS: IV NORMAL SALINE 1000ML BAG 1,000 ML IV SCH ×2 (05:46→07:45)
[2019-04-11 07:00] VITALS: BP 110/49
[2019-04-11 07:18] LABS: BASO % 0 % (0-3); EOS % 1 % (0-3); HEMATOCRIT 34.2 % (36.0-47.0); HEMOGLOBIN 11.3 g/dL (12.0-15.5); LYMPH # 1.6 x10^3/uL (1.0-4.8); LYMPH % 25 % (24-48); MEAN CORPUSCULAR HEMOGLOBIN 30 pg (25-35); MEAN CORPUSCULAR HGB CONC 33 g/dL (31-37); MEAN CORPUSCULAR VOLUME 91 fL (79-100); MONO # 0.5 x10^3/uL (0.0-1.1); MONO % 7 % (0-9); NEUT # 4.5 x10^3/uL (1.8-7.7); NEUT % 67 % (31-73); PLATELET COUNT 165 x10^3/uL (140-400); RED BLOOD COUNT 3.74 x10^6/uL (3.50-5.40); WHITE BLOOD COUNT 6.7 x10^3/uL (4.0-11.0)
[2019-04-11 07:38] LABS: CALCIUM 8.4 mg/dL (8.5-10.1); CREATININE 0.6 mg/dL (0.6-1.0); GFR 117.6
[2019-04-11] MEDS: ASPIRIN ENTERIC COATED 81 MG TABLET.DR. PO SCH (08:00)
[2019-04-11 08:02] LABS: POTASSIUM 3.1 mmol/L (3.5-5.1)
[2019-04-11] MEDS ORDERED: methylPREDNISolone SOD SUCC PF 40 MG/ML VIAL. IV SCH (09:00)
[2019-04-11] MEDS: ELECTROLYTE (ICU) PROTOCOL. MC SCH (09:00)
--- NOTE | 2019-04-11 10:32 | PDOC ---
Infectious Disease Note Subjective: Subjective Pt resp status deteriorated now on bipap per team pt is been transitioned to comfort measures Vital Signs: Vital Signs Vital Signs Date Time Temp Pulse Resp B/P (MAP) Pulse Ox O2 Delivery O2 Flow Rate FiO2 04/11/19 07:00 99.1 72 38 110/49 (69) 91 Room Air 99.1 04/11/19 03:00 2.0 Physical Exam: PHYSICAL EXAM GENERAL: pt tachypneic' NECK: Supple. LUNGS: bs dec at bases , HEART: S1 S2, ABDOMEN: Mildly distended, soft. Bowel sounds present. GENITOURINARY: Indwelling Acevedo in place. EXTREMITIES: No gross edema Medications: Inpatient Meds: Current Medications Medications (Trade) Dose Ordered Sig/Usman Start Time Stop Time Status Last Admin Dose Admin Acetaminophen (Tylenol Supp) 650 mg 1X ONCE 04/06/19 08:30 04/06/19 08:31 DC 04/06/19 08:31 650 MG Albumin Human 250 ml @ 62.5 mls/hr 1X ONCE 04/09/19 14:30 04/09/19 18:29 DC 04/09/19 14:47 62.5 MLS/HR Aspirin (Ecotrin) 81 mg [id number] 04/08/19 12:00 Atropine Sulfate (ATROPINE 1mg SYRINGE) 1 mg STK-MED ONCE 04/07/19 00:56 04/07/19 00:56 DC Chlorhexidine Gluconate (Peridex) 15 ml BID 04/06/19 21:00 04/08/19 21:23 DC 04/08/19 10:10 15 ML Dexmedetomidine HCl 400 mcg/ Sodium Chloride 100 ml @ 2.05 mls/hr CONT PRN 04/07/19 08:00 04/07/19 08:22 2.05 MLS/HR Dextrose (Dextrose 50%-Water Syringe) 12.5 gm PRN Q15MIN PRN 04/09/19 09:00 04/10/19 21:33 12.5 GM Dobutamine HCl/ Dextrose 250 ml @ 0 mls/hr CONT PRN 04/06/19 17:45 Enoxaparin Sodium (Lovenox 30mg Syringe) 30 mg QHS 04/09/19 21:00 04/10/19 22:42 30 MG Enoxaparin Sodium (Lovenox 40mg Syringe) 40 mg Q24H 04/06/19 18:00 Cancel Etomidate (Amidate) 20 mg 1X ONCE 04/06/19 10:00 04/06/19 10:04 DC Famotidine (Pepcid Vial) 20 mg HS 04/06/19 21:00 04/10/19 22:42 20 MG Furosemide (Lasix) 20 mg 1X ONCE 04/09/19 11:00 04/09/19 11:01 DC 04/09/19 10:42 20 MG Info ([facility] Electrolyte Protocol) 1 ea DAILY 04/07/19 09:00 04/08/19 11:05 1 EA Linezolid/Dextrose 300 ml @ 300 mls/hr Q12HR 04/08/19 09:00 04/09/19 07:29 DC 04/08/19 21:20 300 MLS/HR Magnesium Sulfate 100 ml @ 50 mls/hr DAILY 04/08/19 10:30 04/10/19 10:59 DC 04/08/19 11:01 50 MLS/HR Magnesium Sulfate/ Dextrose 100 ml @ 100 mls/hr 1X ONCE 04/08/19 12:30 04/08/19 13:29 UNV Methylprednisolone Sodium Succinate (SOLU-Medrol 40MG VIAL) 40 mg DAILY 04/11/19 09:00 04/11/19 08:23 40 MG Norepinephrine Bitartrate 250 ml @ 0 mls/hr CONT PRN 04/06/19 17:45 Ondansetron HCl (Zofran) 4 mg PRN Q6HRS PRN 04/06/19 17:45 Piperacillin Sod/ Tazobactam Sod 3.375 gm/Sodium Chloride 50 ml @ 100 mls/hr Q6HRS 04/06/19 13:00 04/11/19 05:46 100 MLS/HR Potassium Chloride/Water 100 ml @ 100 mls/hr Q1H 04/10/19 11:00 04/10/19 14:59 DC 04/10/19 16:13 100 MLS/HR Propofol 100 ml @ 1.239 mls/ hr CONT PRN 04/06/19 10:15 04/08/19 21:23 DC 04/08/19 06:45 1.239 MLS/HR Propofol (Diprivan) 200 mg 1X ONCE 04/06/19 10:00 04/06/19 10:04 DC Sodium Bicarbonate (Sodium Bicarb Adult 8.4% Syr) 50 meq 1X ONCE 04/08/19 11:00 04/08/19 11:01 DC 04/08/19 11:02 50 MEQ Sodium Chloride 1,000 ml @ 100 mls/hr Q10H 04/06/19 17:45 04/11/19 05:46 100 MLS/HR Sodium Chloride (Normal Saline Flush) 3 ml QSHIFT PRN 04/06/19 17:45 Sodium Phosphate 0.32 mmol/Dextrose 250.1067 ml @ 62.5 mls/hr 1X ONCE 04/06/19 21:45 04/06/19 21:31 DC Sodium Phosphate 13 mmol/Dextrose 254.3333 ml @ 63.557 m... 1X ONCE 04/06/19 21:45 04/07/19 01:45 DC 04/06/19 22:14 63.557 MLS/HR Succinylcholine Chloride (Anectine) 100 mg 1X ONCE 04/06/19 10:00 04/06/19 10:04 DC Vancomycin HCl (Vanco Per Pharmacy) 1 each PRN DAILY PRN 04/06/19 17:45 04/08/19 08:12 DC 04/07/19 10:59 1 EACH Vancomycin HCl (Vancomycin Trough Level) 1 each 1X ONCE 04/08/19 19:30 04/08/19 08:12 DC Vancomycin HCl 500 mg/Sodium Chloride 100 ml @ 100 mls/hr Q24H 04/07/19 20:00 04/08/19 08:09 DC 04/07/19 22:43 100 MLS/HR Vancomycin HCl 1 gm/Sodium Chloride 250 ml @ 250 mls/hr 1X ONCE 04/06/19 18:00 04/06/19 18:59 DC 04/06/19 19:51 250 MLS/HR Labs: Lab Laboratory Tests Test 04/10/19 16:40 04/10/19 17:00 04/10/19 17:04 04/10/19 20:38 Glucose (Fingerstick) 65 mg/dL (70-99) 65 mg/dL (70-99) 110 mg/dL (70-99) 41 mg/dL (70-99) Test 04/10/19 20:57 04/10/19 21:22 04/10/19 21:51 04/10/19 23:16 Glucose (Fingerstick) 30 mg/dL (70-99) 55 mg/dL (70-99) 111 mg/dL (70-99) 166 mg/dL (70-99) Test 04/11/19 06:25 04/11/19 07:59 White Blood Count 6.7 x10^3/uL (4.0-11.0) Red Blood Count 3.74 x10^6/uL (3.50-5.40) Hemoglobin 11.3 g/dL (12.0-15.5) Hematocrit 34.2 % (36.0-47.0) Mean Corpuscular Volume 91 fL (79-100) Mean Corpuscular Hemoglobin 30 pg (25-35) Mean Corpuscular Hemoglobin Concent 33 g/dL (31-37) Red Cell Distribution Width 14.0 % (11.5-14.5) Platelet Count 165 x10^3/uL (140-400) Neutrophils (%) (Auto) 67 % (31-73) Lymphocytes (%) (Auto) 25 % (24-48) Monocytes (%) (Auto) 7 % (0-9) Eosinophils (%) (Auto) 1 % (0-3) Basophils (%) (Auto) 0 % (0-3) Neutrophils # (Auto) 4.5 x10^3/uL (1.8-7.7) Lymphocytes # (Auto) 1.6 x10^3/uL (1.0-4.8) Monocytes # (Auto) 0.5 x10^3/uL (0.0-1.1) Eosinophils # (Auto) 0.0 x10^3/uL (0.0-0.7) Basophils # (Auto) 0.0 x10^3/uL (0.0-0.2) Sodium Level 144 mmol/L (136-145) Potassium Level 3.1 mmol/L (3.5-5.1) Chloride Level 105 mmol/L (98-107) Carbon Dioxide Level 37 mmol/L (21-32) Anion Gap 2 (6-14) Blood Urea Nitrogen 13 mg/dL (7-20) Creatinine 0.6 mg/dL (0.6-1.0) Estimated GFR (Cockcroft-Gault) 117.6 Glucose Level 99 mg/dL (70-99) Calcium Level 8.4 mg/dL (8.5-10.1) Glucose (Fingerstick) 99 mg/dL (70-99) Objective: Assessment: Pt is transitioned to comfort measures per team 1. Sepsis with hypotension, cultures negative,off levophed 2. Lactic acidosis.improved 3. Acute encephalopathy. CT head negative. 4. Acute respiratory failure, status post intubation and mechanical ventilation.now extubated with worsening resp status 5. Transaminitis. 6. Elevated troponin. 7. Chronic obstructive pulmonary disease. 8. Diabetes type 2. 9. UC Escherichia coli, 10,000-25,000 cfu/ml 10. PAD ,no occlusive lesions Plan: Plan of Care antibiotics per goals of treatment per family d/w HAKEEM Briceno MD Apr 11, 2019 10:32
--- NOTE | 2019-04-11 10:43 | PDOC ---
PROGRESS NOTES Chief Complaint Chief Complaint impression Acute Respiratory Failure Hypercapnea Respiratory Failure HTN UTI Diabetes Mellitus Acute Bronchitis COPD discussed comfort care with daughter, she desires comfort measures only 04/11 37 min pt exam, chart review, > 50% of time spent with exam, chart review, pt care coordination History of Present Illness History of Present Illness 04/11/19 Pt seen and examined bedside ; off BIPAP KATIE RN RN having trouble accessing vein; PICC line ordered 04/10 Reviewed chart will order mso4, ativan iv prn for comfort 04/09/19 Pt seen and examined in ICU on BIPAP KATIE RN RN reports AMS; DW5 given but with no improvement to mental status Reviewed chart Vitals Vitals Vital Signs Date Time Temp Pulse Resp B/P (MAP) Pulse Ox O2 Delivery O2 Flow Rate FiO2 04/11/19 07:00 99.1 72 38 110/49 (69) 91 Room Air 99.1 04/11/19 03:00 2.0 Physical Exam Physical Exam GENERAL:pt awake, inc resp distress rr = 38 HEENT: anicteric NECK: Supple. LUNGS: bs dec at bases , HEART: S1 and S2, egular. ABDOMEN: Mildly distended, soft. Bowel sounds present. GENITOURINARY: Indwelling Acevedo in place. EXTREMITIES: No gross edema , rt foot mottling barry 2nd finger, unable to feel the dorsalis pedis Peripheral IV. SKIN: Warm to touch. No signs of rash. NEUROLOGIC: awake General: Cooperative, moderate distress, Other (Intubated) Heart: Regular rate Lungs: Other (decrease bases) Abdomen: Normal bowel sounds, Soft, No tenderness Extremities: No clubbing, No cyanosis, No edema Skin: No rashes, No significant lesion Labs LABS Laboratory Tests Test 04/10/19 16:40 04/10/19 17:00 04/10/19 17:04 04/10/19 20:38 Glucose (Fingerstick) 65 mg/dL (70-99) 65 mg/dL (70-99) 110 mg/dL (70-99) 41 mg/dL (70-99) Test 04/10/19 20:57 04/10/19 21:22 04/10/19 21:51 04/10/19 23:16 Glucose (Fingerstick) 30 mg/dL (70-99) 55 mg/dL (70-99) 111 mg/dL (70-99) 166 mg/dL (70-99) Test 04/11/19 06:25 04/11/19 07:59 White Blood Count 6.7 x10^3/uL (4.0-11.0) Red Blood Count 3.74 x10^6/uL (3.50-5.40) Hemoglobin 11.3 g/dL (12.0-15.5) Hematocrit 34.2 % (36.0-47.0) Mean Corpuscular Volume 91 fL (79-100) Mean Corpuscular Hemoglobin 30 pg (25-35) Mean Corpuscular Hemoglobin Concent 33 g/dL (31-37) Red Cell Distribution Width 14.0 % (11.5-14.5) Platelet Count 165 x10^3/uL (140-400) Neutrophils (%) (Auto) 67 % (31-73) Lymphocytes (%) (Auto) 25 % (24-48) Monocytes (%) (Auto) 7 % (0-9) Eosinophils (%) (Auto) 1 % (0-3) Basophils (%) (Auto) 0 % (0-3) Neutrophils # (Auto) 4.5 x10^3/uL (1.8-7.7) Lymphocytes # (Auto) 1.6 x10^3/uL (1.0-4.8) Monocytes # (Auto) 0.5 x10^3/uL (0.0-1.1) Eosinophils # (Auto) 0.0 x10^3/uL (0.0-0.7) Basophils # (Auto) 0.0 x10^3/uL (0.0-0.2) Sodium Level 144 mmol/L (136-145) Potassium Level 3.1 mmol/L (3.5-5.1) Chloride Level 105 mmol/L (98-107) Carbon Dioxide Level 37 mmol/L (21-32) Anion Gap 2 (6-14) Blood Urea Nitrogen 13 mg/dL (7-20) Creatinine 0.6 mg/dL (0.6-1.0) Estimated GFR (Cockcroft-Gault) 117.6 Glucose Level 99 mg/dL (70-99) Calcium Level 8.4 mg/dL (8.5-10.1) Glucose (Fingerstick) 99 mg/dL (70-99) Assessment and Plan Assessmemt and Plan Problems Medical Problems: (1) Acute bronchitis Status: Acute (2) COPD exacerbation Status: Acute (3) Diabetes mellitus Status: Chronic (4) HTN (hypertension) Status: Chronic (5) Hypercapnic respiratory failure Status: Acute (6) Respiratory failure Status: Acute (7) UTI (urinary tract infection) Status: Acute Comment Review of Relevant I have reviewed the following items melody (where applicable) has been applied. Labs Laboratory Tests Test 04/09/19 11:40 04/09/19 11:43 04/09/19 11:44 04/09/19 17:43 O2 Saturation 98 % (92-99) Arterial Blood pH 7.33 (7.35-7.45) Arterial Blood pCO2 at Patient Temp 59 mmHg (35-46) Arterial Blood pO2 at Patient Temp 117 mmHg (65-108) Arterial Blood HCO3 30 mmol/L (21-28) Arterial Blood Base Excess 3 mmol/L (-3-3) FiO2 45 Glucose (Fingerstick) 256 mg/dL (70-99) 256 mg/dL (70-99) 65 mg/dL (70-99) Test 04/09/19 18:48 04/09/19 19:10 04/09/19 22:10 04/09/19 22:45 Glucose (Fingerstick) 56 mg/dL (70-99) 46 mg/dL (70-99) Glucose Level 183 mg/dL (70-99) 114 mg/dL (70-99) Test 04/10/19 04:30 04/10/19 09:45 04/10/19 16:40 04/10/19 17:00 Sodium Level 147 mmol/L (136-145) Potassium Level 3.1 mmol/L (3.5-5.1) Chloride Level 107 mmol/L (98-107) Carbon Dioxide Level 35 mmol/L (21-32) Anion Gap 5 (6-14) Blood Urea Nitrogen 10 mg/dL (7-20) Creatinine 0.5 mg/dL (0.6-1.0) Estimated GFR (Cockcroft-Gault) 145.1 Glucose Level 115 mg/dL (70-99) Calcium Level 8.6 mg/dL (8.5-10.1) Magnesium Level 1.9 mg/dL (1.8-2.4) White Blood Count 9.5 x10^3/uL (4.0-11.0) Red Blood Count 4.33 x10^6/uL (3.50-5.40) Hemoglobin 13.1 g/dL (12.0-15.5) Hematocrit 40.0 % (36.0-47.0) Mean Corpuscular Volume 92 fL (79-100) Mean Corpuscular Hemoglobin 30 pg (25-35) Mean Corpuscular Hemoglobin Concent 33 g/dL (31-37) Red Cell Distribution Width 14.4 % (11.5-14.5) Platelet Count 123 x10^3/uL (140-400) Neutrophils (%) (Auto) 85 % (31-73) Lymphocytes (%) (Auto) 10 % (24-48) Monocytes (%) (Auto) 5 % (0-9) Eosinophils (%) (Auto) 0 % (0-3) Basophils (%) (Auto) 0 % (0-3) Neutrophils # (Auto) 8.1 x10^3/uL (1.8-7.7) Lymphocytes # (Auto) 0.9 x10^3/uL (1.0-4.8) Monocytes # (Auto) 0.5 x10^3/uL (0.0-1.1) Eosinophils # (Auto) 0.0 x10^3/uL (0.0-0.7) Basophils # (Auto) 0.0 x10^3/uL (0.0-0.2) Glucose (Fingerstick) 65 mg/dL (70-99) 65 mg/dL (70-99) Test 04/10/19 17:04 04/10/19 20:38 04/10/19 20:57 04/10/19 21:22 Glucose (Fingerstick) 110 mg/dL (70-99) 41 mg/dL (70-99) 30 mg/dL (70-99) 55 mg/dL (70-99) Test 04/10/19 21:51 04/10/19 23:16 04/11/19 06:25 04/11/19 07:59 Glucose (Fingerstick) 111 mg/dL (70-99) 166 mg/dL (70-99) 99 mg/dL (70-99) White Blood Count 6.7 x10^3/uL (4.0-11.0) Red Blood Count 3.74 x10^6/uL (3.50-5.40) Hemoglobin 11.3 g/dL (12.0-15.5) Hematocrit 34.2 % (36.0-47.0) Mean Corpuscular Volume 91 fL (79-100) Mean Corpuscular Hemoglobin 30 pg (25-35) Mean Corpuscular Hemoglobin Concent 33 g/dL (31-37) Red Cell Distribution Width 14.0 % (11.5-14.5) Platelet Count 165 x10^3/uL (140-400) Neutrophils (%) (Auto) 67 % (31-73) Lymphocytes (%) (Auto) 25 % (24-48) Monocytes (%) (Auto) 7 % (0-9) Eosinophils (%) (Auto) 1 % (0-3) Basophils (%) (Auto) 0 % (0-3) Neutrophils # (Auto) 4.5 x10^3/uL (1.8-7.7) Lymphocytes # (Auto) 1.6 x10^3/uL (1.0-4.8) Monocytes # (Auto) 0.5 x10^3/uL (0.0-1.1) Eosinophils # (Auto) 0.0 x10^3/uL (0.0-0.7) Basophils # (Auto) 0.0 x10^3/uL (0.0-0.2) Sodium Level 144 mmol/L (136-145) Potassium Level 3.1 mmol/L (3.5-5.1) Chloride Level 105 mmol/L (98-107) Carbon Dioxide Level 37 mmol/L (21-32) Anion Gap 2 (6-14) Blood Urea Nitrogen 13 mg/dL (7-20) Creatinine 0.6 mg/dL (0.6-1.0) Estimated GFR (Cockcroft-Gault) 117.6 Glucose Level 99 mg/dL (70-99) Calcium Level 8.4 mg/dL (8.5-10.1) Laboratory Tests Test 04/10/19 16:40 04/10/19 17:00 04/10/19 17:04 04/10/19 20:38 Glucose (Fingerstick) 65 mg/dL (70-99) 65 mg/dL (70-99) 110 mg/dL (70-99) 41 mg/dL (70-99) Test 04/10/19 20:57 04/10/19 21:22 04/10/19 21:51 04/10/19 23:16 Glucose (Fingerstick) 30 mg/dL (70-99) 55 mg/dL (70-99) 111 mg/dL (70-99) 166 mg/dL (70-99) Test 04/11/19 06:25 04/11/19 07:59 White Blood Count 6.7 x10^3/uL (4.0-11.0) Red Blood Count 3.74 x10^6/uL (3.50-5.40) Hemoglobin 11.3 g/dL (12.0-15.5) Hematocrit 34.2 % (36.0-47.0) Mean Corpuscular Volume 91 fL (79-100) Mean Corpuscular Hemoglobin 30 pg (25-35) Mean Corpuscular Hemoglobin Concent 33 g/dL (31-37) Red Cell Distribution Width 14.0 % (11.5-14.5) Platelet Count 165 x10^3/uL (140-400) Neutrophils (%) (Auto) 67 % (31-73) Lymphocytes (%) (Auto) 25 % (24-48) Monocytes (%) (Auto) 7 % (0-9) Eosinophils (%) (Auto) 1 % (0-3) Basophils (%) (Auto) 0 % (0-3) Neutrophils # (Auto) 4.5 x10^3/uL (1.8-7.7) Lymphocytes # (Auto) 1.6 x10^3/uL (1.0-4.8) Monocytes # (Auto) 0.5 x10^3/uL (0.0-1.1) Eosinophils # (Auto) 0.0 x10^3/uL (0.0-0.7) Basophils # (Auto) 0.0 x10^3/uL (0.0-0.2) Sodium Level 144 mmol/L (136-145) Potassium Level 3.1 mmol/L (3.5-5.1) Chloride Level 105 mmol/L (98-107) Carbon Dioxide Level 37 mmol/L (21-32) Anion Gap 2 (6-14) Blood Urea Nitrogen 13 mg/dL (7-20) Creatinine 0.6 mg/dL (0.6-1.0) Estimated GFR (Cockcroft-Gault) 117.6 Glucose Level 99 mg/dL (70-99) Calcium Level 8.4 mg/dL (8.5-10.1) Glucose (Fingerstick) 99 mg/dL (70-99) Microbiology 04/06/19 Blood Culture - Preliminary, Resulted NO GROWTH AFTER 4 DAYS 04/06/19 Urine Culture - Final, Complete 04/06/19 Urine Culture Result 1 (JAYLA) - Final, Complete 04/06/19 Antimicrobic Susceptibility - Final, Complete Medications Current Medications Sodium Chloride 1,000 ml @ 1,000 mls/hr 1X ONCE IV Last administered on 04/06/19at 08:28; Start 04/06/19 at 08:15; Stop 04/06/19 at 09:14; Status DC Piperacillin Sod/ Tazobactam Sod 3.375 gm/Sodium Chloride 50 ml @ 100 mls/hr 1X ONCE IV Last administered on 04/06/19at 08:28; Start 04/06/19 at 08:15; Stop 04/06/19 at 08:44; Status DC Acetaminophen (Tylenol Supp) 650 mg 1X ONCE [place] Last administered on 04/06/19at 08:31; Start 04/06/19 at 08:30; Stop 04/06/19 at 08:31; Status DC Propofol (Diprivan) 200 mg 1X ONCE IV ; Start 04/06/19 at 10:00; Stop 04/06/19 at 10:04; Status DC Etomidate (Amidate) 20 mg 1X ONCE IV ; Start 04/06/19 at 10:00; Stop 04/06/19 at 10:04; Status DC Succinylcholine Chloride (Anectine) 100 mg 1X ONCE IV ; Start 04/06/19 at 10:00; Stop 04/06/19 at 10:04; Status DC Ondansetron HCl (Zofran) 4 mg PRN Q8HRS PRN IV NAUSEA/VOMITING; Start 04/06/19 at 10:15; Stop 04/07/19 at 10:14; Status DC Sodium Chloride 1,000 ml @ 75 mls/hr [id number] IV Last administered on 04/06/19at 11:01; Start 04/06/19 at 10:14; Stop 04/06/19 at 18:06; Status DC Propofol 100 ml @ 1.239 mls/ hr CONT PRN IV SEE PROTOCOL Last administered on 04/08/19at 06:45; Start 04/06/19 at 10:15; Stop 04/08/19 at 21:23; Status DC Chlorhexidine Gluconate (Peridex) 15 ml BID MM Last administered on 04/08/19at 10:10; Start 04/06/19 at 21:00; Stop 04/08/19 at 21:23; Status DC Piperacillin Sod/ Tazobactam Sod 3.375 gm/Sodium Chloride 50 ml @ 100 mls/hr Q6HRS IV Last administered on 04/11/19at 05:46; Start 04/06/19 at 13:00 Enoxaparin Sodium (Lovenox 40mg Syringe) 40 mg HS SQ Last administered on 04/08/19at 21:20; Start 04/06/19 at 21:00; Stop 04/09/19 at 09:23; Status DC Vancomycin HCl (Vanco Per Pharmacy) 1 each PRN DAILY PRN MC SEE COMMENTS Last administered on 04/07/19at 10:59; Start 04/06/19 at 17:45; Stop 04/08/19 at 08:12; Status DC Sodium Chloride 1,000 ml @ 1,500 mls/hr Q40M IV Last administered on 04/06/19at 18:36; Start 04/06/19 at 17:43; Stop 04/06/19 at 18:42; Status DC Sodium Chloride 500 ml @ 1,000 mls/hr PRN Q30MIN PRN IV SEE COMMENTS; Start 04/06/19 at 17:45 Norepinephrine Bitartrate 250 ml @ 0 mls/hr CONT PRN IV SEE I/O RECORD; Start 04/06/19 at 17:45 Dobutamine HCl/ Dextrose 250 ml @ 0 mls/hr CONT PRN IV SEE I/O RECORD; Start 04/06/19 at 17:45 Vancomycin HCl 1 gm/Sodium Chloride 250 ml @ 250 mls/hr 1X ONCE IV Last administered on 04/06/19at 19:51; Start 04/06/19 at 18:00; Stop 04/06/19 at 18:59; Status DC Ondansetron HCl (Zofran) 4 mg PRN Q6HRS PRN IV NAUSEA/VOMITING; Start 04/06/19 at 17:45 Famotidine (Pepcid Vial) 20 mg HS IVP Last administered on 04/10/19at 22:42; Start 04/06/19 at 21:00 Info ([facility] Electrolyte Protocol) 1 ea DAILY MC Last administered on 04/08/19at 11:05; Start 04/07/19 at 09:00 Enoxaparin Sodium (Lovenox 40mg Syringe) 40 mg Q24H SQ ; Start 04/06/19 at 18:00; Status Cancel Sodium Chloride (Normal Saline Flush) 3 ml QSHIFT PRN IV AFTER MEDS AND BLOOD DRAWS; Start 04/06/19 at 17:45 Sodium Chloride 1,000 ml @ 100 mls/hr Q10H IV Last administered on 04/11/19at 05:46; Start 04/06/19 at 17:45 Vancomycin HCl 500 mg/Sodium Chloride 100 ml @ 100 mls/hr Q24H IV Last administered on 04/07/19at 22:43; Start 04/07/19 at 20:00; Stop 04/08/19 at 08:09; Status DC Vancomycin HCl (Vancomycin Trough Level) 1 each 1X ONCE MC ; Start 04/08/19 at 19:30; Stop 04/08/19 at 08:12; Status DC Sodium Phosphate 0.32 mmol/Dextrose 250.1067 ml @ 62.5 mls/hr 1X ONCE IV ; Start 04/06/19 at 21:45; Stop 04/06/19 at 21:31; Status DC Sodium Phosphate 13 mmol/Dextrose 254.3333 ml @ 63.557 m... 1X ONCE IV Last administered on 04/06/19at 22:14; Start 04/06/19 at 21:45; Stop 04/07/19 at 01:45; Status DC Atropine Sulfate (ATROPINE 1mg SYRINGE) 1 mg STK-MED ONCE .ROUTE ; Start 04/07/19 at 00:56; Stop 04/07/19 at 00:56; Status DC Methylprednisolone Sodium Succinate (SOLU-Medrol 40MG VIAL) 40 mg Q8HRS IV Last administered on 04/10/19at 06:03; Start 04/07/19 at 06:30; Stop 04/10/19 at 10:58; Status DC Dexmedetomidine HCl 400 mcg/ Sodium Chloride 100 ml @ 2.05 mls/hr CONT PRN IV anxiety with weaning. Last administered on 04/07/19at 08:22; Start 04/07/19 at 08:00 Potassium Chloride/Water 100 ml @ 100 mls/hr Q1H IV Last administered on 04/08/19at 00:12; Start 04/07/19 at 08:15; Stop 04/07/19 at 20:14; Status DC Linezolid/Dextrose 300 ml @ 300 mls/hr Q12HR IV Last administered on 04/08/19at 21:20; Start 04/08/19 at 09:00; Stop 04/09/19 at 07:29; Status DC Magnesium Sulfate 100 ml @ 50 mls/hr PRN DAILY PRN IV SEE COMMENTS; Start 04/08/19 at 09:00; Stop 04/08/19 at 10:13; Status DC Magnesium Sulfate 100 ml @ 50 mls/hr DAILY IV Last administered on 04/08/19at 11:01; Start 04/08/19 at 10:30; Stop 04/10/19 at 10:59; Status DC Sodium Bicarbonate (Sodium Bicarb Adult 8.4% Syr) 50 meq 1X ONCE IV Last administered on 04/08/19at 11:02; Start 04/08/19 at 11:00; Stop 04/08/19 at 11:01; Status DC Aspirin (Ecotrin) 81 mg DAILYWBKFT PO ; Start 04/08/19 at 12:00 Magnesium Sulfate/ Dextrose 100 ml @ 100 mls/hr 1X ONCE IV ; Start 04/08/19 at 12:30; Stop 04/08/19 at 13:29; Status UNV Dextrose (Dextrose 50%-Water Syringe) 25 gm STK-MED ONCE IV ; Start 04/09/19 at 08:45; Stop 04/09/19 at 08:45; Status DC Dextrose (Dextrose 50%-Water Syringe) 12.5 gm PRN Q15MIN PRN IV SEE COMMENTS Last administered on 04/10/19at 21:33; Start 04/09/19 at 09:00 Enoxaparin Sodium (Lovenox 30mg Syringe) 30 mg QHS SQ Last administered on 04/10/19at 22:42; Start 04/09/19 at 21:00 Furosemide (Lasix) 20 mg 1X ONCE IVP Last administered on 04/09/19at 10:42; Start 04/09/19 at 11:00; Stop 04/09/19 at 11:01; Status DC Albumin Human 250 ml @ 62.5 mls/hr 1X ONCE IV Last administered on 04/09/19at 14:47; Start 04/09/19 at 14:30; Stop 04/09/19 at 18:29; Status DC Potassium Chloride/Water 100 ml @ 100 mls/hr Q1H IV Last administered on 04/10/19at 16:13; Start 04/10/19 at 11:00; Stop 04/10/19 at 14:59; Status DC Methylprednisolone Sodium Succinate (SOLU-Medrol 40MG VIAL) 40 mg DAILY IV Last administered on 04/11/19at 08:23; Start 04/11/19 at 09:00 Active Scripts Active Loperamide (Loperamide Hcl) 2 Mg Tablet 2 Mg PO PRN Q4-6HRS PRN 30 Days Prednisone 20 Mg Tablet 1 Tab PO DAILY Humalog (Insulin Lispro) 100 Unit/1 Ml Insuln.pen 0 Units SQ TIDWMEALS 30 Days BG 151-200 - 2u 201-250 - 3u 251-300 - 4u 301-350 - 5u >350 call Culturelle (Lactobacillus Rhamnosus Gg) 1 Each Cap.sprink 1 Cap PO BID 7 Days Famotidine 20 Mg Tablet 20 Mg PO DAILY 30 Days Acetaminophen Supp (Acetaminophen) 650 Mg Supp.rect 650 Mg [place] PRN Q4HRS PRN 30 Days Duoneb 0.5-3(2.5) Mg/3 Ml (Albuterol/Ipratropium) 3 Ml Ampul.neb 3 Ml NEB RTQID 30 Days Amox Tr-K Clv 875-125 Mg Tab (Amoxicillin/Potassium Clav) 1 Each Tablet 1 Tab PO BID 2 Days Reported Famotidine 10 Mg Tablet 1 Mg PO HS Loperamide (Loperamide Hcl) 2 Mg Tablet 2 Mg PO PRN Q4HRS Flonase Allergy Relief (Fluticasone Propionate) 9.9 Ml [place].susp 2 Sprays NS DAILY Midodrine Hcl 10 Mg Tablet 10 Mg PO TID Vitals/I & O Vital Sign - Last 24 Hours 04/10/19 04/10/19 04/10/19 04/10/19 11:00 12:00 12:00 13:00 Temp 98.8 98.8 Pulse 80 78 77 Resp 27 25 30 B/P (MAP) 151/75 (100) 123/54 (77) 115/58 (77) Pulse Ox 100 100 100 O2 Delivery Nasal Cannula Nasal Cannula Nasal Cannula Nasal Cannula O2 Flow Rate 2.0 2.0 2.0 2.0 04/10/19 04/10/19 04/10/19 04/10/19 14:00 15:29 19:00 20:20 Temp 99.0 99.2 99.0 99.2 Pulse 83 76 63 Resp 25 36 20 B/P (MAP) 140/69 (92) 171/75 (107) 117/59 (78) Pulse Ox 100 100 91 O2 Delivery Nasal Cannula Room Air Nasal Cannula Nasal Cannula O2 Flow Rate 2.0 2.0 2.0 04/10/19 04/11/19 04/11/19 23:00 03:00 07:00 Temp 99.0 98.1 99.1 99.0 98.1 99.1 Pulse 75 72 72 Resp 31 35 38 B/P (MAP) 115/51 (72) 99/52 (68) 110/49 (69) Pulse Ox 91 100 91 O2 Delivery Nasal Cannula Nasal Cannula Room Air O2 Flow Rate 2.0 2.0 Intake and Output 04/10/19 04/10/19 04/11/19 14:59 22:59 06:59 Intake Total 20 ml 1577 ml Output Total 1241 ml 1100 ml 500 ml Balance -1241 ml -1080 ml 1077 ml Nutrition Consultation Dietary Evaluation: Recommendations by RD: Increase Calorie Intake Comments: REC initiation of TF if able per following: Glucerna 1.2@goal rate 45 ml/hr w/100 ml water flushes q4 hrs or flushes per MD. Note pt is allergic to milk-containing products; tube feeding contains milk ingredients but is suitable for pts w/lactose intolerance, attempting to obtain details regarding food allergies from pt's family prior to starting TFs REC Gaurav BID via dobhoff, mix each packet w/4 oz water to dissolve, flush tube w/30 ml before and after packet for wound healing REC MVI via dobhoff if able for wound healing REC PPN for non-oral nutrition if tube feeding formula not appropriate Expected Outcomes/Goals: Initiation of nutrition within 24 hrs - not met, goal ongoing Interpretation of weight loss: >10% in 6 months Malnutrition Findings: Weight Status: Underweight TORSTEN MILLER MD Apr 11, 2019 10:43
[2019-04-11] MEDS ORDERED: ATROPINE 1% OPHTH SOLUTION 5ML BOTTLE. SL PRN (10:45)
[2019-04-11 11:00] VITALS: BP 131/63
[2019-04-11] MEDS: MORPHINE SULFATE 2 MG/ML VIAL. IV PRN ×3 (11:10→20:55)
--- NOTE | 2019-04-11 11:12 | PDOC2 ---
PALLIATIVE CARE Palliative Care Note Palliative Care Patient in respiratory distress; RR 36, shallow/grunting, increased secretions. Met with daughter, Joanne. She wants to follow her mother's wishes and focus on her comfort. Spoke with Dr. Bar. Orders received by Odalys ALTMAN Code Status; DNR/DNI. Will focus on comfort and continue to evaluate. 1445 Patient more comfortable. No family here. Roxanol given. Scopolamine patch. RR 30. Spoke with Joanne. Discussed option of returning to [facility] with Hospice if patient stable in am. No hospice agency selected. She is in agreement with this plan. COSME MENDOZA Apr 11, 2019 11:12
--- NOTE | 2019-04-11 11:54 | PDOC ---
PULMONARY PROGRESS NOTES Subjective intermittent episodes of soa Vitals Vital Signs Date Time Temp Pulse Resp B/P (MAP) Pulse Ox O2 Delivery O2 Flow Rate FiO2 04/11/19 11:10 Nasal Cannula 2.0 04/11/19 07:00 99.1 72 38 110/49 (69) 91 99.1 General: Alert, No acute distress, Lethargic Lungs: Other (decrease bases) Cardiovascular: S1 Abdomen: Soft Neuro Exam: Alert Extremities: No Edema Skin: Warm Labs Laboratory Tests Test 04/09/19 17:43 04/09/19 18:48 04/09/19 19:10 04/09/19 22:10 Glucose (Fingerstick) 65 mg/dL (70-99) 56 mg/dL (70-99) 46 mg/dL (70-99) Glucose Level 183 mg/dL (70-99) Test 04/09/19 22:45 04/10/19 04:30 04/10/19 09:45 04/10/19 16:40 Glucose Level 114 mg/dL (70-99) 115 mg/dL (70-99) Sodium Level 147 mmol/L (136-145) Potassium Level 3.1 mmol/L (3.5-5.1) Chloride Level 107 mmol/L (98-107) Carbon Dioxide Level 35 mmol/L (21-32) Anion Gap 5 (6-14) Blood Urea Nitrogen 10 mg/dL (7-20) Creatinine 0.5 mg/dL (0.6-1.0) Estimated GFR (Cockcroft-Gault) 145.1 Calcium Level 8.6 mg/dL (8.5-10.1) Magnesium Level 1.9 mg/dL (1.8-2.4) White Blood Count 9.5 x10^3/uL (4.0-11.0) Red Blood Count 4.33 x10^6/uL (3.50-5.40) Hemoglobin 13.1 g/dL (12.0-15.5) Hematocrit 40.0 % (36.0-47.0) Mean Corpuscular Volume 92 fL (79-100) Mean Corpuscular Hemoglobin 30 pg (25-35) Mean Corpuscular Hemoglobin Concent 33 g/dL (31-37) Red Cell Distribution Width 14.4 % (11.5-14.5) Platelet Count 123 x10^3/uL (140-400) Neutrophils (%) (Auto) 85 % (31-73) Lymphocytes (%) (Auto) 10 % (24-48) Monocytes (%) (Auto) 5 % (0-9) Eosinophils (%) (Auto) 0 % (0-3) Basophils (%) (Auto) 0 % (0-3) Neutrophils # (Auto) 8.1 x10^3/uL (1.8-7.7) Lymphocytes # (Auto) 0.9 x10^3/uL (1.0-4.8) Monocytes # (Auto) 0.5 x10^3/uL (0.0-1.1) Eosinophils # (Auto) 0.0 x10^3/uL (0.0-0.7) Basophils # (Auto) 0.0 x10^3/uL (0.0-0.2) Glucose (Fingerstick) 65 mg/dL (70-99) Test 04/10/19 17:00 04/10/19 17:04 04/10/19 20:38 04/10/19 20:57 Glucose (Fingerstick) 65 mg/dL (70-99) 110 mg/dL (70-99) 41 mg/dL (70-99) 30 mg/dL (70-99) Test 04/10/19 21:22 04/10/19 21:51 04/10/19 23:16 04/11/19 06:25 Glucose (Fingerstick) 55 mg/dL (70-99) 111 mg/dL (70-99) 166 mg/dL (70-99) White Blood Count 6.7 x10^3/uL (4.0-11.0) Red Blood Count 3.74 x10^6/uL (3.50-5.40) Hemoglobin 11.3 g/dL (12.0-15.5) Hematocrit 34.2 % (36.0-47.0) Mean Corpuscular Volume 91 fL (79-100) Mean Corpuscular Hemoglobin 30 pg (25-35) Mean Corpuscular Hemoglobin Concent 33 g/dL (31-37) Red Cell Distribution Width 14.0 % (11.5-14.5) Platelet Count 165 x10^3/uL (140-400) Neutrophils (%) (Auto) 67 % (31-73) Lymphocytes (%) (Auto) 25 % (24-48) Monocytes (%) (Auto) 7 % (0-9) Eosinophils (%) (Auto) 1 % (0-3) Basophils (%) (Auto) 0 % (0-3) Neutrophils # (Auto) 4.5 x10^3/uL (1.8-7.7) Lymphocytes # (Auto) 1.6 x10^3/uL (1.0-4.8) Monocytes # (Auto) 0.5 x10^3/uL (0.0-1.1) Eosinophils # (Auto) 0.0 x10^3/uL (0.0-0.7) Basophils # (Auto) 0.0 x10^3/uL (0.0-0.2) Sodium Level 144 mmol/L (136-145) Potassium Level 3.1 mmol/L (3.5-5.1) Chloride Level 105 mmol/L (98-107) Carbon Dioxide Level 37 mmol/L (21-32) Anion Gap 2 (6-14) Blood Urea Nitrogen 13 mg/dL (7-20) Creatinine 0.6 mg/dL (0.6-1.0) Estimated GFR (Cockcroft-Gault) 117.6 Glucose Level 99 mg/dL (70-99) Calcium Level 8.4 mg/dL (8.5-10.1) Test 04/11/19 07:59 04/11/19 11:37 Glucose (Fingerstick) 99 mg/dL (70-99) 117 mg/dL (70-99) Laboratory Tests Test 04/10/19 16:40 04/10/19 17:00 04/10/19 17:04 04/10/19 20:38 Glucose (Fingerstick) 65 mg/dL (70-99) 65 mg/dL (70-99) 110 mg/dL (70-99) 41 mg/dL (70-99) Test 04/10/19 20:57 04/10/19 21:22 04/10/19 21:51 04/10/19 23:16 Glucose (Fingerstick) 30 mg/dL (70-99) 55 mg/dL (70-99) 111 mg/dL (70-99) 166 mg/dL (70-99) Test 04/11/19 06:25 04/11/19 07:59 04/11/19 11:37 White Blood Count 6.7 x10^3/uL (4.0-11.0) Red Blood Count 3.74 x10^6/uL (3.50-5.40) Hemoglobin 11.3 g/dL (12.0-15.5) Hematocrit 34.2 % (36.0-47.0) Mean Corpuscular Volume 91 fL (79-100) Mean Corpuscular Hemoglobin 30 pg (25-35) Mean Corpuscular Hemoglobin Concent 33 g/dL (31-37) Red Cell Distribution Width 14.0 % (11.5-14.5) Platelet Count 165 x10^3/uL (140-400) Neutrophils (%) (Auto) 67 % (31-73) Lymphocytes (%) (Auto) 25 % (24-48) Monocytes (%) (Auto) 7 % (0-9) Eosinophils (%) (Auto) 1 % (0-3) Basophils (%) (Auto) 0 % (0-3) Neutrophils # (Auto) 4.5 x10^3/uL (1.8-7.7) Lymphocytes # (Auto) 1.6 x10^3/uL (1.0-4.8) Monocytes # (Auto) 0.5 x10^3/uL (0.0-1.1) Eosinophils # (Auto) 0.0 x10^3/uL (0.0-0.7) Basophils # (Auto) 0.0 x10^3/uL (0.0-0.2) Sodium Level 144 mmol/L (136-145) Potassium Level 3.1 mmol/L (3.5-5.1) Chloride Level 105 mmol/L (98-107) Carbon Dioxide Level 37 mmol/L (21-32) Anion Gap 2 (6-14) Blood Urea Nitrogen 13 mg/dL (7-20) Creatinine 0.6 mg/dL (0.6-1.0) Estimated GFR (Cockcroft-Gault) 117.6 Glucose Level 99 mg/dL (70-99) Calcium Level 8.4 mg/dL (8.5-10.1) Glucose (Fingerstick) 99 mg/dL (70-99) 117 mg/dL (70-99) Medications Active Scripts Medications Dose Route/Sig Max Daily Dose Days Date Category Dose Instructions Famotidine 10 Mg Tablet 1 Mg PO HS 04/06/19 Reported Loperamide (Loperamide Hcl) 2 Mg Tablet 2 Mg PO PRN Q4HRS 04/06/19 Reported Flonase Allergy Relief (Fluticasone Propionate) 9.9 Ml [place].susp 2 Sprays NS DAILY 04/06/19 Reported Midodrine Hcl 10 Mg Tablet 10 Mg PO TID 04/06/19 Reported Loperamide (Loperamide Hcl) 2 Mg Tablet 2 Mg PO PRN Q4-6HRS PRN 30 11/14/18 Rx Prednisone 20 Mg Tablet 1 Tab PO DAILY 11/14/18 Rx Humalog (Insulin Lispro) 100 Unit/1 Ml Insuln.pen 0 Units SQ TIDWMEALS 30 11/14/18 Rx BG 151-200 - 2u 201-250 - 3u 251-300 - 4u 301-350 - 5u >350 call Cultureivana (Lactobacillus Rhamnosus Gg) 1 Each Cap.sprink 1 Cap PO BID 7 11/14/18 Rx Famotidine 20 Mg Tablet 20 Mg PO DAILY 30 11/14/18 Rx Acetaminophen Supp (Acetaminophen) 650 Mg Supp.rect 650 Mg CA PRN Q4HRS PRN 30 11/14/18 Rx Duoneb 0.5-3(2.5) Mg/3 Ml (Albuterol/Ipratropium) 3 Ml Ampul.neb 3 Ml NEB RTQID 30 11/14/18 Rx Amox Tr-K Clv 875-125 Mg Tab (Amoxicillin/Potassium Clav) 1 Each Tablet 1 Tab PO BID 2 11/14/18 Rx Comments cxr 04/08 chf Impression . 1. Cvigr-kz-zkrwkus hypoxemic respiratory failure secondary to acute exacerbation of chronic obstructive pulmonary disease, acute bronchitis/ extubated 04/08. BECAME LETHARGIC/ HYPOGLYCEMIC 04/09. RESP ACIDOSIS/ MUCH IMPROVED WITH BIPAP 2. Acute exacerbation of chronic obstructive pulmonary disease.IMPROVED 3. Acute bronchitis. 4. Diabetes mellitus. 5. Hypertension. 6. Questionable sepsis. 7. Hypoglycemic encephalopathy, IMPROVED 8. Acute on chronic hypercapnic RF 9. Abnormal cxr small effusion Plan . 1. Nasal canula 2. Monitor BS closely 3. Solu-Medrol with taper 4. Lovenox for DVT prophylaxis. 5. Pepcid for stress ulcer prophylaxis. 6. Continue antibiotic. 7. Follow up cultures. 8. off lasix 9. The findings and recommendations were discussed with RN/ daughter DNR/ Comfort care will sign off SANTOS DORSEY MD Apr 11, 2019 11:54
[2019-04-11] MEDS ORDERED: SCOPOLAMINE 1.5MG PATCH. TD SCH (12:00)
[2019-04-11 15:00] VITALS: BP 133/66
--- NOTE | 2019-04-11 15:42 | NUR ---
Dobhoff removed since tube feeding stopped. Will continue to monitor.
--- NOTE | 2019-04-11 16:11 | NUR ---
Patient refusing all oral care at this time.
[2019-04-11 19:00] VITALS: BP 126/79
--- NOTE | 2019-04-11 23:35 | NUR ---
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
== END 2019-04-11 23:30 | disposition expired | DRG 871 ==
LOC: ER 07:57 → 1 WEST ICU 10:09 → 5 SOUTH 04-10 14:51
PROVIDERS: ADMIT Family Medicine; ATTEND Family Medicine
PROC: 5A1945Z Respiratory Ventilation, 24-96 Consecutive Hours (ICD-10-PCS; principal; 2019-04-06)
PROC: 0BH17EZ Insertion of Endotracheal Airway into Trachea, Via Natural or Artificial Opening (ICD-10-PCS; 2019-04-06)
PROC: 5A09357 Assistance with Respiratory Ventilation, Less than 24 Consecutive Hours, Continuous Positive Airway Pressure (ICD-10-PCS; 2019-04-09)
PROC: 5A09357 Assistance with Respiratory Ventilation, Less than 24 Consecutive Hours, Continuous Positive Airway Pressure (ICD-10-PCS; 2019-04-10)
DX: A41.9 Sepsis, unspecified organism (principal); J96.21 Acute and chronic respiratory failure with hypoxia; G93.41 Metabolic encephalopathy; J96.22 Acute and chronic respiratory failure with hypercapnia; E46 Unspecified protein-calorie malnutrition; J44.0 Chronic obstructive pulmonary disease with (acute) lower respiratory infection; J44.1 Chronic obstructive pulmonary disease with (acute) exacerbation; N39.0 Urinary tract infection, site not specified; Z68.1 Body mass index [BMI] 19.9 or less, adult; E11.649 Type 2 diabetes mellitus with hypoglycemia without coma; E83.42 Hypomagnesemia; E87.6 Hypokalemia; I11.0 Hypertensive heart disease with heart failure; I50.9 Heart failure, unspecified; J20.9 Acute bronchitis, unspecified; I95.9 Hypotension, unspecified; B96.20 Unspecified Escherichia coli [E. coli] as the cause of diseases classified elsewhere; E11.51 Type 2 diabetes mellitus with diabetic peripheral angiopathy without gangrene; Z51.5 Encounter for palliative care; Z66 Do not resuscitate; Z82.5 Family history of asthma and other chronic lower respiratory diseases; Z98.51 Tubal ligation status; Z91.011 Allergy to milk products
CPT/HCPCS: 36415; 36600; 70450; 71045; 72020; 74018; 80048; 80053; 80061; 81001; 82805; 82947; 82962; 83605; 83690; 83735; 83880; 84100; 84145; 84443; 84484; 85007; 85025; 85379; 85384; 85610; 85730; 87040; 87086; 87186; 87493; 93005; 93923; 94003; 94640; 94660; 94760; 96365; J1650; J1940; J2020; J2270; J2543; J2704; J2920; J3370; J3475; J3480; J3490; J7030; J7042; J7050; P9041; 92610; 99285-25; G0378